=== PATIENT | female | born 1930 | race African-American/Black ===

== ENCOUNTER 2016-06-28 07:47 | Inpatient (IN) | payer MEDICARE, BC ==
[~2016-06-28] VITALS: Ht 165.1 cm; Wt 56.7 kg
[2016-06-28] VITALS (9 sets, daily range): BP systolic 133–169; BP diastolic 50–92
[~2016-06-28 07:47] MED LIST: ACETAMINOPHEN-1 EAC1 ORAL; ACETAMINOPHEN120 MG PO; ALBUTEROL SULF8.5 GM INH; ASPIR 8181 MG ORAL; CAPOTEN PO; CARDIZEM CD180 MG PO; CARDIZEM120 MG PO; CARDIZEM30 MG PO; CARDIZEM90 MG ORAL; CATAPRES0.1 MG ORAL; CIPROFLOXACIN500 M2 ORAL; CLONIDINE 0.2M0.2 MG PO; DIGOXIN0.25 MG/5 GT; DIGOXIN125 MCG ORAL; DIGOXIN250 MCG ORAL; DILTIAZEM ER300 MG ORAL; DIOVAN160 MG PO; FERROUS SULFAT325 MG ORAL; HYDROCHLOROTHIA25 MG ORAL; LIPITOR80 MG ORAL; METOPROLOL SUCC50 MG ORAL; METOPROLOL TAR100 MG PO; MONTELUKAST SOD10 MG ORAL; MORPHINE 22 MG/1 ML IV; NAPROXEN500 M2 ORAL; NEXIUM40 MG ORAL; NITROGLYCERIN0.4 MG SL; NORCO 5-325 TA1 EACH ORAL; NORVASC5 MG ORAL; PANTOPRAZOLE SO40 MG ORAL; PREDNISONE10 M2 PO; PROTONIX40 MG PO; SUCRALFATE1 GM ORAL; TRAMADOL HCL50 MG ORAL; VENTOLIN HFA18 GM INH; XARELTO10 MG ORAL; ZOFRAN4 MG/5 ML IVP
[2016-06-28] MEDS ORDERED: DuoNeb 0.5-3(2.5)mg/3ml neb ONE (07:54)
--- NOTE | 2016-06-28 07:58 | Emergency Room Report ---
History of Present Illness General Chief Complaint: Dyspnea/Respdistress Source: Patient, EMS Present Illness HPI The patient is an 86-year-old female presented after increased shortness of breath. The patient gradual onset of symptoms yesterday. Patient became severely short of breath and was brought in by paramedics. The patient stated shortness of breath was worse with supine position. She had prior history of long-standing asthma. She was given breathing treatments by paramedics with some improvement. Patient started on supplemental oxygen. The patient denied any recent fever or productive cough. Allergies: Coded Allergies: PENICILLIN G (Verified Allergy, Severe, EXTREME SWELLING OF FACE,TONGUE, HANDS,LEGS., 12/31/11) PENICILLINS (Unverified Allergy, Severe, Anaphylaxis, 05/31/12) LEÓN INHIBITORS (Verified Allergy, Unknown, Shortness of Breath, 12/31/11) Uncoded Allergies: PENECILLIN (Allergy, Unknown, 06/28/16) Patient History Past Medical History: asthma Reviewed Nursing Documentation: PMH: Agreed, PSxH: Agreed Nursing Documentation-PMH Past Medical History: No History, Except For Hx Cardiac Problems: Yes - A fib with RVR Hx Hypertension: Yes Hx Pacemaker: No Hx Asthma: Yes Hx COPD: Yes Hx Diabetes: No Hx Cancer: No Hx Gastrointestinal Problems: No Hx Dialysis: No Hx Neurological Problems: No Hx Cerebrovascular Accident: No Hx Transient Ischemic Attacks: No Hx Dementia: No Hx Alzheimer's Disease: No Hx Parkinson's Disease: No Hx Meningitis: No Hx Encephalitis: No Hx Seizures: No Hx Epilepsy: No Hx Multiple Sclerosis: No Hx Cerebral Palsy: No Hx Amyotrophic Lat Sclerosis: No Hx Gu[place] Syndrome: No Hx Paralysis: No Hx Peripheral Neuropathy: No Hx Spinal Cord Injury: No Hx Head Trauma: No Hx Traumatic Brain Injury: No Hx Memory Loss: No Hx Concentration Difficulty: No Hx Speech Problem: No Hx Tremors: No Hx Vertigo: No Hx Dizziness: No Hx Syncope: No Hx Headaches: Yes Hx Aphasia: No Hx Dysphasia: No Hx Numbness: No Hx Weakness: No Hx Fatigue: No Hx Neurologic Surgery: No Hx Brain Shunt: No Review of Systems All Other Systems: negative except mentioned in HPI Physical Exam Sp02 EP Interpretation: reviewed, normal General Appearance: normal inspection, alert, GCS 15, moderate distress Head: atraumatic Eyes: bilateral eye PERRL ENT: normal ENT inspection, hearing grossly normal, normal voice Neck: normal inspection, full range of motion, supple, no bony tend Respiratory: normal inspection, no retraction, respiratory distress, wheezing, expiration Cardiovascular #1: regular rate, rhythm, no edema Gastrointestinal: normal inspection, normal bowel sounds, non tender, soft, no guarding, no hernia Genitourinary: no CVA tenderness Musculoskeletal: normal inspection, back normal, normal range of motion, swelling - arthritic joints to hands Neurologic: normal inspection, alert, oriented x3, responsive, speech normal Psychiatric: normal inspection, judgement/insight normal, mood/affect normal Skin: normal inspection, normal color, no rash Medical Decision Making Diagnostic Impression: Primary Impression: Congestive heart failure (CHF) Additional Impression: Acute exacerbation of COPD with asthma ER Course Patient is an 86-year-old female who presented for shortness of breath.Differential included but was not limited to asthma exacerbation , anemia , pneumonia, pneumothorax, myocardial infarction, pericardial effusion, congestive heart failure, acidosis. Because of complexity of patient's case laboratory testing and imaging studies were ordered. The patient was noted to have exam consistent with asthma exacerbation. The placed on supplemental oxygen. She was given breathing treatments as well as Solu-Medrol.The patient has some improvement in her breathing.EKG interpreted by me showed normal sinus rhythm with a intermittent PVCs there were no acute ST or T wave changes . Patient was discussed with Dr. Jeronimo Rodrigues who agreed to admit the patient. Labs Test 06/28/16 07:45 White Blood Count 10.1 K/UL (4.8-10.8) Red Blood Count 3.91 M/UL (4.20-5.40) Hemoglobin 11.0 G/DL (12.0-16.0) Hematocrit 33.2 % (37.0-47.0) Mean Corpuscular Volume 85 FL (80-99) Mean Corpuscular Hemoglobin 28.1 PG (27.0-31.0) Mean Corpuscular Hemoglobin Concent 33.1 G/DL (32.0-36.0) Red Cell Distribution Width 12.9 % (11.6-14.8) Platelet Count 347 K/UL (150-450) Mean Platelet Volume 6.7 FL (6.5-10.1) Neutrophils (%) (Auto) 40.8 % (45.0-75.0) Lymphocytes (%) (Auto) 31.8 % (20.0-45.0) Monocytes (%) (Auto) 8.7 % (1.0-10.0) Eosinophils (%) (Auto) 17.2 % (0.0-3.0) Basophils (%) (Auto) 1.5 % (0.0-2.0) Sodium Level 140 mEQ/L (135-145) Potassium Level 3.5 mEQ/L (3.4-4.9) Chloride Level 95 mEQ/L (98-107) Carbon Dioxide Level 31 mEQ/L (20-30) Anion Gap 14 (5-15) Blood Urea Nitrogen 24 mg/dL (7-23) Creatinine 1.1 mg/dL (0.5-0.9) Estimat Glomerular Filtration Rate mL/min (>60) Glucose Level 137 mg/dL (74-106) Lactic Acid Level 1.20 mmol/L (0.66-2.22) Calcium Level 9.8 mg/dL (8.6-10.2) Total Bilirubin 0.4 mg/dL (0.0-1.2) Aspartate Amino Transf (AST/SGOT) 20 U/L (5-40) Alanine Aminotransferase (ALT/SGPT) 16 U/L (3-33) Alkaline Phosphatase 310 U/L (35-104) Total Creatine Kinase 55 U/L (26-140) Creatine Kinase MB < 1.5 ng/mL (< 3.8) Creatine Kinase MB Relative Index 2.7 Troponin I < 0.30 ng/mL (<=0.30) Pro-B-Type Natriuretic Peptide 502 pg/mL (0-450) Total Protein 8.4 g/dL (6.6-8.7) Albumin 3.9 g/dL (3.5-5.2) Globulin 4.5 g/dL Albumin/Globulin Ratio 0.8 (1.0-2.7) Chest X-Ray Diagnostic Results EP Interpretation: Yes Findings: no consolidation, no effusion, no pneumothorax, no acute cardiopulmonary disease Number of Views: 1 Status: unchanged Disposition: ADMITTED INPATIENT Condition: Serious Alexandru Ch Jun 28, 2016 07:58
[2016-06-28] MEDS ORDERED: DuoNeb 0.5-3(2.5)mg/3ml neb HHN ONE (08:00)
[2016-06-28] MEDS ORDERED: Solu-MEDROL 125mg Inj IVP ONE (08:00)
[2016-06-28 08:13] LABS: BASOPHILS % (AUTO) 1.5 % (0.0-2.0); EOSINOPHILS % (AUTO) 17.2 % (0.0-3.0); LYMPHOCYTES % (AUTO) 31.8 % (20.0-45.0); MEAN CORPUSCULAR HEMOGLOBIN 28.1 PG (27.0-31.0); MEAN CORPUSCULAR HGB CONC 33.1 G/DL (32.0-36.0); MEAN CORPUSCULAR VOLUME 85 FL (80-99); MEAN PLATELET VOLUME 6.7 FL (6.5-10.1); MONOCYTES % (AUTO) 8.7 % (1.0-10.0); NEUTROPHILS % (AUTO) 40.8 % (45.0-75.0); PLATELET COUNT 347 K/UL (150-450); RED BLOOD COUNT 3.91 M/UL (4.20-5.40); RED CELL DISTRIBUTION WIDTH 12.9 % (11.6-14.8); WHITE BLOOD COUNT 10.1 K/UL (4.8-10.8)
[2016-06-28 08:28] LABS: TROPONIN I < 0.30 ng/mL (<=0.30)
[2016-06-28 08:29] LABS: ALANINE AMINOTRANSFERASE 16 U/L (3-33); ALBUMIN/GLOBULIN RATIO 0.8 (1.0-2.7); ANION GAP 14 (5-15); ASPARTATE AMINO TRANSFERASE 20 U/L (5-40); CALCIUM 9.8 mg/dL (8.6-10.2); CARBON DIOXIDE 31 mEQ/L (20-30); CHLORIDE 95 mEQ/L (98-107); CREATININE 1.1 mg/dL (0.5-0.9); HEMOLYSIS 0; POTASSIUM 3.5 mEQ/L (3.4-4.9); SODIUM 140 mEQ/L (135-145); TOTAL PROTEIN 8.4 g/dL (6.6-8.7)
[2016-06-28 08:40] LABS: CKMB < 1.5 ng/mL (< 3.8)
[2016-06-28] MEDS ORDERED: Promethazine/Codeine 5ml UD ORAL ONE (09:00)
[2016-06-28] MEDS ORDERED: UNOBMED (09:39)
--- NOTE | 2016-06-28 10:55 | Diagnostic Imaging Report ---
Indication: Dyspnea Comparison: 06-02-16 A single view chest radiograph was obtained. Findings: No definite infiltrate or pulmonary vascular congestion identified. The heart is enlarged. The aorta is mildly enlarged consistent with atherosclerotic vascular disease. The bones are osteopenic. Impression: No acute disease
[2016-06-28] MEDS ORDERED: Metoclopramide 10mg/2ml Inj IVP ONE (14:15)
[2016-06-28 15:05] LABS: APPEARANCE,URINE CLEAR; KETONES,URINE NEGATIVE (NEGATIVE); LEUKOCYTE ESTERASE ,URINE 3+ (NEGATIVE); NITRITE,URINE NEGATIVE (NEGATIVE); PH,URINE 5 (4.5-8.0); PROTEIN,URINE 1+ (NEGATIVE); UROBILINOGEN,URINE NORMAL MG/DL (0.0-1.0)
[2016-06-28 15:14] LABS: BACTERIA,URINE FEW /HPF; RBC,URINE 0-2 /HPF (0 - 2); SQUAMOUS EPITHELIAL CELL,UR FEW /LPF (NONE/OCC)
[2016-06-28] MEDS: Heparin 5000 units/ml inj SUBQ SCH (20:42)
[2016-06-28] MEDS: DuoNeb 0.5-3(2.5)mg/3ml neb HHN PRN (20:50)
[2016-06-28] MEDS: HYDROmorphone 1mg/ml Carpuject IVP PRN (23:54)
--- NOTE | 2016-06-29 00:08 | History and Physical Report ---
DATE OF ADMISSION: 06/28/2016 HISTORY OF PRESENT ILLNESS: This is an elderly 86 years old female, who has been at home, came to the emergency room for acute short of breath for the last few days and having cough with sputum production. The patient also looks like . She does not look in any distress. PAST MEDICAL HISTORY: COPD, CHF, hypertension, anemia, chronic back pain, and severe degenerative arthritis. ALLERGIES: No known allergies. FAMILY HISTORY: Noncontributory. SOCIAL HISTORY: The patient lives at home with her niece. Denies any smoking and drinking. REVIEW OF SYSTEMS: The patient is feeling generalized weakness, tired, and fatigued. She has lost weight. Now she states that she is hungry. She wants to eat food. PHYSICAL EXAMINATION: CURRENT VITAL SIGNS: Blood pressure is 150/90, pulse 74, and respirations 18. SKIN: Good skin turgor. HEENT: AT/NC. EOMI. PERRLA. NECK: Supple. No JVD. CHEST: Bilaterally clear. CARDIOVASCULAR: Regular rhythm. No gallop. No murmur. ABDOMEN: Soft. EXTREMITIES: CCE. CHEST: Bilateral scattered crackles and wheezing. NEUROLOGICAL: Generalized weakness. BACK: Back has diffuse tenderness on lumbosacral spine. Muscles spasm and decreased mobility, also having mild tenderness on the both knee, and mild synovitis. ASSESSMENT: 1. Acute chronic obstructive pulmonary disease. 2. Accelerated hypertension. 3. Severe degenerative arthritis. 4. Chronic back pain. 5. Degenerative arthritis. 6. Tachycardia. PLAN: We will admit on FELIZ. Continue Cardizem. Add IV fluid and IV Solu-Medrol. Bronchodilator treatments. Consider pulmonary consult. Follow up the laboratories. Jeroinmo Rodrigues M.D. DR: Michelle JOB#: [id number] CC:
[2016-06-29 01:26] LABS: BASOPHILS % (AUTO) 1.3 % (0.0-2.0); EOSINOPHILS % (AUTO) 0.3 % (0.0-3.0); LYMPHOCYTES % (AUTO) 31.1 % (20.0-45.0); MEAN CORPUSCULAR HEMOGLOBIN 27.6 PG (27.0-31.0); MEAN CORPUSCULAR HGB CONC 32.6 G/DL (32.0-36.0); MEAN CORPUSCULAR VOLUME 85 FL (80-99); MEAN PLATELET VOLUME 6.2 FL (6.5-10.1); MONOCYTES % (AUTO) 10.3 % (1.0-10.0); PLATELET COUNT 280 K/UL (150-450); RED BLOOD COUNT 3.27 M/UL (4.20-5.40); RED CELL DISTRIBUTION WIDTH 13.1 % (11.6-14.8); WHITE BLOOD COUNT 8.4 K/UL (4.8-10.8)
[2016-06-29 01:41] LABS: ANION GAP 15 (5-15); CALCIUM 8.8 mg/dL (8.6-10.2); CARBON DIOXIDE 27 mEQ/L (20-30); CHLORIDE 97 mEQ/L (98-107); CREATININE 1.1 mg/dL (0.5-0.9); HEMOLYSIS 1; POTASSIUM 3.8 mEQ/L (3.4-4.9); SODIUM 139 mEQ/L (135-145)
[2016-06-29] MEDS: DuoNeb 0.5-3(2.5)mg/3ml neb HHN PRN ×5 (03:01→23:08)
[2016-06-29 03:54] VITALS: BP 158/87
[2016-06-29 08:00] VITALS: BP 171/76
[2016-06-29] MEDS: HYDROmorphone 1mg/ml Carpuject IVP PRN ×2 (08:26→23:03)
[2016-06-29] MEDS: Heparin 5000 units/ml inj SUBQ SCH (08:34)
[2016-06-29] MEDS ORDERED: Diltiazem CD 180mg cap ORAL SCH (09:00)
[2016-06-29] MEDS ORDERED: Aspirin EC 81mg tab ORAL SCH (09:00)
[2016-06-29] MEDS ORDERED: Solu-MEDROL 40mg Inj IVP SCH (09:00)
[2016-06-29 12:00] VITALS: BP 155/71
--- NOTE | 2016-06-29 13:03 | Consultation ---
MARIANA FOOTE 06/29/16 1303: History of Present Illness General Date patient seen: Jun 29, 2016 Chief Complaint: Dyspnea/Respdistress Present Illness Allergies: Coded Allergies: PENICILLIN G (Verified Allergy, Severe, EXTREME SWELLING OF FACE,TONGUE, HANDS,LEGS., 12/31/11) LEÓN INHIBITORS (Verified Allergy, Unknown, Shortness of Breath, 12/31/11) Medication History Scheduled Aspirin* (Aspir 81*), 81 MG ORAL DAILY, (Reported) Digoxin* (Digoxin*), Unknown Dose ORAL DAILY, (Reported) Diltiazem Hcl (Cardizem), 180 MG PO DAILY, (Reported) Ferrous Sulfate* (Ferrous Sulfate*), Unknown Dose ORAL DAILY, (Reported) Pantoprazole* (Pantoprazole*), 40 MG ORAL DAILY, (Reported) Scheduled PRN Albuterol Sulfate (Ventolin Hfa), 2 PUFFS INH TID PRN for Shortness of Breath, ( Reported) Discontinued Medications Acetaminophen With Codeine (T#3) (Tylenol #3 Tab*), 1 TAB ORAL Q6HR PRN for For Pain, (Reported) Discontinued Reason: MD discontinued med Amlodipine Besylate (Norvasc), 5 MG ORAL BID, (Reported) Discontinued Reason: Therapy completed Atorvastatin (Lipitor), 40 MG ORAL BEDTIME, (Reported) Discontinued Reason: MD discontinued med Clonidine Hcl* (Catapres*), Unknown Dose ORAL EVERY 6 HOURS, (Reported) Discontinued Reason: Medication dose changed Hydrochlorothiazide* (Hydrochlorothiazide*), 25 MG ORAL DAILY, (Reported) Discontinued Reason: MD discontinued med Metoprolol Succinate* (Metoprolol Succinate*), 50 MG ORAL EVERY 12 HOURS, ( Reported) Discontinued Reason: MD discontinued med Morphine Sulfate* (Morphine Sulfate*), 2 MG IV, (Reported) Discontinued Reason: MD discontinued med Nitroglycerin (Nitroglycerin), 0.4 MG SL Q5M PRN for Prn Chest Pain, (Reported) Discontinued Reason: MD discontinued med Ondansetron Hcl (Zofran), 4 MG IVP EVERY 6 HOURS PRN for Nausea & Vomiting, ( Reported) Discontinued Reason: MD discontinued med Sucralfate* (Carafate*), 1 GM ORAL FOUR TIMES A DAY, (Reported) Discontinued Reason: MD discontinued med Unable to Obtain Medications (Unable To Obtain Meds), (Reported) Discontinued Reason: Pt stopped taking med Patient History History Provided By: Patient, Medical Record Healthcare decision maker Resuscitation status Full Code Advanced Directive on File Past Medical/Surgical History Past Medical/Surgical History: (1) Asthma (2) Atrial fibrillation with RVR (3) Congestive heart failure (CHF) (4) Hypertension Review of Systems All Other Systems: negative except mentioned in HPI Physical Exam General Appearance: WD/WN, no apparent distress HEENT: normocephalic, atraumatic Neck: supple Respiratory/Chest: expiratory wheezing Cardiovascular/Chest: normal rate, regular rhythm Abdomen: non tender, soft Extremities: no edema Neurologic: alert, responsive Last 24 Hour Vital Signs Date Time Temp Pulse Resp B/P Pulse Ox O2 Delivery O2 Flow Rate FiO2 06/29/16 12:13 87 20 99 Room Air 06/29/16 12:11 85 22 98 Room Air 06/29/16 12:00 98.2 86 20 155/71 99 Room Air 06/29/16 12:00 87 06/29/16 11:35 97 Nasal Cannula 2.0 28 06/29/16 11:35 Nasal Cannula 2.0 28 06/29/16 08:56 97.5 06/29/16 08:30 85 190/83 06/29/16 08:11 86 20 99 Nasal Cannula 2.0 06/29/16 08:09 28 06/29/16 08:09 87 24 99 Nasal Cannula 2.0 06/29/16 08:07 87 24 Nasal Cannula 2.0 06/29/16 08:00 97.5 83 20 171/76 100 Nasal Cannula 2.0 06/29/16 08:00 92 06/29/16 03:54 97.8 84 20 158/87 100 Room Air 06/29/16 03:32 80 06/29/16 03:03 90 20 100 Room Air 21 06/29/16 03:02 86 20 99 Room Air 21 06/29/16 00:36 181 06/28/16 23:51 76 06/28/16 23:35 97.9 83 19 169/76 100 Room Air 06/28/16 21:40 96.0 06/28/16 20:53 100 20 100 Room Air 21 06/28/16 20:52 97 20 99 Room Air 21 06/28/16 20:00 88 06/28/16 19:30 97 20 Room Air 21 06/28/16 19:00 96.0 91 18 155/76 Room Air 06/28/16 17:00 97.7 85 18 156/73 99 Room Air 06/28/16 16:14 98.4 80 16 154/92 100 Room Air 94 82 06/28/16 15:30 98.4 82 16 154/92 100 Room Air 06/28/16 15:20 98.3 80 16 135/50 100 Room Air 06/28/16 14:20 85 20 133/51 100 Room Air Intake and Output 06/28/16 06/29/16 19:00 07:00 Intake Total 1055 ml 100 ml Balance 1055 ml 100 ml Intake Oral 55 ml 100 ml IV Total 1000 ml Laboratory Tests Test 06/28/16 14:36 06/29/16 01:10 Urine Color Pale yellow Urine Appearance Clear Urine pH 5 (4.5-8.0) Urine Specific [place] 1.015 (1.005-1.035) Urine Protein 1+ (NEGATIVE) H Urine Glucose (UA) Negative (NEGATIVE) Urine Ketones Negative (NEGATIVE) Urine Occult Blood 1+ (NEGATIVE) H Urine Nitrite Negative (NEGATIVE) Urine Bilirubin Negative (NEGATIVE) Urine Urobilinogen Normal MG/DL (0.0-1.0) Urine Leukocyte Esterase 3+ (NEGATIVE) H Urine RBC 0-2 /HPF (0 - 2) Urine WBC 2-4 /HPF (0 - 2) Urine Squamous Epithelial Cells Few /LPF (NONE/OCC) Urine Bacteria Few /HPF (NONE) White Blood Count 8.4 K/UL (4.8-10.8) Red Blood Count 3.27 M/UL (4.20-5.40) L Hemoglobin 9.0 G/DL (12.0-16.0) L Hematocrit 27.6 % (37.0-47.0) L Mean Corpuscular Volume 85 FL (80-99) Mean Corpuscular Hemoglobin 27.6 PG (27.0-31.0) Mean Corpuscular Hemoglobin Concent 32.6 G/DL (32.0-36.0) Red Cell Distribution Width 13.1 % (11.6-14.8) Platelet Count 280 K/UL (150-450) Mean Platelet Volume 6.2 FL (6.5-10.1) L Neutrophils (%) (Auto) 57.0 % (45.0-75.0) Lymphocytes (%) (Auto) 31.1 % (20.0-45.0) Monocytes (%) (Auto) 10.3 % (1.0-10.0) H Eosinophils (%) (Auto) 0.3 % (0.0-3.0) Basophils (%) (Auto) 1.3 % (0.0-2.0) Sodium Level 139 mEQ/L (135-145) Potassium Level 3.8 mEQ/L (3.4-4.9) Chloride Level 97 mEQ/L (98-107) L Carbon Dioxide Level 27 mEQ/L (20-30) Anion Gap 15 (5-15) Blood Urea Nitrogen 29 mg/dL (7-23) H Creatinine 1.1 mg/dL (0.5-0.9) H Estimat Glomerular Filtration Rate mL/min (>60) Glucose Level 114 mg/dL (74-106) H Calcium Level 8.8 mg/dL (8.6-10.2) Magnesium Level 2.1 mg/dL (1.7-2.5) Height (Feet): 5 Height (Inches): 5.00 Weight (Pounds): 125 Medications Current Medications Medications (Trade) Dose Ordered Sig/Theodore Route PRN Reason Start Time Stop Time Status Last Admin Dose Admin Acetaminophen (Tylenol) 650 mg Q4H PRN ORAL Mild Pain (Pain Scale 1-3) 06/28/16 20:30 07/28/16 20:29 06/29/16 03:29 Albuterol/ Ipratropium (DuoNeb 0.5-3(2.5)mg/3ml) 3 ml Q4H PRN HHN Shortness of Breath 06/28/16 20:30 07/03/16 20:29 06/29/16 12:11 Aspirin (Ecotrin) 81 mg DAILY ORAL 06/29/16 09:00 07/29/16 08:59 06/29/16 08:26 Dextrose (Dextrose 50%) STAT PRN IV Hypoglycemia 06/28/16 20:30 07/28/16 20:29 Diltiazem HCl (Cardizem CD) 180 mg DAILY ORAL 06/29/16 09:00 07/29/16 08:59 06/29/16 08:30 Ferrous Sulfate (Feosol) 325 mg DAILY ORAL 06/29/16 09:00 07/29/16 08:59 06/29/16 08:26 Heparin Sodium (Porcine) (Heparin 5000 units/ml) 5,000 units EVERY 12 HOURS SUBQ 06/28/16 21:00 07/28/16 20:59 06/29/16 08:34 Hydromorphone HCl (Dilaudid) 1 mg Q4H PRN IVP For Pain 06/28/16 23:30 07/05/16 23:29 06/29/16 08:26 Methylprednisolone Sodium Succinate (Solu-MEDROL) 40 mg EVERY 12 HOURS IVP 06/29/16 09:00 07/29/16 08:59 06/29/16 08:25 Ondansetron HCl (Zofran) 4 mg Q6H PRN IVP Nausea & Vomiting 06/28/16 20:30 07/28/16 20:29 Pantoprazole (Protonix) 40 mg DAILY ORAL 06/29/16 09:00 07/29/16 08:59 06/29/16 08:25 Assessment/Plan Problem List: (1) Acute exacerbation of COPD with asthma ICD Codes: J44.9 - Chronic obstructive pulmonary disease, unspecified SNOMED: 784419355 (2) Atrial fibrillation with RVR ICD Codes: I48.91 - Unspecified atrial fibrillation SNOMED: 079433382333093 (3) Hypertension ICD Codes: I10 - Essential (primary) hypertension SNOMED: 29763571 (4) TOI (acute kidney injury) ICD Codes: N17.9 - Acute kidney failure, unspecified SNOMED: 30276678 (5) Anemia ICD Codes: D64.9 - Anemia, unspecified SNOMED: 756091386 Assessment/Plan cardiology/EP consult with Dr. Levine called. IV steroids. NEb tx. Dr. Madrigal called for pulm consult. DVT ppx. patient also ambulating. ALEXANDER TRIPATHI 06/30/16 0955: History of Present Illness General Chief Complaint: Dyspnea/Respdistress Present Illness HPI Ms Michael Orellana is an 86-year-old AA female with history fo asthma and atrial fibrillation with RVR who presented to the ED c/o increased shortness of breath. Onset of symptoms was yesterday. Patient reports shortness of breath is worse in supine position. The patient denied any recent fever or productive cough. She was given breathing treatments by paramedics with some improvement. Patient started on supplemental oxygen. Patient was given dose of IV steroids and admitted for further management. Allergies: Coded Allergies: PENICILLIN G (Verified Allergy, Severe, EXTREME SWELLING OF FACE,TONGUE, HANDS,LEGS., 12/31/11) LEÓN INHIBITORS (Verified Allergy, Unknown, Shortness of Breath, 12/31/11) Medication History Scheduled Aspirin* (Aspir 81*), 81 MG ORAL DAILY, (Reported) Digoxin* (Digoxin*), Unknown Dose ORAL DAILY, (Reported) Diltiazem Hcl (Cardizem), 180 MG PO DAILY, (Reported) Ferrous Sulfate* (Ferrous Sulfate*), Unknown Dose ORAL DAILY, (Reported) Pantoprazole* (Pantoprazole*), 40 MG ORAL DAILY, (Reported) Scheduled PRN Albuterol Sulfate (Ventolin Hfa), 2 PUFFS INH TID PRN for Shortness of Breath, ( Reported) Discontinued Medications Acetaminophen With Codeine (T#3) (Tylenol #3 Tab*), 1 TAB ORAL Q6HR PRN for For Pain, (Reported) Discontinued Reason: MD discontinued med Amlodipine Besylate (Norvasc), 5 MG ORAL BID, (Reported) Discontinued Reason: Therapy completed Atorvastatin (Lipitor), 40 MG ORAL BEDTIME, (Reported) Discontinued Reason: MD discontinued med Clonidine Hcl* (Catapres*), Unknown Dose ORAL EVERY 6 HOURS, (Reported) Discontinued Reason: Medication dose changed Hydrochlorothiazide* (Hydrochlorothiazide*), 25 MG ORAL DAILY, (Reported) Discontinued Reason: MD discontinued med Metoprolol Succinate* (Metoprolol Succinate*), 50 MG ORAL EVERY 12 HOURS, ( Reported) Discontinued Reason: MD discontinued med Morphine Sulfate* (Morphine Sulfate*), 2 MG IV, (Reported) Discontinued Reason: MD discontinued med Nitroglycerin (Nitroglycerin), 0.4 MG SL Q5M PRN for Prn Chest Pain, (Reported) Discontinued Reason: MD discontinued med Ondansetron Hcl (Zofran), 4 MG IVP EVERY 6 HOURS PRN for Nausea & Vomiting, ( Reported) Discontinued Reason: MD discontinued med Sucralfate* (Carafate*), 1 GM ORAL FOUR TIMES A DAY, (Reported) Discontinued Reason: MD discontinued med Unable to Obtain Medications (Unable To Obtain Meds), (Reported) Discontinued Reason: Pt stopped taking med Patient History History Provided By: Patient, Medical Record Past Medical/Surgical History Past Medical/Surgical History: (1) Asthma (2) Atrial fibrillation with RVR (3) Hypertension (4) Congestive heart failure (CHF) Review of Systems All Other Systems: negative except mentioned in HPI Physical Exam General Appearance: WD/WN, no apparent distress HEENT: normocephalic, atraumatic Neck: supple Respiratory/Chest: expiratory wheezing Cardiovascular/Chest: normal rate, regular rhythm Abdomen: non tender, soft Extremities: no edema Neurologic: alert, oriented x 3 Assessment/Plan Problem List: (1) Atrial fibrillation with RVR ICD Codes: I48.91 - Unspecified atrial fibrillation SNOMED: 023870605188906 (2) TOI (acute kidney injury) ICD Codes: N17.9 - Acute kidney failure, unspecified SNOMED: 92349994 (3) Asthma ICD Codes: J45.909 - Unspecified asthma, uncomplicated SNOMED: 205918124 (4) Anemia ICD Codes: D64.9 - Anemia, unspecified SNOMED: 431128126 (5) acute asthma exacerbation (6) Hypertension ICD Codes: I10 - Essential (primary) hypertension SNOMED: 87013075 Assessment/Plan Pulm consult with Dr. Madrigal called. Cardio/EP consult with Dr. Levine. Solumedrol and NEB tx. MOnitor closely. DVT ppx. Resume home meds. D/w Cardio - patient had >20 beats of NSVT. start dig. resume eliquis. hold lopressor given asthma. d/w Dr. Foote. MARIANA FOOTE Jun 29, 2016 13:03 ALEXANDER TRIPATHI Jun 30, 2016 09:55
--- NOTE | 2016-06-29 13:17 | Cardiac Electrophysiology PN ---
Subjective Subjective [id number]. Last seen by me at [facility] 06/07/16. Resume Dig, Metoprolol and Eliquis NQMI. Cath no CAD at [facility] 06/07/18 NL ef NSVT on Lopressor DW Sun ARCHIBALDe Objective Last 24 Hour Vital Signs Date Time Temp Pulse Resp B/P Pulse Ox O2 Delivery O2 Flow Rate FiO2 06/29/16 12:13 87 20 99 Room Air 06/29/16 12:11 85 22 98 Room Air 06/29/16 12:00 98.2 86 20 155/71 99 Room Air 06/29/16 12:00 87 06/29/16 11:35 97 Nasal Cannula 2.0 28 06/29/16 11:35 Nasal Cannula 2.0 28 06/29/16 08:56 97.5 06/29/16 08:30 85 190/83 06/29/16 08:11 86 20 99 Nasal Cannula 2.0 06/29/16 08:09 28 06/29/16 08:09 87 24 99 Nasal Cannula 2.0 06/29/16 08:07 87 24 Nasal Cannula 2.0 06/29/16 08:00 97.5 83 20 171/76 100 Nasal Cannula 2.0 06/29/16 08:00 92 06/29/16 03:54 97.8 84 20 158/87 100 Room Air 06/29/16 03:32 80 06/29/16 03:03 90 20 100 Room Air 21 06/29/16 03:02 86 20 99 Room Air 21 06/29/16 00:36 181 06/28/16 23:51 76 06/28/16 23:35 97.9 83 19 169/76 100 Room Air 06/28/16 21:40 96.0 06/28/16 20:53 100 20 100 Room Air 21 06/28/16 20:52 97 20 99 Room Air 21 06/28/16 20:00 88 06/28/16 19:30 97 20 Room Air 21 06/28/16 19:00 96.0 91 18 155/76 Room Air 06/28/16 17:00 97.7 85 18 156/73 99 Room Air 06/28/16 16:14 98.4 80 16 154/92 100 Room Air 94 82 06/28/16 15:30 98.4 82 16 154/92 100 Room Air 06/28/16 15:20 98.3 80 16 135/50 100 Room Air 06/28/16 14:20 85 20 133/51 100 Room Air Intake and Output 06/28/16 06/29/16 19:00 07:00 Intake Total 1055 ml 100 ml Balance 1055 ml 100 ml Intake Oral 55 ml 100 ml IV Total 1000 ml Laboratory Tests Test 06/28/16 14:36 06/29/16 01:10 Urine Color Pale yellow Urine Appearance Clear Urine pH 5 (4.5-8.0) Urine Specific [place] 1.015 (1.005-1.035) Urine Protein 1+ (NEGATIVE) H Urine Glucose (UA) Negative (NEGATIVE) Urine Ketones Negative (NEGATIVE) Urine Occult Blood 1+ (NEGATIVE) H Urine Nitrite Negative (NEGATIVE) Urine Bilirubin Negative (NEGATIVE) Urine Urobilinogen Normal MG/DL (0.0-1.0) Urine Leukocyte Esterase 3+ (NEGATIVE) H Urine RBC 0-2 /HPF (0 - 2) Urine WBC 2-4 /HPF (0 - 2) Urine Squamous Epithelial Cells Few /LPF (NONE/OCC) Urine Bacteria Few /HPF (NONE) White Blood Count 8.4 K/UL (4.8-10.8) Red Blood Count 3.27 M/UL (4.20-5.40) L Hemoglobin 9.0 G/DL (12.0-16.0) L Hematocrit 27.6 % (37.0-47.0) L Mean Corpuscular Volume 85 FL (80-99) Mean Corpuscular Hemoglobin 27.6 PG (27.0-31.0) Mean Corpuscular Hemoglobin Concent 32.6 G/DL (32.0-36.0) Red Cell Distribution Width 13.1 % (11.6-14.8) Platelet Count 280 K/UL (150-450) Mean Platelet Volume 6.2 FL (6.5-10.1) L Neutrophils (%) (Auto) 57.0 % (45.0-75.0) Lymphocytes (%) (Auto) 31.1 % (20.0-45.0) Monocytes (%) (Auto) 10.3 % (1.0-10.0) H Eosinophils (%) (Auto) 0.3 % (0.0-3.0) Basophils (%) (Auto) 1.3 % (0.0-2.0) Sodium Level 139 mEQ/L (135-145) Potassium Level 3.8 mEQ/L (3.4-4.9) Chloride Level 97 mEQ/L (98-107) L Carbon Dioxide Level 27 mEQ/L (20-30) Anion Gap 15 (5-15) Blood Urea Nitrogen 29 mg/dL (7-23) H Creatinine 1.1 mg/dL (0.5-0.9) H Estimat Glomerular Filtration Rate mL/min (>60) Glucose Level 114 mg/dL (74-106) H Calcium Level 8.8 mg/dL (8.6-10.2) Magnesium Level 2.1 mg/dL (1.7-2.5) Microbiology Date/Time Source Procedure Growth Status 06/28/16 08:01 Nasal Nares Influenza Types A,B Antigen (SIMONE) - Final Complete ROSALBA BRADLEY Jun 29, 2016 13:17
[2016-06-29 16:00] VITALS: BP 154/72
[2016-06-29] MEDS ORDERED: Eliquis 2.5mg tablet ORAL SCH (18:00)
[2016-06-29 20:00] VITALS: BP 141/71
[2016-06-30] VITALS: BP 159/79
--- NOTE | 2016-06-30 00:08 | Consultation ---
DATE OF CONSULTATION: CARDIOLOGY CONSULTATION: CONSULTING PHYSICIAN: Antwon Levine M.D. REFERRING PHYSICIAN: Jarad Barrios M.D. REASON FOR CONSULTATION: Management of atrial fibrillation as well as 14 beats of ventricular tachycardia. HISTORY OF PRESENT ILLNESS: The patient is a very pleasant 86-year-old, doing part-time referral from her multiple previous admissions including in 06/04/2016. The patient has history of hypertension, paroxysmal atrial fibrillation, and was just recently discharged from the hospital. The patient has been on liquids for atrial fibrillation and after admission to the hospital, she had long runs of wide complex tachycardia about 22 beats. It is of note that the patient's last echocardiogram was on 06/03/2016 that showed ejection fraction of 70 to 75%. On my evaluation, the patient denies any chest pain or shortness of breath, as I will be back to normal rhythm. REVIEW OF SYSTEMS: Negative other what was mentioned in the history of present illness. PAST MEDICAL HISTORY: 1. Hypertension. 2. Paroxysmal atrial fibrillation. 3. History of COPD and asthma. SOCIAL HISTORY: She lives at home. Does not smoke or drink alcohol. FAMILY HISTORY: Noncontributory. PHYSICAL EXAMINATION: VITAL SIGNS: Blood pressure is 157/71, pulse 87, respirations 18, and she is afebrile. HEAD AND NECK: Shows no JVD. LUNGS: Decreased breath sounds. CARDIOVASCULAR: Shows regular S1 and S2 with no gallop or murmur. ABDOMEN: Soft. EXTREMITIES: No pitting edema. LABORATORY AND DIAGNOSTIC DATA: Her telemetry strip from today showed while the patient was in sinus. She had a run of wide complex tachycardia around 20 beats, which shows mildly irregular as well. Her 12-lead EKG showed sinus rhythm with PACs and left ventricular hypertrophy. LABORATORY DATA: White count of 8.4, hemoglobin of 9, hematocrit 27.6, and platelet of 280,000. Sodium is 139, potassium 3.8, BUN 29, and creatinine 1.1. INR is 1. ASSESSMENT AND PLAN: 1. Long run of wide complex tachycardia. I am not sure this is ventricular tachycardia or atrial fibrillation with aberrancy. The patient was in sinus rhythm however before and after the event. The patient denies any syncope. Echocardiogram has shown ejection fraction of 70% to 75% just two weeks ago. We will completely rule out myocardial infarction protocol. 2. Paroxysmal atrial fibrillation. Continue Cardizem CD 180 mg daily with ventricular response. No previous admission. The patient at this time is on metoprolol 50 mg twice a day and digoxin. The patient was also on about 5 mg twice a day, but on previous admission was discontinued in preparation for cardiac catheterization was supposed to have it done at [facility]. 3. History of non-Q-wave myocardial infarction and metoprolol for hypertension on Lopressor 50 mg twice a day as well as Norvasc. 4. Normal ventricular systolic function. Thank very much, Dr. Barrios, for allowing me to participate in the care of this patient. Please do not hesitate to contact me for any questions regarding my evaluation. Antwon Levine M.D. DR: ERICK JOB#: [id number] CC:
--- NOTE | 2016-06-30 02:38 | Progress Note ---
SUBJECTIVE: This is an elderly 86-year-old female, who is currently very comfortable. Short of breath is improving. The patient denies any fever or chills. OBJECTIVE: CHEST: Bilaterally few wheezing, better than yesterday. CARDIOVASCULAR: Regular rhythm. ABDOMEN: Positive bowel sounds. Soft. EXTREMITIES: CCE. ASSESSMENT AND PLAN: 1. Acute chronic obstructive pulmonary disease. 2. Hypertension. 3. Congestive heart failure. 4. Cardiomyopathy. 5. Degenerative arthritis. PLAN: We will continue . Continue bronchodilator treatment. IV . IV antibiotics. Discussed with . Jeronimo Rodrigues M.D. DR: CORBY JOB#: [id number] CC:
[2016-06-30] MEDS: DuoNeb 0.5-3(2.5)mg/3ml neb HHN PRN ×2 (04:18→08:35)
[2016-06-30] MEDS: HYDROmorphone 1mg/ml Carpuject IVP PRN ×4 (04:23→22:02)
[2016-06-30 08:00] VITALS: BP 146/68
[2016-06-30] MEDS ORDERED: Eliquis 2.5mg tablet ORAL SCH (09:00)
[2016-06-30] MEDS ORDERED: Solu-MEDROL 40mg Inj IVP SCH (09:00)
[2016-06-30] MEDS ORDERED: Digoxin 0.125mg tab ORAL SCH (09:00)
[2016-06-30] MEDS: Aspirin EC 81mg tab ORAL SCH (09:14)
[2016-06-30] MEDS: Diltiazem CD 180mg cap ORAL SCH (09:14)
[2016-06-30] MEDS: Digoxin 0.125mg tab ORAL SCH (09:15)
[2016-06-30] MEDS: Solu-MEDROL 40mg Inj IVP SCH ×3 (11:00→23:37)
[2016-06-30 12:00] VITALS: BP 145/66
[2016-06-30] MEDS ORDERED: Ipratropium 0.02% Inh Soln 2.5ml UD HHN SCH (13:00)
--- NOTE | 2016-06-30 13:03 | Nephrology Progress Note ---
Assessment/Plan Problem List: (1) Anemia (2) Hypertension (3) acute asthma exacerbation (4) TOI (acute kidney injury) Plan Obtain a renal ultrasound Monitor BUN/cr Monitor lytes Monitor H&H Monitor renal function Monitor BP Cardiology f/u Continue neb AM labs Subjective Constitutional: Denies: chills, diaphoresis, fever, malaise, no symptoms, other , weakness HEENT: Denies: blurred vision, double vision, ear discharge, ear pain, eye pain , mouth pain, mouth swelling, no symptoms, nose congestion, nose pain, other, tearing, throat pain, throat swelling Genitourinary: Denies: burning, discharge, flank pain, frequency, hematuria, incontinence, no symptoms, other, pain, urgency Neurologic/Psychiatric: Denies: anxiety, depressed, emotional problems, headache, no symptoms, numbness, other, paresthesia, pre-existing deficit, seizure, tingling, tremors, weakness Subjective In bed, having lunch, denies any discomfort, denies SOB Objective Objective Last 24 Hour Vital Signs Date Time Temp Pulse Resp B/P Pulse Ox O2 Delivery O2 Flow Rate FiO2 06/30/16 09:15 84 06/30/16 09:14 84 142/68 06/30/16 08:00 97.9 84 17 146/68 100 Nasal Cannula 2.0 06/30/16 04:28 92 20 99 Nasal Cannula 2.0 28 06/30/16 04:15 90 24 97 Nasal Cannula 2.0 28 06/30/16 04:00 75 06/30/16 00:00 88 06/30/16 00:00 98.2 88 16 159/79 100 Nasal Cannula 2.0 06/29/16 23:33 98.8 06/29/16 23:08 88 20 99 Nasal Cannula 2.0 28 06/29/16 23:00 91 24 98 Nasal Cannula 2.0 28 06/29/16 21:34 92 16 Room Air 21 06/29/16 21:33 Room Air 06/29/16 21:33 96 Room Air 21 06/29/16 20:00 98.8 92 14 141/71 100 Room Air 06/29/16 20:00 99 06/29/16 16:38 96 06/29/16 16:00 97.3 96 14 154/72 98 Room Air 06/29/16 14:45 89 20 99 Room Air 06/29/16 14:35 86 20 98 Nasal Cannula 2.0 28 06/29/16 14:35 28 Intake and Output 06/29/16 06/30/16 19:00 07:00 Intake Total 100 ml 640 ml Balance 100 ml 640 ml Intake Oral 100 ml 640 ml # Voids 3 Height (Feet): 5 Height (Inches): 5.00 Weight (Pounds): 125 General Appearance: no apparent distress, alert EENT: normal ENT inspection Neck: non-tender, normal alignment, supple Cardiovascular: normal rate Respiratory/Chest: normal breath sounds, no respiratory distress Abdomen: non tender, soft, no organomegaly, no mass Extremities: normal range of motion, non-tender, normal inspection Neurologic: alert, oriented x 3, responsive, normal mood/affect Tanisha Millan N.P. Jun 30, 2016 13:03
[2016-06-30] MEDS: DuoNeb 0.5-3(2.5)mg/3ml neb HHN SCH ×2 (13:46→19:50)
[2016-06-30] MEDS ORDERED: Guaifenesin/DM 10ml syrup ORAL PRN (15:30)
[2016-06-30 16:00] VITALS: BP 142/73
[2016-06-30] MEDS: Eliquis 2.5mg tablet ORAL SCH (17:44)
[2016-06-30 20:00] VITALS: BP 150/82
--- NOTE | 2016-06-30 20:38 | History and Physical Report ---
DATE OF ADMISSION: 06/28/2016 PULMONARY CONSULTATION HISTORY OF PRESENT ILLNESS: This is an 86-year-old female with a history of hypertension and paroxysmal atrial fibrillation as well as asthma status post chronic obstructive pulmonary disease, who came to the emergency room last night with complaints of shortness of breath. The patient was seen and worked up and admitted to the hospital with exacerbation of chronic obstructive pulmonary disease. The patient has a prior history as discussed above of hypertension, asthma, chronic obstructive pulmonary disease, and atrial fibrillation. MEDICATIONS: Include clonidine, Lipitor, digoxin, Cardizem, ferrous sulfate, hydrochlorothiazide, metoprolol, nitroglycerin, Protonix, and Carafate. ALLERGIES: To penicillin and LEÓN inhibitors. SOCIAL HISTORY: She denies any present tobacco use. She was a smoker in the past. Denies alcohol or substance abuse. REVIEW OF SYSTEMS: Denies any headaches, hematemesis, melena, or hematochezia. PHYSICAL EXAMINATION: GENERAL: Reveals an elderly female. VITAL SIGNS: Blood pressure at this time is 150/70, heart rate is 88, respirations are 20, and O2 saturation 100% on nasal oxygen. HEENT: Unremarkable. CHEST: Shows marked rhonchi and wheezing. ABDOMEN: Soft. EXTREMITIES: There is an appreciable edema. LABORATORY AND DIAGNOSTIC DATA: Lab testing shows normal CBC and BMP. Hemoglobin is 9. Urinalysis negative. X-ray of chest is noncontributory. IMPRESSION: 1. Exacerbation of chronic obstructive pulmonary disease. 2. Atrial fibrillation. DISCUSSION: Admit to the hospital. Continue home medications. The patient is presently on Eliquis, Tylenol, aspirin, digoxin, Cardizem CD, ferrous sulfate, Dilaudid, albuterol, Atrovent, and Solu-Medrol 40 every 12 hours. I will increase the frequency of breathing treatments to [id number] every 4 hours and increase Solu-Medrol to 40 q.6 h. We will add antibiotics with Levaquin. Follow closely. David Madrigal M.D. DR: JACKELINE JOB#: [id number] CC:
[2016-07-01] VITALS (8 sets, daily range): BP systolic 134–187; BP diastolic 72–86
[2016-07-01] MEDS: DuoNeb 0.5-3(2.5)mg/3ml neb HHN SCH ×4 (01:00→19:31)
[2016-07-01] MEDS: HYDROmorphone 1mg/ml Carpuject IVP PRN ×4 (02:11→20:16)
[2016-07-01] MEDS: Solu-MEDROL 40mg Inj IVP SCH ×4 (06:12→23:38)
[2016-07-01] MEDS: Eliquis 2.5mg tablet ORAL SCH ×2 (08:44→17:02)
[2016-07-01] MEDS: Aspirin EC 81mg tab ORAL SCH (08:45)
[2016-07-01] MEDS: Digoxin 0.125mg tab ORAL SCH (08:45)
[2016-07-01] MEDS: Diltiazem CD 180mg cap ORAL SCH (08:45)
[2016-07-01 09:26] LABS: BASOPHILS % (AUTO) 0.2 % (0.0-2.0); LYMPHOCYTES % (AUTO) 15.1 % (20.0-45.0); MEAN CORPUSCULAR HEMOGLOBIN 27.3 PG (27.0-31.0); MEAN CORPUSCULAR VOLUME 88 FL (80-99); MEAN PLATELET VOLUME 6.1 FL (6.5-10.1); MONOCYTES % (AUTO) 3.2 % (1.0-10.0); NEUTROPHILS % (AUTO) 81.6 % (45.0-75.0); PLATELET COUNT 256 K/UL (150-450); RED BLOOD COUNT 3.15 M/UL (4.20-5.40); RED CELL DISTRIBUTION WIDTH 13.5 % (11.6-14.8); WHITE BLOOD COUNT 8.1 K/UL (4.8-10.8)
[2016-07-01 09:39] LABS: ANION GAP 12 (5-15); CALCIUM 8.6 mg/dL (8.6-10.2); CARBON DIOXIDE 24 mEQ/L (20-30); CHLORIDE 101 mEQ/L (98-107); HEMOLYSIS 6; PHOSPHORUS 2.6 mg/dL (2.5-4.8); POTASSIUM 4.5 mEQ/L (3.4-4.9); SODIUM 137 mEQ/L (135-145)
--- NOTE | 2016-07-01 10:09 | Pulmonology Progress Note ---
Assessment/Plan Assessment/Plan IMPRESSION: 1. Exacerbation of chronic obstructive pulmonary disease. 2. Atrial fibrillation. DISCUSSION: Continue Eliquis, Tylenol, aspirin, digoxin, Cardizem CD, ferrous sulfate, Dilaudid, albuterol, Atrovent. Increased Solu-Medrol to 40mg every 6 hours. I will increase the frequency of breathing treatments to [id number] every 4 hours. Added Levaquin. Follow closely. Subjective Interval Events: Feeling better. Constitutional: Reports: no symptoms HEENT: Repors: no symptoms Respiratory: Reports: no symptoms Cardiovascular: Reports: no symptoms Gastrointestinal/Abdominal: Reports: no symptoms Genitourinary: Reports: no symptoms Neurologic: Reports: no symptoms Allergies: Coded Allergies: PENICILLIN G (Verified Allergy, Severe, EXTREME SWELLING OF FACE,TONGUE, HANDS,LEGS., 12/31/11) LEÓN INHIBITORS (Verified Allergy, Unknown, Shortness of Breath, 12/31/11) Objective Last 24 Hour Vital Signs Date Time Temp Pulse Resp B/P Pulse Ox O2 Delivery O2 Flow Rate FiO2 07/01/16 08:45 82 171/86 07/01/16 08:45 86 07/01/16 08:06 97.2 82 20 171/86 99 Nasal Cannula 2.0 07/01/16 07:08 89 18 99 Room Air 21 07/01/16 06:58 21 07/01/16 06:58 88 18 97 Room Air 21 07/01/16 06:57 88 18 Room Air 21 07/01/16 06:57 Room Air 21 07/01/16 06:57 97 Room Air 21 07/01/16 04:00 80 07/01/16 01:30 80 20 100 Nasal Cannula 2.0 28 07/01/16 01:30 80 20 100 Nasal Cannula 2.0 28 07/01/16 01:30 28 07/01/16 00:58 134/80 07/01/16 00:41 97.7 84 17 183/85 97 Nasal Cannula 2.0 07/01/16 00:00 89 06/30/16 20:27 88 21 100 Nasal Cannula 2.0 28 06/30/16 20:00 81 06/30/16 20:00 97.9 81 18 150/82 99 Room Air 06/30/16 19:20 81 19 100 Nasal Cannula 2.0 28 06/30/16 19:20 28 06/30/16 19:20 Nasal Cannula 2.0 28 06/30/16 19:20 100 Nasal Cannula 2.0 28 06/30/16 19:20 81 19 Nasal Cannula 2.0 28 06/30/16 16:00 98 06/30/16 16:00 97.8 78 17 142/73 98 Room Air 06/30/16 12:00 97.9 85 18 145/66 95 Nasal Cannula 2.0 06/30/16 12:00 81 Intake and Output 06/30/16 07/01/16 19:00 07:00 Intake Total 890 ml Balance 890 ml Intake Oral 890 ml # Voids 2 3 General Appearance: no acute distress HEENT: normocephalic Respiratory/Chest: chest wall non-tender, lungs clear Cardiovascular: normal peripheral pulses, normal rate Abdomen: normal bowel sounds, soft, non tender Laboratory Tests 07/01/16 09:15: White Blood Count 8.1, Red Blood Count 3.15L, Hemoglobin 8.6L, Hematocrit 27.7L , Mean Corpuscular Volume 88, Mean Corpuscular Hemoglobin 27.3, Mean Corpuscular Hemoglobin Concent 31.0L, Red Cell Distribution Width 13.5, Platelet Count 256, Mean Platelet Volume 6.1L, Neutrophils (%) (Auto) 81.6H, Lymphocytes (%) (Auto) 15.1L, Monocytes (%) (Auto) 3.2, Eosinophils (%) (Auto) 0.0, Basophils (%) (Auto) 0.2, Sodium Level 137, Potassium Level 4.5, Chloride Level 101, Carbon Dioxide Level 24, Anion Gap 12, Blood Urea Nitrogen 23, Creatinine 1.0H, Estimat Glomerular Filtration Rate , Glucose Level 243H, Calcium Level 8.6, Phosphorus Level 2.6 Current Medications Medications (Trade) Dose Ordered Sig/Theodore Route PRN Reason Start Time Stop Time Status Last Admin Dose Admin Acetaminophen (Tylenol) 650 mg Q4H PRN ORAL Mild Pain (Pain Scale 1-3) 06/30/16 00:30 07/30/16 00:29 Albuterol/ Ipratropium (DuoNeb 0.5-3(2.5)mg/3ml) 3 ml Q4H PRN HHN Shortness of Breath 06/30/16 00:30 07/05/16 00:29 1/9/17 08:35 Albuterol/ Ipratropium 3 ml 3 ml Q6HRT HHN 06/30/16 13:00 07/05/16 12:59 07/01/16 06:58 Apixaban (Eliquis) 2.5 mg BID ORAL 06/30/16 18:00 07/30/16 17:59 07/01/16 08:44 Aspirin (Ecotrin) 81 mg DAILY ORAL 06/30/16 09:00 07/30/16 08:59 07/01/16 08:45 Dextrose (Dextrose 50%) STAT PRN IV Hypoglycemia 06/30/16 20:30 07/30/16 20:29 Digoxin (Lanoxin) 0.125 mg DAILY ORAL 06/30/16 09:00 07/30/16 08:59 07/01/16 08:45 Diltiazem HCl (Cardizem CD) 180 mg DAILY ORAL 06/30/16 09:00 07/30/16 08:59 07/01/16 08:45 Ferrous Sulfate (Feosol) 325 mg DAILY ORAL 06/30/16 09:00 07/30/16 08:59 07/01/16 08:44 Guaifenesin/ Dextromethorphan (Robitussin DM Syrup) 10 ml Q4H PRN ORAL For Cough 06/30/16 15:30 07/30/16 15:29 Hydromorphone HCl (Dilaudid) 1 mg Q4H PRN IVP For Pain 06/29/16 23:30 07/06/16 23:29 07/01/16 06:45 Levofloxacin (Levaquin) 50 ml @ 50 mls/hr Q24H IVPB 07/01/16 11:00 07/08/16 10:59 Methylprednisolone Sodium Succinate (Solu-MEDROL) 40 mg EVERY 6 HOURS IVP 06/30/16 12:00 07/30/16 11:59 07/01/16 06:12 Ondansetron HCl (Zofran) 4 mg Q6H PRN IVP Nausea & Vomiting 06/30/16 02:30 07/30/16 02:29 Pantoprazole (Protonix) 40 mg ACBREAKFAST ORAL 06/30/16 06:30 07/30/16 06:29 07/01/16 06:12 David Madrigal MD Jul 01, 2016 10:09
[2016-07-01] MEDS: Levofloxacin 250mg/D5W 50ml IVPB SCH (11:01)
--- NOTE | 2016-07-01 11:42 | Nephrology Progress Note ---
Assessment/Plan Problem List: (1) Acute exacerbation of COPD with asthma (2) Atrial fibrillation with RVR (3) Hypertension (4) TOI (acute kidney injury) Assessment: resolved. (5) Anemia Plan f.u cardio and pulm rec. cont steroids, NEB tx, and empiric abx. PTOT. Subjective Subjective no sob. Objective Objective Last 24 Hour Vital Signs Date Time Temp Pulse Resp B/P Pulse Ox O2 Delivery O2 Flow Rate FiO2 07/01/16 08:45 82 171/86 07/01/16 08:45 86 07/01/16 08:06 97.2 82 20 171/86 99 Nasal Cannula 2.0 07/01/16 08:00 80 07/01/16 07:08 89 18 99 Room Air 21 07/01/16 06:58 21 07/01/16 06:58 88 18 97 Room Air 21 07/01/16 06:57 88 18 Room Air 21 07/01/16 06:57 Room Air 21 07/01/16 06:57 97 Room Air 21 07/01/16 04:00 80 07/01/16 01:30 80 20 100 Nasal Cannula 2.0 28 07/01/16 01:30 80 20 100 Nasal Cannula 2.0 28 07/01/16 01:30 28 07/01/16 00:58 134/80 07/01/16 00:41 97.7 84 17 183/85 97 Nasal Cannula 2.0 07/01/16 00:00 89 06/30/16 20:27 88 21 100 Nasal Cannula 2.0 28 06/30/16 20:00 81 06/30/16 20:00 97.9 81 18 150/82 99 Room Air 06/30/16 19:20 81 19 100 Nasal Cannula 2.0 28 06/30/16 19:20 28 06/30/16 19:20 Nasal Cannula 2.0 28 06/30/16 19:20 100 Nasal Cannula 2.0 28 06/30/16 19:20 81 19 Nasal Cannula 2.0 28 06/30/16 16:00 98 06/30/16 16:00 97.8 78 17 142/73 98 Room Air 06/30/16 12:00 97.9 85 18 145/66 95 Nasal Cannula 2.0 06/30/16 12:00 81 Intake and Output 06/30/16 07/01/16 19:00 07:00 Intake Total 890 ml Balance 890 ml Intake Oral 890 ml # Voids 2 3 Laboratory Tests 07/01/16 09:15: White Blood Count 8.1, Red Blood Count 3.15L, Hemoglobin 8.6L, Hematocrit 27.7L , Mean Corpuscular Volume 88, Mean Corpuscular Hemoglobin 27.3, Mean Corpuscular Hemoglobin Concent 31.0L, Red Cell Distribution Width 13.5, Platelet Count 256, Mean Platelet Volume 6.1L, Neutrophils (%) (Auto) 81.6H, Lymphocytes (%) (Auto) 15.1L, Monocytes (%) (Auto) 3.2, Eosinophils (%) (Auto) 0.0, Basophils (%) (Auto) 0.2, Sodium Level 137, Potassium Level 4.5, Chloride Level 101, Carbon Dioxide Level 24, Anion Gap 12, Blood Urea Nitrogen 23, Creatinine 1.0H, Estimat Glomerular Filtration Rate , Glucose Level 243H, Calcium Level 8.6, Phosphorus Level 2.6 Height (Feet): 5 Height (Inches): 5.00 Weight (Pounds): 125 General Appearance: no apparent distress Cardiovascular: normal rate, regular rhythm Respiratory/Chest: expiratory wheezing Abdomen: non tender, soft, no organomegaly Extremities: non-pitting Neurologic: alert, oriented x 3 MARIANA FOOTE Jul 01, 2016 11:42
--- NOTE | 2016-07-01 12:27 | Diagnostic Imaging Report ---
Indications: Flank pain, acute renal failure Technique: Transabdominal real-time grayscale and duplex Doppler imaging of the kidneys, retroperitoneum, and urinary bladder was performed Findings: Comparison: 01/02/2012 Right kidney measures 9.5 cm in length. Cortical thickness, diffusely increased cortical echogenicity. Multiple circumscribed anechoic cortical foci up to 22 mm.. No stones, other focal lesions, hydronephrosis, or obvious perinephric abnormalities. Left kidney measures 10.8 cm in length. Cortical thickness, diffusely increased cortical echogenicity. Multiple circumscribed anechoic cortical foci up to 29 mm.. No stones, other focal lesions, hydronephrosis, or obvious perinephric abnormalities. The intrahepatic portion of inferior vena cava is patent and normal caliber. The urinary bladder is distended, estimated volume 170 cc.. Impression: Bilateral echogenic kidneys compatible with chronic medical renal disease, unchanged Bilateral renal cortical cysts
--- NOTE | 2016-07-01 14:09 | Nephrology Progress Note ---
Assessment/Plan Problem List: (1) Anemia (2) Hypertension (3) acute asthma exacerbation (4) TOI (acute kidney injury) (5) Renal cyst Plan Monitor BUN/cr Monitor lytes Monitor H&H, transfuse as needed Monitor renal function Renal cysts - monitor Monitor BP - uncontrolled Cardiology f/u Continue neb AM labs Subjective Subjective In bed asleep, in no distress. Objective Objective Last 24 Hour Vital Signs Date Time Temp Pulse Resp B/P Pulse Ox O2 Delivery O2 Flow Rate FiO2 07/01/16 13:16 92 18 99 Room Air 21 07/01/16 13:06 21 07/01/16 13:05 90 18 97 Room Air 21 07/01/16 12:02 97.0 07/01/16 12:00 86 07/01/16 11:54 97.0 84 18 166/76 98 Nasal Cannula 2.0 07/01/16 08:45 82 171/86 07/01/16 08:45 86 07/01/16 08:06 97.2 82 20 171/86 99 Nasal Cannula 2.0 07/01/16 08:00 80 07/01/16 07:08 89 18 99 Room Air 21 07/01/16 06:58 21 07/01/16 06:58 88 18 97 Room Air 21 07/01/16 06:57 88 18 Room Air 21 07/01/16 06:57 Room Air 21 07/01/16 06:57 97 Room Air 21 07/01/16 04:00 80 07/01/16 01:30 80 20 100 Nasal Cannula 2.0 28 07/01/16 01:30 80 20 100 Nasal Cannula 2.0 28 07/01/16 01:30 28 07/01/16 00:58 134/80 07/01/16 00:41 97.7 84 17 183/85 97 Nasal Cannula 2.0 07/01/16 00:00 89 06/30/16 20:27 88 21 100 Nasal Cannula 2.0 28 06/30/16 20:00 81 06/30/16 20:00 97.9 81 18 150/82 99 Room Air 06/30/16 19:20 81 19 100 Nasal Cannula 2.0 28 06/30/16 19:20 28 06/30/16 19:20 Nasal Cannula 2.0 28 06/30/16 19:20 100 Nasal Cannula 2.0 28 06/30/16 19:20 81 19 Nasal Cannula 2.0 28 06/30/16 16:00 98 06/30/16 16:00 97.8 78 17 142/73 98 Room Air Intake and Output 06/30/16 07/01/16 19:00 07:00 Intake Total 890 ml Balance 890 ml Intake Oral 890 ml # Voids 2 3 Laboratory Tests 07/01/16 09:15: White Blood Count 8.1, Red Blood Count 3.15L, Hemoglobin 8.6L, Hematocrit 27.7L , Mean Corpuscular Volume 88, Mean Corpuscular Hemoglobin 27.3, Mean Corpuscular Hemoglobin Concent 31.0L, Red Cell Distribution Width 13.5, Platelet Count 256, Mean Platelet Volume 6.1L, Neutrophils (%) (Auto) 81.6H, Lymphocytes (%) (Auto) 15.1L, Monocytes (%) (Auto) 3.2, Eosinophils (%) (Auto) 0.0, Basophils (%) (Auto) 0.2, Sodium Level 137, Potassium Level 4.5, Chloride Level 101, Carbon Dioxide Level 24, Anion Gap 12, Blood Urea Nitrogen 23, Creatinine 1.0H, Estimat Glomerular Filtration Rate , Glucose Level 243H, Calcium Level 8.6, Phosphorus Level 2.6 Height (Feet): 5 Height (Inches): 5.00 Weight (Pounds): 125 General Appearance: no apparent distress EENT: normal ENT inspection, TMs normal Neck: non-tender, normal alignment, supple, normal inspection Cardiovascular: normal rate, regular rhythm, no JVD Respiratory/Chest: lungs clear, normal breath sounds, no respiratory distress Abdomen: non tender, soft, no organomegaly, no mass Extremities: normal range of motion Neurologic: responsive, normal mood/affect Tanisha Millan N.P. Jul 01, 2016 14:09
[2016-07-01] MEDS ORDERED: Tubing IV Secondary IV ONE (15:22)
--- NOTE | 2016-07-01 17:32 | Cardiac Electrophysiology PN ---
Assessment/Plan Assessment/Plan 1. Wide complex tachycardia due to either ventricular tachycardia or atrial fibrillation with aberrancy. The patient was in sinus rhythm however before and after the event. The patient denies any syncope. Echocardiogram has shown ejection fraction of 70% to 75% just two weeks ago. Ruled out for myocardial infarction. 2. Paroxysmal atrial fibrillation. Continue Digoxin,Cardizem CD 180 mg daily and eliquis 2.5 bid. 3. History of non-Q-wave myocardial infarction .On Aspirin. Add Lipitor 10.Off beta blcoker for COPD. 4. Normal ventricular systolic function. 5. COPD DW RN Subjective Subjective Feeling better. No chest pain or SOB.In and out of atrial fib on Dig, Metoprolol and Eliquis Objective Last 24 Hour Vital Signs Date Time Temp Pulse Resp B/P Pulse Ox O2 Delivery O2 Flow Rate FiO2 07/01/16 16:00 97.3 80 20 150/72 99 Room Air 07/01/16 15:19 97.0 07/01/16 13:16 92 18 99 Room Air 21 07/01/16 13:06 21 07/01/16 13:05 90 18 97 Room Air 21 07/01/16 12:02 97.0 07/01/16 12:00 86 07/01/16 11:54 97.0 84 18 166/76 98 Nasal Cannula 2.0 07/01/16 08:45 82 171/86 07/01/16 08:45 86 07/01/16 08:06 97.2 82 20 171/86 99 Nasal Cannula 2.0 07/01/16 08:00 80 07/01/16 07:08 89 18 99 Room Air 21 07/01/16 06:58 21 07/01/16 06:58 88 18 97 Room Air 21 07/01/16 06:57 88 18 Room Air 21 07/01/16 06:57 Room Air 21 07/01/16 06:57 97 Room Air 21 07/01/16 04:00 80 07/01/16 01:30 80 20 100 Nasal Cannula 2.0 28 07/01/16 01:30 80 20 100 Nasal Cannula 2.0 28 07/01/16 01:30 28 07/01/16 00:58 134/80 07/01/16 00:41 97.7 84 17 183/85 97 Nasal Cannula 2.0 07/01/16 00:00 89 06/30/16 20:27 88 21 100 Nasal Cannula 2.0 28 06/30/16 20:00 81 06/30/16 20:00 97.9 81 18 150/82 99 Room Air 06/30/16 19:20 81 19 100 Nasal Cannula 2.0 28 06/30/16 19:20 28 06/30/16 19:20 Nasal Cannula 2.0 28 06/30/16 19:20 100 Nasal Cannula 2.0 28 06/30/16 19:20 81 19 Nasal Cannula 2.0 28 Intake and Output 06/30/16 07/01/16 19:00 07:00 Intake Total 890 ml Balance 890 ml Intake Oral 890 ml # Voids 2 3 Laboratory Tests Test 07/01/16 09:15 White Blood Count 8.1 K/UL (4.8-10.8) Red Blood Count 3.15 M/UL (4.20-5.40) L Hemoglobin 8.6 G/DL (12.0-16.0) L Hematocrit 27.7 % (37.0-47.0) L Mean Corpuscular Volume 88 FL (80-99) Mean Corpuscular Hemoglobin 27.3 PG (27.0-31.0) Mean Corpuscular Hemoglobin Concent 31.0 G/DL (32.0-36.0) L Red Cell Distribution Width 13.5 % (11.6-14.8) Platelet Count 256 K/UL (150-450) Mean Platelet Volume 6.1 FL (6.5-10.1) L Neutrophils (%) (Auto) 81.6 % (45.0-75.0) H Lymphocytes (%) (Auto) 15.1 % (20.0-45.0) L Monocytes (%) (Auto) 3.2 % (1.0-10.0) Eosinophils (%) (Auto) 0.0 % (0.0-3.0) Basophils (%) (Auto) 0.2 % (0.0-2.0) Sodium Level 137 mEQ/L (135-145) Potassium Level 4.5 mEQ/L (3.4-4.9) Chloride Level 101 mEQ/L (98-107) Carbon Dioxide Level 24 mEQ/L (20-30) Anion Gap 12 (5-15) Blood Urea Nitrogen 23 mg/dL (7-23) Creatinine 1.0 mg/dL (0.5-0.9) H Estimat Glomerular Filtration Rate mL/min (>60) Glucose Level 243 mg/dL (74-106) H Calcium Level 8.6 mg/dL (8.6-10.2) Phosphorus Level 2.6 mg/dL (2.5-4.8) Objective HEAD AND NECK: Shows no JVD. LUNGS: Decreased breath sounds. CARDIOVASCULAR: Shows regular S1 and S2 with no gallop or murmur. ABDOMEN: Soft. EXTREMITIES: No pitting edema. ROSALBA BRADLEY Jul 01, 2016 17:32
--- NOTE | 2016-07-01 18:03 | Cardiology Report ---
APPROVED REPORT EKG Measurement Heart [id number] Sinus rhythm with premature supraventricular complexes Possible Left atrial enlargement Left ventricular hypertrophy with repolarization abnormality Abnormal ECG
--- NOTE | 2016-07-01 22:38 | Progress Note ---
SUBJECTIVE: The patient is an 86-year-old female who is in the bed, eating dinner and doing fine. Short of breath has improved. OBJECTIVE: VITAL SIGNS: Stable. CHEST: Bilateral few crackles. CARDIOVASCULAR: Regular rhythm. No gallop. No murmur. ABDOMEN: Soft. EXTREMITIES: No swelling. ASSESSMENT AND PLAN: 1. Acute chronic obstructive pulmonary disease. 2. Hypertension. 3. Degenerative arthritis. 4. Headache. We will consider a Neurology consult. Continue steroids. Continue bronchodilator treatments. PT and OT. Jeronimo Rodrigues M.D. DR: AICHA JOB#: [id number] CC:
[2016-07-02 00:19] VITALS: BP 159/97
[2016-07-02] MEDS: DuoNeb 0.5-3(2.5)mg/3ml neb HHN SCH ×4 (01:00→22:55)
[2016-07-02] MEDS: HYDROmorphone 1mg/ml Carpuject IVP PRN ×4 (01:15→22:49)
[2016-07-02 04:14] VITALS: BP 161/71
[2016-07-02] MEDS: Solu-MEDROL 40mg Inj IVP SCH ×4 (06:33→23:40)
--- NOTE | 2016-07-02 07:15 | Pulmonology Progress Note ---
Assessment/Plan Assessment/Plan IMPRESSION: 1. Exacerbation of chronic obstructive pulmonary disease. 2. Atrial fibrillation. DISCUSSION: Continue Eliquis, Tylenol, aspirin, digoxin, Cardizem CD, ferrous sulfate, Dilaudid, albuterol, Atrovent. Increased Solu-Medrol to 40mg every 6 hours. On breathing treatments [id number] every 4 hours. Also on Levaquin. Follow closely. Dr Rahman will follow 07/02/16-07/05/16 Subjective Interval Events: Doing better Constitutional: Reports: no symptoms HEENT: Repors: no symptoms Respiratory: Reports: dry cough, shortness of breath Cardiovascular: Reports: no symptoms Gastrointestinal/Abdominal: Reports: no symptoms Allergies: Coded Allergies: PENICILLIN G (Verified Allergy, Severe, EXTREME SWELLING OF FACE,TONGUE, HANDS,LEGS., 12/31/11) LEÓN INHIBITORS (Verified Allergy, Unknown, Shortness of Breath, 12/31/11) Objective Last 24 Hour Vital Signs Date Time Temp Pulse Resp B/P Pulse Ox O2 Delivery O2 Flow Rate FiO2 07/02/16 06:46 32 07/02/16 06:46 Nasal Cannula 3.0 32 07/02/16 06:46 100 Nasal Cannula 3.0 32 07/02/16 06:46 71 18 100 Nasal Cannula 3.0 32 07/02/16 06:46 75 18 100 Nasal Cannula 3.0 32 07/02/16 04:37 74 07/02/16 04:14 98.4 64 19 161/71 98 Nasal Cannula 2.0 07/02/16 01:35 Room Air 07/02/16 01:34 Room Air 07/02/16 00:27 92 07/02/16 00:19 98.7 78 18 159/97 95 Room Air 07/01/16 21:07 78 18 160/79 98 Room Air 07/01/16 20:00 97.9 87 18 187/78 100 Room Air 07/01/16 19:30 89 18 99 Room Air 21 07/01/16 19:27 21 07/01/16 19:26 78 18 97 Room Air 21 07/01/16 19:26 Room Air 07/01/16 19:26 97 Room Air 21 07/01/16 19:09 83 07/01/16 16:00 97.3 80 20 150/72 99 Room Air 07/01/16 16:00 79 07/01/16 15:19 97.0 07/01/16 13:16 92 18 99 Room Air 21 07/01/16 13:06 21 07/01/16 13:05 90 18 97 Room Air 21 07/01/16 12:02 97.0 07/01/16 12:00 86 07/01/16 11:54 97.0 84 18 166/76 98 Nasal Cannula 2.0 07/01/16 08:45 82 171/86 07/01/16 08:45 86 07/01/16 08:06 97.2 82 20 171/86 99 Nasal Cannula 2.0 07/01/16 08:00 80 Intake and Output 07/01/16 07/02/16 19:00 07:00 Intake Total 290 ml Output Total 200 ml Balance 290 ml -200 ml Intake Oral 240 ml IV Total 50 ml Output Urine Total 200 ml # Voids 2 2 General Appearance: no acute distress HEENT: normocephalic Respiratory/Chest: chest wall non-tender, decreased breath sounds, rhonchi Cardiovascular: normal peripheral pulses, normal rate Abdomen: normal bowel sounds, soft, non tender Laboratory Tests 07/01/16 09:15: White Blood Count 8.1, Red Blood Count 3.15L, Hemoglobin 8.6L, Hematocrit 27.7L , Mean Corpuscular Volume 88, Mean Corpuscular Hemoglobin 27.3, Mean Corpuscular Hemoglobin Concent 31.0L, Red Cell Distribution Width 13.5, Platelet Count 256, Mean Platelet Volume 6.1L, Neutrophils (%) (Auto) 81.6H, Lymphocytes (%) (Auto) 15.1L, Monocytes (%) (Auto) 3.2, Eosinophils (%) (Auto) 0.0, Basophils (%) (Auto) 0.2, Sodium Level 137, Potassium Level 4.5, Chloride Level 101, Carbon Dioxide Level 24, Anion Gap 12, Blood Urea Nitrogen 23, Creatinine 1.0H, Estimat Glomerular Filtration Rate , Glucose Level 243H, Calcium Level 8.6, Phosphorus Level 2.6 07/02/16 06:15: White Blood Count [Pending], Red Blood Count [Pending], Hemoglobin [Pending], Hematocrit [Pending], Mean Corpuscular Volume [Pending], Mean Corpuscular Hemoglobin [Pending], Mean Corpuscular Hemoglobin Concent [Pending], Red Cell Distribution Width [Pending], Platelet Count [Pending], Mean Platelet Volume [ Pending], Neutrophils (%) (Auto) [Pending], Lymphocytes (%) (Auto) [Pending], Monocytes (%) (Auto) [Pending], Eosinophils (%) (Auto) [Pending], Basophils (%) (Auto) [Pending], Sodium Level [Pending], Potassium Level [Pending], Chloride Level [Pending], Carbon Dioxide Level [Pending], Blood Urea Nitrogen [Pending], Creatinine [Pending], Estimat Glomerular Filtration Rate [Pending], Glucose Level [Pending], Calcium Level [Pending] Current Medications Medications (Trade) Dose Ordered Sig/Theodore Route PRN Reason Start Time Stop Time Status Last Admin Dose Admin Acetaminophen (Tylenol) 650 mg Q4H PRN ORAL Mild Pain (Pain Scale 1-3) 06/30/16 00:30 07/30/16 00:29 07/02/16 00:45 Albuterol/ Ipratropium (DuoNeb 0.5-3(2.5)mg/3ml) 3 ml Q4H PRN HHN Shortness of Breath 06/30/16 00:30 07/05/16 00:29 06/30/16 08:35 Albuterol/ Ipratropium 3 ml 3 ml Q6HRT HHN 06/30/16 13:00 07/05/16 12:59 07/02/16 06:46 Apixaban (Eliquis) 2.5 mg BID ORAL 06/30/16 18:00 07/30/16 17:59 07/01/16 17:02 Aspirin (Ecotrin) 81 mg DAILY ORAL 06/30/16 09:00 07/30/16 08:59 07/01/16 08:45 Dextrose (Dextrose 50%) STAT PRN IV Hypoglycemia 06/30/16 20:30 07/30/16 20:29 Digoxin (Lanoxin) 0.125 mg DAILY ORAL 06/30/16 09:00 07/30/16 08:59 07/01/16 08:45 Diltiazem HCl (Cardizem CD) 180 mg DAILY ORAL 06/30/16 09:00 07/30/16 08:59 07/01/16 08:45 Ferrous Sulfate (Feosol) 325 mg DAILY ORAL 06/30/16 09:00 07/30/16 08:59 07/01/16 08:44 Guaifenesin/ Dextromethorphan (Robitussin DM Syrup) 10 ml Q4H PRN ORAL For Cough 06/30/16 15:30 07/30/16 15:29 Hydromorphone HCl (Dilaudid) 1 mg Q4H PRN IVP For Pain 06/29/16 23:30 07/06/16 23:29 07/02/16 06:43 Levofloxacin (Levaquin) 50 ml @ 50 mls/hr Q24H IVPB 07/01/16 11:00 07/08/16 10:59 07/01/16 11:01 Methylprednisolone Sodium Succinate (Solu-MEDROL) 40 mg EVERY 6 HOURS IVP 06/30/16 12:00 07/30/16 11:59 07/02/16 06:33 Ondansetron HCl (Zofran) 4 mg Q6H PRN IVP Nausea & Vomiting 06/30/16 02:30 07/30/16 02:29 Pantoprazole (Protonix) 40 mg ACBREAKFAST ORAL 06/30/16 06:30 07/30/16 06:29 07/02/16 06:40 David Madrigal MD Jul 02, 2016 07:15
[2016-07-02 07:44] LABS: ANION GAP 12 (5-15); CALCIUM 8.9 mg/dL (8.6-10.2); CARBON DIOXIDE 26 mEQ/L (20-30); CHLORIDE 102 mEQ/L (98-107); HEMOLYSIS 23; POTASSIUM 4.6 mEQ/L (3.4-4.9); SODIUM 140 mEQ/L (135-145)
[2016-07-02 07:48] LABS: BASOPHILS % (AUTO) 0.4 % (0.0-2.0); MEAN CORPUSCULAR HEMOGLOBIN 26.8 PG (27.0-31.0); MEAN CORPUSCULAR HGB CONC 30.8 G/DL (32.0-36.0); MEAN CORPUSCULAR VOLUME 87 FL (80-99); MONOCYTES % (AUTO) 3.7 % (1.0-10.0); NEUTROPHILS % (AUTO) 83.8 % (45.0-75.0); PLATELET COUNT 324 K/UL (150-450); RED BLOOD COUNT 3.46 M/UL (4.20-5.40); RED CELL DISTRIBUTION WIDTH 13.5 % (11.6-14.8); WHITE BLOOD COUNT 12.7 K/UL (4.8-10.8)
[2016-07-02 08:00] VITALS: BP 124/75
--- NOTE | 2016-07-02 09:02 | Cardiac Electrophysiology PN ---
Assessment/Plan Assessment/Plan 1. Wide complex tachycardia due to either ventricular tachycardia or atrial fibrillation with aberrancy. Was in sinus rhythm however before and after the event. The patient denies any syncope. Echocardiogram has shown ejection fraction of 70% to 75% just two weeks ago. Ruled out for myocardial infarction. 2. Paroxysmal atrial fibrillation. Continue Digoxin 0.125,Cardizem CD 180 mg daily and Eliquis 2.5 bid. 3. History of non-Q-wave myocardial infarction .On Aspirin, Lipitor 10. Off beta blcoker for COPD. No chest pain. 4. Normal ventricular systolic function. 5. COPD 6. High WBC 8 to 12.7 on Levaquin. Blood Cx negative. Could be due to Solumedrol. No fever DW RN Subjective Subjective Comfortable in NAD. No chest pain or SOB.In SR now but in and out of atrial fib. Objective Last 24 Hour Vital Signs Date Time Temp Pulse Resp B/P Pulse Ox O2 Delivery O2 Flow Rate FiO2 07/02/16 08:00 97.2 79 17 124/75 100 Nasal Cannula 2.0 07/02/16 06:46 32 07/02/16 06:46 Nasal Cannula 3.0 32 07/02/16 06:46 100 Nasal Cannula 3.0 32 07/02/16 06:46 71 18 100 Nasal Cannula 3.0 32 07/02/16 06:46 75 18 100 Nasal Cannula 3.0 32 07/02/16 04:37 74 07/02/16 04:14 98.4 64 19 161/71 98 Nasal Cannula 2.0 07/02/16 01:35 Room Air 07/02/16 01:34 Room Air 07/02/16 00:27 92 07/02/16 00:19 98.7 78 18 159/97 95 Room Air 07/01/16 21:07 78 18 160/79 98 Room Air 07/01/16 20:00 97.9 87 18 187/78 100 Room Air 07/01/16 19:30 89 18 99 Room Air 21 07/01/16 19:27 21 07/01/16 19:26 78 18 97 Room Air 21 07/01/16 19:26 Room Air 07/01/16 19:26 97 Room Air 21 07/01/16 19:09 83 07/01/16 16:00 97.3 80 20 150/72 99 Room Air 07/01/16 16:00 79 07/01/16 15:19 97.0 07/01/16 13:16 92 18 99 Room Air 21 07/01/16 13:06 21 07/01/16 13:05 90 18 97 Room Air 21 07/01/16 12:02 97.0 07/01/16 12:00 86 07/01/16 11:54 97.0 84 18 166/76 98 Nasal Cannula 2.0 Intake and Output 07/01/16 07/02/16 19:00 07:00 Intake Total 290 ml Output Total 200 ml Balance 290 ml -200 ml Intake Oral 240 ml IV Total 50 ml Output Urine Total 200 ml # Voids 2 3 Laboratory Tests Test 07/01/16 09:15 07/02/16 06:15 White Blood Count 8.1 K/UL (4.8-10.8) 12.7 K/UL (4.8-10.8) #H Red Blood Count 3.15 M/UL (4.20-5.40) L 3.46 M/UL (4.20-5.40) L Hemoglobin 8.6 G/DL (12.0-16.0) L 9.3 G/DL (12.0-16.0) L Hematocrit 27.7 % (37.0-47.0) L 30.1 % (37.0-47.0) L Mean Corpuscular Volume 88 FL (80-99) 87 FL (80-99) Mean Corpuscular Hemoglobin 27.3 PG (27.0-31.0) 26.8 PG (27.0-31.0) L Mean Corpuscular Hemoglobin Concent 31.0 G/DL (32.0-36.0) L 30.8 G/DL (32.0-36.0) L Red Cell Distribution Width 13.5 % (11.6-14.8) 13.5 % (11.6-14.8) Platelet Count 256 K/UL (150-450) 324 K/UL (150-450) Mean Platelet Volume 6.1 FL (6.5-10.1) L 6.0 FL (6.5-10.1) L Neutrophils (%) (Auto) 81.6 % (45.0-75.0) H 83.8 % (45.0-75.0) H Lymphocytes (%) (Auto) 15.1 % (20.0-45.0) L 12.0 % (20.0-45.0) L Monocytes (%) (Auto) 3.2 % (1.0-10.0) 3.7 % (1.0-10.0) Eosinophils (%) (Auto) 0.0 % (0.0-3.0) 0.0 % (0.0-3.0) Basophils (%) (Auto) 0.2 % (0.0-2.0) 0.4 % (0.0-2.0) Sodium Level 137 mEQ/L (135-145) 140 mEQ/L (135-145) Potassium Level 4.5 mEQ/L (3.4-4.9) 4.6 mEQ/L (3.4-4.9) Chloride Level 101 mEQ/L (98-107) 102 mEQ/L (98-107) Carbon Dioxide Level 24 mEQ/L (20-30) 26 mEQ/L (20-30) Anion Gap 12 (5-15) 12 (5-15) Blood Urea Nitrogen 23 mg/dL (7-23) 32 mg/dL (7-23) H Creatinine 1.0 mg/dL (0.5-0.9) H 1.0 mg/dL (0.5-0.9) H Estimat Glomerular Filtration Rate mL/min (>60) mL/min (>60) Glucose Level 243 mg/dL (74-106) H 132 mg/dL (74-106) #H Calcium Level 8.6 mg/dL (8.6-10.2) 8.9 mg/dL (8.6-10.2) Phosphorus Level 2.6 mg/dL (2.5-4.8) Objective HEAD AND NECK: no JVD. LUNGS: Decreased breath sounds. CARDIOVASCULAR: regular S1 and S2 with no gallop or murmur. ABDOMEN: Soft. EXTREMITIES: No pitting edema. ROSALBA BRADLEY Jul 02, 2016 09:02
[2016-07-02] MEDS: Aspirin EC 81mg tab ORAL SCH (09:11)
[2016-07-02] MEDS: Eliquis 2.5mg tablet ORAL SCH ×2 (09:12→18:47)
[2016-07-02] MEDS: Digoxin 0.125mg tab ORAL SCH (09:12)
[2016-07-02] MEDS: Diltiazem CD 180mg cap ORAL SCH (09:18)
--- NOTE | 2016-07-02 11:32 | Nephrology Progress Note ---
Assessment/Plan Problem List: (1) Anemia (2) Hypertension (3) acute asthma exacerbation (4) TOI (acute kidney injury) (5) Renal cyst Plan Monitor BUN/cr Monitor lytes Monitor H&H, transfuse as needed Monitor renal function Renal cysts - monitor Cardiology f/u Continue neb Leucocytosis- on levaquin, afebrile AM labs Subjective Constitutional: Denies: chills, diaphoresis, fever, malaise, no symptoms, other , weakness HEENT: Denies: blurred vision, double vision, ear discharge, ear pain, eye pain , mouth pain, mouth swelling, no symptoms, nose congestion, nose pain, other, tearing, throat pain, throat swelling Genitourinary: Denies: burning, discharge, flank pain, frequency, hematuria, incontinence, no symptoms, other, pain, urgency Neurologic/Psychiatric: Denies: anxiety, depressed, emotional problems, headache, no symptoms, numbness, other, paresthesia, pre-existing deficit, seizure, tingling, tremors, weakness Subjective Sitting on a chair by bed in no distress, denies any kind of discomfort at this time Objective Objective Last 24 Hour Vital Signs Date Time Temp Pulse Resp B/P Pulse Ox O2 Delivery O2 Flow Rate FiO2 07/02/16 10:17 97.2 07/02/16 09:18 79 124/75 07/02/16 09:12 79 07/02/16 08:00 97.2 79 17 124/75 100 Nasal Cannula 2.0 07/02/16 06:46 32 07/02/16 06:46 Nasal Cannula 3.0 32 07/02/16 06:46 100 Nasal Cannula 3.0 32 07/02/16 06:46 71 18 100 Nasal Cannula 3.0 32 07/02/16 06:46 75 18 100 Nasal Cannula 3.0 32 07/02/16 04:37 74 07/02/16 04:14 98.4 64 19 161/71 98 Nasal Cannula 2.0 07/02/16 01:35 Room Air 07/02/16 01:34 Room Air 07/02/16 00:27 92 07/02/16 00:19 98.7 78 18 159/97 95 Room Air 07/01/16 21:07 78 18 160/79 98 Room Air 07/01/16 20:00 97.9 87 18 187/78 100 Room Air 07/01/16 19:30 89 18 99 Room Air 21 07/01/16 19:27 21 07/01/16 19:26 78 18 97 Room Air 21 07/01/16 19:26 Room Air 07/01/16 19:26 97 Room Air 21 07/01/16 19:09 83 07/01/16 16:00 97.3 80 20 150/72 99 Room Air 07/01/16 16:00 79 07/01/16 15:19 97.0 07/01/16 13:16 92 18 99 Room Air 21 07/01/16 13:06 21 07/01/16 13:05 90 18 97 Room Air 21 07/01/16 12:00 86 07/01/16 11:54 97.0 84 18 166/76 98 Nasal Cannula 2.0 Intake and Output 07/01/16 07/02/16 19:00 07:00 Intake Total 290 ml Output Total 200 ml Balance 290 ml -200 ml Intake Oral 240 ml IV Total 50 ml Output Urine Total 200 ml # Voids 2 3 Laboratory Tests 07/02/16 06:15: White Blood Count 12.7#H, Red Blood Count 3.46L, Hemoglobin 9.3L, Hematocrit 30.1L, Mean Corpuscular Volume 87, Mean Corpuscular Hemoglobin 26.8L, Mean Corpuscular Hemoglobin Concent 30.8L, Red Cell Distribution Width 13.5, Platelet Count 324, Mean Platelet Volume 6.0L, Neutrophils (%) (Auto) 83.8H, Lymphocytes (%) (Auto) 12.0L, Monocytes (%) (Auto) 3.7, Eosinophils (%) (Auto) 0.0, Basophils (%) (Auto) 0.4, Sodium Level 140, Potassium Level 4.6, Chloride Level 102, Carbon Dioxide Level 26, Anion Gap 12, Blood Urea Nitrogen 32H, Creatinine 1.0H, Estimat Glomerular Filtration Rate , Glucose Level 132#H, Calcium Level 8.9 Height (Feet): 5 Height (Inches): 5.00 Weight (Pounds): 125 General Appearance: no apparent distress, alert EENT: normal ENT inspection Neck: non-tender, normal alignment, supple Cardiovascular: normal peripheral pulses, normal rate, regular rhythm, no JVD Respiratory/Chest: normal breath sounds, no respiratory distress Abdomen: normal bowel sounds, non tender, soft, no organomegaly, no mass Extremities: normal range of motion, non-tender, normal inspection Neurologic: alert, oriented x 3, responsive, normal mood/affect Tanisha Millan N.P. Jul 02, 2016 11:32
[2016-07-02] MEDS: Levofloxacin 250mg/D5W 50ml IVPB SCH (11:39)
[2016-07-02 12:00] VITALS: BP 146/85
[2016-07-02 16:00] VITALS: BP 167/94
[2016-07-02 20:00] VITALS: BP 160/86
--- NOTE | 2016-07-02 20:37 | Progress Note ---
SUBJECTIVE: The patient is an elderly female, who is currently having cough and short of breath and wheezing. She has no fever and no chills. The patient is not short of breath. Her white counts are also went up. OBJECTIVE: VITAL SIGNS: Her current blood pressure 130/70, pulse 74, and respirations 18. HEENT: NAD. CHEST: Bilaterally clear. CARDIOVASCULAR: Regular rhythm. No gallop. No murmur. ABDOMEN: Bowel sounds. Soft. EXTREMITIES: CCE. NEUROLOGICAL: Generalized weakness. ASSESSMENT AND PLAN: 1. Acute chronic obstructive pulmonary disease. 2. Atrial fibrillation. 3. Hypertension, continue current treatment. Jeronimo Rodrigues M.D. DR: LAST JOB#: [id number] CC:
[2016-07-03 00:11] VITALS: BP 152/78
[2016-07-03] MEDS: DuoNeb 0.5-3(2.5)mg/3ml neb HHN SCH ×3 (01:00→12:20)
[2016-07-03] MEDS: HYDROmorphone 1mg/ml Carpuject IVP PRN ×2 (03:13→11:57)
[2016-07-03 04:08] VITALS: BP 172/82
[2016-07-03 04:20] VITALS: BP 150/71
[2016-07-03] MEDS: Solu-MEDROL 40mg Inj IVP SCH ×2 (06:14→11:33)
[2016-07-03 08:00] VITALS: BP 130/74
[2016-07-03 08:17] LABS: BASOPHILS % (AUTO) 0.2 % (0.0-2.0); MEAN CORPUSCULAR HEMOGLOBIN 27.4 PG (27.0-31.0); MEAN CORPUSCULAR HGB CONC 32.4 G/DL (32.0-36.0); MEAN CORPUSCULAR VOLUME 85 FL (80-99); MEAN PLATELET VOLUME 5.7 FL (6.5-10.1); MONOCYTES % (AUTO) 4.4 % (1.0-10.0); NEUTROPHILS % (AUTO) 84.4 % (45.0-75.0); PLATELET COUNT 280 K/UL (150-450); RED CELL DISTRIBUTION WIDTH 13.5 % (11.6-14.8); WHITE BLOOD COUNT 8.9 K/UL (4.8-10.8)
[2016-07-03 08:36] LABS: ANION GAP 14 (5-15); CALCIUM 8.7 mg/dL (8.6-10.2); CARBON DIOXIDE 25 mEQ/L (20-30); CHLORIDE 101 mEQ/L (98-107); CREATININE 1.1 mg/dL (0.5-0.9); HEMOLYSIS 4; POTASSIUM 4.3 mEQ/L (3.4-4.9); SODIUM 140 mEQ/L (135-145)
[2016-07-03] MEDS: Diltiazem CD 180mg cap ORAL SCH (09:28)
[2016-07-03] MEDS: Aspirin EC 81mg tab ORAL SCH (09:29)
[2016-07-03] MEDS: Eliquis 2.5mg tablet ORAL SCH (09:29)
[2016-07-03] MEDS: Digoxin 0.125mg tab ORAL SCH (09:29)
[2016-07-03] MEDS: Levofloxacin 250mg/D5W 50ml IVPB SCH (11:33)
[2016-07-03 12:00] VITALS: BP_SYST 159; BP_SYST 174; BP_DIAS 65; BP_DIAS 84
[2016-07-03 16:00] VITALS: BP 157/91
--- NOTE | 2016-07-03 16:09 | Cardiac Electrophysiology PN ---
Assessment/Plan Assessment/Plan 1. Wide complex tachycardia likely due to atrial fibrillation with aberrancy. Was in sinus rhythm however before and after the event. The patient denies any syncope. Echocardiogram EF 70% to 75% . Ruled out for myocardial infarction. 2. Paroxysmal atrial fibrillation. Continue Digoxin 0.125, Cardizem CD 180 mg daily and Eliquis 2.5 bid. 3. History of non-Q-wave myocardial infarction .On Aspirin, Lipitor 10. Off beta blcoker for COPD. No chest pain. 4. Normal ventricular systolic function. 5. COPD DW RN Subjective Subjective Doing better.In SR in 80-90s. Objective Last 24 Hour Vital Signs Date Time Temp Pulse Resp B/P Pulse Ox O2 Delivery O2 Flow Rate FiO2 07/03/16 12:29 94 20 99 Nasal Cannula 2.0 28 07/03/16 12:27 97.9 07/03/16 12:19 28 07/03/16 12:19 85 20 98 Nasal Cannula 2.0 28 07/03/16 12:08 82 07/03/16 12:00 97.9 85 17 159/65 100 Room Air 07/03/16 10:52 97.3 07/03/16 09:29 85 07/03/16 09:28 85 130/74 07/03/16 08:00 97.3 85 17 130/74 100 Nasal Cannula 2.0 07/03/16 07:43 102 07/03/16 07:31 92 20 99 Nasal Cannula 2.0 28 07/03/16 07:21 28 07/03/16 07:21 89 20 98 Nasal Cannula 2.0 28 07/03/16 07:20 98 Nasal Cannula 2.0 28 07/03/16 07:20 Nasal Cannula 2.0 28 07/03/16 04:20 150/71 07/03/16 04:08 97.0 78 20 172/82 97 Room Air 07/03/16 04:00 75 07/03/16 01:15 Room Air 07/03/16 01:14 Room Air 07/03/16 00:11 97.7 79 20 152/78 96 Room Air 07/03/16 00:00 78 07/02/16 20:00 97.5 76 18 160/86 Nasal Cannula 2.0 100 07/02/16 19:23 Nasal Cannula 07/02/16 19:20 Nasal Cannula 07/02/16 19:00 97 Nasal Cannula 2.0 28 07/02/16 19:00 Nasal Cannula 2.0 28 Intake and Output 07/02/16 07/03/16 18:59 06:59 Intake Total 810 ml Output Total 600 ml 2 ml Balance 210 ml -2 ml Intake Oral 760 ml IV Total 50 ml Output Urine Total 600 ml 2 ml # Voids 3 1 # Bowel Movements 1 Laboratory Tests Test 07/03/16 07:50 White Blood Count 8.9 K/UL (4.8-10.8) Red Blood Count 3.60 M/UL (4.20-5.40) L Hemoglobin 9.8 G/DL (12.0-16.0) L Hematocrit 30.4 % (37.0-47.0) L Mean Corpuscular Volume 85 FL (80-99) Mean Corpuscular Hemoglobin 27.4 PG (27.0-31.0) Mean Corpuscular Hemoglobin Concent 32.4 G/DL (32.0-36.0) Red Cell Distribution Width 13.5 % (11.6-14.8) Platelet Count 280 K/UL (150-450) Mean Platelet Volume 5.7 FL (6.5-10.1) L Neutrophils (%) (Auto) 84.4 % (45.0-75.0) H Lymphocytes (%) (Auto) 11.0 % (20.0-45.0) L Monocytes (%) (Auto) 4.4 % (1.0-10.0) Eosinophils (%) (Auto) 0.0 % (0.0-3.0) Basophils (%) (Auto) 0.2 % (0.0-2.0) Sodium Level 140 mEQ/L (135-145) Potassium Level 4.3 mEQ/L (3.4-4.9) Chloride Level 101 mEQ/L (98-107) Carbon Dioxide Level 25 mEQ/L (20-30) Anion Gap 14 (5-15) Blood Urea Nitrogen 37 mg/dL (7-23) H Creatinine 1.1 mg/dL (0.5-0.9) H Estimat Glomerular Filtration Rate mL/min (>60) Glucose Level 134 mg/dL (74-106) H Calcium Level 8.7 mg/dL (8.6-10.2) Objective HEAD AND NECK: no JVD. LUNGS: Clear CARDIOVASCULAR: Regular S1 and S2 with no gallop or murmur. ABDOMEN: Soft. EXTREMITIES: No pitting edema. ROSALBA BRADLEY Jul 03, 2016 16:09
--- NOTE | 2016-07-04 08:47 | Nephrology Progress Note ---
Assessment/Plan Problem List: (1) Acute exacerbation of COPD with asthma (2) Atrial fibrillation with RVR (3) Hypertension (4) TOI (acute kidney injury) Assessment: resolved. (5) Anemia Plan d/c home today with Subjective Subjective late entry for 07/03 - no new c/o. Objective Objective Last 24 Hour Vital Signs Date Time Temp Pulse Resp B/P Pulse Ox O2 Delivery O2 Flow Rate FiO2 07/03/16 16:00 96.0 86 18 157/91 Nasal Cannula 2.0 100 07/03/16 12:29 94 20 99 Nasal Cannula 2.0 28 07/03/16 12:27 97.9 07/03/16 12:19 28 07/03/16 12:19 85 20 98 Nasal Cannula 2.0 28 07/03/16 12:08 82 07/03/16 12:00 97.9 85 17 159/65 100 Room Air 07/03/16 10:52 97.3 07/03/16 09:29 85 07/03/16 09:28 85 130/74 Intake and Output 07/03/16 07/04/16 19:00 07:00 Intake Total 690 ml Balance 690 ml Intake Oral 640 ml IV Total 50 ml # Voids 2 Height (Feet): 5 Height (Inches): 5.00 Weight (Pounds): 125 General Appearance: no apparent distress Cardiovascular: normal rate, regular rhythm Respiratory/Chest: lungs clear Abdomen: non tender, soft MARIANA FOOTE Jul 04, 2016 08:47
--- NOTE | 2016-07-04 17:04 | Discharge Summary ---
Discharge Summary Hospital Course Date of Admission Jun 28, 2016 at 14:52 Date of Discharge Jul 03, 2016 at 18:48 Admitting Diagnosis Asthma Exacerbation, Atrial Fibrillation JUDITH Orellana is a 86 year old female who was admitted on Jun 28, 2016 at 14:52 for Asthma Exacerbation, Atrial Fibrillation Hospital Course [id number] Discharge Discharge Disposition Patient was discharged to Home with Home Health(06) Discharge Diagnoses: Lindsey Cruz NP Jul 04, 2016 17:04
--- NOTE | 2016-07-05 08:58 | Discharge Summary 2 SIG ---
DATE OF ADMISSION: 06/28/2016 DATE OF DISCHARGE: 07/03/2016 CONSULTANTS: 1. Jarad Brarios M.D. 2. Antwon Levine M.D. 3. David Madrigal M.D. BRIEF HOSPITAL COURSE: The patient is an 86-year-old female, who came from home, presented to the emergency department complaining of shortness of breath. She has history of chronic obstructive pulmonary disease, congestive heart failure, hypertension, anemia, chronic back pain, and degenerative arthritis. On re-evaluation, had bilateral scattered crackles and wheezing. The patient was admitted to [facility] and was given IV fluid and IV Solu-Medrol with bronchodilator treatment. Dr. Barrios was consulted. The patient has acute kidney injury, creatinine of 1.1. Dr. Levine and Dr. Madrigal was called in. The patient had a wide complex tachycardia, likely due to atrial fibrillation with aberrancy, however, was in sinus rhythm before and after the event. Echocardiogram was done and showed ejection fraction of 70% to 75%. She was ruled out for myocardial infarction. She was taken off beta-elyssa secondary to chronic obstructive pulmonary disease. She denied chest pain. She was continued on digoxin, Cardizem, and Eliquis. She was given intravenous Levaquin. Symptoms improved and the patient was discharged home with home health. FINAL DIAGNOSES: 1. Acute chronic obstructive pulmonary disease, in exacerbation. 2. Hypertension. 3. Acute kidney injury. 4. Paroxysmal atrial fibrillation. 5. Wide complex tachycardia, likely secondary to atrial fibrillation with aberrancy. 6. History of non-Q wave myocardial infarction. 7. Renal cyst. 8. Anemia of chronic disease. 9. Leukocytosis, blood culture negative, possibly secondary to Solu-Medrol. Jeronimo Rodrigues M.D. I have been assigned to dictate discharge summary on this account and I was not involved in the patient's management. Lindsey Cruz N.P. DR: ALEC JOB#: [id number] CC:
--- NOTE | 2016-07-09 21:28 | Consultation ---
DATE OF CONSULTATION: 07/09/2016 REFERRING PHYSICIAN: Jarad Barrios M.D. REASON FOR CONSULTATION: Management of hypertension, atrial fibrillation, and shortness of breath. HISTORY OF PRESENT ILLNESS: The patient is a 86-year-old lady, I am quite familiar from her recent admission to [facility]. The patient has history of hypertension, paroxysmal atrial fibrillation, asthma, chronic obstructive pulmonary disease who presented to the emergency room with increasing shortness of breath and also chest pain. The patient was admitted and a Cardiology consultation was obtained for further evaluation. EKG in the ER showed sinus rhythm with frequent premature ventricular contractions, and lateral T-wave abnormalities. At the time of my evaluation, the patient's shortness of breath has improved but still has discomfort. REVIEW OF SYSTEMS: Performed and was negative other what was mentioned in history of present illness. PAST MEDICAL HISTORY: 1. Hypertension. 2. Paroxysmal atrial fibrillation. 3. Congestive heart failure with diastolic dysfunction. 4. History of non Q-wave myocardial infarction. 5. Chronic obstructive pulmonary disease. 6. Normal left ventricular systolic function. FAMILY HISTORY: Noncontributory. SOCIAL HISTORY: Does not smoke or drink alcohol. PHYSICAL EXAMINATION: VITAL SIGNS: Blood pressure is 126/49, pulse 70, respirations 18, and she is afebrile. HEAD AND NECK: Shows no JVD. LUNGS: Clear. CARDIOVASCULAR: S1 and S2 with no gallop. ABDOMEN: Soft. EXTREMITIES: She has a 1+ pitting edema. LABORATORY AND DIAGNOSTIC DATA: Her EKG as mentioned above. Show white count of 9.9, hemoglobin 8.8, hematocrit of 27.4, and platelet count of 273,000. Sodium 140, potassium is 4.0, BUN of 24, creatinine 0.9, and glucose of 100. Troponin negative x2. BNP is 1024. D-dimer is 575. Digoxin level is 0.9 that was 06/02/2016. ASSESSMENT: 1. Atrial fibrillation with rapid ventricular response. I will resume the patient's digoxin and Cardizem. We will avoid beta-elyssa in view of patient's chronic obstructive pulmonary disease. 2. Hypertension. Continue on Cardizem. 3. History of coronary artery disease, non Q-wave myocardial infarction, on aspirin and Lipitor. Chronic obstructive pulmonary disease. 4. Thromboembolic prophylaxis. 5. Atrial fibrillation. We will put back on Eliquis 2.5 mg b.i.d. as she was on it last week. 6. Chronic obstructive pulmonary disease per Dr. Madrigal . 7. Normal left ventricular systolic function ejection fraction of 70% to 75% on recent admission. Thank very much, Dr. Barrios, for allowing me to participate in the care of this patient. Please do not hesitate to contact for any questions regarding my evaluation. Antwon Levine M.D. DR: Davida JOB#: [id number] CC:
[2016-08-26] MEDS ORDERED: CLONIDINE HCL0.1 MG PO (13:35)
== END 2016-07-03 18:48 | disposition home health service (06) | DRG 191 ==
LOC: EDBD 07:47 → EMR 08:17 → EDBEDREQ 14:22 → 2W 14:52 → 2E 06-29 20:30
DX: J44.1 Chronic obstructive pulmonary disease with (acute) exacerbation (principal); N17.9 Acute kidney failure, unspecified; I48.0 Paroxysmal atrial fibrillation; I50.9 Heart failure, unspecified; I10 Essential (primary) hypertension; M13.80 Other specified arthritis, unspecified site; M54.89 Other dorsalgia; R00.0 Tachycardia, unspecified; I25.2 Old myocardial infarction; G89.29 Other chronic pain; M54.9 Dorsalgia, unspecified; Z88.0 Allergy status to penicillin; Z88.8 Allergy status to other drugs, medicaments and biological substances; J45.909 Unspecified asthma, uncomplicated; N28.1 Cyst of kidney, acquired; D63.8 Anemia in other chronic diseases classified elsewhere; D72.829 Elevated white blood cell count, unspecified; T38.0X5A Adverse effect of glucocorticoids and synthetic analogues, initial encounter
CPT/HCPCS: 36415; 71010; 76775; 80048; 80053; 81003; 82550; 82553; 83605; 83735; 83880; 84100; 84484; 85025; 86710; 87040; 93005; 94640; 94664; 94760; J2765; J7620

== ENCOUNTER 2016-07-08 15:19 | Inpatient (IN) | payer MEDICARE, BC ==
[~2016-07-08] VITALS: Ht 165.1 cm; Wt 56.7 kg
[~2016-07-08 15:19] MED LIST changes: +UNOBMED
[2016-07-08 15:24] VITALS: BP 130/59
[2016-07-08 16:09] LABS: BASOPHILS % (AUTO) 2.3 % (0.0-2.0); EOSINOPHILS % (AUTO) 7.7 % (0.0-3.0); MEAN CORPUSCULAR HEMOGLOBIN 27.8 PG (27.0-31.0); MEAN CORPUSCULAR HGB CONC 32.8 G/DL (32.0-36.0); MEAN CORPUSCULAR VOLUME 85 FL (80-99); MONOCYTES % (AUTO) 16.1 % (1.0-10.0); NEUTROPHILS % (AUTO) 45.9 % (45.0-75.0); PLATELET COUNT 301 K/UL (150-450); RED BLOOD COUNT 3.42 M/UL (4.20-5.40); RED CELL DISTRIBUTION WIDTH 13.9 % (11.6-14.8); WHITE BLOOD COUNT 12.6 K/UL (4.8-10.8)
[2016-07-08] MEDS ORDERED: Nitroglycerin Subl 0.4mg tab (Bottle Of 25) SL PRN (16:15)
[2016-07-08 16:28] LABS: TROPONIN I < 0.30 ng/mL (<=0.30)
[2016-07-08 16:31] LABS: ALANINE AMINOTRANSFERASE 18 U/L (3-33); ANION GAP 11 (5-15); ASPARTATE AMINO TRANSFERASE 18 U/L (5-40); CARBON DIOXIDE 29 mEQ/L (20-30); CHLORIDE 96 mEQ/L (98-107); CREATININE 1.1 mg/dL (0.5-0.9); HEMOLYSIS 6; SODIUM 136 mEQ/L (135-145); TOTAL PROTEIN 5.3 g/dL (6.6-8.7)
[2016-07-08 16:42] LABS: CKMB < 1.5 ng/mL (< 3.8)
[2016-07-08 17:53] VITALS: BP 154/52
[2016-07-08 20:35] VITALS: BP 129/43
[2016-07-08 21:06] VITALS: BP 143/62
[2016-07-09] VITALS: BP 124/66
--- NOTE | 2016-07-09 00:01 | Emergency Room Report ---
History of Present Illness General Chief Complaint: Chest Pain Source: Patient, EMS Present Illness HPI Patient is an 86-year-old female presented after having increased chest pain. The patient reported having a gradual onset of pain over the past one day. The patient reports associated shortness of breath. She prior history of congestive heart failure. Patient reported recently been released from a hospital. The patient denied any fever. She had onset of light activity. The patient denies any vomiting or diarrhea. She denied black or bloody stools. Allergies: Coded Allergies: PENICILLIN G (Verified Allergy, Severe, EXTREME SWELLING OF FACE,TONGUE, HANDS,LEGS., 12/31/11) LEÓN INHIBITORS (Verified Allergy, Unknown, Shortness of Breath, 12/31/11) PENICILLINS (Unverified Allergy, Unknown, 07/08/16) Patient History Past Medical History: see triage record Now: No Reviewed Nursing Documentation: PMH: Agreed, PSxH: Agreed Nursing Documentation-PMH Hx Cardiac Problems: Yes - A fib with RVR Hx Hypertension: Yes Hx Pacemaker: No Hx Asthma: Yes Hx COPD: Yes Hx Diabetes: No Hx Cancer: No Hx Gastrointestinal Problems: No Hx Dialysis: No Hx Neurological Problems: No Hx Cerebrovascular Accident: No Hx Transient Ischemic Attacks: No Hx Dementia: No Hx Alzheimer's Disease: No Hx Parkinson's Disease: No Hx Meningitis: No Hx Encephalitis: No Hx Seizures: No Hx Epilepsy: No Hx Multiple Sclerosis: No Hx Cerebral Palsy: No Hx Amyotrophic Lat Sclerosis: No Hx [place] Syndrome: No Hx Paralysis: No Hx Peripheral Neuropathy: No Hx Spinal Cord Injury: No Hx Head Trauma: No Hx Traumatic Brain Injury: No Hx Memory Loss: No Hx Concentration Difficulty: No Hx Speech Problem: No Hx Tremors: No Hx Vertigo: No Hx Dizziness: No Hx Syncope: No Hx Headaches: Yes Hx Aphasia: No Hx Dysphasia: No Hx Numbness: No Hx Weakness: No Hx Fatigue: No Hx Neurologic Surgery: No Hx Brain Shunt: No Review of Systems All Other Systems: negative except mentioned in HPI Physical Exam Vital Signs Date Time Temp Pulse Resp B/P Pulse Ox O2 Delivery O2 Flow Rate FiO2 07/08/16 15:12 99.0 74 18 152/61 97 Room Air Sp02 EP Interpretation: reviewed, normal General Appearance: normal inspection, well appearing, no apparent distress, alert, GCS 15, Chronically Ill Head: atraumatic ENT: normal ENT inspection, hearing grossly normal, normal voice Neck: normal inspection, full range of motion, supple, no bony tend Respiratory: normal inspection, lungs clear, normal breath sounds, no respiratory distress, no retraction, no wheezing Cardiovascular #1: regular rate, rhythm, no edema Gastrointestinal: normal inspection, normal bowel sounds, non tender, soft, no guarding, no hernia Genitourinary: no CVA tenderness Musculoskeletal: normal inspection, back normal, normal range of motion Neurologic: normal inspection, alert, oriented x3, responsive, automotive mechanic III-XII nml as tested, speech normal Psychiatric: normal inspection, judgement/insight normal, mood/affect normal Skin: normal inspection, normal color, no rash Medical Decision Making Diagnostic Impression: Primary Impression: Chest pain Additional Impression: Congestive heart failure (CHF) ER Course Patient presented for chest pain.Differential diagnosis included but was not limited to acute coronary syndrome, pulmonary embolism, pneumonia, aortic dissection, shingles, pneumothorax, aortic dissection, esophageal rupture, pericarditis. Because of complexity of patient's case laboratory testing and imaging studies were ordered. The patient was noted to have evidence of congestive heart failure. Patient started on IV Lasix as well as nitroglycerin. The patient was noted to have been given aspirin by EMS. Dr. Jarad Barrios contacted for inpatient management Laboratory Tests Test 07/08/16 15:51 White Blood Count 12.6 K/UL (4.8-10.8) H Red Blood Count 3.42 M/UL (4.20-5.40) L Hemoglobin 9.5 G/DL (12.0-16.0) L Hematocrit 29.0 % (37.0-47.0) L Mean Corpuscular Volume 85 FL (80-99) Mean Corpuscular Hemoglobin 27.8 PG (27.0-31.0) Mean Corpuscular Hemoglobin Concent 32.8 G/DL (32.0-36.0) Red Cell Distribution Width 13.9 % (11.6-14.8) Platelet Count 301 K/UL (150-450) Mean Platelet Volume 6.0 FL (6.5-10.1) L Neutrophils (%) (Auto) 45.9 % (45.0-75.0) Lymphocytes (%) (Auto) 28.0 % (20.0-45.0) Monocytes (%) (Auto) 16.1 % (1.0-10.0) H Eosinophils (%) (Auto) 7.7 % (0.0-3.0) H Basophils (%) (Auto) 2.3 % (0.0-2.0) H D-Dimer 575 ng/mL (<500) H Sodium Level 136 mEQ/L (135-145) Potassium Level 4.0 mEQ/L (3.4-4.9) Chloride Level 96 mEQ/L (98-107) L Carbon Dioxide Level 29 mEQ/L (20-30) Anion Gap 11 (5-15) Blood Urea Nitrogen 21 mg/dL (7-23) Creatinine 1.1 mg/dL (0.5-0.9) H Estimate Glomerular Filtration Rate mL/min (>60) Glucose Level 96 mg/dL (74-106) Calcium Level 8.0 mg/dL (8.6-10.2) L Total Bilirubin 0.2 mg/dL (0.0-1.2) Aspartate Amino Transferase (AST) 18 U/L (5-40) Alanine Aminotransferase (ALT) 18 U/L (3-33) Alkaline Phosphatase 174 U/L (35-104) H Total Creatine Kinase 23 U/L (26-140) L Creatine Kinase MB < 1.5 ng/mL (< 3.8) Creatine Kinase MB Relative Index Troponin I < 0.30 ng/mL (<=0.30) Pro-B-Type Natriuretic Peptide 1024 pg/mL (0-450) H Total Protein 5.3 g/dL (6.6-8.7) L Albumin 2.7 g/dL (3.5-5.2) L Globulin 2.6 g/dL Albumin/Globulin Ratio 1.0 (1.0-2.7) EKG Diagnostic Results Rate: normal Rhythm: NSR ST Segments: no acute changes Chest X-Ray Diagnostic Results EP Interpretation: Yes Findings: no consolidation, no effusion, no pneumothorax Number of Views: 1 Last Vital Signs Date Time Temp Pulse Resp B/P Pulse Ox O2 Delivery O2 Flow Rate FiO2 07/08/16 21:06 97.7 65 20 143/62 93 Room Air Status: unchanged Disposition: ADMITTED INPATIENT Condition: Serious Referrals: NOT CHOSEN IPA/,REFERRING (PCP) Alexandru Ch Jul 09, 2016 00:01
[2016-07-09 04:00] VITALS: BP 125/69
[2016-07-09] MEDS: HYDROmorphone 1mg/ml Carpuject IVP PRN ×4 (06:07→23:29)
[2016-07-09 08:00] VITALS: BP 130/52
[2016-07-09 08:26] LABS: BASOPHILS % (AUTO) 0.8 % (0.0-2.0); EOSINOPHILS % (AUTO) 7.7 % (0.0-3.0); LYMPHOCYTES % (AUTO) 30.1 % (20.0-45.0); MEAN CORPUSCULAR HEMOGLOBIN 27.1 PG (27.0-31.0); MEAN CORPUSCULAR VOLUME 85 FL (80-99); MONOCYTES % (AUTO) 16.4 % (1.0-10.0); PLATELET COUNT 273 K/UL (150-450); RED BLOOD COUNT 3.23 M/UL (4.20-5.40); RED CELL DISTRIBUTION WIDTH 14.2 % (11.6-14.8); WHITE BLOOD COUNT 9.9 K/UL (4.8-10.8)
[2016-07-09 08:35] LABS: TROPONIN I < 0.30 ng/mL (<=0.30)
[2016-07-09 08:53] LABS: ALANINE AMINOTRANSFERASE 19 U/L (3-33); ANION GAP 9 (5-15); ASPARTATE AMINO TRANSFERASE 20 U/L (5-40); CALCIUM 8.2 mg/dL (8.6-10.2); CARBON DIOXIDE 32 mEQ/L (20-30); CHLORIDE 99 mEQ/L (98-107); CREATININE 0.9 mg/dL (0.5-0.9); HEMOLYSIS 1; SODIUM 140 mEQ/L (135-145); TOTAL PROTEIN 5.2 g/dL (6.6-8.7)
--- NOTE | 2016-07-09 09:59 | Consultation ---
Consult Note Consult Note Patient: ALEXIA NELSON [facility] Rec #: [id number] Patient No.: [id number] Date of Service: 06/28/16 DATE OF ADMISSION: 07/08/2016 PULMONARY CONSULTATION HISTORY OF PRESENT ILLNESS: This is an 86-year-old female with a history of hypertension and paroxysmal atrial fibrillation as well as asthma status post chronic obstructive pulmonary disease, who came to the emergency room last night with complaints of chest pain and shortness of breath. The patient was seen and worked up and admitted to the hospital with exacerbation of chronic obstructive pulmonary disease as well as chest pain. The patient has a prior history as discussed above of hypertension, asthma, chronic obstructive pulmonary disease, and atrial fibrillation. MEDICATIONS: Include clonidine, Lipitor, digoxin, Cardizem, ferrous sulfate, hydrochlorothiazide, metoprolol, nitroglycerin, Protonix, and Carafate. ALLERGIES: To penicillin and LEÓN inhibitors. SOCIAL HISTORY: She denies any present tobacco use. She was a smoker in the past. Denies alcohol or substance abuse. REVIEW OF SYSTEMS: Denies any headaches, hematemesis, melena, or hematochezia. PHYSICAL EXAMINATION: GENERAL: Reveals an elderly female. VITAL SIGNS: Blood pressure at this time is 150/70, heart rate is 88, respirations are 20, and O2 saturation 100% on nasal oxygen. HEENT: Unremarkable. CHEST: Shows marked rhonchi and wheezing. ABDOMEN: Soft. EXTREMITIES: There is an appreciable edema. LABORATORY AND DIAGNOSTIC DATA: Lab testing shows normal CBC and BMP. Hemoglobin is 9. Urinalysis negative. X-ray of chest is noncontributory. IMPRESSION: 1. Exacerbation of chronic obstructive pulmonary disease. 2. Atrial fibrillation. DISCUSSION: Admit to the hospital. Continue home medications. The patient is presently on Eliquis, Tylenol, aspirin, digoxin, Cardizem CD, ferrous sulfate, Dilaudid, albuterol, Atrovent, and Solu-Medrol 40 every 12 hours. I will increase the frequency of breathing treatments to [id number] every 4 hours and increase Solu-Medrol to 40 q.6 h. Consider Levaquin. Follow closely. David Tirmizi, M.D. Tirmizi,David Varun MD Jul 09, 2016 09:58
[2016-07-09 11:27] VITALS: BP 126/49
[2016-07-09] MEDS: Solu-MEDROL 40mg Inj IVP SCH ×3 (11:51→23:29)
--- NOTE | 2016-07-09 12:12 | Diagnostic Imaging Report ---
Indication: Dyspnea Comparison: 06/28/16 A single view chest radiograph was obtained. Findings: No definite infiltrate or pulmonary vascular congestion identified. The heart is mildly enlarged. The aorta is mildly calcified consistent with atherosclerotic vascular disease. The bones are osteopenic. Impression: No acute disease
[2016-07-09] MEDS: Albuterol ud Inhalation HHN SCH ×2 (14:13→19:00)
--- NOTE | 2016-07-09 14:40 | Cardiac Electrophysiology PN ---
Subjective Subjective [id number] Objective Last 24 Hour Vital Signs Date Time Temp Pulse Resp B/P Pulse Ox O2 Delivery O2 Flow Rate FiO2 07/09/16 13:45 71 18 99 Room Air 21 07/09/16 13:45 21 07/09/16 13:45 72 18 99 Room Air 21 07/09/16 12:00 68 07/09/16 11:27 97.7 68 18 126/49 99 Room Air 07/09/16 08:00 97.1 66 18 130/52 96 Room Air 07/09/16 08:00 67 07/09/16 04:00 69 07/09/16 04:00 97.5 52 20 125/69 100 Room Air 07/09/16 00:00 98.0 52 20 124/66 100 Room Air 07/09/16 00:00 75 07/08/16 21:06 97.7 65 20 143/62 93 Room Air 07/08/16 20:43 99.0 65 16 129/43 100 Room Air 07/08/16 20:35 99.0 65 16 129/43 100 Room Air 07/08/16 17:53 99.0 68 19 154/52 100 Room Air 07/08/16 16:18 125/48 07/08/16 15:24 76 18 Room Air 07/08/16 15:24 99.0 76 18 130/59 97 Room Air 07/08/16 15:12 99.0 74 18 152/61 97 Room Air Intake and Output 07/08/16 07/09/16 19:00 07:00 # Voids 1 3 Laboratory Tests Test 07/08/16 15:51 07/09/16 07:25 White Blood Count 12.6 K/UL (4.8-10.8) H 9.9 K/UL (4.8-10.8) Red Blood Count 3.42 M/UL (4.20-5.40) L 3.23 M/UL (4.20-5.40) L Hemoglobin 9.5 G/DL (12.0-16.0) L 8.8 G/DL (12.0-16.0) L Hematocrit 29.0 % (37.0-47.0) L 27.4 % (37.0-47.0) L Mean Corpuscular Volume 85 FL (80-99) 85 FL (80-99) Mean Corpuscular Hemoglobin 27.8 PG (27.0-31.0) 27.1 PG (27.0-31.0) Mean Corpuscular Hemoglobin Concent 32.8 G/DL (32.0-36.0) 32.0 G/DL (32.0-36.0) Red Cell Distribution Width 13.9 % (11.6-14.8) 14.2 % (11.6-14.8) Platelet Count 301 K/UL (150-450) 273 K/UL (150-450) Mean Platelet Volume 6.0 FL (6.5-10.1) L 6.0 FL (6.5-10.1) L Neutrophils (%) (Auto) 45.9 % (45.0-75.0) 45.0 % (45.0-75.0) Lymphocytes (%) (Auto) 28.0 % (20.0-45.0) 30.1 % (20.0-45.0) Monocytes (%) (Auto) 16.1 % (1.0-10.0) H 16.4 % (1.0-10.0) H Eosinophils (%) (Auto) 7.7 % (0.0-3.0) H 7.7 % (0.0-3.0) H Basophils (%) (Auto) 2.3 % (0.0-2.0) H 0.8 % (0.0-2.0) D-Dimer 575 ng/mL (<500) H Sodium Level 136 mEQ/L (135-145) 140 mEQ/L (135-145) Potassium Level 4.0 mEQ/L (3.4-4.9) 4.0 mEQ/L (3.4-4.9) Chloride Level 96 mEQ/L (98-107) L 99 mEQ/L (98-107) Carbon Dioxide Level 29 mEQ/L (20-30) 32 mEQ/L (20-30) H Anion Gap 11 (5-15) 9 (5-15) Blood Urea Nitrogen 21 mg/dL (7-23) 24 mg/dL (7-23) H Creatinine 1.1 mg/dL (0.5-0.9) H 0.9 mg/dL (0.5-0.9) Estimat Glomerular Filtration Rate mL/min (>60) mL/min (>60) Glucose Level 96 mg/dL (74-106) 100 mg/dL (74-106) Calcium Level 8.0 mg/dL (8.6-10.2) L 8.2 mg/dL (8.6-10.2) L Total Bilirubin 0.2 mg/dL (0.0-1.2) 0.2 mg/dL (0.0-1.2) Aspartate Amino Transf (AST/SGOT) 18 U/L (5-40) 20 U/L (5-40) Alanine Aminotransferase (ALT/SGPT) 18 U/L (3-33) 19 U/L (3-33) Alkaline Phosphatase 174 U/L (35-104) H 199 U/L (35-104) H Total Creatine Kinase 23 U/L (26-140) L Creatine Kinase MB < 1.5 ng/mL (< 3.8) Creatine Kinase MB Relative Index Troponin I < 0.30 ng/mL (<=0.30) < 0.30 ng/mL (<=0.30) Pro-B-Type Natriuretic Peptide 1024 pg/mL (0-450) H Total Protein 5.3 g/dL (6.6-8.7) L 5.2 g/dL (6.6-8.7) L Albumin 2.7 g/dL (3.5-5.2) L 2.7 g/dL (3.5-5.2) L Globulin 2.6 g/dL 2.5 g/dL Albumin/Globulin Ratio 1.0 (1.0-2.7) 1.0 (1.0-2.7) ROSALBA BRADLEY Jul 09, 2016 14:40
[2016-07-09 16:00] VITALS: BP 132/48
[2016-07-09] MEDS: Eliquis 2.5mg tablet ORAL SCH (19:15)
--- NOTE | 2016-07-09 19:40 | Nephrology Progress Note ---
Assessment/Plan Problem List: (1) Hypertension (2) Chest pain (3) Anemia Plan H&P Dictated # [id number] Subjective Constitutional: Denies: chills, diaphoresis, fever, malaise, no symptoms, other , weakness HEENT: Denies: blurred vision, double vision, ear discharge, ear pain, eye pain , mouth pain, mouth swelling, no symptoms, nose congestion, nose pain, other, tearing, throat pain, throat swelling Genitourinary: Denies: burning, discharge, flank pain, frequency, hematuria, incontinence, no symptoms, other, pain, urgency Neurologic/Psychiatric: Denies: anxiety, depressed, emotional problems, headache, no symptoms, numbness, other, paresthesia, pre-existing deficit, seizure, tingling, tremors, weakness Subjective In bed, in no distress Objective Objective Last 24 Hour Vital Signs Date Time Temp Pulse Resp B/P Pulse Ox O2 Delivery O2 Flow Rate FiO2 07/09/16 19:33 Room Air 07/09/16 19:33 85 18 98 Room Air 07/09/16 19:32 81 16 Room Air 07/09/16 16:00 97.6 77 19 132/48 99 Room Air 07/09/16 13:45 71 18 99 Room Air 21 07/09/16 13:45 21 07/09/16 13:45 72 18 99 Room Air 21 07/09/16 12:00 68 07/09/16 11:27 97.7 68 18 126/49 99 Room Air 07/09/16 08:00 97.1 66 18 130/52 96 Room Air 07/09/16 08:00 67 07/09/16 04:00 69 07/09/16 04:00 97.5 52 20 125/69 100 Room Air 07/09/16 00:00 98.0 52 20 124/66 100 Room Air 07/09/16 00:00 75 07/08/16 21:06 97.7 65 20 143/62 93 Room Air 07/08/16 20:43 99.0 65 16 129/43 100 Room Air 07/08/16 20:35 99.0 65 16 129/43 100 Room Air Intake and Output 07/08/16 07/09/16 18:59 06:59 # Voids 1 3 Laboratory Tests 07/09/16 07:25: White Blood Count 9.9, Red Blood Count 3.23L, Hemoglobin 8.8L, Hematocrit 27.4L , Mean Corpuscular Volume 85, Mean Corpuscular Hemoglobin 27.1, Mean Corpuscular Hemoglobin Concent 32.0, Red Cell Distribution Width 14.2, Platelet Count 273, Mean Platelet Volume 6.0L, Neutrophils (%) (Auto) 45.0, Lymphocytes ( %) (Auto) 30.1, Monocytes (%) (Auto) 16.4H, Eosinophils (%) (Auto) 7.7H, Basophils (%) (Auto) 0.8, Sodium Level 140, Potassium Level 4.0, Chloride Level 99, Carbon Dioxide Level 32H, Anion Gap 9, Blood Urea Nitrogen 24H, Creatinine 0.9, Estimat Glomerular Filtration Rate , Glucose Level 100, Calcium Level 8.2L , Total Bilirubin 0.2, Aspartate Amino Transf (AST/SGOT) 20, Alanine Aminotransferase (ALT/SGPT) 19, Alkaline Phosphatase 199H, Troponin I < 0.30, Total Protein 5.2L, Albumin 2.7L, Globulin 2.5, Albumin/Globulin Ratio 1.0 Height (Feet): 5 Height (Inches): 5.00 Weight (Pounds): 125 General Appearance: no apparent distress EENT: normal ENT inspection Neck: normal alignment, supple Cardiovascular: normal rate, regular rhythm Respiratory/Chest: decreased breath sounds Abdomen: non tender, soft, no organomegaly Extremities: normal range of motion, non-tender, normal inspection Neurologic: alert, oriented x 3, responsive Tanisha Millan N.P. Jul 09, 2016 19:39
[2016-07-09 20:00] VITALS: BP 146/60
--- NOTE | 2016-07-09 22:37 | History and Physical Report ---
DATE OF ADMISSION: 07/08/2016 HISTORY OF PRESENT ILLNESS: This is an 86-year-old female with past medical history of COPD, CHF, hypertension, and chronic arrhythmia who was recently discharged from senior living came back again within a week with short of breath and hypoxia. The patient was afraid because of short of breath. She denies any chest pain or palpitations. Denies any nausea or vomiting. PAST MEDICAL HISTORY: Significant for COPD, CHF, hypertension, and chronic arrhythmia. ALLERGIES: NKA. MEDICATIONS: See the list. PHYSICAL EXAMINATION: GENERAL: The patient is an elderly female who is currently awake and feeling comfortable. No distress. VITAL SIGNS: Blood pressure is 160/70, pulse 74, and respirations 18. SKIN: Good skin turgor. HEENT: AT/NC. EOMI. PERRLA. NECK: Supple. No JVD. CHEST: Bilaterally clear. CARDIOVASCULAR: Regular rhythm. No gallop. No murmur. ABDOMEN: Soft. EXTREMITIES: CCE. NEUROLOGICAL: The patient has no focal deficit. GENITOURINARY: Deferred. ASSESSMENT: 1. Acute chronic obstructive pulmonary disease. 2. Hypertension. 3. Tachycardia. 4. Severe degenerative arthritis. PLAN: 1. We will admit on medical floor. 2. the patient on IV steroid and IV bronchodilator treatments. 3. Continue current treatment. 4. Continue supportive treatment. Jeronimo Rodrigues M.D. DR: ERICH JOB#: [id number] CC:
[2016-07-10] VITALS (7 sets, daily range): BP systolic 145–168; BP diastolic 66–89
[2016-07-10] MEDS: Albuterol ud Inhalation HHN SCH ×4 (01:00→18:49)
--- NOTE | 2016-07-10 04:47 | HX and Phyl Repo 2 Sig ---
DATE OF ADMISSION: 07/08/2016 Dictation Cancelled Jarad Barrios M.D. Tanisha Millan DR: MARIA DE JESUS JOB#: [id number] CC:
--- NOTE | 2016-07-10 05:38 | HX and Phyl Repo 2 Sig ---
DATE OF ADMISSION: 07/08/2016 HISTORY OF PRESENT ILLNESS: The patient is an 86-year-old female, well known to me from previous admission with chief complaint of chest pain, which started the previous day. The patient stated that she suddenly felt this pain on her chest and could not breath. So, they called 911 and brought her to the emergency room. She denies any loss of consciousness. No prior fever. Denies chills. No nausea or vomiting. PAST MEDICAL HISTORY: The patient has history of: 1. Hypertension. 2. Asthma. 3. Chronic obstructive pulmonary disease. 4. Atrial fibrillation. ALLERGIES: To Penicillin and LEÓN inhibitors. SOCIAL HISTORY: No history of alcohol or drug use. Denies any history of smoking presently, but she is a cigarette smoker in the past. FAMILY HISTORY: Noncontributory. REVIEW OF SYSTEMS: A full 12-point review of system was reviewed with the patient and positive as stated in history of present illness. PHYSICAL EXAMINATION: GENERAL: The patient appeared well nourished, resting in bed at this time, in no apparent distress. VITAL SIGNS: Blood pressure 132/48, heart rate is 77, O2 saturation is 99% on room air, respirations 19, and temperature is 97.6 degrees. HEENT: Head is normocephalic and atraumatic with moist mucous membranes. Pupils are equal, round, and reactive to light and accommodation. NECK: Supple. No JVD noted. LUNGS: Diminished bilaterally. No wheezing noted. CARDIOVASCULAR: Regular rate and rhythm. S1 and S2. No murmurs. No gallops. ABDOMEN: Soft and nontender. Positive for normoactive bowel sounds in all four quadrants. EXTREMITIES: No edema. No cyanosis or clubbing. NEUROLOGIC: The patient is alert, awake, and oriented x3 with no focal deficits. LABORATORY DATA: CBC, white count is 9.9, hemoglobin 8.8, hematocrit 27.4, and platelet count of 273,000. BMP, sodium is 140, potassium is 4.0, chloride is 99, bicarbonate is 32, BUN is 24, creatinine is 0.9, glucose is 100, and calcium is 8.2. RADIOLOGIC FINDINGS: The chest x-ray showed no acute disease process. ASSESSMENT: 1. Chest pain, rule out acute coronary syndrome. 2. Anemia of chronic disease. 3. Chronic obstructive pulmonary disease exacerbation. 4. Atrial fibrillation. PLAN: We will admit the patient to the hospital. We will continue all home medications. We will obtain Cardiology consult. Pulmonary consult as well and follow up with recommendations. Continue pain management as tolerated. We will monitor lytes and monitor the patient's overall response to treatment. Case was discussed with Dr. Barrios. Jarad Barrios M.D. Tanisha Millan DR: Car JOB#: [id number] CC:
[2016-07-10] MEDS: Solu-MEDROL 40mg Inj IVP SCH ×4 (05:44→23:55)
--- NOTE | 2016-07-10 08:00 | Pulmonology Progress Note ---
Assessment/Plan Assessment/Plan IMPRESSION: 1. Exacerbation of chronic obstructive pulmonary disease. 2. Atrial fibrillation. DISCUSSION: Continue home medications. Continue breathing treatments every 4 hours IV Solu-Medrol I will follow. Subjective Interval Events: Better today; chest pain decrerased Constitutional: Reports: no symptoms HEENT: Repors: no symptoms Respiratory: Reports: dry cough Cardiovascular: Reports: chest pain Gastrointestinal/Abdominal: Reports: no symptoms Allergies: Coded Allergies: PENICILLIN G (Verified Allergy, Severe, EXTREME SWELLING OF FACE,TONGUE, HANDS,LEGS., 12/31/11) LEÓN INHIBITORS (Verified Allergy, Unknown, Shortness of Breath, 12/31/11) PENICILLINS (Unverified Allergy, Unknown, 07/08/16) Objective Last 24 Hour Vital Signs Date Time Temp Pulse Resp B/P Pulse Ox O2 Delivery O2 Flow Rate FiO2 07/10/16 07:32 65 16 100 Room Air 21 07/10/16 07:32 65 16 Room Air 07/10/16 07:32 21 07/10/16 05:44 95 149/67 07/10/16 04:00 97.7 71 16 168/83 98 Room Air 07/10/16 04:00 66 07/10/16 01:19 Room Air 07/10/16 01:19 Room Air 07/10/16 00:00 97.7 61 18 158/68 100 Room Air 07/10/16 00:00 72 07/09/16 22:34 66 146/60 07/09/16 20:00 97.7 66 20 146/60 99 Room Air 07/09/16 20:00 77 07/09/16 19:33 Room Air 07/09/16 19:33 85 18 98 Room Air 07/09/16 19:32 81 16 Room Air 07/09/16 16:00 97.6 77 19 132/48 99 Room Air 07/09/16 16:00 85 07/09/16 13:45 71 18 99 Room Air 21 07/09/16 13:45 21 07/09/16 13:45 72 18 99 Room Air 21 07/09/16 12:00 68 07/09/16 11:27 97.7 68 18 126/49 99 Room Air 07/09/16 08:00 97.1 66 18 130/52 96 Room Air 07/09/16 08:00 67 Intake and Output 07/09/16 07/10/16 19:00 07:00 Intake Total 600 ml 720 ml Balance 600 ml 720 ml Intake Oral 600 ml 720 ml # Voids 1 3 General Appearance: no acute distress HEENT: normocephalic Respiratory/Chest: chest wall non-tender, lungs clear Cardiovascular: normal peripheral pulses, normal rate Abdomen: normal bowel sounds Current Medications Medications (Trade) Dose Ordered Sig/Theodore Route PRN Reason Start Time Stop Time Status Last Admin Dose Admin Albuterol Sulfate (Proventil) 2.5 mg Q6HRT HHN 07/09/16 13:00 07/14/16 12:59 07/10/16 07:33 Apixaban (Eliquis) 2.5 mg BID ORAL 07/09/16 18:00 08/08/16 17:59 07/09/16 19:15 Clonidine HCl (Catapres) 0.1 mg Q6H PRN ORAL for SBP >160 07/10/16 08:00 08/09/16 07:59 Dextrose (Dextrose 50%) STAT PRN IV Hypoglycemia 07/08/16 22:15 08/07/16 22:14 Digoxin (Lanoxin) 0.125 mg DAILY ORAL 07/10/16 09:00 08/09/16 08:59 Diltiazem HCl (Cardizem) 30 mg EVERY 8 HOURS ORAL 07/09/16 22:00 08/08/16 21:59 07/10/16 05:44 Hydromorphone HCl (Dilaudid) 1 mg Q4H PRN IVP For Pain 07/09/16 06:00 07/16/16 05:59 07/09/16 23:29 Methylprednisolone Sodium Succinate (Solu-MEDROL) 40 mg EVERY 6 HOURS IVP 07/09/16 12:00 08/08/16 11:59 07/10/16 05:44 Nitroglycerin (Ntg) 0.4 mg Q5M PRN SL Prn Chest Pain 07/08/16 16:15 08/07/16 16:14 07/08/16 16:18 David Madrigal MD Jul 10, 2016 08:00
[2016-07-10 08:21] LABS: BASOPHILS % (AUTO) 0.4 % (0.0-2.0); LYMPHOCYTES % (AUTO) 15.8 % (20.0-45.0); MEAN CORPUSCULAR HEMOGLOBIN 27.4 PG (27.0-31.0); MEAN CORPUSCULAR HGB CONC 32.6 G/DL (32.0-36.0); MEAN CORPUSCULAR VOLUME 84 FL (80-99); MEAN PLATELET VOLUME 7.6 FL (6.5-10.1); MONOCYTES % (AUTO) 2.7 % (1.0-10.0); NEUTROPHILS % (AUTO) 81.2 % (45.0-75.0); PLATELET COUNT 321 K/UL (150-450); RED BLOOD COUNT 3.48 M/UL (4.20-5.40); RED CELL DISTRIBUTION WIDTH 13.7 % (11.6-14.8); WHITE BLOOD COUNT 8.7 K/UL (4.8-10.8)
[2016-07-10] MEDS: Eliquis 2.5mg tablet ORAL SCH ×2 (08:37→18:29)
[2016-07-10] MEDS: HYDROmorphone 1mg/ml Carpuject IVP PRN ×4 (08:38→23:56)
[2016-07-10 08:57] LABS: TROPONIN I < 0.30 ng/mL (<=0.30)
[2016-07-10 08:58] LABS: ANION GAP 11 (5-15); CALCIUM 8.8 mg/dL (8.6-10.2); CARBON DIOXIDE 28 mEQ/L (20-30); CHLORIDE 96 mEQ/L (98-107); CREATININE 0.8 mg/dL (0.5-0.9); HEMOLYSIS 2; POTASSIUM 4.3 mEQ/L (3.4-4.9); SODIUM 135 mEQ/L (135-145)
[2016-07-10] MEDS ORDERED: Digoxin 0.125mg tab ORAL SCH (09:00)
--- NOTE | 2016-07-10 14:57 | Cardiac Electrophysiology PN ---
Assessment/Plan Assessment/Plan 1. Atrial fibrillation with aberrancy. In SR on this admission The patient denies any syncope. Echocardiogram EF 70% to 75% . Ruled out for myocardial infarction. 2. Paroxysmal atrial fibrillation. Continue Digoxin 0.125, Cardizem 3 mg tid and Eliquis 2.5 bid. 3. History of non-Q-wave myocardial infarction .On Aspirin. Add Lipitor 10. Off beta elyssa for COPD. No chest pain. 4. Normal ventricular systolic function. 5. COPD Subjective Subjective Has headache. No chest pain or SOB. No arrhythmias on tele. Objective Last 24 Hour Vital Signs Date Time Temp Pulse Resp B/P Pulse Ox O2 Delivery O2 Flow Rate FiO2 07/10/16 14:10 78 18 98 Room Air 21 07/10/16 14:01 21 07/10/16 14:01 69 16 100 Room Air 21 07/10/16 13:31 97.7 07/10/16 13:01 70 154/68 07/10/16 11:53 73 07/10/16 11:24 97.7 70 18 154/68 100 Room Air 07/10/16 08:38 70 07/10/16 08:08 97.7 70 18 158/70 98 Room Air 07/10/16 08:05 83 07/10/16 07:43 75 18 99 Room Air 21 07/10/16 07:32 65 16 100 Room Air 21 07/10/16 07:32 65 16 Room Air 07/10/16 07:32 21 07/10/16 05:44 95 149/67 07/10/16 04:00 97.7 71 16 168/83 98 Room Air 07/10/16 04:00 66 07/10/16 01:19 Room Air 07/10/16 01:19 Room Air 07/10/16 00:00 97.7 61 18 158/68 100 Room Air 07/10/16 00:00 72 07/09/16 22:34 66 146/60 07/09/16 20:00 97.7 66 20 146/60 99 Room Air 07/09/16 20:00 77 07/09/16 19:33 Room Air 07/09/16 19:33 85 18 98 Room Air 07/09/16 19:32 81 16 Room Air 07/09/16 16:00 97.6 77 19 132/48 99 Room Air 07/09/16 16:00 85 Intake and Output 07/09/16 07/10/16 19:00 07:00 Intake Total 600 ml 720 ml Balance 600 ml 720 ml Intake Oral 600 ml 720 ml # Voids 1 3 Laboratory Tests Test 07/10/16 07:40 White Blood Count 8.7 K/UL (4.8-10.8) Red Blood Count 3.48 M/UL (4.20-5.40) L Hemoglobin 9.5 G/DL (12.0-16.0) L Hematocrit 29.3 % (37.0-47.0) L Mean Corpuscular Volume 84 FL (80-99) Mean Corpuscular Hemoglobin 27.4 PG (27.0-31.0) Mean Corpuscular Hemoglobin Concent 32.6 G/DL (32.0-36.0) Red Cell Distribution Width 13.7 % (11.6-14.8) Platelet Count 321 K/UL (150-450) Mean Platelet Volume 7.6 FL (6.5-10.1) Neutrophils (%) (Auto) 81.2 % (45.0-75.0) H Lymphocytes (%) (Auto) 15.8 % (20.0-45.0) L Monocytes (%) (Auto) 2.7 % (1.0-10.0) Eosinophils (%) (Auto) 0.0 % (0.0-3.0) Basophils (%) (Auto) 0.4 % (0.0-2.0) Sodium Level 135 mEQ/L (135-145) Potassium Level 4.3 mEQ/L (3.4-4.9) Chloride Level 96 mEQ/L (98-107) L Carbon Dioxide Level 28 mEQ/L (20-30) Anion Gap 11 (5-15) Blood Urea Nitrogen 26 mg/dL (7-23) H Creatinine 0.8 mg/dL (0.5-0.9) Estimat Glomerular Filtration Rate mL/min (>60) Glucose Level 144 mg/dL (74-106) H Calcium Level 8.8 mg/dL (8.6-10.2) Troponin I < 0.30 ng/mL (<=0.30) Pro-B-Type Natriuretic Peptide 1427 pg/mL (0-450) H Objective HEAD AND NECK: no JVD. LUNGS: Decreased breath sounds. CARDIOVASCULAR: regular S1 and S2 with no gallop or murmur. ABDOMEN: Soft. EXTREMITIES: No pitting edema. ROSALBA BRADLEY Jul 10, 2016 14:57
--- NOTE | 2016-07-10 20:57 | Progress Note ---
SUBJECTIVE: This is an elderly 86-year-old female, complaining of chest pain, having back pain. No fever. No chills. OBJECTIVE: VITAL SIGNS: Blood pressure 130/70, pulse 74, respiratory rate 18. SKIN: Good skin turgor. HEENT: NAD. CHEST: Bilateral clear. CARDIOVASCULAR: Regular rhythm. No gallop. No murmur. ABDOMEN: Soft. EXTREMITIES: CCE. NEUROLOGICAL: No focal deficits. GENITOURINARY: Deferred. ASSESSMENT: 1. Accelerated hypertension. 2. Chronic obstructive pulmonary disease. 3. Hypertension. 4. Cardiac arrhythmia. We will currently continue current treatment. Follow up the laboratories. Jeronimo Rodrigues M.D. DR: Sidney JOB#: [id number] CC:
[2016-07-10] MEDS ORDERED: Nitroglycerin Subl 0.4mg tab (Bottle Of 25) SL PRN (21:00)
--- NOTE | 2016-07-10 21:04 | Nephrology Progress Note ---
Assessment/Plan Problem List: (1) Chest pain (2) Hypertension (3) Anemia (4) Atrial fibrillation with RVR Assessment: paroxysmal. (5) Asthma Plan Cardio/EP following. Pulm following. PT. dc planning soon. Subjective Subjective no sob/cp Objective Objective Last 24 Hour Vital Signs Date Time Temp Pulse Resp B/P Pulse Ox O2 Delivery O2 Flow Rate FiO2 07/10/16 20:00 97.6 73 20 161/69 96 Room Air 07/10/16 18:50 Room Air 07/10/16 18:49 Room Air 07/10/16 18:48 83 16 Room Air 07/10/16 16:00 97.9 76 21 147/66 98 Room Air 07/10/16 14:10 78 18 98 Room Air 21 07/10/16 14:01 21 07/10/16 14:01 69 16 100 Room Air 21 07/10/16 13:31 97.7 07/10/16 13:01 70 154/68 07/10/16 11:53 73 07/10/16 11:24 97.7 70 18 154/68 100 Room Air 07/10/16 08:38 70 07/10/16 08:08 97.7 70 18 158/70 98 Room Air 07/10/16 08:05 83 07/10/16 07:43 75 18 99 Room Air 21 07/10/16 07:32 65 16 100 Room Air 21 07/10/16 07:32 65 16 Room Air 07/10/16 07:32 21 07/10/16 05:44 95 149/67 07/10/16 04:00 97.7 71 16 168/83 98 Room Air 07/10/16 04:00 66 07/10/16 01:19 Room Air 07/10/16 01:19 Room Air 07/10/16 00:00 97.7 61 18 158/68 100 Room Air 07/10/16 00:00 72 07/09/16 22:34 66 146/60 Intake and Output 07/09/16 07/10/16 19:00 07:00 Intake Total 600 ml 720 ml Balance 600 ml 720 ml Intake Oral 600 ml 720 ml # Voids 1 3 Laboratory Tests 07/10/16 07:40: White Blood Count 8.7, Red Blood Count 3.48L, Hemoglobin 9.5L, Hematocrit 29.3L , Mean Corpuscular Volume 84, Mean Corpuscular Hemoglobin 27.4, Mean Corpuscular Hemoglobin Concent 32.6, Red Cell Distribution Width 13.7, Platelet Count 321, Mean Platelet Volume 7.6, Neutrophils (%) (Auto) 81.2H, Lymphocytes ( %) (Auto) 15.8L, Monocytes (%) (Auto) 2.7, Eosinophils (%) (Auto) 0.0, Basophils (%) (Auto) 0.4, Sodium Level 135, Potassium Level 4.3, Chloride Level 96L, Carbon Dioxide Level 28, Anion Gap 11, Blood Urea Nitrogen 26H, Creatinine 0.8, Estimat Glomerular Filtration Rate , Glucose Level 144H, Calcium Level 8.8 , Troponin I < 0.30, Pro-B-Type Natriuretic Peptide 1427H Height (Feet): 5 Height (Inches): 5.00 Weight (Pounds): 125 General Appearance: no apparent distress Cardiovascular: normal rate, regular rhythm Respiratory/Chest: lungs clear Abdomen: non tender, soft MARIANA FOOTE Jul 10, 2016 21:04
[2016-07-11] MEDS: Albuterol ud Inhalation HHN SCH ×4 (00:59→19:02)
[2016-07-11 04:00] VITALS: BP 141/65
[2016-07-11] MEDS: HYDROmorphone 1mg/ml Carpuject IVP PRN ×4 (04:04→19:59)
[2016-07-11] MEDS: Solu-MEDROL 40mg Inj IVP SCH (05:39)
[2016-07-11 07:34] LABS: TROPONIN I < 0.30 ng/mL (<=0.30)
[2016-07-11 08:22] VITALS: BP 148/58
[2016-07-11] MEDS: Digoxin 0.125mg tab ORAL SCH (09:32)
[2016-07-11] MEDS: Eliquis 2.5mg tablet ORAL SCH ×2 (09:32→17:53)
--- NOTE | 2016-07-11 10:52 | Pulmonology Progress Note ---
Assessment/Plan Assessment/Plan IMPRESSION: 1. Exacerbation of chronic obstructive pulmonary disease. 2. Atrial fibrillation. DISCUSSION: Continue home medications. Continue breathing treatments every 4 hours IV Solu-Medrol; suggest to switch to PO prednisone I will follow. Subjective Interval Events: Doing better Constitutional: Reports: no symptoms HEENT: Repors: no symptoms Cardiovascular: Reports: no symptoms Gastrointestinal/Abdominal: Reports: no symptoms Genitourinary: Reports: no symptoms Neurologic: Reports: no symptoms Allergies: Coded Allergies: PENICILLIN G (Verified Allergy, Severe, EXTREME SWELLING OF FACE,TONGUE, HANDS,LEGS., 12/31/11) LEÓN INHIBITORS (Verified Allergy, Unknown, Shortness of Breath, 12/31/11) PENICILLINS (Unverified Allergy, Unknown, 07/08/16) Objective Last 24 Hour Vital Signs Date Time Temp Pulse Resp B/P Pulse Ox O2 Delivery O2 Flow Rate FiO2 07/11/16 09:32 59 07/11/16 08:22 97.7 59 14 148/58 100 Room Air 07/11/16 05:39 69 141/65 07/11/16 04:38 97.9 07/11/16 04:00 98.2 69 20 141/65 97 Room Air 07/11/16 01:01 Room Air 07/11/16 00:58 Room Air 07/10/16 23:49 97.9 71 20 145/89 100 Room Air 07/10/16 22:04 73 161/79 07/10/16 21:42 161/79 07/10/16 20:00 97.6 73 20 161/69 96 Room Air 07/10/16 18:50 Room Air 07/10/16 18:49 Room Air 07/10/16 18:48 83 16 Room Air 07/10/16 16:00 97.9 76 21 147/66 98 Room Air 07/10/16 14:10 78 18 98 Room Air 21 07/10/16 14:01 21 07/10/16 14:01 69 16 100 Room Air 21 07/10/16 13:31 97.7 07/10/16 13:01 70 154/68 07/10/16 11:53 73 07/10/16 11:24 97.7 70 18 154/68 100 Room Air Intake and Output 07/10/16 07/11/16 18:59 06:59 Intake Total 480 ml 480 ml Balance 480 ml 480 ml Intake Oral 480 ml 480 ml # Voids 1 2 HEENT: normocephalic, atraumatic Respiratory/Chest: chest wall non-tender, lungs clear Cardiovascular: normal peripheral pulses, normal rate Abdomen: normal bowel sounds Microbiology Date/Time Source Procedure Growth Status 07/08/16 20:50 Nasal Nares MRSA Culture - Final NO METHICILLIN RESISTANT STAPH AUREUS... Complete 07/08/16 20:50 Rectum VRE Culture - Final NO VANCOMYCIN RESISTANT ENTEROCOCCUS ... Complete Laboratory Tests 07/11/16 06:05: Troponin I < 0.30 Current Medications Medications (Trade) Dose Ordered Sig/Theodore Route PRN Reason Start Time Stop Time Status Last Admin Dose Admin Albuterol Sulfate (Proventil) 2.5 mg Q6HRT HHN 07/11/16 01:00 07/16/16 00:59 07/11/16 07:30 Apixaban (Eliquis) 2.5 mg BID ORAL 07/11/16 09:00 08/10/16 08:59 07/11/16 09:32 Atorvastatin Calcium (Lipitor) 10 mg BEDTIME ORAL 07/10/16 23:00 08/09/16 22:59 07/10/16 22:05 Clonidine HCl (Catapres) 0.1 mg Q6H PRN ORAL for SBP >160 07/10/16 21:45 08/09/16 21:44 07/10/16 21:42 Dextrose (Dextrose 50%) STAT PRN IV Hypoglycemia 07/10/16 22:15 08/09/16 22:14 Digoxin (Lanoxin) 0.125 mg DAILY ORAL 07/11/16 09:00 08/10/16 08:59 07/11/16 09:32 Diltiazem HCl (Cardizem) 30 mg EVERY 8 HOURS ORAL 07/10/16 22:00 08/09/16 21:59 07/11/16 05:39 Hydromorphone HCl (Dilaudid) 1 mg Q4H PRN IVP For Pain 07/10/16 21:30 07/17/16 21:29 07/11/16 09:32 Methylprednisolone Sodium Succinate (Solu-MEDROL) 40 mg EVERY 6 HOURS IVP 07/11/16 00:00 08/10/16 00:00 07/11/16 05:39 Nitroglycerin (Ntg) 0.4 mg Q5M PRN SL Prn Chest Pain 07/10/16 21:00 08/09/16 20:59 David Madrigal MD Jul 11, 2016 10:52
[2016-07-11 12:08] VITALS: BP 183/73
[2016-07-11 13:00] VITALS: BP_SYST 103; BP_SYST 149; BP_DIAS 75; BP_DIAS 78
[2016-07-11 16:00] VITALS: BP 156/68
--- NOTE | 2016-07-11 16:25 | Cardiac Electrophysiology PN ---
Assessment/Plan Assessment/Plan 1. WCT due to Atrial fibrillation with aberrancy. In SR. The patient denies any syncope. Echocardiogram EF 70% to 75% . Ruled out for myocardial infarction. 2. Paroxysmal atrial fibrillation. Continue Digoxin 0.125, Cardizem 30 mg tid and Eliquis 2.5 bid. 3. History of non-Q-wave myocardial infarction .On Aspirin and Lipitor 10. Off beta elyssa for COPD. No chest pain. 4. Normal ventricular systolic function. 5. COPD Subjective Subjective Still has headache. No chest pain or SOB or palpitations. Now off tele. Objective Last 24 Hour Vital Signs Date Time Temp Pulse Resp B/P Pulse Ox O2 Delivery O2 Flow Rate FiO2 07/11/16 14:52 78 149/78 07/11/16 13:30 21 07/11/16 13:30 78 18 97 Room Air 21 07/11/16 13:00 149/78 07/11/16 12:08 97.7 61 14 183/73 99 Room Air 07/11/16 09:32 59 07/11/16 08:22 97.7 59 14 148/58 100 Room Air 07/11/16 07:30 62 18 Room Air 07/11/16 07:30 62 18 97 Room Air 21 07/11/16 07:30 21 07/11/16 05:39 69 141/65 07/11/16 04:38 97.9 07/11/16 04:00 98.2 69 20 141/65 97 Room Air 07/11/16 01:01 Room Air 07/11/16 00:58 Room Air 07/10/16 23:49 97.9 71 20 145/89 100 Room Air 07/10/16 22:04 73 161/79 07/10/16 21:42 161/79 07/10/16 20:00 97.6 73 20 161/69 96 Room Air 07/10/16 18:50 Room Air 07/10/16 18:49 Room Air 07/10/16 18:48 83 16 Room Air Intake and Output 07/10/16 07/11/16 19:00 07:00 Intake Total 480 ml 480 ml Balance 480 ml 480 ml Intake Oral 480 ml 480 ml # Voids 1 2 Laboratory Tests Test 07/11/16 06:05 Troponin I < 0.30 ng/mL (<=0.30) Microbiology Date/Time Source Procedure Growth Status 07/08/16 20:50 Nasal Nares MRSA Culture - Final NO METHICILLIN RESISTANT STAPH AUREUS... Complete 07/08/16 20:50 Rectum VRE Culture - Final NO VANCOMYCIN RESISTANT ENTEROCOCCUS ... Complete Objective HEAD AND NECK: no JVD. LUNGS: Decreased breath sounds. CARDIOVASCULAR: regular S1 and S2 with no gallop or murmur. ABDOMEN: Soft. EXTREMITIES: No pitting edema. ROSALBA BRADLEY Jul 11, 2016 16:25
--- NOTE | 2016-07-11 16:42 | Nephrology Progress Note ---
Assessment/Plan Problem List: (1) Hypertension (2) Chest pain (3) Anemia (4) Atrial fibrillation with RVR (5) Congestive heart failure (CHF) (6) Acute exacerbation of COPD with asthma Plan BP Uncontrolled - cardiology f/u, will f/u with recs Pulmo f/u Continue nebs Monitor Vitals Monitor lytes Monitor H&H and transfuse as needed Pain management DC plan - home with HH Subjective Constitutional: Denies: chills, diaphoresis, fever, malaise, no symptoms, other , weakness HEENT: Denies: blurred vision, double vision, ear discharge, ear pain, eye pain , mouth pain, mouth swelling, no symptoms, nose congestion, nose pain, other, tearing, throat pain, throat swelling Genitourinary: Denies: burning, discharge, flank pain, frequency, hematuria, incontinence, no symptoms, other, pain, urgency Neurologic/Psychiatric: Denies: anxiety, depressed, emotional problems, headache, no symptoms, numbness, other, paresthesia, pre-existing deficit, seizure, tingling, tremors, weakness Subjective In bed, in no distress, denies discomfort at this time Objective Objective Last 24 Hour Vital Signs Date Time Temp Pulse Resp B/P Pulse Ox O2 Delivery O2 Flow Rate FiO2 07/11/16 14:52 78 149/78 07/11/16 13:30 21 07/11/16 13:30 77 18 98 Room Air 21 07/11/16 13:30 78 18 97 Room Air 21 07/11/16 13:00 149/78 07/11/16 12:08 97.7 61 14 183/73 99 Room Air 07/11/16 09:32 59 07/11/16 08:22 97.7 59 14 148/58 100 Room Air 07/11/16 07:30 62 18 Room Air 07/11/16 07:30 64 18 100 Room Air 21 07/11/16 07:30 62 18 97 Room Air 21 07/11/16 07:30 21 07/11/16 05:39 69 141/65 07/11/16 04:38 97.9 07/11/16 04:00 98.2 69 20 141/65 97 Room Air 07/11/16 01:01 Room Air 07/11/16 00:58 Room Air 07/10/16 23:49 97.9 71 20 145/89 100 Room Air 07/10/16 22:04 73 161/79 07/10/16 21:42 161/79 07/10/16 20:00 97.6 73 20 161/69 96 Room Air 07/10/16 18:50 Room Air 07/10/16 18:49 Room Air 07/10/16 18:48 83 16 Room Air Intake and Output 07/10/16 07/11/16 19:00 07:00 Intake Total 480 ml 480 ml Balance 480 ml 480 ml Intake Oral 480 ml 480 ml # Voids 1 2 Laboratory Tests 07/11/16 06:05: Troponin I < 0.30 Height (Feet): 5 Height (Inches): 5.00 Weight (Pounds): 125 General Appearance: no apparent distress, alert EENT: normal ENT inspection Neck: normal alignment, supple Cardiovascular: normal rate, regular rhythm, no JVD Respiratory/Chest: lungs clear, normal breath sounds Abdomen: non tender, soft, no organomegaly Extremities: non-tender, normal inspection Neurologic: alert, oriented x 3, responsive, normal mood/affect Tanisha Millan N.P. Jul 11, 2016 16:42
--- NOTE | 2016-07-11 18:09 | Cardiology Report ---
APPROVED REPORT EKG Measurement Heart [id number] HI [id number] Normal sinus rhythm Voltage criteria for left ventricular hypertrophy Nonspecific T wave abnormality Abnormal ECG
[2016-07-11 19:00] VITALS: BP 115/88
[2016-07-12] VITALS (7 sets, daily range): BP systolic 130–145; BP diastolic 59–83
[2016-07-12] MEDS: Albuterol ud Inhalation HHN SCH ×4 (01:00→19:00)
[2016-07-12] MEDS: HYDROmorphone 1mg/ml Carpuject IVP PRN ×4 (01:49→20:23)
[2016-07-12] MEDS: Digoxin 0.125mg tab ORAL SCH (08:23)
[2016-07-12] MEDS: Eliquis 2.5mg tablet ORAL SCH ×2 (08:23→17:20)
[2016-07-12] MEDS: PredniSONE 20mg tab ORAL SCH (08:24)
[2016-07-12 08:26] LABS: ANION GAP 10 (5-15); CALCIUM 8.2 mg/dL (8.6-10.2); CARBON DIOXIDE 30 mEQ/L (20-30); CHLORIDE 97 mEQ/L (98-107); HEMOLYSIS 1; POTASSIUM 3.7 mEQ/L (3.4-4.9); SODIUM 137 mEQ/L (135-145)
[2016-07-12 08:48] LABS: BASOPHILS % (AUTO) 0.6 % (0.0-2.0); LYMPHOCYTES % (AUTO) 20.7 % (20.0-45.0); MEAN CORPUSCULAR HEMOGLOBIN 27.5 PG (27.0-31.0); MEAN CORPUSCULAR HGB CONC 31.6 G/DL (32.0-36.0); MEAN CORPUSCULAR VOLUME 87 FL (80-99); MEAN PLATELET VOLUME 5.9 FL (6.5-10.1); MONOCYTES % (AUTO) 9.2 % (1.0-10.0); NEUTROPHILS % (AUTO) 69.4 % (45.0-75.0); PLATELET COUNT 342 K/UL (150-450); RED BLOOD COUNT 3.67 M/UL (4.20-5.40); RED CELL DISTRIBUTION WIDTH 13.9 % (11.6-14.8); WHITE BLOOD COUNT 15.5 K/UL (4.8-10.8)
--- NOTE | 2016-07-12 08:52 | Pulmonology Progress Note ---
Assessment/Plan Assessment/Plan IMPRESSION: 1. Exacerbation of chronic obstructive pulmonary disease. 2. Atrial fibrillation. DISCUSSION: Continue home medications. Continue breathing treatments every 4 hours PO prednisone I will follow. Subjective Interval Events: no change; feeling better Constitutional: Reports: no symptoms HEENT: Repors: no symptoms Respiratory: Reports: dry cough Cardiovascular: Reports: no symptoms Gastrointestinal/Abdominal: Reports: no symptoms Genitourinary: Reports: no symptoms Allergies: Coded Allergies: PENICILLIN G (Verified Allergy, Severe, EXTREME SWELLING OF FACE,TONGUE, HANDS,LEGS., 12/31/11) LEÓN INHIBITORS (Verified Allergy, Unknown, Shortness of Breath, 12/31/11) PENICILLINS (Unverified Allergy, Unknown, 07/08/16) Objective Last 24 Hour Vital Signs Date Time Temp Pulse Resp B/P Pulse Ox O2 Delivery O2 Flow Rate FiO2 07/12/16 08:23 62 07/12/16 06:05 76 139/59 07/12/16 04:00 97.3 76 18 139/59 100 Room Air 07/12/16 01:23 Room Air 07/12/16 01:22 Room Air 07/12/16 00:00 97.7 79 18 130/71 100 Room Air 07/11/16 21:17 97.7 07/11/16 21:17 90 133/71 07/11/16 19:20 84 16 100 Room Air 21 07/11/16 19:04 84 16 Room Air 07/11/16 19:04 21 07/11/16 19:03 84 16 100 Room Air 21 07/11/16 19:00 96.8 78 18 115/88 100 Room Air 07/11/16 16:00 96.4 50 18 156/68 98 Room Air 07/11/16 14:52 78 149/78 07/11/16 13:30 21 07/11/16 13:30 77 18 98 Room Air 21 07/11/16 13:30 78 18 97 Room Air 21 07/11/16 13:00 149/78 07/11/16 12:08 97.7 61 14 183/73 99 Room Air 07/11/16 09:32 59 Intake and Output 07/11/16 07/12/16 19:00 07:00 Intake Total 1000 ml 360 ml Balance 1000 ml 360 ml Intake Oral 1000 ml 360 ml # Voids 2 4 General Appearance: no acute distress HEENT: normocephalic Respiratory/Chest: chest wall non-tender, lungs clear Cardiovascular: normal peripheral pulses, normal rate Abdomen: normal bowel sounds, soft, non tender Extremities: no cyanosis Laboratory Tests 07/12/16 07:50: White Blood Count [Pending], Red Blood Count [Pending], Hemoglobin [Pending], Hematocrit [Pending], Mean Corpuscular Volume [Pending], Mean Corpuscular Hemoglobin [Pending], Mean Corpuscular Hemoglobin Concent [Pending], Red Cell Distribution Width [Pending], Platelet Count [Pending], Mean Platelet Volume [ Pending], Neutrophils (%) (Auto) [Pending], Lymphocytes (%) (Auto) [Pending], Monocytes (%) (Auto) [Pending], Eosinophils (%) (Auto) [Pending], Basophils (%) (Auto) [Pending], Sodium Level 137, Potassium Level 3.7, Chloride Level 97L, Carbon Dioxide Level 30, Anion Gap 10, Blood Urea Nitrogen 30H, Creatinine 1.0H , Estimat Glomerular Filtration Rate , Glucose Level 92, Calcium Level 8.2L Current Medications Medications (Trade) Dose Ordered Sig/Theodore Route PRN Reason Start Time Stop Time Status Last Admin Dose Admin Albuterol Sulfate (Proventil) 2.5 mg Q6HRT HHN 07/11/16 01:00 07/16/16 00:59 07/11/16 19:02 Apixaban (Eliquis) 2.5 mg BID ORAL 07/11/16 09:00 08/10/16 08:59 07/12/16 08:23 Atorvastatin Calcium (Lipitor) 10 mg BEDTIME ORAL 07/10/16 23:00 08/09/16 22:59 07/11/16 21:17 Clonidine HCl (Catapres) 0.1 mg Q6H PRN ORAL for SBP >160 07/10/16 21:45 08/09/16 21:44 07/10/16 21:42 Dextrose (Dextrose 50%) STAT PRN IV Hypoglycemia 07/10/16 22:15 08/09/16 22:14 Digoxin (Lanoxin) 0.125 mg DAILY ORAL 07/11/16 09:00 08/10/16 08:59 07/12/16 08:23 Diltiazem HCl (Cardizem) 30 mg EVERY 8 HOURS ORAL 07/10/16 22:00 08/09/16 21:59 07/12/16 06:05 Hydromorphone HCl (Dilaudid) 1 mg Q4H PRN IVP For Pain 07/10/16 21:30 07/17/16 21:29 07/12/16 06:06 Nitroglycerin (Ntg) 0.4 mg Q5M PRN SL Prn Chest Pain 07/10/16 21:00 08/09/16 20:59 Prednisone (predniSONE) 20 mg DAILY ORAL 07/12/16 09:00 08/11/16 08:59 07/12/16 08:24 David Madrigal MD Jul 12, 2016 08:52
--- NOTE | 2016-07-12 13:15 | Nephrology Progress Note ---
Assessment/Plan Problem List: (1) Hypertension (2) Chest pain (3) Anemia (4) Atrial fibrillation with RVR (5) Congestive heart failure (CHF) (6) Acute exacerbation of COPD with asthma (7) TOI (acute kidney injury) Plan BP - cardiology f/u, will f/u with recs Pulmo f/u Continue nebs Monitor Vitals Monitor lytes Monitor BUN/cr Monitor H&H and transfuse as needed Pain management DC plan - home with HH Subjective Constitutional: Denies: chills, diaphoresis, fever, malaise, no symptoms, other , weakness HEENT: Denies: blurred vision, double vision, ear discharge, ear pain, eye pain , mouth pain, mouth swelling, no symptoms, nose congestion, nose pain, other, tearing, throat pain, throat swelling Genitourinary: Denies: burning, discharge, flank pain, frequency, hematuria, incontinence, no symptoms, other, pain, urgency Neurologic/Psychiatric: Denies: anxiety, depressed, emotional problems, headache, no symptoms, numbness, other, paresthesia, pre-existing deficit, seizure, tingling, tremors, weakness Subjective In bed, in no distress, denies discomfort at this time Objective Objective Last 24 Hour Vital Signs Date Time Temp Pulse Resp B/P Pulse Ox O2 Delivery O2 Flow Rate FiO2 07/12/16 12:00 97.6 85 15 137/83 100 Room Air 07/12/16 08:56 97.3 62 14 132/76 100 Bi-pap 07/12/16 08:23 62 07/12/16 06:05 76 139/59 07/12/16 04:00 97.3 76 18 139/59 100 Room Air 07/12/16 01:23 Room Air 07/12/16 01:22 Room Air 07/12/16 00:00 97.7 79 18 130/71 100 Room Air 07/11/16 21:17 97.7 07/11/16 21:17 90 133/71 07/11/16 19:20 84 16 100 Room Air 21 07/11/16 19:04 84 16 Room Air 07/11/16 19:04 21 07/11/16 19:03 84 16 100 Room Air 21 07/11/16 19:00 96.8 78 18 115/88 100 Room Air 07/11/16 16:00 96.4 50 18 156/68 98 Room Air 07/11/16 14:52 78 149/78 07/11/16 13:30 21 07/11/16 13:30 77 18 98 Room Air 21 07/11/16 13:30 78 18 97 Room Air 21 Intake and Output 07/11/16 07/12/16 19:00 07:00 Intake Total 1000 ml 360 ml Balance 1000 ml 360 ml Intake Oral 1000 ml 360 ml # Voids 2 4 Laboratory Tests 07/12/16 07:50: White Blood Count 15.5H, Red Blood Count 3.67L, Hemoglobin 10.1L, Hematocrit 32.0L, Mean Corpuscular Volume 87, Mean Corpuscular Hemoglobin 27.5, Mean Corpuscular Hemoglobin Concent 31.6L, Red Cell Distribution Width 13.9, Platelet Count 342, Mean Platelet Volume 5.9L, Neutrophils (%) (Auto) 69.4, Lymphocytes (%) (Auto) 20.7, Monocytes (%) (Auto) 9.2, Eosinophils (%) (Auto) 0.0, Basophils (%) (Auto) 0.6, Sodium Level 137, Potassium Level 3.7, Chloride Level 97L, Carbon Dioxide Level 30, Anion Gap 10, Blood Urea Nitrogen 30H, Creatinine 1.0H, Estimat Glomerular Filtration Rate , Glucose Level 92, Calcium Level 8.2L Height (Feet): 5 Height (Inches): 5.00 Weight (Pounds): 125 General Appearance: no apparent distress, alert EENT: normal ENT inspection Neck: non-tender, normal alignment, supple, normal inspection Cardiovascular: normal rate, regular rhythm Respiratory/Chest: lungs clear, normal breath sounds, no respiratory distress Abdomen: non tender, soft, no organomegaly, no mass Extremities: non-tender, normal inspection, no calf tenderness Neurologic: alert, oriented x 3, responsive, normal mood/affect Tanisha Millan N.P. Jul 12, 2016 13:15
--- NOTE | 2016-07-12 17:09 | Diagnostic Imaging Report ---
APPROVED REPORT CPT Code: 39853 Present Symptoms Comments: Screening BILATERAL: Imaging reveals a patent deep venous system bilaterally. There is no evidence of thrombus within the femoral, popliteal or tibial segments. The greater saphenous veins are also within normal limits. Doppler indicates normal spontaneous flow within these segments.
--- NOTE | 2016-07-12 17:54 | Cardiac Electrophysiology PN ---
Assessment/Plan Assessment/Plan 1. Wide Complex Tachycardia due to Atrial fibrillation with aberrancy. In SR. The patient denies any syncope. Echocardiogram EF 70% to 75% . Ruled out for myocardial infarction. 2. Paroxysmal atrial fibrillation. Continue Digoxin 0.125, Cardizem 30 mg tid and Eliquis 2.5 bid. 3. History of non-Q-wave myocardial infarction .On Aspirin and Lipitor 10. Off beta elyssa for COPD. No chest pain. 4. Normal ventricular systolic function. 5. COPD Subjective Subjective No chest pain or SOB or palpitations. No events overnight. Objective Last 24 Hour Vital Signs Date Time Temp Pulse Resp B/P Pulse Ox O2 Delivery O2 Flow Rate FiO2 07/12/16 15:53 97.7 80 16 136/65 98 Room Air 07/12/16 14:11 85 137/83 07/12/16 13:30 21 07/12/16 13:30 80 18 98 Room Air 07/12/16 13:30 82 18 100 Room Air 21 07/12/16 13:21 97.6 07/12/16 12:00 97.6 85 15 137/83 100 Room Air 07/12/16 08:56 97.3 62 14 132/76 100 Bi-pap 07/12/16 08:23 62 07/12/16 07:30 68 18 98 Room Air 07/12/16 07:30 21 07/12/16 07:30 68 18 Room Air 07/12/16 07:30 70 18 100 Room Air 21 07/12/16 06:05 76 139/59 07/12/16 04:00 97.3 76 18 139/59 100 Room Air 07/12/16 01:23 Room Air 07/12/16 01:22 Room Air 07/12/16 00:00 97.7 79 18 130/71 100 Room Air 07/11/16 21:17 90 133/71 07/11/16 19:20 84 16 100 Room Air 07/11/16 19:04 84 16 Room Air 07/11/16 19:04 21 07/11/16 19:03 84 16 100 Room Air 21 07/11/16 19:00 96.8 78 18 115/88 100 Room Air Intake and Output 07/11/16 07/12/16 19:00 07:00 Intake Total 1000 ml 360 ml Balance 1000 ml 360 ml Intake Oral 1000 ml 360 ml # Voids 2 4 Laboratory Tests Test 07/12/16 07:50 White Blood Count 15.5 K/UL (4.8-10.8) H Red Blood Count 3.67 M/UL (4.20-5.40) L Hemoglobin 10.1 G/DL (12.0-16.0) L Hematocrit 32.0 % (37.0-47.0) L Mean Corpuscular Volume 87 FL (80-99) Mean Corpuscular Hemoglobin 27.5 PG (27.0-31.0) Mean Corpuscular Hemoglobin Concent 31.6 G/DL (32.0-36.0) L Red Cell Distribution Width 13.9 % (11.6-14.8) Platelet Count 342 K/UL (150-450) Mean Platelet Volume 5.9 FL (6.5-10.1) L Neutrophils (%) (Auto) 69.4 % (45.0-75.0) Lymphocytes (%) (Auto) 20.7 % (20.0-45.0) Monocytes (%) (Auto) 9.2 % (1.0-10.0) Eosinophils (%) (Auto) 0.0 % (0.0-3.0) Basophils (%) (Auto) 0.6 % (0.0-2.0) Sodium Level 137 mEQ/L (135-145) Potassium Level 3.7 mEQ/L (3.4-4.9) Chloride Level 97 mEQ/L (98-107) L Carbon Dioxide Level 30 mEQ/L (20-30) Anion Gap 10 (5-15) Blood Urea Nitrogen 30 mg/dL (7-23) H Creatinine 1.0 mg/dL (0.5-0.9) H Estimat Glomerular Filtration Rate mL/min (>60) Glucose Level 92 mg/dL (74-106) Calcium Level 8.2 mg/dL (8.6-10.2) L Objective HEAD AND NECK: no JVD. LUNGS: Decreased breath sounds. CARDIOVASCULAR: regular S1 and S2 with no gallop or murmur. ABDOMEN: Soft. EXTREMITIES: No edema. ROSALBA BRADLEY Jul 12, 2016 17:54
[2016-07-13] MEDS: HYDROmorphone 1mg/ml Carpuject IVP PRN ×5 (00:55→20:08)
[2016-07-13] MEDS: Albuterol ud Inhalation HHN SCH ×4 (01:00→19:50)
[2016-07-13 04:00] VITALS: BP 178/94
[2016-07-13 06:32] VITALS: BP 146/70
[2016-07-13 07:53] VITALS: BP 130/55
[2016-07-13 08:02] LABS: BASOPHILS % (AUTO) 1.1 % (0.0-2.0); EOSINOPHILS % (AUTO) 0.1 % (0.0-3.0); LYMPHOCYTES % (AUTO) 34.6 % (20.0-45.0); MEAN CORPUSCULAR HEMOGLOBIN 27.4 PG (27.0-31.0); MEAN CORPUSCULAR HGB CONC 31.6 G/DL (32.0-36.0); MEAN CORPUSCULAR VOLUME 87 FL (80-99); MEAN PLATELET VOLUME 5.5 FL (6.5-10.1); MONOCYTES % (AUTO) 11.2 % (1.0-10.0); PLATELET COUNT 298 K/UL (150-450); RED BLOOD COUNT 3.32 M/UL (4.20-5.40); RED CELL DISTRIBUTION WIDTH 13.8 % (11.6-14.8); WHITE BLOOD COUNT 12.2 K/UL (4.8-10.8)
--- NOTE | 2016-07-13 08:39 | Pulmonology Progress Note ---
Assessment/Plan Assessment/Plan IMPRESSION: 1. Exacerbation of chronic obstructive pulmonary disease. 2. Atrial fibrillation. DISCUSSION: Continue home medications. Continue breathing treatments every 4 hours PO prednisone I will follow. Subjective Interval Events: No new events Constitutional: Reports: no symptoms HEENT: Repors: no symptoms Cardiovascular: Reports: no symptoms Gastrointestinal/Abdominal: Reports: no symptoms Genitourinary: Reports: no symptoms Neurologic: Reports: no symptoms Allergies: Coded Allergies: PENICILLIN G (Verified Allergy, Severe, EXTREME SWELLING OF FACE,TONGUE, HANDS,LEGS., 12/31/11) LEÓN INHIBITORS (Verified Allergy, Unknown, Shortness of Breath, 12/31/11) PENICILLINS (Unverified Allergy, Unknown, 07/08/16) Objective Last 24 Hour Vital Signs Date Time Temp Pulse Resp B/P Pulse Ox O2 Delivery O2 Flow Rate FiO2 07/13/16 07:53 97.7 86 14 130/55 100 Room Air 07/13/16 07:29 Room Air 07/13/16 07:29 91 18 Room Air 07/13/16 07:29 Room Air 07/13/16 06:32 146/70 07/13/16 05:37 82 173/80 07/13/16 05:24 173/80 07/13/16 04:00 98.2 60 20 178/94 97 Nasal Cannula 07/13/16 01:35 Room Air 07/13/16 01:35 Room Air 07/12/16 21:49 97.9 75 16 145/66 98 Room Air 07/12/16 20:22 79 136/65 07/12/16 20:00 97.0 75 20 145/60 91 Room Air 07/12/16 19:51 Room Air 07/12/16 19:51 79 18 Room Air 07/12/16 19:51 Room Air 07/12/16 15:53 97.7 80 16 136/65 98 Room Air 07/12/16 14:11 85 137/83 07/12/16 13:30 21 07/12/16 13:30 80 18 98 Room Air 07/12/16 13:30 82 18 100 Room Air 21 07/12/16 13:21 97.6 07/12/16 12:00 97.6 85 15 137/83 100 Room Air 07/12/16 08:56 97.3 62 14 132/76 100 Bi-pap Intake and Output 07/12/16 07/13/16 18:59 06:59 Intake Total 1000 ml Balance 1000 ml Intake Oral 1000 ml # Voids 3 3 # Bowel Movements 2 General Appearance: WD/WN HEENT: normocephalic, atraumatic Respiratory/Chest: chest wall non-tender, lungs clear Cardiovascular: normal peripheral pulses, normal rate Laboratory Tests 07/13/16 06:00: White Blood Count 12.2H, Red Blood Count 3.32L, Hemoglobin 9.1L, Hematocrit 28.8L, Mean Corpuscular Volume 87, Mean Corpuscular Hemoglobin 27.4, Mean Corpuscular Hemoglobin Concent 31.6L, Red Cell Distribution Width 13.8, Platelet Count 298, Mean Platelet Volume 5.5L, Neutrophils (%) (Auto) 53.0, Lymphocytes (%) (Auto) 34.6, Monocytes (%) (Auto) 11.2H, Eosinophils (%) (Auto) 0.1, Basophils (%) (Auto) 1.1, Sodium Level [Pending], Potassium Level [Pending] , Chloride Level [Pending], Carbon Dioxide Level [Pending], Blood Urea Nitrogen [Pending], Creatinine [Pending], Estimat Glomerular Filtration Rate [Pending], Glucose Level [Pending], Calcium Level [Pending] Current Medications Medications (Trade) Dose Ordered Sig/Theodore Route PRN Reason Start Time Stop Time Status Last Admin Dose Admin Albuterol Sulfate (Proventil) 2.5 mg Q6HRT HHN 07/11/16 01:00 07/16/16 00:59 07/12/16 13:30 Apixaban (Eliquis) 2.5 mg BID ORAL 07/11/16 09:00 08/10/16 08:59 07/12/16 17:20 Atorvastatin Calcium (Lipitor) 10 mg BEDTIME ORAL 07/10/16 23:00 08/09/16 22:59 07/12/16 20:22 Clonidine HCl (Catapres) 0.1 mg Q6H PRN ORAL for SBP >160 07/10/16 21:45 08/09/16 21:44 07/13/16 05:24 Dextrose (Dextrose 50%) STAT PRN IV Hypoglycemia 07/10/16 22:15 08/09/16 22:14 Digoxin (Lanoxin) 0.125 mg DAILY ORAL 07/11/16 09:00 08/10/16 08:59 07/12/16 08:23 Diltiazem HCl (Cardizem) 30 mg EVERY 8 HOURS ORAL 07/10/16 22:00 08/09/16 21:59 07/13/16 05:37 Hydromorphone HCl (Dilaudid) 1 mg Q4H PRN IVP For Pain 07/10/16 21:30 07/17/16 21:29 07/13/16 05:25 Nitroglycerin (Ntg) 0.4 mg Q5M PRN SL Prn Chest Pain 07/10/16 21:00 08/09/16 20:59 Prednisone (predniSONE) 20 mg DAILY ORAL 07/12/16 09:00 08/11/16 08:59 07/12/16 08:24 David Madrigal MD Jul 13, 2016 08:39
[2016-07-13 08:42] LABS: ANION GAP 10 (5-15); CARBON DIOXIDE 28 mEQ/L (20-30); CHLORIDE 100 mEQ/L (98-107); CREATININE 0.9 mg/dL (0.5-0.9); HEMOLYSIS 0; POTASSIUM 4.2 mEQ/L (3.4-4.9); SODIUM 138 mEQ/L (135-145)
[2016-07-13] MEDS: PredniSONE 20mg tab ORAL SCH (09:02)
[2016-07-13] MEDS: Eliquis 2.5mg tablet ORAL SCH ×2 (09:02→17:25)
[2016-07-13] MEDS: Digoxin 0.125mg tab ORAL SCH (09:02)
--- NOTE | 2016-07-13 10:37 | Nephrology Progress Note ---
Assessment/Plan Problem List: (1) Hypertension (2) Chest pain (3) Anemia (4) Atrial fibrillation with RVR (5) Congestive heart failure (CHF) (6) Acute exacerbation of COPD with asthma (7) TOI (acute kidney injury) Plan Monitor BP - cardiology f/u, will f/u with recs Pulmo f/u Continue nebs Continue prednisone Monitor Vitals Monitor lytes Monitor BUN/cr Monitor H&H and transfuse as needed Pain management PT/OT eval - fall risk DC plan - home with AM labs Subjective Constitutional: Denies: chills, diaphoresis, fever, malaise, no symptoms, other , weakness HEENT: Denies: blurred vision, double vision, ear discharge, ear pain, eye pain , mouth pain, mouth swelling, no symptoms, nose congestion, nose pain, other, tearing, throat pain, throat swelling Genitourinary: Denies: burning, discharge, flank pain, frequency, hematuria, incontinence, no symptoms, other, pain, urgency Neurologic/Psychiatric: Denies: anxiety, depressed, emotional problems, headache, no symptoms, numbness, other, paresthesia, pre-existing deficit, seizure, tingling, tremors, weakness Subjective In bed, in no distress, complained of left arm pain 10/ last night, denies discomfort at this time. Objective Objective Last 24 Hour Vital Signs Date Time Temp Pulse Resp B/P Pulse Ox O2 Delivery O2 Flow Rate FiO2 07/13/16 09:02 86 07/13/16 07:53 97.7 86 14 130/55 100 Room Air 07/13/16 07:29 Room Air 07/13/16 07:29 91 18 Room Air 07/13/16 07:29 Room Air 07/13/16 06:32 146/70 07/13/16 05:37 82 173/80 07/13/16 05:24 173/80 07/13/16 04:00 98.2 60 20 178/94 97 Nasal Cannula 07/13/16 01:35 Room Air 07/13/16 01:35 Room Air 07/12/16 21:49 97.9 75 16 145/66 98 Room Air 07/12/16 20:22 79 136/65 07/12/16 20:00 97.0 75 20 145/60 91 Room Air 07/12/16 19:51 Room Air 07/12/16 19:51 79 18 Room Air 07/12/16 19:51 Room Air 07/12/16 15:53 97.7 80 16 136/65 98 Room Air 07/12/16 14:11 85 137/83 07/12/16 13:30 21 07/12/16 13:30 80 18 98 Room Air 07/12/16 13:30 82 18 100 Room Air 21 07/12/16 13:21 97.6 07/12/16 12:00 97.6 85 15 137/83 100 Room Air Intake and Output 07/12/16 07/13/16 19:00 07:00 Intake Total 1000 ml Balance 1000 ml Intake Oral 1000 ml # Voids 3 3 # Bowel Movements 2 Laboratory Tests 07/13/16 06:00: White Blood Count 12.2H, Red Blood Count 3.32L, Hemoglobin 9.1L, Hematocrit 28.8L, Mean Corpuscular Volume 87, Mean Corpuscular Hemoglobin 27.4, Mean Corpuscular Hemoglobin Concent 31.6L, Red Cell Distribution Width 13.8, Platelet Count 298, Mean Platelet Volume 5.5L, Neutrophils (%) (Auto) 53.0, Lymphocytes (%) (Auto) 34.6, Monocytes (%) (Auto) 11.2H, Eosinophils (%) (Auto) 0.1, Basophils (%) (Auto) 1.1, Sodium Level 138, Potassium Level 4.2, Chloride Level 100, Carbon Dioxide Level 28, Anion Gap 10, Blood Urea Nitrogen 29H, Creatinine 0.9, Estimat Glomerular Filtration Rate , Glucose Level 99, Calcium Level 8.0L Height (Feet): 5 Height (Inches): 5.00 Weight (Pounds): 125 General Appearance: no apparent distress, alert EENT: normal ENT inspection, TMs normal Neck: normal alignment, supple, normal inspection Cardiovascular: normal rate, regular rhythm Respiratory/Chest: lungs clear, normal breath sounds, no respiratory distress Abdomen: soft, no organomegaly Extremities: normal range of motion, non-tender, normal inspection, no calf tenderness Neurologic: alert, oriented x 3, responsive, normal mood/affect Tanisha Millan N.P. Jul 13, 2016 10:37
[2016-07-13 11:54] VITALS: BP 143/66
[2016-07-13 16:10] VITALS: BP 125/61
[2016-07-13 20:04] VITALS: BP 147/88
[2016-07-14] VITALS: BP 157/82
[2016-07-14] MEDS: Albuterol ud Inhalation HHN SCH ×3 (01:20→13:19)
[2016-07-14 04:00] VITALS: BP 154/86
[2016-07-14] MEDS: HYDROmorphone 1mg/ml Carpuject IVP PRN ×2 (05:44→13:32)
[2016-07-14 07:35] LABS: BASOPHILS % (AUTO) 0.5 % (0.0-2.0); EOSINOPHILS % (AUTO) 0.1 % (0.0-3.0); LYMPHOCYTES % (AUTO) 26.7 % (20.0-45.0); MEAN CORPUSCULAR HEMOGLOBIN 27.2 PG (27.0-31.0); MEAN CORPUSCULAR HGB CONC 30.9 G/DL (32.0-36.0); MEAN CORPUSCULAR VOLUME 88 FL (80-99); MEAN PLATELET VOLUME 5.8 FL (6.5-10.1); MONOCYTES % (AUTO) 7.6 % (1.0-10.0); NEUTROPHILS % (AUTO) 65.1 % (45.0-75.0); PLATELET COUNT 273 K/UL (150-450); RED BLOOD COUNT 3.18 M/UL (4.20-5.40); RED CELL DISTRIBUTION WIDTH 13.8 % (11.6-14.8); WHITE BLOOD COUNT 11.9 K/UL (4.8-10.8)
[2016-07-14 08:08] LABS: ANION GAP 10 (5-15); CALCIUM 8.3 mg/dL (8.6-10.2); CARBON DIOXIDE 29 mEQ/L (20-30); CHLORIDE 102 mEQ/L (98-107); CREATININE 0.9 mg/dL (0.5-0.9); HEMOLYSIS 1; POTASSIUM 4.3 mEQ/L (3.4-4.9); SODIUM 141 mEQ/L (135-145)
[2016-07-14 08:10] VITALS: BP 136/75
[2016-07-14] MEDS: PredniSONE 20mg tab ORAL SCH (08:57)
[2016-07-14] MEDS: Eliquis 2.5mg tablet ORAL SCH (08:57)
[2016-07-14] MEDS: Digoxin 0.125mg tab ORAL SCH (08:58)
--- NOTE | 2016-07-14 09:02 | Pulmonology Progress Note ---
Assessment/Plan Assessment/Plan IMPRESSION: 1. Exacerbation of chronic obstructive pulmonary disease. 2. Atrial fibrillation. DISCUSSION: Continue home medications. Continue breathing treatments every 4 hours PO prednisone I will follow. Subjective Interval Events: Doing better Constitutional: Reports: no symptoms HEENT: Repors: no symptoms Respiratory: Reports: no symptoms Cardiovascular: Reports: no symptoms Gastrointestinal/Abdominal: Reports: no symptoms Allergies: Coded Allergies: PENICILLIN G (Verified Allergy, Severe, EXTREME SWELLING OF FACE,TONGUE, HANDS,LEGS., 12/31/11) LEÓN INHIBITORS (Verified Allergy, Unknown, Shortness of Breath, 12/31/11) PENICILLINS (Unverified Allergy, Unknown, 07/08/16) Objective Last 24 Hour Vital Signs Date Time Temp Pulse Resp B/P Pulse Ox O2 Delivery O2 Flow Rate FiO2 07/14/16 08:58 86 07/14/16 08:10 97.6 75 18 136/75 100 Room Air 07/14/16 07:59 86 18 100 Room Air 21 07/14/16 07:50 21 07/14/16 07:50 84 16 100 Room Air 07/14/16 05:45 74 154/86 07/14/16 04:00 97.3 74 18 154/86 100 Room Air 07/14/16 01:27 69 18 100 Room Air 21 07/14/16 01:20 66 16 99 Room Air 07/14/16 01:20 21 07/14/16 00:00 97.5 85 18 157/82 100 Room Air 07/13/16 20:08 78 147/88 07/13/16 20:04 96.5 78 16 147/88 98 07/13/16 19:05 67 18 100 Room Air 21 07/13/16 19:00 64 18 Room Air 07/13/16 19:00 21 07/13/16 19:00 64 18 99 Room Air 07/13/16 16:10 97.7 95 16 125/61 98 07/13/16 14:24 69 143/66 07/13/16 13:10 Room Air 07/13/16 13:10 Room Air 07/13/16 11:54 97.3 69 15 143/66 100 Room Air 07/13/16 11:03 97.7 07/13/16 09:02 86 Intake and Output 07/13/16 07/14/16 19:00 07:00 Intake Total 1300 ml 200 ml Balance 1300 ml 200 ml Intake Oral 1300 ml 200 ml # Voids 2 2 # Bowel Movements 1 General Appearance: no acute distress HEENT: normocephalic Respiratory/Chest: chest wall non-tender, lungs clear Cardiovascular: normal peripheral pulses, normal rate Laboratory Tests 07/14/16 06:25: White Blood Count 11.9H, Red Blood Count 3.18L, Hemoglobin 8.6L, Hematocrit 27.9L, Mean Corpuscular Volume 88, Mean Corpuscular Hemoglobin 27.2, Mean Corpuscular Hemoglobin Concent 30.9L, Red Cell Distribution Width 13.8, Platelet Count 273, Mean Platelet Volume 5.8L, Neutrophils (%) (Auto) 65.1, Lymphocytes (%) (Auto) 26.7, Monocytes (%) (Auto) 7.6, Eosinophils (%) (Auto) 0.1, Basophils (%) (Auto) 0.5, Sodium Level 141, Potassium Level 4.3, Chloride Level 102, Carbon Dioxide Level 29, Anion Gap 10, Blood Urea Nitrogen 27H, Creatinine 0.9, Estimat Glomerular Filtration Rate , Glucose Level 100, Calcium Level 8.3L Current Medications Medications (Trade) Dose Ordered Sig/Theodore Route PRN Reason Start Time Stop Time Status Last Admin Dose Admin Albuterol Sulfate (Proventil) 2.5 mg Q6HRT HHN 07/11/16 01:00 07/16/16 00:59 07/14/16 08:12 Apixaban (Eliquis) 2.5 mg BID ORAL 07/11/16 09:00 08/10/16 08:59 07/14/16 08:57 Atorvastatin Calcium (Lipitor) 10 mg BEDTIME ORAL 07/10/16 23:00 08/09/16 22:59 07/13/16 20:07 Clonidine HCl (Catapres) 0.1 mg Q6H PRN ORAL for SBP >160 07/10/16 21:45 08/09/16 21:44 07/13/16 05:24 Dextrose (Dextrose 50%) STAT PRN IV Hypoglycemia 07/10/16 22:15 08/09/16 22:14 Digoxin (Lanoxin) 0.125 mg DAILY ORAL 07/11/16 09:00 08/10/16 08:59 07/14/16 08:58 Diltiazem HCl (Cardizem) 30 mg EVERY 8 HOURS ORAL 07/10/16 22:00 08/09/16 21:59 07/14/16 05:45 Hydromorphone HCl (Dilaudid) 1 mg Q4H PRN IVP For Pain 07/10/16 21:30 07/17/16 21:29 07/14/16 05:44 Nitroglycerin (Ntg) 0.4 mg Q5M PRN SL Prn Chest Pain 07/10/16 21:00 08/09/16 20:59 Prednisone (predniSONE) 20 mg DAILY ORAL 07/12/16 09:00 08/11/16 08:59 07/14/16 08:57 David Madrigal MD Jul 14, 2016 09:02
[2016-07-14 12:00] VITALS: BP 128/72
[2016-07-14 13:32] VITALS: BP 128/72
--- NOTE | 2016-07-14 14:21 | Nephrology Progress Note ---
Assessment/Plan Problem List: (1) Hypertension (2) Chest pain (3) Anemia (4) Atrial fibrillation with RVR (5) Congestive heart failure (CHF) (6) Acute exacerbation of COPD with asthma (7) TOI (acute kidney injury) Plan Monitor BP - controlled cardiology f/u, will f/u with recs Pulmo f/u Continue nebs Continue prednisone Monitor lytes Monitor BUN/cr Monitor H&H, transfuse PRN Stool OB Pain management PT/OT eval - fall risk DC plan - home with AM labs Subjective Constitutional: Denies: chills, diaphoresis, fever, malaise, no symptoms, other , weakness HEENT: Denies: blurred vision, double vision, ear discharge, ear pain, eye pain , mouth pain, mouth swelling, no symptoms, nose congestion, nose pain, other, tearing, throat pain, throat swelling Genitourinary: Denies: burning, discharge, flank pain, frequency, hematuria, incontinence, no symptoms, other, pain, urgency Neurologic/Psychiatric: Denies: anxiety, depressed, emotional problems, headache, no symptoms, numbness, other, paresthesia, pre-existing deficit, seizure, tingling, tremors, weakness Subjective In bed, in no distress. Objective Objective Last 24 Hour Vital Signs Date Time Temp Pulse Resp B/P Pulse Ox O2 Delivery O2 Flow Rate FiO2 07/14/16 13:32 76 128/72 07/14/16 13:20 83 18 100 Room Air 07/14/16 13:11 80 16 100 Room Air 07/14/16 13:11 21 07/14/16 12:00 97.0 76 18 128/72 100 Room Air 07/14/16 08:58 86 07/14/16 08:10 97.6 75 18 136/75 100 Room Air 07/14/16 07:59 86 18 100 Room Air 07/14/16 07:50 21 07/14/16 07:50 84 16 100 Room Air 07/14/16 05:45 74 154/86 07/14/16 04:00 97.3 74 18 154/86 100 Room Air 07/14/16 01:27 69 18 100 Room Air 21 07/14/16 01:20 66 16 99 Room Air 07/14/16 01:20 21 07/14/16 00:00 97.5 85 18 157/82 100 Room Air 07/13/16 20:08 78 147/88 07/13/16 20:04 96.5 78 16 147/88 98 07/13/16 19:05 67 18 100 Room Air 21 07/13/16 19:00 64 18 Room Air 07/13/16 19:00 21 07/13/16 19:00 64 18 99 Room Air 07/13/16 16:10 97.7 95 16 125/61 98 07/13/16 14:24 69 143/66 Intake and Output 07/13/16 07/14/16 19:00 07:00 Intake Total 1300 ml 200 ml Balance 1300 ml 200 ml Intake Oral 1300 ml 200 ml # Voids 2 2 # Bowel Movements 1 Laboratory Tests 07/14/16 06:25: White Blood Count 11.9H, Red Blood Count 3.18L, Hemoglobin 8.6L, Hematocrit 27.9L, Mean Corpuscular Volume 88, Mean Corpuscular Hemoglobin 27.2, Mean Corpuscular Hemoglobin Concent 30.9L, Red Cell Distribution Width 13.8, Platelet Count 273, Mean Platelet Volume 5.8L, Neutrophils (%) (Auto) 65.1, Lymphocytes (%) (Auto) 26.7, Monocytes (%) (Auto) 7.6, Eosinophils (%) (Auto) 0.1, Basophils (%) (Auto) 0.5, Sodium Level 141, Potassium Level 4.3, Chloride Level 102, Carbon Dioxide Level 29, Anion Gap 10, Blood Urea Nitrogen 27H, Creatinine 0.9, Estimat Glomerular Filtration Rate , Glucose Level 100, Calcium Level 8.3L Height (Feet): 5 Height (Inches): 5.00 Weight (Pounds): 125 General Appearance: no apparent distress, alert EENT: normal ENT inspection, TMs normal Neck: normal alignment, supple, normal inspection Cardiovascular: normal rate, regular rhythm, no JVD Respiratory/Chest: lungs clear, normal breath sounds, no respiratory distress Abdomen: non tender, soft, no organomegaly Extremities: non-tender, normal inspection, no calf tenderness, normal capillary refill Neurologic: alert, oriented x 3, responsive, normal mood/affect Tanisha Millan N.P. Jul 14, 2016 14:21
[2016-07-14] MEDS ORDERED: ACETAMINOPHEN-1 EAC1 ORAL (15:41)
[2016-07-14] MEDS ORDERED: HYDROCHLOROTHIA25 MG ORAL (15:41)
--- NOTE | 2016-07-14 16:27 | Progress Note ---
DATE: 07/13/2016 PSYCHOTHERAPY CONSULTATION PROGRESS NOTE SUBJECTIVE: The patient is a 86-year-old female. The patient is alert, and oriented x2 person and place. Mood depressed. Affect blunted. The patient is feeling very tired and fatigued, very motivated, requires continuous hospitalization for stabilization of her symptoms. This clinician assessed the patient. Provided the patient with reality orientation, supportive psychotherapy, and coping skills. Continue with medication management and behavioral management. This clinician has reviewed the patient's chart and discussed the treatment with nursing staff. Dorene Katz PsyD. DR: Vince JOB#: [id number] CC:
--- NOTE | 2016-07-14 18:17 | Progress Note ---
DATE: 07/11/2016 NOTE: "POOR AUDIO QUALITY" SUBJECTIVE: The patient is a female patient. States that she has been pretty restless and irritable in the hospital and evaluation. The patient is slightly forgetful as well and is difficult to . She is . PLAN: continue with medication management and behavioral management. This clinician has reviewed this patient's chart and discussed the treatment with nursing staff. Dorene Katz PsyD. DR: Breanna JOB#: [id number] CC:
--- NOTE | 2016-07-14 22:37 | Consultation ---
DATE OF CONSULTATION: 07/10/2016 NOTE: VERY POOR INAUDIBLE AUDIO QUALITY TREATING ATTENDING PHYSICIAN: Jarad Barrios M.D. HISTORY OF PRESENT ILLNESS: The patient is a 86-year-old female. The patient is admitted to the hospital with a chest pain. She is complaining of anxiety. She did have chest pain. The patient was referred for Psychotherapy psychiatric assessment to rule out possible anxiety due to her complaints . The patient states that she just had a recent in the family impacted her emotionally chest pain she states is not related to any . She denies suicidal or homicidal type of ideation and states that she her current medical condition. The patient . PAST MEDICAL HISTORY: History of hypertension, asthma, chronic obstructive pulmonary disease, atrial fibrillation. ALLERGIES: The patient is allergic to penicillin . PSYCHIATRIC HISTORY: The patient denies history of mental illness. SOCIAL HISTORY: The patient is an 86-year-old single female. The patient lives at home with a caregiver. SUBSTANCE ABUSE HISTORY: The patient denies history of alcohol use, illicit substance use, or smoking cigarettes. The patient does have a history of smoking cigarettes according to medical records. MENTAL STATUS EXAMINATION: The patient is alert and oriented x3 to person, place, and time. Mood is anxious. Affect is blunted. Thought process is disorganized. 03:57. Poor insight, judgment, and impulse control DIAGNOSES: AXIS I: Rule out generalized anxiety disorder. AXIS II: Deferred. AXIS III: Per History and Physical. AXIS IV: Psychosocial stressors are moderate. PLAN: This clinician assessed the patient. Provided the patient with supportive psychotherapy, reality orientation, and coping skills. Continue with medication management and behavioral management. This clinician has reviewed the patient's chart. Discussed the treatment with the nursing staff. . The patient denies suicidal or homicidal type of ideation. Dorene Katz PsyD. : RADHA JOB#: [id number] CC:
--- NOTE | 2016-07-15 01:28 | Progress Note ---
SUBJECTIVE: This is an 86-year-old female who is currently doing fine. Short of breath has improved. OBJECTIVE: CHEST: Bilateral few crackles. CARDIOVASCULAR: Regular rhythm. ABDOMEN: Soft. EXTREMITIES: No swelling. ASSESSMENT AND PLAN: 1. Acute chronic obstructive pulmonary disease, resolved. 2. Cardiac arrhythmia. 3. Hypertension. 4. PLAN: Dr. Barrios discussed with the patient. Jeronimo Rodrigues M.D. DR: GIANCARLO JOB#: [id number] CC:
--- NOTE | 2016-07-15 12:18 | Discharge Summary ---
Discharge Summary Hospital Course Date of Admission Jul 08, 2016 at 17:22 Date of Discharge Jul 14, 2016 at 16:00 Admitting Diagnosis CHEST PAIN, SHORTNESS OF BREATH HPI Michael Orellana is a 86 year old female who was admitted on Jul 08, 2016 at 17: 22 for Chest Pain, Shortness Of Breath Hospital Course dc summary dictated #[id number] Discharge Medications Continued Medications: Acetaminophen With Codeine (T#3) (Tylenol #3 Tab*) Y Tab 2 TAB ORAL Q6H PRN for For Pain, TAB Albuterol Sulfate (Ventolin Hfa) 18 Gm Hfa.aer.ad 2 PUFFS INH TID PRN for Shortness of Breath, #18 GM 0 Refills Aspirin* (Aspir 81*) 81 Mg Tablet. 81 MG ORAL DAILY, TAB Digoxin* (Digoxin*) 125 Mcg Tablet Unknown Dose ORAL DAILY, TAB Diltiazem Hcl (Cardizem) 120 Mg Tablet 180 MG PO DAILY, #30 TAB Ferrous Sulfate* (Ferrous Sulfate*) 325 Mg Tablet Unknown Dose ORAL DAILY, #30 TAB 0 Refills Hydrochlorothiazide* (Hydrochlorothiazide*) 25 Mg Tablet 25 MG ORAL DAILY, TAB Pantoprazole* (Pantoprazole*) 40 Mg Tablet. 40 MG ORAL DAILY, TAB Discharge Condition Upon Discharge: improving Discharge Disposition Patient was discharged to Home with Home Health(06) Discharge Diagnoses: Discharge Instructions Discharge Instructions Special Instructions I have been assigned to complete a D/C Summary on this account. I was not involved in the patient management Ami Mata NP (Vanchtein) Jul 15, 2016 12:18
--- NOTE | 2016-07-16 04:28 | Discharge Summary 2 SIG ---
DATE OF ADMISSION: 07/08/2016 DATE OF DISCHARGE: 07/14/2016 REASON FOR ADMISSION: 86-year-old female, was brought with increased chest pain. The patient reported a gradual onset of the pain over the past one day as well as associated shortness of breath. The patient has a prior history of congestive heart failure. The patient was recently discharged from the hospital. The patient denied fevers, chills; onset of chest pain occurred with a light activity. She denied nausea , vomiting, or abdominal pain. She denied any hematochezia, melena, or hematemesis. The patient has underlying history of COPD and hypertension. Telemetry in the emergency department revealed atrial fibrillation with rapid ventricular response. Initial troponin negative. Pulse oximetry was stable on room air. The patient received IV Lasix and nitroglycerin. The patient was given aspirin prior by ambulance.Chest x-ray revealed no acute cardiopulmonary disease. The patient was transferred to telemetry floor for further management. ADMITTING DIAGNOSES: 1. Chest pain rule out acute coronary syndrome. 2. Acute chronic obstructive pulmonary disease exacerbation. 3. Atrial fibrillation with rapid ventricular response. HOSPITAL COURSE: The patient was admitted to telemetry floor. Cardiology and pulmonary consults were requested. In terms of the cardiology issues, serial troponin x4 were negative. The patient's rate was controlled and subsequently she was converted to normal sinus rhythm. EKG revealed no evidence of ischemia, thus the patient was ruled out for acute myocardial infarction. Echocardiogram revealed ejection fraction of 70% to 75%, and rate was controlled with digoxin and Cardizem. Anticoagulation with Eliquis. No beta-elyssa secondary to chronic obstructive pulmonary disease. Aspirin was continued. Statin was added to existing regimen. Blood pressure was stable with the current regimen. Electronic Heat Seal Operator followed the patient. The patient was on empiric antibiotics as well as the IV steroids, which were gradually tapered and changed to the oral and discontinued prior to discharge. Nebulizing treatment provided around the clock and as needed. Supplemental oxygen provided as needed. Antitussive provided as needed. Chest x-ray revealed no acute cardiopulmonary disease. Hemoglobin and hematocrit were monitored closely, at the baseline. Continue iron sulfate as prior to admission. No evidence of hematochezia, hematemesis, or melena. Closely monitored hemoglobin and hematocrit as outpatient. The patient with evidence of mild acute kidney injury ; renal parameters and electrolytes were closely monitored and at the baseline. Creatinine upon discharge was 0.9 and BUN 27. Push oral fluids as tolerated. DVT and GI prophylaxis provided. The patient was stable for discharge home with home health. DISCHARGE DIAGNOSES: 1. Paroxysmal atrial fibrillation with rapid ventricular response, resolved. 2. Acute chronic obstructive pulmonary disease exacerbation. 3. Atypical chest pain, possibly related to chronic obstructive pulmonary disease exacerbation, acute coronary syndrome was ruled out. 4. History of non-Q-wave myocardial infarction. 5. Hypertension. 6. Anemia of chronic disease. 7. Acute kidney injury, improved. DISCHARGE MEDICATIONS: See medication reconciliation list. DISCHARGE INSTRUCTIONS: The patient was discharged home with home health. Close monitoring of cardiopulmonary status and medication compliance. Follow up with the primary doctor. Jarad Barrios M.D. I have been assigned to dictate discharge summary on this account and I was not involved in the patient's management. Ami AdamNorthern Westchester HospitalArturo NYnesPYnes DR: EDEN JOB#: [id number] CC: JENNIFER
--- NOTE | 2016-08-05 15:20 | Cardiology Report ---
APPROVED REPORT EKG Measurement Heart [id number] Normal sinus rhythm with sinus arrhythmia Nonspecific T wave abnormality Abnormal ECG
--- NOTE | 2016-08-15 00:54 | Emergency Room Report ---
History of Present Illness General Chief Complaint: Chest Pain Source: Patient, EMS Present Illness HPI 1. Chest pain rule out acute coronary syndrome. 2. Acute chronic obstructive pulmonary disease exacerbation. 3. Atrial fibrillation with rapid ventricular response. HOSPITAL COURSE: The patient was admitted to telemetry floor. Cardiology and pulmonary consults were requested. In terms of the cardiology issues, serial troponin x4 were negative. The patient's rate was controlled and subsequently she was converted to normal sinus rhythm. EKG revealed no evidence of ischemia, thus the patient was ruled out for acute myocardial infarction. Echocardiogram revealed ejection fraction of 70% to 75%, and rate was controlled with digoxin and Cardizem. Anticoagulation with Eliquis. No beta-elyssa secondary to chronic obstructive pulmonary disease. Aspirin was continued. Statin was added to existing regimen. Blood pressure was stable with the current regimen. Dive Superintendent followed the patient. The patient was on empiric antibiotics as well as the IV steroids, which were gradually tapered and changed to the oral and discontinued prior to discharge. Nebulizing treatment provided around the clock and as needed. Supplemental oxygen provided as needed. Antitussive provided as needed. Chest x-ray revealed no acute cardiopulmonary disease. Hemoglobin and hematocrit were monitored closely, at the baseline. Continue iron sulfate as prior to admission. No evidence of hematochezia, hematemesis, or melena. Closely monitored hemoglobin and hematocrit as outpatient. The patient with evidence of mild acute kidney injury ; renal parameters and electrolytes were closely monitored and at the baseline. Creatinine upon discharge was 0.9 and BUN 27. Push oral fluids as tolerated. DVT and GI prophylaxis provided. The patient was stable for discharge home with home health. DISCHARGE DIAGNOSES: 1. Paroxysmal atrial fibrillation with rapid ventricular response, resolved. 2. Acute chronic obstructive pulmonary disease exacerbation. 3. Atypical chest pain, possibly related to chronic obstructive pulmonary disease exacerbation, acute coronary syndrome was ruled out. 4. History of non-Q-wave myocardial infarction. 5. Hypertension. 6. Anemia of chronic disease. 7. Acute kidney injury, improved. DISCHARGE MEDICATIONS: See medication reconciliation list. DISCHARGE INSTRUCTIONS: The patient was discharged home with home health. Close monitoring of cardiopulmonary status and medication compliance. Follow up with the primary doctor. Allergies: Coded Allergies: PENICILLIN G (Verified Allergy, Severe, EXTREME SWELLING OF FACE,TONGUE, HANDS,LEGS., 12/31/11) LEÓN INHIBITORS (Verified Allergy, Unknown, Shortness of Breath, 12/31/11) PENICILLINS (Unverified Allergy, Unknown, 07/08/16) Patient History Now: No Nursing Documentation-PMH Hx Cardiac Problems: Yes - A fib with RVR Hx Hypertension: Yes Hx Pacemaker: No Hx Asthma: Yes Hx COPD: Yes Hx Diabetes: No Hx Cancer: No Hx Gastrointestinal Problems: No Hx Dialysis: No Hx Neurological Problems: No Hx Cerebrovascular Accident: No Hx Transient Ischemic Attacks: No Hx Dementia: No Hx Alzheimer's Disease: No Hx Parkinson's Disease: No Hx Meningitis: No Hx Encephalitis: No Hx Seizures: No Hx Epilepsy: No Hx Multiple Sclerosis: No Hx Cerebral Palsy: No Hx Amyotrophic Lat Sclerosis: No Hx Guillian-[place] Syndrome: No Hx Paralysis: No Hx Peripheral Neuropathy: No Hx Spinal Cord Injury: No Hx Head Trauma: No Hx Traumatic Brain Injury: No Hx Memory Loss: No Hx Concentration Difficulty: No Hx Speech Problem: No Hx Tremors: No Hx Vertigo: No Hx Dizziness: No Hx Syncope: No Hx Headaches: Yes Hx Aphasia: No Hx Dysphasia: No Hx Numbness: No Hx Weakness: No Hx Fatigue: No Hx Neurologic Surgery: No Hx Brain Shunt: No Physical Exam Vital Signs Date Time Temp Pulse Resp B/P Pulse Ox O2 Delivery O2 Flow Rate FiO2 07/08/16 15:12 99.0 74 18 152/61 97 Room Air 07/09/16 13:45 21 Medical Decision Making Diagnostic Impression: Primary Impression: Chest pain Additional Impression: Congestive heart failure (CHF) Last Vital Signs Date Time Temp Pulse Resp B/P Pulse Ox O2 Delivery O2 Flow Rate FiO2 07/14/16 13:32 76 128/72 07/14/16 13:20 18 100 Room Air 21 07/14/16 12:00 97.0 Disposition: ADMITTED INPATIENT Condition: Serious Referrals: NOT CHOSEN IPA/MD,REFERRING (PCP) Patient Instructions: Shortness of Breath, [id number], Chest Pain Observation , Atrial Fibrillation, [id number] TASHA FLETCHER M.D. Aug 15, 2016 00:54
[2016-08-26] MEDS ORDERED: CLONIDINE HCL0.1 MG PO (13:35)
== END 2016-07-14 16:00 | disposition home health service (06) | DRG 191 ==
LOC: ENRESERVTM → ENRESERVDT → EDBD 15:19 → EMR 17:10 → 2E 17:22 → EDBEDREQ 20:32 → 4E 07-10 20:46
DX: J44.1 Chronic obstructive pulmonary disease with (acute) exacerbation (principal); N17.9 Acute kidney failure, unspecified; D63.8 Anemia in other chronic diseases classified elsewhere; I48.0 Paroxysmal atrial fibrillation; I10 Essential (primary) hypertension; J45.909 Unspecified asthma, uncomplicated; M19.90 Unspecified osteoarthritis, unspecified site; R00.0 Tachycardia, unspecified; Z88.0 Allergy status to penicillin; Z88.8 Allergy status to other drugs, medicaments and biological substances; Z87.891 Personal history of nicotine dependence; R07.89 Other chest pain; I25.2 Old myocardial infarction
CPT/HCPCS: 36415; 71010; 80048; 80053; 82550; 82553; 83880; 84484; 85025; 85379; 87081; 93005; 93970; 94640; 94664

== ENCOUNTER 2016-08-15 00:45 | Inpatient (IN) | payer MEDICARE, BC ==
[2016-08-15] VITALS (7 sets, daily range): BP systolic 140–207; BP diastolic 54–98
[~2016-08-15] VITALS: Ht 165.1 cm; Wt 53.5 kg
[2016-08-15] MEDS ORDERED: Albuterol ud Inhalation HHN ONE (01:15)
[2016-08-15] MEDS ORDERED: PredniSONE 20mg tab ORAL ONE (01:15)
[2016-08-15] MEDS ORDERED: Oxycodone/Acetaminophen 5-325 ORAL ONE (01:15)
[2016-08-15 01:53] LABS: EOSINOPHILS % (AUTO) 19.2 % (0.0-3.0); LYMPHOCYTES % (AUTO) 20.1 % (20.0-45.0); MEAN CORPUSCULAR HEMOGLOBIN 27.1 PG (27.0-31.0); MEAN CORPUSCULAR HGB CONC 32.4 G/DL (32.0-36.0); MEAN CORPUSCULAR VOLUME 84 FL (80-99); MEAN PLATELET VOLUME 5.7 FL (6.5-10.1); MONOCYTES % (AUTO) 7.2 % (1.0-10.0); NEUTROPHILS % (AUTO) 52.6 % (45.0-75.0); PLATELET COUNT 321 K/UL (150-450); RED BLOOD COUNT 3.89 M/UL (4.20-5.40); RED CELL DISTRIBUTION WIDTH 13.5 % (11.6-14.8); WHITE BLOOD COUNT 11.9 K/UL (4.8-10.8)
[2016-08-15 02:03] LABS: TROPONIN I < 0.30 ng/mL (<=0.30)
[2016-08-15 02:07] LABS: ALANINE AMINOTRANSFERASE 22 U/L (3-33); ALBUMIN/GLOBULIN RATIO 0.9 (1.0-2.7); ANION GAP 16 (5-15); ASPARTATE AMINO TRANSFERASE 24 U/L (5-40); CALCIUM 9.3 mg/dL (8.6-10.2); CARBON DIOXIDE 27 mEQ/L (20-30); CHLORIDE 94 mEQ/L (98-107); CREATININE 1.2 mg/dL (0.5-0.9); HEMOLYSIS 1; POTASSIUM 4.2 mEQ/L (3.4-4.9); SODIUM 137 mEQ/L (135-145); TOTAL PROTEIN 7.5 g/dL (6.6-8.7)
--- NOTE | 2016-08-15 02:11 | Emergency Room Report ---
History of Present Illness General Chief Complaint: Chest Pain Source: Patient, Medical Record Present Illness HPI 86 YO F with chest pain left sided non-radiating, occurred at rest. No assoc SOB, fever/chills, cough. History of asthma. Daughter gave neb at home. EMS gave nitro. Had headache before, headache worse after nitro. Known HTN, compliance with meds. Elevated SBP here. Allergies: Coded Allergies: PENICILLIN G (Verified Allergy, Severe, EXTREME SWELLING OF FACE,TONGUE, HANDS,LEGS., 12/31/11) LEÓN INHIBITORS (Verified Allergy, Unknown, Shortness of Breath, 12/31/11) PENICILLINS (Unverified Allergy, Unknown, 07/08/16) Patient History Past Medical History: HTN, COPD Past Surgical History: none Pertinent Family History: none Social History: Denies: alcohol use, drug use, smoking Now: No Immunizations: UTD Reviewed Nursing Documentation: PMH: Agreed, PSxH: Agreed Nursing Documentation-PMH Hx Cardiac Problems: Yes - A fib with RVR Hx Hypertension: Yes Hx Pacemaker: No Hx Asthma: Yes Hx COPD: Yes Hx Diabetes: No Hx Cancer: No Hx Gastrointestinal Problems: No Hx Dialysis: No Hx Neurological Problems: No Hx Cerebrovascular Accident: No Hx Transient Ischemic Attacks: No Hx Dementia: No Hx Alzheimer's Disease: No Hx Parkinson's Disease: No Hx Meningitis: No Hx Encephalitis: No Hx Seizures: No Hx Epilepsy: No Hx Multiple Sclerosis: No Hx Cerebral Palsy: No Hx Amyotrophic Lat Sclerosis: No Hx Guillian-[place] Syndrome: No Hx Paralysis: No Hx Peripheral Neuropathy: No Hx Spinal Cord Injury: No Hx Head Trauma: No Hx Traumatic Brain Injury: No Hx Memory Loss: No Hx Concentration Difficulty: No Hx Speech Problem: No Hx Tremors: No Hx Vertigo: No Hx Dizziness: No Hx Syncope: No Hx Headaches: Yes Hx Aphasia: No Hx Dysphasia: No Hx Numbness: No Hx Weakness: No Hx Fatigue: No Hx Neurologic Surgery: No Hx Brain Shunt: No Review of Systems All Other Systems: negative except mentioned in HPI Physical Exam Vital Signs Date Time Temp Pulse Resp B/P Pulse Ox O2 Delivery O2 Flow Rate FiO2 08/15/16 00:46 97.5 92 16 200/103 94 Room Air Sp02 EP Interpretation: reviewed, abnormal General Appearance: normal inspection, well appearing, no apparent distress, alert, GCS 15, non-toxic Head: normocephalic, atraumatic Eyes: bilateral eye EOMI, bilateral eye PERRL ENT: normal ENT inspection, hearing grossly normal, normal voice Neck: normal inspection, full range of motion, supple, no bony tend Respiratory: normal inspection, lungs clear, normal breath sounds, no rhonchi, no respiratory distress, no retraction, no accessory muscle use, speaking full sentences, wheezing Cardiovascular #1: regular rate, rhythm, no edema Gastrointestinal: normal inspection, normal bowel sounds, non tender, soft, no guarding, no hernia Genitourinary: no CVA tenderness Musculoskeletal: normal inspection, back normal, normal range of motion, Emilia' s Sign negative Neurologic: normal inspection, alert, oriented x3, responsive, gum sprayer III-XII nml as tested, motor strength/tone normal, speech normal Psychiatric: normal inspection, judgement/insight normal, mood/affect normal Skin: normal inspection, normal color, no rash Lymphatic: normal inspection Medical Decision Making Medicare Attestation I Thom Fletcher MD hereby attest that the medical record entry for date of service, 05/26/16 accurately reflects signatures/notations that I made in my capacity as MD when I treated/diagnosed the above listed Medicare beneficiary. I attest that this information is true, accurate and complete to the best of my knowledge. I understand that any falsification, omission, or concealment of material fact may subject me to administrative, civil, or criminal liability. This patient warrants hospital admission for extreme of age and has a condition that cannot be treated as outpatient. Diagnostic Impression: Primary Impression: Hypertensive urgency, malignant Additional Impressions: Chest pain Qualified Codes: R07.9 - Chest pain, unspecified Acute exacerbation of COPD with asthma TOI (acute kidney injury) ER Course Labs: Leuks 11k. Troponin 0. Mild TOI. CXR: No obvious PNA on ED review ECG is NSR, no ischemia A: - mild asthma exac. Improved with albuterol, prednsione - Elevated BP: Gave IV hydralazine with improvement in SBP from 201/72 to 167/70 - Mild TOI; possibly end organ damage from elevated BP - Headache, possible related to elevated BP, ?hypertensive urgency; CT head: No SAH or other acute abnormality Endorsed to Dr Inman for tele admission at 2am EKG Diagnostic Results Rate: normal Rhythm: NSR ST Segments: no acute changes ASA given to the pt in ED: No Rhythm Strip Diag. Results EP Interpretation: yes Rate: 89 Chest X-Ray Diagnostic Results EP Interpretation: Yes Findings: no consolidation, no effusion, no pneumothorax, no acute cardiopulmonary disease Number of Views: 1 Last Vital Signs Date Time Temp Pulse Resp B/P Pulse Ox O2 Delivery O2 Flow Rate FiO2 08/15/16 02:00 81 15 100 Room Air 08/15/16 01:42 97.5 207/87 Disposition: ADMITTED INPATIENT Condition: Critical Referrals: MARGARET INMAN (PCP) THOM FLETCHER M.D. Aug 15, 2016 02:11
[2016-08-15] MEDS ORDERED: Oxycodone/Acetaminophen 5-325 ORAL STA (03:57)
[2016-08-15] MEDS ORDERED: PRAVASTATIN SOD80 M1 PO (04:51)
[2016-08-15] MEDS ORDERED: CLONIDINE HCL0.1 MG PO (04:51)
[2016-08-15] MEDS: Tylenol #3 tab (300mg/30mg) ORAL PRN ×3 (08:02→20:53)
[2016-08-15] MEDS: Digoxin 0.125mg tab ORAL SCH (08:10)
[2016-08-15] MEDS ORDERED: Losartan 50mg tab ORAL SCH (09:00)
--- NOTE | 2016-08-15 09:50 | Diagnostic Imaging Report ---
Indication: Headache Technique: spiral acquisitions obtained through the brain. Angled axial and coronal 5 x 5 mm slices were reconstructed. No IV contrast utilized. Radiation dose was minimized using automated exposure control Total dose length product 1372 mGycm. CTDIvol(s) 70 mGy Comparison: 06/02/2016 FINDINGS: No acute hemorrhage or edema. No mass effect or midline shift. There is age-related enlargement of the ventricles and extra axial CSF spaces. There is periventricular deep white matter ischemic change. Normal james-white differentiation. Visualized orbits are unremarkable. There is extensive sinus disease, which is considerably worse than on the prior exam. The mastoids are clear.. Intact calvarium. Focal dilatation of a right parietal sulcus, likely reflecting infarct. 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 IMPRESSION: Chronic and age-related changes. Negative for acute intracranial bleed or mass effect Pansinusitis, progressive since 06/02/2016 This agrees with the preliminary interpretation provided overnight by [facility] teleradiology service. The CT scanner at [facility] is accredited by the [employer] and the scans are performed using protocols designed to limit radiation exposure to as low as reasonably achievable to attain images of sufficient resolution adequate for diagnostic evaluation
--- NOTE | 2016-08-15 11:38 | Diagnostic Imaging Report ---
Indication: Chest pain Technique: One view of the chest Comparison: 07/08/2016 Findings: The heart is borderline enlarged. Lungs and pleural spaces are clear. Aorta is tortuous and calcified. Impression: Borderline cardiomegaly. No acute process
[2016-08-15] MEDS: Albuterol ud Inhalation HHN PRN (15:08)
--- NOTE | 2016-08-15 16:20 | Nephrology Progress Note ---
Assessment/Plan Problem List: (1) Malignant hypertension (2) Acute exacerbation of COPD with asthma (3) TOI (acute kidney injury) Plan H&P dictation # [id number] Subjective Constitutional: Denies: chills, diaphoresis, fever, malaise, no symptoms, other , weakness HEENT: Denies: blurred vision, double vision, ear discharge, ear pain, eye pain , mouth pain, mouth swelling, no symptoms, nose congestion, nose pain, other, tearing, throat pain, throat swelling Genitourinary: Denies: burning, discharge, flank pain, frequency, hematuria, incontinence, no symptoms, other, pain, urgency Neurologic/Psychiatric: Denies: anxiety, depressed, emotional problems, headache, no symptoms, numbness, other, paresthesia, pre-existing deficit, seizure, tingling, tremors, weakness Subjective In bed, denies discomfort at this time Objective Objective Last 24 Hour Vital Signs Date Time Temp Pulse Resp B/P Pulse Ox O2 Delivery O2 Flow Rate FiO2 08/15/16 15:12 72 16 100 Room Air 08/15/16 15:09 70 16 98 Room Air 08/15/16 12:06 74 08/15/16 11:24 98.1 75 18 146/71 99 Room Air 08/15/16 08:11 177/98 08/15/16 08:11 88 177/98 08/15/16 08:10 88 08/15/16 08:02 96.3 88 18 177/98 100 Room Air 08/15/16 08:00 81 08/15/16 06:56 59 16 Room Air 08/15/16 04:40 97.5 83 16 167/81 100 Room Air 08/15/16 04:21 97.5 79 15 178/68 100 Room Air 08/15/16 04:00 86 08/15/16 03:31 97.5 79 15 178/68 100 Room Air 08/15/16 02:55 201/72 08/15/16 02:19 97.5 08/15/16 02:00 81 15 100 Room Air 08/15/16 01:53 83 17 Room Air 08/15/16 01:52 83 14 98 Room Air 08/15/16 01:42 97.5 81 18 207/87 98 Room Air 08/15/16 01:42 92 16 Room Air 08/15/16 00:46 97.5 92 16 200/103 94 Room Air Intake and Output 08/14/16 08/15/16 19:00 07:00 Intake Total 120 ml Balance 120 ml Intake Oral 120 ml # Voids 3 Laboratory Tests 08/15/16 01:00: White Blood Count 11.9H, Red Blood Count 3.89L, Hemoglobin 10.5L, Hematocrit 32.5L, Mean Corpuscular Volume 84, Mean Corpuscular Hemoglobin 27.1, Mean Corpuscular Hemoglobin Concent 32.4, Red Cell Distribution Width 13.5, Platelet Count 321, Mean Platelet Volume 5.7L, Neutrophils (%) (Auto) 52.6, Lymphocytes ( %) (Auto) 20.1, Monocytes (%) (Auto) 7.2, Eosinophils (%) (Auto) 19.2H, Basophils (%) (Auto) 1.0, Sodium Level 137, Potassium Level 4.2, Chloride Level 94L, Carbon Dioxide Level 27, Anion Gap 16H, Blood Urea Nitrogen 33H, Creatinine 1.2H, Estimat Glomerular Filtration Rate , Glucose Level 100, Calcium Level 9.3, Total Bilirubin 0.3, Aspartate Amino Transf (AST/SGOT) 24, Alanine Aminotransferase (ALT/SGPT) 22, Alkaline Phosphatase 207H, Total Creatine Kinase 51, Creatine Kinase MB 2.0, Creatine Kinase MB Relative Index 3.9, Troponin I < 0.30, Total Protein 7.5, Albumin 3.6, Globulin 3.9, Albumin/ Globulin Ratio 0.9L Height (Feet): 5 Height (Inches): 5.00 Weight (Pounds): 118 General Appearance: no apparent distress, alert EENT: normal ENT inspection Neck: normal alignment, supple, normal inspection Cardiovascular: normal rate, regular rhythm, no JVD Respiratory/Chest: lungs clear, normal breath sounds, no respiratory distress Abdomen: non tender, soft, no organomegaly Extremities: non-tender, normal inspection Neurologic: alert, oriented x 3, responsive, normal mood/affect Tanisha Millan N.P. Aug 15, 2016 16:20
--- NOTE | 2016-08-15 18:14 | Cardiac Electrophysiology PN ---
Subjective Subjective [id number]. Acc HTN, PAF, COPD, EF 75% Objective Last 24 Hour Vital Signs Date Time Temp Pulse Resp B/P Pulse Ox O2 Delivery O2 Flow Rate FiO2 08/15/16 17:26 140/54 08/15/16 17:26 73 140/54 08/15/16 16:00 97.9 73 18 140/54 98 Room Air 08/15/16 15:48 97.9 08/15/16 15:12 72 16 100 Room Air 08/15/16 15:09 70 16 98 Room Air 08/15/16 12:06 74 08/15/16 11:24 98.1 75 18 146/71 99 Room Air 08/15/16 08:11 177/98 08/15/16 08:11 88 177/98 08/15/16 08:10 88 08/15/16 08:02 96.3 88 18 177/98 100 Room Air 08/15/16 08:00 81 08/15/16 06:56 59 16 Room Air 08/15/16 04:40 97.5 83 16 167/81 100 Room Air 08/15/16 04:21 97.5 79 15 178/68 100 Room Air 08/15/16 04:00 86 08/15/16 03:31 97.5 79 15 178/68 100 Room Air 08/15/16 02:55 201/72 08/15/16 02:19 97.5 08/15/16 02:00 81 15 100 Room Air 08/15/16 01:53 83 17 Room Air 08/15/16 01:52 83 14 98 Room Air 08/15/16 01:42 97.5 81 18 207/87 98 Room Air 08/15/16 01:42 92 16 Room Air 08/15/16 00:46 97.5 92 16 200/103 94 Room Air Intake and Output 08/14/16 08/15/16 19:00 07:00 Intake Total 120 ml Balance 120 ml Intake Oral 120 ml # Voids 3 Laboratory Tests Test 08/15/16 01:00 White Blood Count 11.9 K/UL (4.8-10.8) H Red Blood Count 3.89 M/UL (4.20-5.40) L Hemoglobin 10.5 G/DL (12.0-16.0) L Hematocrit 32.5 % (37.0-47.0) L Mean Corpuscular Volume 84 FL (80-99) Mean Corpuscular Hemoglobin 27.1 PG (27.0-31.0) Mean Corpuscular Hemoglobin Concent 32.4 G/DL (32.0-36.0) Red Cell Distribution Width 13.5 % (11.6-14.8) Platelet Count 321 K/UL (150-450) Mean Platelet Volume 5.7 FL (6.5-10.1) L Neutrophils (%) (Auto) 52.6 % (45.0-75.0) Lymphocytes (%) (Auto) 20.1 % (20.0-45.0) Monocytes (%) (Auto) 7.2 % (1.0-10.0) Eosinophils (%) (Auto) 19.2 % (0.0-3.0) H Basophils (%) (Auto) 1.0 % (0.0-2.0) Sodium Level 137 mEQ/L (135-145) Potassium Level 4.2 mEQ/L (3.4-4.9) Chloride Level 94 mEQ/L (98-107) L Carbon Dioxide Level 27 mEQ/L (20-30) Anion Gap 16 (5-15) H Blood Urea Nitrogen 33 mg/dL (7-23) H Creatinine 1.2 mg/dL (0.5-0.9) H Estimat Glomerular Filtration Rate mL/min (>60) Glucose Level 100 mg/dL (74-106) Calcium Level 9.3 mg/dL (8.6-10.2) Total Bilirubin 0.3 mg/dL (0.0-1.2) Aspartate Amino Transf (AST/SGOT) 24 U/L (5-40) Alanine Aminotransferase (ALT/SGPT) 22 U/L (3-33) Alkaline Phosphatase 207 U/L (35-104) H Total Creatine Kinase 51 U/L (26-140) Creatine Kinase MB 2.0 ng/mL (< 3.8) Creatine Kinase MB Relative Index 3.9 Troponin I < 0.30 ng/mL (<=0.30) Total Protein 7.5 g/dL (6.6-8.7) Albumin 3.6 g/dL (3.5-5.2) Globulin 3.9 g/dL Albumin/Globulin Ratio 0.9 (1.0-2.7) ROSALBA BAILEY Aug 15, 2016 18:14
[2016-08-15] MEDS: Eliquis 2.5mg tablet ORAL SCH (20:12)
--- NOTE | 2016-08-15 22:28 | HX and Phyl Repo 2 Sig ---
DATE OF ADMISSION: 08/15/2016 HISTORY OF PRESENT ILLNESS: The patient is a pleasant 86-year-old female, who presented to the ED with chest pain left-sided nonradiating. She stated that the chest pain occurred at rest. She did state that she has been feeling somewhat short of breath for a couple of days but it has worsened with the chest pain. She denies cough. No fever. No chills. Denies nausea and vomiting. She also stated that she had headache at that time when she was having the chest pain. During the ER course, she was found to have elevated blood pressure and was given hydralazine IV with improvement. PAST MEDICAL HISTORY: Includes hypertension, asthma, chronic obstructive pulmonary disease, and atrial fibrillation. ALLERGIES: The patient is allergic to LEÓN inhibitors and penicillin. SOCIAL HISTORY: No history of alcohol use. No drug use. She is a nonsmoker. FAMILY HISTORY: Noncontributory. REVIEW OF SYSTEMS: A full 12-point review of system was reviewed with the patient and positive as stated in the history of present illness. PHYSICAL EXAMINATION: VITAL SIGNS: Blood pressure is 146/71, heart rate is 75, temperature 98.1 degrees, respiratory rate is 18, and O2 saturation is 99% on room air. GENERAL: The patient appears well-nourished, resting in bed at this time, in no apparent distress. HEENT: Head is normocephalic and atraumatic with moist mucous membranes. Pupils are equal, round, and reactive to light and accommodation. NECK: Supple. No JVD noted. LUNGS: Reduced bilaterally. CARDIOVASCULAR: Regular rate and rhythm. S1 and S2. ABDOMEN: Soft and nontender. Positive bowel sounds in all 4 quadrants. EXTREMITIES: No edema. No cyanosis. No clubbing. NEUROLOGIC: The patient is awake, alert, and oriented with no focal deficits. LABORATORY DATA: CBC shows white count of 11.9, hemoglobin 10.5, hematocrit 32.5, and platelet count of 321,000. BMP, sodium is 137, potassium 4.2, chloride 94, bicarbonate 27, BUN 33, creatinine is 1.2, and glucose is 100. RADIOLOGIC FINDINGS: Chest x-ray Impression Borderline cardiomegaly, no acute process. CT head no contrast, Impression - chronic and age-related changes, negative for acute intracranial bleed or mass effect and pansinusitis. ASSESSMENT: 1. Chest pain rule out acute coronary syndrome. 2. Accelerated hypertension. 3. Chronic obstructive pulmonary disease exacerbation. 4. Atrial fibrillation. 5. Acute renal failure. 6. Anemia of chronic disease. PLAN: We will obtain a Cardiology consult on this patient. We will monitor the patient's renal function. Monitor BUN and creatinine. We will monitor electrolytes and replace as needed. Blood pressure control. We will continue home medications. Pain management as needed. Oxygen as needed. We will monitor the patient's response to treatment. Jarad Barrios M.D. Tanisha Millan DR: MARIA DE JESUS JOB#: [id number] CC: JENNIFER
--- NOTE | 2016-08-15 23:28 | Consultation ---
DATE OF CONSULTATION: 08/15/2016 CARDIOLOGY CONSULTATION CONSULTING PHYSICIAN: Antwon Levine M.D. REFERRING PHYSICIAN: Jarad Barrios M.D. REASON FOR CONSULTATION: Management of accelerated hypertension and atrial fibrillation. HISTORY OF PRESENT ILLNESS: The patient is a very pleasant 86-year-old lady I am quite familiar from previous admission just about a month ago. The patient has history of hypertension, paroxysmal atrial fibrillation, history of chronic obstructive pulmonary disease and asthma and renal failure who was discharged exactly a month ago. She was brought to the emergency room complaining of shortness of breath as well as left-sided nonradiating chest pain. The patient received nebulizer at home for her asthma, but did not improve. The patient was brought to the emergency room, was found to have a blood pressure of more than 200. Cardiology consultation was obtained for further evaluation. PAST MEDICAL HISTORY: 1. Hypertension. 2. Paroxysmal atrial fibrillation. 3. Asthma. 4. Chronic obstructive pulmonary disease. ALLERGIES: She is allergic to penicillin and LEÓN inhibitors. FAMILY HISTORY: Noncontributory. SOCIAL HISTORY: She lives at home. Does not smoke or drink alcohol. REVIEW OF SYSTEMS: Review of systems was performed and was negative other than what was mentioned in history of present illness. PHYSICAL EXAMINATION: VITAL SIGNS: Blood pressure was 200/103 in the ER, pulse was 92, respirations 16, and temperature 97.5. NECK: Shows mild JVD. LUNGS: Decreased breath sounds and coarse rhonchi. CARDIOVASCULAR: Regular S1 and S2 with no gallop or murmur. ABDOMEN: Soft. EXTREMITIES: No pitting edema. LABORATORY AND DIAGNOSTIC DATA: Show white count 11.9, hemoglobin 10.5, hematocrit 32.5, and platelet count 321,000. Sodium 137, potassium 4.2, BUN of 32, creatinine 1.2, and glucose of 100. Troponin is negative. Her last echocardiogram on 06/03/2016 showed ejection fraction of 70 to 75%. ASSESSMENT AND PLAN: 1. Accelerated hypertension. Avoid beta-elyssa chronic obstructive pulmonary disease. Continue Norvasc 5 mg b.i.d. Continue clonidine 0.1 mg b.i.d. as well. I will add p.r.n. clonidine and hydralazine to her medical regimen. 2. Atrial fibrillation with rapid ventricular response. Avoid beta-elyssa and include digoxin 0.125 mg daily. The patient was also on Eliquis 2.5 mg b.i.d. on her previous admission, that will be resumed. We will probably have to change amlodipine to Cardizem also for better heart rate control if she goes back to atrial fibrillation. 3. Coronary artery disease with history of non-Q wave myocardial infarction, on aspirin and Lipitor, off beta-elyssa. 4. dysfunction. 5. Chronic obstructive pulmonary disease and asthma. Thank you very much, Dr. Barrios, for allowing me to participate in the care of this patient. Please do not hesitate to contact me if you have any questions regarding my evaluation. Antwon Levine M.D. DR: ANDREA JOB#: [id number] CC:
[2016-08-16 00:20] VITALS: BP 138/84
[2016-08-16] MEDS: Albuterol ud Inhalation HHN PRN ×4 (02:42→23:36)
--- NOTE | 2016-08-16 02:59 | Cardiology Report ---
APPROVED REPORT EKG Measurement Heart [id number] Sinus rhythm with marked sinus arrhythmia Septal infarct, age undetermined Abnormal ECG
[2016-08-16] MEDS: Tylenol #3 tab (300mg/30mg) ORAL PRN ×3 (03:03→17:09)
[2016-08-16 04:08] VITALS: BP 140/55
[2016-08-16 07:17] LABS: BASOPHILS % (AUTO) 0.6 % (0.0-2.0); EOSINOPHILS % (AUTO) 3.4 % (0.0-3.0); LYMPHOCYTES % (AUTO) 28.6 % (20.0-45.0); MEAN CORPUSCULAR HEMOGLOBIN 27.2 PG (27.0-31.0); MEAN CORPUSCULAR HGB CONC 32.7 G/DL (32.0-36.0); MEAN CORPUSCULAR VOLUME 83 FL (80-99); MEAN PLATELET VOLUME 5.9 FL (6.5-10.1); MONOCYTES % (AUTO) 11.2 % (1.0-10.0); NEUTROPHILS % (AUTO) 56.2 % (45.0-75.0); PLATELET COUNT 280 K/UL (150-450); RED BLOOD COUNT 3.37 M/UL (4.20-5.40); RED CELL DISTRIBUTION WIDTH 13.7 % (11.6-14.8); WHITE BLOOD COUNT 9.3 K/UL (4.8-10.8)
[2016-08-16 07:28] LABS: ANION GAP 14 (5-15); CALCIUM 8.8 mg/dL (8.6-10.2); CARBON DIOXIDE 27 mEQ/L (20-30); CHLORIDE 96 mEQ/L (98-107); CREATININE 1.2 mg/dL (0.5-0.9); HEMOLYSIS 1; MAGNESIUM 2.1 mg/dL (1.7-2.5); PHOSPHORUS 3.5 mg/dL (2.5-4.8); POTASSIUM 3.8 mEQ/L (3.4-4.9); SODIUM 137 mEQ/L (135-145)
[2016-08-16 07:43] LABS: TROPONIN I < 0.30 ng/mL (<=0.30)
[2016-08-16 08:00] VITALS: BP 155/71
[2016-08-16] MEDS: Eliquis 2.5mg tablet ORAL SCH ×2 (09:07→17:08)
[2016-08-16] MEDS: Digoxin 0.125mg tab ORAL SCH (09:07)
[2016-08-16 11:20] VITALS: BP 108/58
[2016-08-16 16:00] VITALS: BP 125/54
--- NOTE | 2016-08-16 16:35 | Nephrology Progress Note ---
Assessment/Plan Problem List: (1) Malignant hypertension (2) Acute exacerbation of COPD with asthma (3) TOI (acute kidney injury) (4) Anemia (5) Congestive heart failure (CHF) Plan Monitor BP - controlled Cardio f/u Continue neb treatment Monitor H&H, transfuse as needed Monitor BUN/cr - improved AM labs Subjective Constitutional: Denies: chills, diaphoresis, fever, malaise, no symptoms, other , weakness HEENT: Denies: blurred vision, double vision, ear discharge, ear pain, eye pain , mouth pain, mouth swelling, no symptoms, nose congestion, nose pain, other, tearing, throat pain, throat swelling Genitourinary: Denies: burning, discharge, flank pain, frequency, hematuria, incontinence, no symptoms, other, pain, urgency Neurologic/Psychiatric: Denies: anxiety, depressed, emotional problems, headache, no symptoms, numbness, other, paresthesia, pre-existing deficit, seizure, tingling, tremors, weakness Subjective In bed, denies discomfort at this time Objective Objective Last 24 Hour Vital Signs Date Time Temp Pulse Resp B/P Pulse Ox O2 Delivery O2 Flow Rate FiO2 08/16/16 16:00 97.9 79 19 125/54 97 Room Air 08/16/16 12:00 80 08/16/16 11:20 97.5 70 18 108/58 100 Nasal Cannula 2.0 08/16/16 10:05 97.3 08/16/16 09:07 79 08/16/16 09:07 79 155/71 08/16/16 09:06 155/71 08/16/16 08:00 97.3 79 18 155/71 100 Nasal Cannula 2.0 08/16/16 08:00 76 08/16/16 04:08 98.4 76 19 140/55 99 Nasal Cannula 2.0 08/16/16 04:00 86 08/16/16 02:50 70 16 100 Nasal Cannula 2.0 08/16/16 02:42 70 16 100 Nasal Cannula 2.0 28 08/16/16 00:20 98.1 68 18 138/84 100 Room Air 08/16/16 00:00 71 08/15/16 20:00 72 08/15/16 20:00 97.7 72 20 140/60 100 Room Air 08/15/16 17:26 140/54 08/15/16 17:26 73 140/54 Intake and Output 08/15/16 08/16/16 19:00 07:00 Intake Total 480 ml 240 ml Balance 480 ml 240 ml Intake Oral 480 ml 240 ml # Voids 2 2 Laboratory Tests 08/16/16 06:30: White Blood Count 9.3, Red Blood Count 3.37L, Hemoglobin 9.2L, Hematocrit 28.1L , Mean Corpuscular Volume 83, Mean Corpuscular Hemoglobin 27.2, Mean Corpuscular Hemoglobin Concent 32.7, Red Cell Distribution Width 13.7, Platelet Count 280, Mean Platelet Volume 5.9L, Neutrophils (%) (Auto) 56.2, Lymphocytes ( %) (Auto) 28.6, Monocytes (%) (Auto) 11.2H, Eosinophils (%) (Auto) 3.4H, Basophils (%) (Auto) 0.6, Sodium Level 137, Potassium Level 3.8, Chloride Level 96L, Carbon Dioxide Level 27, Anion Gap 14, Blood Urea Nitrogen 37H, Creatinine 1.2H, Estimat Glomerular Filtration Rate , Glucose Level 111H, Calcium Level 8.8 , Phosphorus Level 3.5, Magnesium Level 2.1, Troponin I < 0.30, Pro-B-Type Natriuretic Peptide 2178H Height (Feet): 5 Height (Inches): 5.00 Weight (Pounds): 118 General Appearance: no apparent distress, alert EENT: normal ENT inspection Neck: normal alignment, supple, normal inspection Cardiovascular: normal rate, regular rhythm, no JVD Respiratory/Chest: normal breath sounds, no respiratory distress Abdomen: non tender Extremities: non-tender, normal inspection, no calf tenderness Neurologic: alert, oriented x 3, responsive, normal mood/affect Tanisha Millan N.P. Aug 16, 2016 16:35
[2016-08-16 20:00] VITALS: BP 109/50
[2016-08-17] VITALS (7 sets, daily range): BP systolic 108–162; BP diastolic 40–71
[2016-08-17] MEDS: Tylenol #3 tab (300mg/30mg) ORAL PRN ×4 (00:17→18:50)
[2016-08-17] MEDS: Albuterol ud Inhalation HHN PRN ×5 (04:23→20:25)
[2016-08-17 07:30] LABS: ANION GAP 13 (5-15); BASOPHILS % (AUTO) 1.1 % (0.0-2.0); CALCIUM 8.6 mg/dL (8.6-10.2); CARBON DIOXIDE 26 mEQ/L (20-30); CHLORIDE 100 mEQ/L (98-107); EOSINOPHILS % (AUTO) 9.1 % (0.0-3.0); HEMOLYSIS 2; LYMPHOCYTES % (AUTO) 33.4 % (20.0-45.0); MEAN CORPUSCULAR HEMOGLOBIN 27.8 PG (27.0-31.0); MEAN CORPUSCULAR HGB CONC 33.2 G/DL (32.0-36.0); MEAN CORPUSCULAR VOLUME 84 FL (80-99); MEAN PLATELET VOLUME 7.9 FL (6.5-10.1); MONOCYTES % (AUTO) 11.3 % (1.0-10.0); NEUTROPHILS % (AUTO) 45.1 % (45.0-75.0); PLATELET COUNT 306 K/UL (150-450); POTASSIUM 3.8 mEQ/L (3.4-4.9); RED BLOOD COUNT 3.18 M/UL (4.20-5.40); RED CELL DISTRIBUTION WIDTH 13.4 % (11.6-14.8); SODIUM 139 mEQ/L (135-145); WHITE BLOOD COUNT 8.1 K/UL (4.8-10.8)
[2016-08-17 07:40] LABS: PROTHROMBIN TIME 10.3 SEC (9.30-11.50)
[2016-08-17] MEDS: Digoxin 0.125mg tab ORAL SCH (08:11)
[2016-08-17] MEDS: Eliquis 2.5mg tablet ORAL SCH ×2 (08:11→18:19)
--- NOTE | 2016-08-17 13:49 | Nephrology Progress Note ---
Assessment/Plan Problem List: (1) Malignant hypertension (2) Acute exacerbation of COPD with asthma (3) TOI (acute kidney injury) (4) Anemia (5) Congestive heart failure (CHF) Plan Monitor BP - controlled Cardio f/u Continue neb treatment Monitor H&H, transfuse as needed Monitor BUN/cr - improved AM labs Subjective Constitutional: Denies: chills, diaphoresis, fever, malaise, no symptoms, other , weakness HEENT: Denies: blurred vision, double vision, ear discharge, ear pain, eye pain , mouth pain, mouth swelling, no symptoms, nose congestion, nose pain, other, tearing, throat pain, throat swelling Genitourinary: Denies: burning, discharge, flank pain, frequency, hematuria, incontinence, no symptoms, other, pain, urgency Neurologic/Psychiatric: Denies: anxiety, depressed, emotional problems, headache, no symptoms, numbness, other, paresthesia, pre-existing deficit, seizure, tingling, tremors, weakness Subjective In bed, denies discomfort at this time Objective Objective Last 24 Hour Vital Signs Date Time Temp Pulse Resp B/P Pulse Ox O2 Delivery O2 Flow Rate FiO2 08/17/16 11:59 79 08/17/16 11:51 68 18 99 Nasal Cannula 2.0 28 08/17/16 11:50 84 22 99 Nasal Cannula 2.0 28 08/17/16 11:50 28 08/17/16 11:23 98.2 79 18 134/70 97 Nasal Cannula 2.0 08/17/16 08:12 139/63 08/17/16 08:12 79 20 99 Nasal Cannula 2.0 28 08/17/16 08:11 76 08/17/16 08:11 76 139/63 08/17/16 08:10 84 08/17/16 08:09 77 24 99 Nasal Cannula 2.0 08/17/16 07:43 98.1 74 18 139/63 99 Room Air 08/17/16 07:10 75 18 Room Air 08/17/16 07:08 98 Room Air 08/17/16 07:08 Room Air 08/17/16 04:30 141/53 08/17/16 04:27 72 16 100 Nasal Cannula 2.0 28 08/17/16 04:22 71 18 100 Nasal Cannula 2.0 28 08/17/16 04:09 98.6 80 19 108/40 98 Room Air 08/17/16 04:00 81 08/17/16 00:06 98.3 76 18 147/71 99 Room Air 08/17/16 00:00 84 08/16/16 23:35 74 16 100 Nasal Cannula 2.0 28 08/16/16 23:30 72 18 98 Nasal Cannula 2.0 28 08/16/16 20:00 98.0 83 20 109/50 98 Nasal Cannula 2.0 08/16/16 20:00 89 08/16/16 18:48 98 Nasal Cannula 2.0 28 08/16/16 18:48 Nasal Cannula 2.0 28 08/16/16 18:30 80 16 100 Nasal Cannula 2.0 28 08/16/16 18:25 78 18 Nasal Cannula 2.0 28 08/16/16 18:25 78 18 98 Nasal Cannula 2.0 28 08/16/16 18:08 97.9 08/16/16 17:08 125/54 08/16/16 17:08 79 125/54 08/16/16 16:00 97.9 79 19 125/54 97 Room Air 08/16/16 16:00 82 Intake and Output 08/16/16 08/17/16 19:00 07:00 Intake Total 360 ml 2603 ml Balance 360 ml 2603 ml Intake Oral 360 ml 2603 ml # Voids 1 4 Laboratory Tests 08/17/16 04:45: White Blood Count 8.1, Red Blood Count 3.18L, Hemoglobin 8.8L, Hematocrit 26.6L , Mean Corpuscular Volume 84, Mean Corpuscular Hemoglobin 27.8, Mean Corpuscular Hemoglobin Concent 33.2, Red Cell Distribution Width 13.4, Platelet Count 306, Mean Platelet Volume 7.9, Neutrophils (%) (Auto) 45.1, Lymphocytes (% ) (Auto) 33.4, Monocytes (%) (Auto) 11.3H, Eosinophils (%) (Auto) 9.1H, Basophils (%) (Auto) 1.1, Prothrombin Time 10.3, Prothromb Time International Ratio 1.0, Activated Partial Thromboplast Time 28, Sodium Level 139, Potassium Level 3.8, Chloride Level 100, Carbon Dioxide Level 26, Anion Gap 13, Blood Urea Nitrogen 36H, Creatinine 1.0H, Estimat Glomerular Filtration Rate , Glucose Level 114H, Calcium Level 8.6 Height (Feet): 5 Height (Inches): 5.00 Weight (Pounds): 118 General Appearance: no apparent distress, alert EENT: normal ENT inspection Neck: normal alignment, supple, normal inspection Cardiovascular: normal rate, regular rhythm, no JVD Respiratory/Chest: chest wall non-tender, normal breath sounds, no respiratory distress Abdomen: non tender, soft, no organomegaly Extremities: non-tender, normal inspection Neurologic: alert, oriented x 3, responsive, normal mood/affect Tanisha Millan N.P. Aug 17, 2016 13:49
[2016-08-18 00:12] VITALS: BP 132/65
[2016-08-18] MEDS: Albuterol ud Inhalation HHN PRN (00:33)
[2016-08-18] MEDS: Tylenol #3 tab (300mg/30mg) ORAL PRN ×4 (01:14→20:38)
[2016-08-18] MEDS: Albuterol ud Inhalation HHN SCH ×6 (03:33→23:41)
[2016-08-18 04:06] VITALS: BP 130/64
[2016-08-18 07:58] VITALS: BP 148/65
[2016-08-18 08:12] LABS: EOSINOPHILS % (AUTO) 13.3 % (0.0-3.0); MEAN CORPUSCULAR HEMOGLOBIN 28.1 PG (27.0-31.0); MEAN CORPUSCULAR HGB CONC 33.1 G/DL (32.0-36.0); MEAN CORPUSCULAR VOLUME 85 FL (80-99); MEAN PLATELET VOLUME 6.8 FL (6.5-10.1); MONOCYTES % (AUTO) 10.1 % (1.0-10.0); NEUTROPHILS % (AUTO) 39.6 % (45.0-75.0); PLATELET COUNT 259 K/UL (150-450); RED BLOOD COUNT 3.08 M/UL (4.20-5.40); RED CELL DISTRIBUTION WIDTH 13.7 % (11.6-14.8)
[2016-08-18 08:37] LABS: ANION GAP 14 (5-15); CALCIUM 8.6 mg/dL (8.6-10.2); CARBON DIOXIDE 27 mEQ/L (20-30); CHLORIDE 100 mEQ/L (98-107); CREATININE 0.9 mg/dL (0.5-0.9); HEMOLYSIS 3; POTASSIUM 3.8 mEQ/L (3.4-4.9); SODIUM 141 mEQ/L (135-145)
[2016-08-18] MEDS: Digoxin 0.125mg tab ORAL SCH (09:05)
[2016-08-18] MEDS: Eliquis 2.5mg tablet ORAL SCH ×2 (09:05→18:13)
[2016-08-18 11:20] VITALS: BP 133/65
--- NOTE | 2016-08-18 13:57 | Nephrology Progress Note ---
Assessment/Plan Problem List: (1) Malignant hypertension (2) Acute exacerbation of COPD with asthma (3) TOI (acute kidney injury) (4) Anemia (5) Congestive heart failure (CHF) Plan Monitor BP - controlled Cardio f/u Continue neb treatment Monitor H&H, transfuse as needed Monitor BUN/cr - improved Pulmo consult recommended AM labs Subjective Constitutional: Denies: chills, diaphoresis, fever, malaise, no symptoms, other , weakness HEENT: Denies: blurred vision, double vision, ear discharge, ear pain, eye pain , mouth pain, mouth swelling, no symptoms, nose congestion, nose pain, other, tearing, throat pain, throat swelling Genitourinary: Denies: burning, discharge, flank pain, frequency, hematuria, incontinence, no symptoms, other, pain, urgency Neurologic/Psychiatric: Denies: anxiety, depressed, emotional problems, headache, no symptoms, numbness, other, paresthesia, pre-existing deficit, seizure, tingling, tremors, weakness Subjective In bed, SOB at rest, denies chest pain Objective Objective Last 24 Hour Vital Signs Date Time Temp Pulse Resp B/P Pulse Ox O2 Delivery O2 Flow Rate FiO2 08/18/16 12:50 85 08/18/16 11:20 98.1 85 18 133/65 100 Nasal Cannula 2.0 08/18/16 10:10 83 20 100 Nasal Cannula 2.0 08/18/16 10:00 80 18 100 Nasal Cannula 2.0 08/18/16 09:05 82 08/18/16 09:05 148/65 08/18/16 09:05 82 148/65 08/18/16 08:15 82 22 100 Nasal Cannula 2.0 28 08/18/16 08:15 82 18 100 Nasal Cannula 2.0 28 08/18/16 08:15 Nasal Cannula 2.0 08/18/16 08:15 100 Nasal Cannula 2.0 100 08/18/16 08:07 86 08/18/16 07:58 97.9 89 18 148/65 100 Nasal Cannula 3.0 08/18/16 06:57 82 22 Nasal Cannula 3.0 08/18/16 04:06 98.5 81 17 130/64 93 Nasal Cannula 08/18/16 04:00 83 08/18/16 03:44 73 16 99 Room Air 08/18/16 03:33 76 18 98 Room Air 08/18/16 00:43 91 20 99 Nasal Cannula 2.0 28 08/18/16 00:33 28 08/18/16 00:33 86 22 99 Nasal Cannula 2.0 28 08/18/16 00:12 98.7 73 18 132/65 97 Room Air 08/18/16 00:00 81 08/17/16 20:32 82 16 100 Nasal Cannula 2.0 08/17/16 20:28 28 08/17/16 20:27 Nasal Cannula 2.0 28 08/17/16 20:27 80 18 98 Nasal Cannula 2.0 28 08/17/16 20:26 98 Nasal Cannula 2.0 28 08/17/16 20:25 80 18 Nasal Cannula 2.0 08/17/16 20:00 84 08/17/16 20:00 97.9 82 19 135/65 100 Nasal Cannula 3.0 08/17/16 18:20 105 162/63 08/17/16 18:19 162/63 08/17/16 16:00 97.7 84 22 162/63 100 Nasal Cannula 3.0 08/17/16 16:00 105 08/17/16 15:49 28 08/17/16 15:49 77 24 99 Nasal Cannula 2.0 28 Intake and Output 08/17/16 08/18/16 19:00 07:00 Intake Total 340 ml 200 ml Balance 340 ml 200 ml Intake Oral 340 ml 200 ml # Voids 2 1 Laboratory Tests 08/18/16 07:25: White Blood Count 8.0, Red Blood Count 3.08L, Hemoglobin 8.7L, Hematocrit 26.2L , Mean Corpuscular Volume 85, Mean Corpuscular Hemoglobin 28.1, Mean Corpuscular Hemoglobin Concent 33.1, Red Cell Distribution Width 13.7, Platelet Count 259, Mean Platelet Volume 6.8, Neutrophils (%) (Auto) 39.6L, Lymphocytes ( %) (Auto) 36.0, Monocytes (%) (Auto) 10.1H, Eosinophils (%) (Auto) 13.3H, Basophils (%) (Auto) 1.0, Sodium Level 141, Potassium Level 3.8, Chloride Level 100, Carbon Dioxide Level 27, Anion Gap 14, Blood Urea Nitrogen 26H, Creatinine 0.9, Estimat Glomerular Filtration Rate , Glucose Level 111H, Calcium Level 8.6 Height (Feet): 5 Height (Inches): 5.00 Weight (Pounds): 118 General Appearance: mild distress EENT: normal ENT inspection Neck: normal alignment, normal inspection Cardiovascular: normal rate, regular rhythm, no JVD Respiratory/Chest: expiratory wheezing Abdomen: non tender, soft, no organomegaly Extremities: non-tender, normal inspection, no calf tenderness, normal capillary refill Neurologic: alert, oriented x 3, responsive, normal mood/affect Tanisha Millan N.P. Aug 18, 2016 13:57
[2016-08-18] MEDS: DuoNeb 0.5-3(2.5)mg/3ml neb HHN PRN (15:36)
[2016-08-18 15:57] VITALS: BP 163/78
--- NOTE | 2016-08-18 16:20 | Cardiac Electrophysiology PN ---
Assessment/Plan Assessment/Plan 1. Accelerated hypertension. Avoid beta-elyssa in view of COPD/wheezing. Continue Norvasc 5 mg b.i.d. and clonidine 0.1 mg po bid. 2. Atrial fibrillation with rapid ventricular response.In SR. Avoid beta- elyssa. Continue digoxin 0.125 mg daily and Eliquis 2.5 mg b.i.d. 3. Coronary artery disease with history of non-Q wave myocardial infarction, on aspirin and Lipitor, off beta-elyssa. 4. Chronic obstructive pulmonary disease and asthma. DW RN 2D Echo pending Subjective Subjective HTN is better. Still wheezing. No chest pain. Objective Last 24 Hour Vital Signs Date Time Temp Pulse Resp B/P Pulse Ox O2 Delivery O2 Flow Rate FiO2 08/18/16 15:57 97.9 80 18 163/78 100 Nasal Cannula 2.0 08/18/16 15:30 84 18 99 Nasal Cannula 2.0 08/18/16 15:30 82 18 97 Nasal Cannula 2.0 08/18/16 12:50 85 08/18/16 11:20 98.1 85 18 133/65 100 Nasal Cannula 2.0 08/18/16 10:10 83 20 100 Nasal Cannula 2.0 08/18/16 10:00 80 18 100 Nasal Cannula 2.0 08/18/16 09:05 82 08/18/16 09:05 148/65 08/18/16 09:05 82 148/65 08/18/16 08:15 82 22 100 Nasal Cannula 2.0 08/18/16 08:15 82 18 100 Nasal Cannula 2.0 08/18/16 08:15 Nasal Cannula 2.0 08/18/16 08:15 100 Nasal Cannula 2.0 100 08/18/16 08:07 86 08/18/16 07:58 97.9 89 18 148/65 100 Nasal Cannula 3.0 08/18/16 06:57 82 22 Nasal Cannula 3.0 08/18/16 04:06 98.5 81 17 130/64 93 Nasal Cannula 08/18/16 04:00 83 08/18/16 03:44 73 16 99 Room Air 08/18/16 03:33 76 18 98 Room Air 08/18/16 00:43 91 20 99 Nasal Cannula 2.0 28 08/18/16 00:33 28 08/18/16 00:33 86 22 99 Nasal Cannula 2.0 28 08/18/16 00:12 98.7 73 18 132/65 97 Room Air 08/18/16 00:00 81 08/17/16 20:32 82 16 100 Nasal Cannula 2.0 08/17/16 20:28 28 08/17/16 20:27 Nasal Cannula 2.0 28 08/17/16 20:27 80 18 98 Nasal Cannula 2.0 28 08/17/16 20:26 98 Nasal Cannula 2.0 28 08/17/16 20:25 80 18 Nasal Cannula 2.0 08/17/16 20:00 84 08/17/16 20:00 97.9 82 19 135/65 100 Nasal Cannula 3.0 08/17/16 18:20 105 162/63 08/17/16 18:19 162/63 Intake and Output 08/17/16 08/18/16 19:00 07:00 Intake Total 340 ml 200 ml Balance 340 ml 200 ml Intake Oral 340 ml 200 ml # Voids 2 1 Laboratory Tests Test 08/18/16 07:25 White Blood Count 8.0 K/UL (4.8-10.8) Red Blood Count 3.08 M/UL (4.20-5.40) L Hemoglobin 8.7 G/DL (12.0-16.0) L Hematocrit 26.2 % (37.0-47.0) L Mean Corpuscular Volume 85 FL (80-99) Mean Corpuscular Hemoglobin 28.1 PG (27.0-31.0) Mean Corpuscular Hemoglobin Concent 33.1 G/DL (32.0-36.0) Red Cell Distribution Width 13.7 % (11.6-14.8) Platelet Count 259 K/UL (150-450) Mean Platelet Volume 6.8 FL (6.5-10.1) Neutrophils (%) (Auto) 39.6 % (45.0-75.0) L Lymphocytes (%) (Auto) 36.0 % (20.0-45.0) Monocytes (%) (Auto) 10.1 % (1.0-10.0) H Eosinophils (%) (Auto) 13.3 % (0.0-3.0) H Basophils (%) (Auto) 1.0 % (0.0-2.0) Sodium Level 141 mEQ/L (135-145) Potassium Level 3.8 mEQ/L (3.4-4.9) Chloride Level 100 mEQ/L (98-107) Carbon Dioxide Level 27 mEQ/L (20-30) Anion Gap 14 (5-15) Blood Urea Nitrogen 26 mg/dL (7-23) H Creatinine 0.9 mg/dL (0.5-0.9) Estimat Glomerular Filtration Rate mL/min (>60) Glucose Level 111 mg/dL (74-106) H Calcium Level 8.6 mg/dL (8.6-10.2) Objective NECK: Shows mild JVD. LUNGS: Bilateral wheezes CARDIOVASCULAR: Regular S1 and S2 with no gallop or murmur. ABDOMEN: Soft. EXTREMITIES: No pitting edema. ROSALBA BRADLEY Aug 18, 2016 16:19
--- NOTE | 2016-08-18 20:08 | History and Physical Report ---
DATE OF ADMISSION: 08/15/2016 HISTORY OF PRESENT ILLNESS: This is an 86-year-old female who came to the emergency room short of breath, generalized weakness, atrial fibrillation. The patient currently is still short of breath and wheezing. No fever. No chills. PAST MEDICAL HISTORY: Significant for atrial fibrillation, hypertension, COPD, degenerative arthritis. ALLERGIES: No known allergies. FAMILY HISTORY: Noncontributory. SOCIAL HISTORY: The patient lives at home with her granddaughter. Denies any smoking and drinking. Denies any illegal drugs. REVIEW OF SYSTEMS: Generalized weakness, tired, fatigued, short of breath, atrial fibrillation with rapid ventricular rate. PHYSICAL EXAMINATION: GENERAL: This is an elderly female who is currently awake. She is still short of breath, . VITAL SIGNS: Her current blood pressure is 154/70, pulse 100, and respirations 18. No fever. SKIN: Good skin turgor. HEENT: AT/NC. EOMI. PERRLA. NECK: Supple. No JVD. CHEST: Bilaterally scattered wheezing and crackles. CARDIOVASCULAR: rhythm. Tachycardia. ABDOMEN: Soft. GENITOURINARY: Deferred. EXTREMITIES: CCE. NEUROLOGICAL: Generalized weakness. LABORATORY DATA: Not available. ASSESSMENT: 1. Acute chronic obstructive pulmonary disease exacerbation. 2. Atrial fibrillation. 3. Hypertension. 4. Degenerative arthritis. 5. Chronic back pain. PLAN: We will IV steroids. Bronchodilator treatments. Consider pulmonary consult and Nephrology consult. Jeronimo Rodrigues M.D. DR: Sidnye JOB#: [id number] CC:
[2016-08-18 20:23] VITALS: BP 139/72
[2016-08-19] VITALS: BP 140/56
[2016-08-19] MEDS: Tylenol #3 tab (300mg/30mg) ORAL PRN ×3 (03:12→18:09)
[2016-08-19] MEDS: Albuterol ud Inhalation HHN SCH ×6 (03:25→23:00)
[2016-08-19 04:00] VITALS: BP 157/80
[2016-08-19 07:51] VITALS: BP 137/69
[2016-08-19 08:03] LABS: EOSINOPHILS % (AUTO) 15.1 % (0.0-3.0); LYMPHOCYTES % (AUTO) 25.9 % (20.0-45.0); MEAN CORPUSCULAR HGB CONC 31.9 G/DL (32.0-36.0); MEAN CORPUSCULAR VOLUME 85 FL (80-99); MEAN PLATELET VOLUME 6.2 FL (6.5-10.1); MONOCYTES % (AUTO) 11.2 % (1.0-10.0); NEUTROPHILS % (AUTO) 46.9 % (45.0-75.0); PLATELET COUNT 255 K/UL (150-450); RED BLOOD COUNT 3.14 M/UL (4.20-5.40); RED CELL DISTRIBUTION WIDTH 13.6 % (11.6-14.8); WHITE BLOOD COUNT 8.9 K/UL (4.8-10.8)
[2016-08-19 08:28] LABS: ANION GAP 12 (5-15); CARBON DIOXIDE 27 mEQ/L (20-30); CHLORIDE 100 mEQ/L (98-107); CREATININE 0.8 mg/dL (0.5-0.9); HEMOLYSIS 10; POTASSIUM 3.8 mEQ/L (3.4-4.9); SODIUM 139 mEQ/L (135-145)
[2016-08-19] MEDS: Eliquis 2.5mg tablet ORAL SCH ×2 (08:42→18:08)
[2016-08-19] MEDS: Digoxin 0.125mg tab ORAL SCH (08:42)
[2016-08-19 11:19] VITALS: BP 132/52
--- NOTE | 2016-08-19 15:05 | Cardiac Electrophysiology PN ---
Assessment/Plan Assessment/Plan 1. Accelerated hypertension. Avoid beta-elyssa in view of COPD/wheezing. Continue Norvasc 5 mg b.i.d. and clonidine 0.1 mg po bid. 2. Atrial fibrillation with rapid ventricular response.In SR on digoxin 0.125 mg daily and Eliquis 2.5 mg b.i.d. 2D Echo still pending 3. Coronary artery disease with history of non-Q wave myocardial infarction, on aspirin and Lipitor, off beta-elyssa for COPD. 4. Chronic obstructive pulmonary disease and asthma. KVNG RN Subjective Subjective No chest pain or SOB.Alert in NAD. Remained in SR. Objective Last 24 Hour Vital Signs Date Time Temp Pulse Resp B/P Pulse Ox O2 Delivery O2 Flow Rate FiO2 08/19/16 14:04 90 20 100 Nasal Cannula 2.0 08/19/16 13:45 85 26 97 Nasal Cannula 2.0 08/19/16 11:19 97.1 80 18 132/52 100 Nasal Cannula 2.0 08/19/16 10:40 85 20 100 Nasal Cannula 2.0 08/19/16 10:25 81 22 100 Nasal Cannula 2.0 08/19/16 08:42 89 08/19/16 08:42 137/69 08/19/16 08:42 89 137/69 08/19/16 08:00 87 08/19/16 07:51 96.3 89 18 137/69 100 Nasal Cannula 2.0 08/19/16 06:49 88 23 100 Nasal Cannula 2.0 08/19/16 06:48 Nasal Cannula 2.0 08/19/16 06:34 84 24 100 Nasal Cannula 2.0 08/19/16 06:33 100 Nasal Cannula 2.0 08/19/16 04:00 98.3 79 18 157/80 100 Nasal Cannula 2.0 08/19/16 04:00 88 08/19/16 03:35 75 18 100 Nasal Cannula 2.0 08/19/16 03:24 94 18 98 Nasal Cannula 2.0 08/19/16 00:00 85 08/19/16 00:00 98.2 81 18 140/56 100 Nasal Cannula 2.0 08/18/16 23:10 105 18 99 Nasal Cannula 2.0 08/18/16 23:00 107 18 98 Nasal Cannula 2.0 08/18/16 20:23 97.3 82 18 139/72 100 Nasal Cannula 2.0 08/18/16 20:00 84 08/18/16 19:43 79 18 100 Nasal Cannula 2.0 08/18/16 19:19 Nasal Cannula 2.0 08/18/16 19:19 98 Nasal Cannula 2.0 100 08/18/16 19:19 78 18 98 Nasal Cannula 2.0 28 08/18/16 18:12 163/78 08/18/16 18:12 80 163/78 08/18/16 16:04 84 08/18/16 15:57 97.9 80 18 163/78 100 Nasal Cannula 2.0 08/18/16 15:30 84 18 99 Nasal Cannula 2.0 08/18/16 15:30 82 18 97 Nasal Cannula 2.0 Intake and Output 08/18/16 08/19/16 19:00 07:00 Intake Total 450 ml 720 ml Balance 450 ml 720 ml Intake Oral 450 ml 720 ml # Voids 1 2 Laboratory Tests Test 08/19/16 07:15 White Blood Count 8.9 K/UL (4.8-10.8) Red Blood Count 3.14 M/UL (4.20-5.40) L Hemoglobin 8.5 G/DL (12.0-16.0) L Hematocrit 26.6 % (37.0-47.0) L Mean Corpuscular Volume 85 FL (80-99) Mean Corpuscular Hemoglobin 27.0 PG (27.0-31.0) Mean Corpuscular Hemoglobin Concent 31.9 G/DL (32.0-36.0) L Red Cell Distribution Width 13.6 % (11.6-14.8) Platelet Count 255 K/UL (150-450) Mean Platelet Volume 6.2 FL (6.5-10.1) L Neutrophils (%) (Auto) 46.9 % (45.0-75.0) Lymphocytes (%) (Auto) 25.9 % (20.0-45.0) Monocytes (%) (Auto) 11.2 % (1.0-10.0) H Eosinophils (%) (Auto) 15.1 % (0.0-3.0) H Basophils (%) (Auto) 1.0 % (0.0-2.0) Sodium Level 139 mEQ/L (135-145) Potassium Level 3.8 mEQ/L (3.4-4.9) Chloride Level 100 mEQ/L (98-107) Carbon Dioxide Level 27 mEQ/L (20-30) Anion Gap 12 (5-15) Blood Urea Nitrogen 19 mg/dL (7-23) Creatinine 0.8 mg/dL (0.5-0.9) Estimat Glomerular Filtration Rate mL/min (>60) Glucose Level 104 mg/dL (74-106) Calcium Level 9.0 mg/dL (8.6-10.2) Pro-B-Type Natriuretic Peptide 520 pg/mL (0-450) H Objective NECK: Shows mild JVD. LUNGS: Bilateral wheezes CARDIOVASCULAR: Regular S1 and S2 with no gallop or murmur. ABDOMEN: Soft. EXTREMITIES: No pitting edema. ROSALBA BRADLEY Aug 19, 2016 15:05
[2016-08-19 16:00] VITALS: BP 140/67
--- NOTE | 2016-08-19 16:48 | Consultation ---
DATE OF CONSULTATION: 08/19/2016 PULMONARY CONSULTATION HISTORY OF PRESENT ILLNESS: This is an 86-year-old female, admitted to the hospital for hypertension and atrial fibrillation. The patient has a history also of chronic obstructive pulmonary disease. Over the weekend she was noted to have wheezing and shortness of breath. The patient has been using nebulizer treatment at home. Predominant reason for admission was hypertensive urgency; however this consultation has been requested because of shortness of breath and wheezing. PAST MEDICAL HISTORY: Notable for hypertension, paroxysmal atrial fibrillation, asthma, chronic obstructive pulmonary disease. MEDICATIONS: Present medications include albuterol, Atrovent, pravastatin, Eliquis, Norvasc, Catapres, digoxin, and with codeine. ALLERGIES: Penicillin and LEÓN inhibitors. FAMILY HISTORY: Noncontributory. SOCIAL HISTORY: Lives at home. The patient denies alcohol or tobacco usage. REVIEW OF SYSTEMS: Denies any headaches, hematemesis, melena, hematochezia, night sweats, or weight loss. PHYSICAL EXAMINATION: GENERAL: Reveals elderly female. VITAL SIGNS: Blood pressure 157/80, heart rate 84, respirations 18, O2 saturation is 98% on 2 liters of oxygen. HEENT: Unremarkable. CHEST: Few rhonchi bilaterally. HEART: Sounds are normal ABDOMEN: Soft. EXTREMITIES: There is no edema. LABORATORY AND DIAGNOSTIC DATA: X-ray chest obtained on 08/15/2016 shows cardiomegaly but no other findings. Laboratory testing is otherwise noncontributory with normal CBC and BMP. Hemoglobin is 8.7. Creatinine is 0.9. ProBNP 2178. Troponin negative x3. IMPRESSION: 1. Anemia. 2. History of chronic obstructive pulmonary disease with exacerbation. 3. Hypertensive urgency. 4. Atrial fibrillation. DISCUSSION: Agree with present management and care. I know the patient is on breathing treatments around the clock with which I would concur. She is also on rate control with digoxin. We will follow carefully. Hold off at this time on steroids and antibiotics. I guess my suspicion that breathing treatment alone may suffice for treatment of her condition at this point and time David Madrigal M.D. DR: Kailey JOB#: [id number] CC:
[2016-08-19] MEDS: DuoNeb 0.5-3(2.5)mg/3ml neb HHN PRN ×3 (17:20→23:47)
[2016-08-19 20:00] VITALS: BP 121/53
--- NOTE | 2016-08-19 21:08 | Progress Note ---
DATE: 08/19/2016 SUBJECTIVE: This is an elderly female, currently complaining of headache, but short of breath is improved. She has no chest pain. OBJECTIVE: VITAL SIGNS: Her blood pressure is slightly high at 150/90, pulse 60, and saturation 96%. CHEST: Bilateral few crackles and wheezing. CARDIOVASCULAR: Irregular rhythm. Tachycardia. ABDOMEN: Soft. Positive bowel sounds. EXTREMITIES: No swelling. ASSESSMENT AND PLAN: 1. Acute chronic obstructive pulmonary disease. 2. Atrial fibrillation. 3. Hypertension. PLAN: 1. Continue steroid and bronchodilator treatments. 2. Continue with current treatment. 3. Headache, we will give a Tylenol. 4. Continue [place]. Jeronimo Rodrigues M.D. DR: DAWN JOB#: [id number] CC:
[2016-08-20] MEDS: Tylenol #3 tab (300mg/30mg) ORAL PRN ×2 (00:12→09:18)
[2016-08-20 00:13] VITALS: BP 123/45
[2016-08-20] MEDS: Albuterol ud Inhalation HHN SCH ×6 (02:51→23:26)
[2016-08-20 04:15] VITALS: BP 141/69
[2016-08-20] MEDS: DuoNeb 0.5-3(2.5)mg/3ml neb HHN PRN ×3 (05:52→20:59)
[2016-08-20 08:19] VITALS: BP 131/74
[2016-08-20] MEDS: Digoxin 0.125mg tab ORAL SCH (09:12)
[2016-08-20] MEDS: Eliquis 2.5mg tablet ORAL SCH ×2 (09:13→17:59)
--- NOTE | 2016-08-20 09:29 | Pulmonology Progress Note ---
Assessment/Plan Assessment/Plan 1. Anemia. 2. History of chronic obstructive pulmonary disease with exacerbation. 3. Hypertensive urgency. 4. Atrial fibrillation. DISCUSSION: Agree with present management and care. Continue breathing treatments around the clock Continue rate control with digoxin. I will follow Hold off at this time on steroids and antibiotics. Add Miguel with hyun Subjective Interval Events: States she is still very SOB Constitutional: Reports: no symptoms HEENT: Repors: no symptoms Respiratory: Reports: shortness of breath Cardiovascular: Reports: no symptoms Gastrointestinal/Abdominal: Reports: no symptoms Allergies: Coded Allergies: PENICILLIN G (Verified Allergy, Severe, EXTREME SWELLING OF FACE,TONGUE, HANDS,LEGS., 12/31/11) LEÓN INHIBITORS (Verified Allergy, Unknown, Shortness of Breath, 12/31/11) PENICILLINS (Unverified Allergy, Unknown, 07/08/16) Objective Last 24 Hour Vital Signs Date Time Temp Pulse Resp B/P Pulse Ox O2 Delivery O2 Flow Rate FiO2 08/20/16 09:13 85 131/74 08/20/16 09:12 85 08/20/16 09:12 131/74 08/20/16 08:19 97.9 85 20 131/74 100 Nasal Cannula 2.0 08/20/16 07:44 96 18 100 Nasal Cannula 2.0 08/20/16 07:40 100 Nasal Cannula 2.0 08/20/16 07:40 Nasal Cannula 2.0 08/20/16 07:40 95 20 100 Nasal Cannula 2.0 08/20/16 07:40 28 08/20/16 05:53 91 20 100 Nasal Cannula 2.0 08/20/16 05:52 90 18 100 Nasal Cannula 2.0 08/20/16 04:15 98.5 100 19 141/69 98 Nasal Cannula 2.0 08/20/16 04:00 87 08/20/16 02:54 104 18 100 Nasal Cannula 2.0 08/20/16 02:53 107 18 100 Nasal Cannula 2.0 08/20/16 00:13 98.4 88 18 123/45 99 Nasal Cannula 2.0 08/20/16 00:00 90 08/19/16 23:50 105 20 100 Nasal Cannula 2.0 08/19/16 23:49 100 20 100 Nasal Cannula 2.0 08/19/16 23:13 Nasal Cannula 2.0 08/19/16 23:12 Nasal Cannula 2.0 08/19/16 21:51 86 20 100 Nasal Cannula 2.0 08/19/16 21:50 93 20 100 Nasal Cannula 2.0 08/19/16 20:00 85 08/19/16 20:00 97.7 87 20 121/53 98 Room Air 08/19/16 19:11 82 18 100 Nasal Cannula 2.0 08/19/16 19:10 80 18 100 Nasal Cannula 2.0 08/19/16 19:10 100 Nasal Cannula 2.0 08/19/16 19:10 Nasal Cannula 2.0 08/19/16 19:08 98.1 08/19/16 18:08 140/67 08/19/16 18:08 96 140/67 08/19/16 17:26 96 20 100 Nasal Cannula 2.0 08/19/16 17:15 92 24 100 Nasal Cannula 2.0 08/19/16 16:00 87 08/19/16 16:00 98.1 94 21 140/67 96 Room Air 08/19/16 15:14 Nasal Cannula 08/19/16 15:12 Nasal Cannula 08/19/16 14:04 90 20 100 Nasal Cannula 2.0 08/19/16 13:45 85 26 97 Nasal Cannula 2.0 08/19/16 12:00 87 08/19/16 11:19 97.1 80 18 132/52 100 Nasal Cannula 2.0 08/19/16 10:40 85 20 100 Nasal Cannula 2.0 08/19/16 10:25 81 22 100 Nasal Cannula 2.0 Intake and Output 08/19/16 08/20/16 19:00 07:00 Intake Total 400 ml 150 ml Balance 400 ml 150 ml Intake Oral 400 ml 150 ml # Voids 1 2 General Appearance: no acute distress HEENT: normocephalic Respiratory/Chest: chest wall non-tender, decreased breath sounds Cardiovascular: normal peripheral pulses, regular rhythm Current Medications Medications (Trade) Dose Ordered Sig/Theodore Route PRN Reason Start Time Stop Time Status Last Admin Dose Admin Acetaminophen/ Codeine Phosphate (Tylenol #3) 1 tab Q6H PRN ORAL For Pain 08/15/16 06:00 08/22/16 05:59 08/20/16 09:18 Albuterol Sulfate (Proventil) 2.5 mg Q4HRT HHN 08/18/16 03:00 08/23/16 02:59 08/20/16 07:40 Albuterol/ Ipratropium (DuoNeb 0.5-3(2.5)mg/3ml) 3 ml Q2H PRN HHN Shortness of Breath 08/18/16 15:30 08/23/16 15:29 08/20/16 05:52 Amlodipine Besylate (Norvasc) 5 mg BID ORAL 08/15/16 09:00 09/14/16 08:59 08/20/16 09:13 Apixaban (Eliquis) 2.5 mg BID ORAL 08/15/16 19:00 09/14/16 18:59 08/20/16 09:13 Clonidine HCl (Catapres) 0.1 mg BID ORAL 08/15/16 09:00 09/14/16 08:59 08/20/16 09:12 Digoxin (Lanoxin) 0.125 mg DAILY ORAL 08/15/16 09:00 09/14/16 08:59 08/20/16 09:12 Pravastatin Sodium (Pravachol) 40 mg BEDTIME ORAL 08/15/16 21:00 09/14/16 20:59 08/19/16 22:19 David Madrigal MD Aug 20, 2016 09:29
[2016-08-20] MEDS ORDERED: guaiFENesin w/Codeine 5ml Liq ud ORAL PRN (09:30)
[2016-08-20 12:00] VITALS: BP 129/56
--- NOTE | 2016-08-20 14:18 | Cardiac Electrophysiology PN ---
Assessment/Plan Assessment/Plan 1. Accelerated hypertension. Continue Norvasc 5 mg b.i.d. and clonidine 0.1 mg po bid. Avoid beta-elyssa for COPD/wheezing. 2. Atrial fibrillation with rapid ventricular response.In SR on digoxin 0.125 mg daily and Eliquis 2.5 mg b.i.d. 2D Echo still pending 3. Coronary artery disease on aspirin and Lipitor, off beta-elyssa for COPD. 4. Chronic obstructive pulmonary disease and asthma. DW RN Subjective Subjective No chest pain but still SOB Remained in SR. Getting nebulizer treatment Objective Last 24 Hour Vital Signs Date Time Temp Pulse Resp B/P Pulse Ox O2 Delivery O2 Flow Rate FiO2 08/20/16 12:00 84 08/20/16 12:00 97.9 86 20 129/56 100 Nasal Cannula 2.0 08/20/16 11:25 92 23 100 Nasal Cannula 2.0 28 08/20/16 11:10 28 08/20/16 11:10 90 22 100 Nasal Cannula 2.0 28 08/20/16 10:17 97.9 08/20/16 09:13 85 131/74 08/20/16 09:12 85 08/20/16 09:12 131/74 08/20/16 08:19 97.9 85 20 131/74 100 Nasal Cannula 2.0 08/20/16 08:00 85 08/20/16 07:44 96 18 100 Nasal Cannula 2.0 08/20/16 07:40 100 Nasal Cannula 2.0 28 08/20/16 07:40 Nasal Cannula 2.0 08/20/16 07:40 95 20 100 Nasal Cannula 2.0 08/20/16 07:40 28 08/20/16 05:53 91 20 100 Nasal Cannula 2.0 08/20/16 05:52 90 18 100 Nasal Cannula 2.0 08/20/16 04:15 98.5 100 19 141/69 98 Nasal Cannula 2.0 08/20/16 04:00 87 08/20/16 02:54 104 18 100 Nasal Cannula 2.0 08/20/16 02:53 107 18 100 Nasal Cannula 2.0 08/20/16 00:13 98.4 88 18 123/45 99 Nasal Cannula 2.0 08/20/16 00:00 90 08/19/16 23:50 105 20 100 Nasal Cannula 2.0 08/19/16 23:49 100 20 100 Nasal Cannula 2.0 08/19/16 23:13 Nasal Cannula 2.0 08/19/16 23:12 Nasal Cannula 2.0 08/19/16 21:51 86 20 100 Nasal Cannula 2.0 08/19/16 21:50 93 20 100 Nasal Cannula 2.0 08/19/16 20:00 85 08/19/16 20:00 97.7 87 20 121/53 98 Room Air 08/19/16 19:11 82 18 100 Nasal Cannula 2.0 08/19/16 19:10 80 18 100 Nasal Cannula 2.0 08/19/16 19:10 100 Nasal Cannula 2.0 08/19/16 19:10 Nasal Cannula 2.0 08/19/16 18:08 140/67 08/19/16 18:08 96 140/67 08/19/16 17:26 96 20 100 Nasal Cannula 2.0 08/19/16 17:15 92 24 100 Nasal Cannula 2.0 08/19/16 16:00 87 08/19/16 16:00 98.1 94 21 140/67 96 Room Air 08/19/16 15:14 Nasal Cannula 08/19/16 15:12 Nasal Cannula Intake and Output 08/19/16 08/20/16 19:00 07:00 Intake Total 400 ml 150 ml Balance 400 ml 150 ml Intake Oral 400 ml 150 ml # Voids 1 2 Labs Test 08/19/16 07:15 White Blood Count 8.9 K/UL (4.8-10.8) Red Blood Count 3.14 M/UL (4.20-5.40) Hemoglobin 8.5 G/DL (12.0-16.0) Hematocrit 26.6 % (37.0-47.0) Mean Corpuscular Volume 85 FL (80-99) Mean Corpuscular Hemoglobin 27.0 PG (27.0-31.0) Mean Corpuscular Hemoglobin Concent 31.9 G/DL (32.0-36.0) Red Cell Distribution Width 13.6 % (11.6-14.8) Platelet Count 255 K/UL (150-450) Mean Platelet Volume 6.2 FL (6.5-10.1) Neutrophils (%) (Auto) 46.9 % (45.0-75.0) Lymphocytes (%) (Auto) 25.9 % (20.0-45.0) Monocytes (%) (Auto) 11.2 % (1.0-10.0) Eosinophils (%) (Auto) 15.1 % (0.0-3.0) Basophils (%) (Auto) 1.0 % (0.0-2.0) Sodium Level 139 mEQ/L (135-145) Potassium Level 3.8 mEQ/L (3.4-4.9) Chloride Level 100 mEQ/L (98-107) Carbon Dioxide Level 27 mEQ/L (20-30) Anion Gap 12 (5-15) Blood Urea Nitrogen 19 mg/dL (7-23) Creatinine 0.8 mg/dL (0.5-0.9) Estimat Glomerular Filtration Rate mL/min (>60) Glucose Level 104 mg/dL (74-106) Calcium Level 9.0 mg/dL (8.6-10.2) Pro-B-Type Natriuretic Peptide 520 pg/mL (0-450) Objective NECK: Shows mild JVD. LUNGS: Bilateral wheezes CARDIOVASCULAR: Regular S1 and S2 with no gallop or murmur. ABDOMEN: Soft. EXTREMITIES: No pitting edema. ROSALBA BRADLEY Aug 20, 2016 14:18
[2016-08-20] MEDS ORDERED: Norco 5mg/325mg tab ORAL PRN (14:45)
[2016-08-20] MEDS ORDERED: Tylenol #3 tab (300mg/30mg) ORAL PRN (14:55)
[2016-08-20 16:00] VITALS: BP 124/57
--- NOTE | 2016-08-20 19:26 | Nephrology Progress Note ---
Assessment/Plan Problem List: (1) Malignant hypertension (2) Acute exacerbation of COPD with asthma (3) TOI (acute kidney injury) (4) Anemia (5) Congestive heart failure (CHF) Plan Monitor BP - controlled Cardio f/u Continue neb treatment Monitor H&H, transfuse as needed Monitor BUN/cr - improved Pulmo f/u AM labs Subjective Constitutional: Reports: no symptoms HEENT: Reports: no symptoms Genitourinary: Reports: no symptoms Neurologic/Psychiatric: Reports: no symptoms Subjective In bed, mild SOB, denies chest pain Objective Objective Last 24 Hour Vital Signs Date Time Temp Pulse Resp B/P Pulse Ox O2 Delivery O2 Flow Rate FiO2 08/20/16 18:00 145/79 08/20/16 17:59 85 145/79 08/20/16 17:36 95 22 95 Nasal Cannula 3.0 32 08/20/16 17:36 28 08/20/16 16:00 97.9 94 20 124/57 100 Nasal Cannula 3.0 08/20/16 15:20 90 21 100 Nasal Cannula 2.0 28 08/20/16 15:04 28 08/20/16 15:04 86 21 100 Nasal Cannula 2.0 28 08/20/16 12:00 84 08/20/16 12:00 97.9 86 20 129/56 100 Nasal Cannula 2.0 08/20/16 11:25 92 23 100 Nasal Cannula 2.0 28 08/20/16 11:10 28 08/20/16 11:10 90 22 100 Nasal Cannula 2.0 28 08/20/16 10:17 97.9 08/20/16 09:13 85 131/74 08/20/16 09:12 85 08/20/16 09:12 131/74 08/20/16 08:19 97.9 85 20 131/74 100 Nasal Cannula 2.0 08/20/16 08:00 85 08/20/16 07:44 96 18 100 Nasal Cannula 2.0 28 08/20/16 07:40 100 Nasal Cannula 2.0 28 08/20/16 07:40 Nasal Cannula 2.0 28 08/20/16 07:40 95 20 100 Nasal Cannula 2.0 28 08/20/16 07:40 28 08/20/16 05:53 91 20 100 Nasal Cannula 2.0 28 08/20/16 05:52 90 18 100 Nasal Cannula 2.0 08/20/16 04:15 98.5 100 19 141/69 98 Nasal Cannula 2.0 08/20/16 04:00 87 08/20/16 02:54 104 18 100 Nasal Cannula 2.0 08/20/16 02:53 107 18 100 Nasal Cannula 2.0 08/20/16 00:13 98.4 88 18 123/45 99 Nasal Cannula 2.0 08/20/16 00:00 90 08/19/16 23:50 105 20 100 Nasal Cannula 2.0 28 08/19/16 23:49 100 20 100 Nasal Cannula 2.0 28 08/19/16 23:13 Nasal Cannula 2.0 08/19/16 23:12 Nasal Cannula 2.0 08/19/16 21:51 86 20 100 Nasal Cannula 2.0 08/19/16 21:50 93 20 100 Nasal Cannula 2.0 08/19/16 20:00 85 08/19/16 20:00 97.7 87 20 121/53 98 Room Air Intake and Output 08/19/16 08/20/16 19:00 07:00 Intake Total 400 ml 150 ml Balance 400 ml 150 ml Intake Oral 400 ml 150 ml # Voids 1 2 Height (Feet): 5 Height (Inches): 5.00 Weight (Pounds): 118 General Appearance: mild distress EENT: normal ENT inspection Neck: normal alignment Cardiovascular: normal rate, regular rhythm, no JVD Respiratory/Chest: decreased breath sounds Abdomen: normal bowel sounds, non tender, soft, no organomegaly Extremities: non-tender, normal inspection, no calf tenderness Neurologic: alert, oriented x 3, responsive, normal mood/affect Tanisha Millan N.P. Aug 20, 2016 19:26
[2016-08-20 20:00] VITALS: BP 168/83
[2016-08-20] MEDS: Norco 5mg/325mg tab ORAL PRN (21:09)
[2016-08-21] VITALS: BP 136/71
[2016-08-21] MEDS: DuoNeb 0.5-3(2.5)mg/3ml neb HHN PRN ×5 (01:51→21:34)
[2016-08-21] MEDS: Albuterol ud Inhalation HHN SCH ×6 (03:29→23:08)
[2016-08-21 04:00] VITALS: BP 136/63
[2016-08-21] MEDS: Tylenol #3 tab (300mg/30mg) ORAL PRN (05:55)
[2016-08-21] MEDS: Eliquis 2.5mg tablet ORAL SCH ×2 (08:19→17:37)
[2016-08-21] MEDS: Digoxin 0.125mg tab ORAL SCH (08:20)
--- NOTE | 2016-08-21 08:41 | Cardiology Report ---
APPROVED REPORT EXAM: Two-dimensional and M-mode echocardiogram with Doppler and color Doppler. INDICATION Arrhythmia Normal left ventricular chamber size, hyperdynamic systolic function and wall motion. Left ventricular ejection fraction estimated to be 65 %. Significant left ventricular hypertrophy. Anterior Echo-free space, may be due to pericardial fat or effusion. Mild bi-atrial enlargement. Right ventricular chamber size is within normal limits. Focal aortic valve sclerosis with mildly reduced cusp excursion. Thickened mitral valve leaflets with normal excursion. Mitral annulus and aortic root calcification. Pulmonic valve not well visualized. Normal tricuspid valve structure. IVC dilated at 2.3 cm with slight physiologic collapse suggestive of increased RA pressure. A color flow and spectral Doppler study was performed and revealed: Trace aortic regurgitation. Peak aortic valve gradient of 20 mm Hg and a mean of 8 mmHg. Mild mitral regurgitation. Mitral diastolic velocities suggest reduced left ventricular relaxation c/w mild LV diastolic dysfunction (Grade I ). Mild tricuspid regurgitation. Tricuspid systolic velocities suggests peak right ventricular systolic pressure of 40 mmHg, consistent with mild pulmonary hypertension. Trace pulmonic regurgitation present.
[2016-08-21 08:57] VITALS: BP 143/95
[2016-08-21] MEDS: Norco 5mg/325mg tab ORAL PRN ×2 (10:02→17:39)
[2016-08-21 10:37] LABS: BASOPHILS % (AUTO) 1.1 % (0.0-2.0); EOSINOPHILS % (AUTO) 17.7 % (0.0-3.0); LYMPHOCYTES % (AUTO) 18.7 % (20.0-45.0); MEAN CORPUSCULAR HEMOGLOBIN 27.1 PG (27.0-31.0); MEAN CORPUSCULAR HGB CONC 32.2 G/DL (32.0-36.0); MEAN CORPUSCULAR VOLUME 84 FL (80-99); MEAN PLATELET VOLUME 6.3 FL (6.5-10.1); MONOCYTES % (AUTO) 9.4 % (1.0-10.0); NEUTROPHILS % (AUTO) 53.1 % (45.0-75.0); PLATELET COUNT 252 K/UL (150-450); RED BLOOD COUNT 3.15 M/UL (4.20-5.40); RED CELL DISTRIBUTION WIDTH 13.3 % (11.6-14.8); WHITE BLOOD COUNT 9.5 K/UL (4.8-10.8)
[2016-08-21 11:02] LABS: ANION GAP 12 (5-15); CALCIUM 9.3 mg/dL (8.6-10.2); CARBON DIOXIDE 27 mEQ/L (20-30); CHLORIDE 101 mEQ/L (98-107); CREATININE 0.7 mg/dL (0.5-0.9); HEMOLYSIS 0; POTASSIUM 4.3 mEQ/L (3.4-4.9); SODIUM 140 mEQ/L (135-145)
[2016-08-21 12:49] VITALS: BP 148/67
--- NOTE | 2016-08-21 15:34 | Pulmonology Progress Note ---
Assessment/Plan Assessment/Plan 1. Anemia. 2. History of chronic obstructive pulmonary disease with exacerbation. 3. Hypertensive urgency. 4. Atrial fibrillation. DISCUSSION: Agree with present management and care. Continue breathing treatments around the clock Continue rate control with digoxin. I will follow Subjective Interval Events: Feeling better Constitutional: Reports: no symptoms HEENT: Repors: no symptoms Respiratory: Reports: no symptoms Cardiovascular: Reports: no symptoms Gastrointestinal/Abdominal: Reports: no symptoms Genitourinary: Reports: no symptoms Allergies: Coded Allergies: PENICILLIN G (Verified Allergy, Severe, EXTREME SWELLING OF FACE,TONGUE, HANDS,LEGS., 12/31/11) LEÓN INHIBITORS (Verified Allergy, Unknown, Shortness of Breath, 12/31/11) PENICILLINS (Unverified Allergy, Unknown, 07/08/16) Objective Last 24 Hour Vital Signs Date Time Temp Pulse Resp B/P Pulse Ox O2 Delivery O2 Flow Rate FiO2 08/21/16 15:05 84 18 98 Nasal Cannula 2.0 08/21/16 14:55 83 18 98 Nasal Cannula 2.0 08/21/16 14:55 28 08/21/16 12:49 97.9 89 20 148/67 100 Room Air 08/21/16 12:39 101 20 98 Nasal Cannula 2.0 08/21/16 11:01 98.4 08/21/16 10:37 86 18 98 Nasal Cannula 2.0 08/21/16 10:28 88 18 98 Nasal Cannula 2.0 08/21/16 10:28 28 08/21/16 08:57 98.4 89 21 143/95 96 Room Air 08/21/16 08:20 89 08/21/16 08:19 143/95 08/21/16 08:19 89 143/95 08/21/16 08:07 88 18 99 Nasal Cannula 2.0 08/21/16 07:57 28 08/21/16 07:57 98 Nasal Cannula 2.0 08/21/16 07:57 Nasal Cannula 2.0 08/21/16 07:57 85 18 98 Nasal Cannula 2.0 08/21/16 07:02 97.6 08/21/16 05:44 102 24 98 Nasal Cannula 2.0 08/21/16 04:00 97.6 65 20 136/63 100 Nasal Cannula 2.0 08/21/16 03:42 90 18 99 Nasal Cannula 2.0 28 08/21/16 03:32 28 08/21/16 03:31 93 20 98 Nasal Cannula 2.0 28 08/21/16 01:52 120 24 98 Nasal Cannula 2.0 28 08/21/16 01:51 115 24 96 Nasal Cannula 2.0 28 08/21/16 00:00 97.7 91 18 136/71 100 Nasal Cannula 2.0 08/20/16 23:40 75 20 98 Nasal Cannula 2.0 28 08/20/16 23:25 73 22 95 Nasal Cannula 2.0 28 08/20/16 23:25 28 08/20/16 20:50 28 08/20/16 20:50 97 24 97 Nasal Cannula 2.0 28 08/20/16 20:49 Nasal Cannula 2.0 28 08/20/16 20:49 97 Nasal Cannula 2.0 28 08/20/16 20:00 98.4 97 24 168/83 100 Room Air 08/20/16 19:00 Nasal Cannula 08/20/16 19:00 Nasal Cannula 08/20/16 18:00 145/79 08/20/16 17:59 85 145/79 08/20/16 17:36 95 22 95 Nasal Cannula 3.0 32 08/20/16 17:36 28 08/20/16 16:00 97.9 94 20 124/57 100 Nasal Cannula 3.0 Intake and Output 08/20/16 08/21/16 19:00 07:00 Intake Total 120 ml 810 ml Balance 120 ml 810 ml Intake Oral 120 ml 810 ml # Voids 2 5 # Bowel Movements 1 General Appearance: no acute distress HEENT: normocephalic Respiratory/Chest: chest wall non-tender, lungs clear Cardiovascular: normal peripheral pulses, normal rate Laboratory Tests 08/21/16 09:25: White Blood Count 9.5, Red Blood Count 3.15L, Hemoglobin 8.5L, Hematocrit 26.5L , Mean Corpuscular Volume 84, Mean Corpuscular Hemoglobin 27.1, Mean Corpuscular Hemoglobin Concent 32.2, Red Cell Distribution Width 13.3, Platelet Count 252, Mean Platelet Volume 6.3L, Neutrophils (%) (Auto) 53.1, Lymphocytes ( %) (Auto) 18.7L, Monocytes (%) (Auto) 9.4, Eosinophils (%) (Auto) 17.7H, Basophils (%) (Auto) 1.1, Sodium Level 140, Potassium Level 4.3, Chloride Level 101, Carbon Dioxide Level 27, Anion Gap 12, Blood Urea Nitrogen 11, Creatinine 0.7, Estimat Glomerular Filtration Rate , Glucose Level 123H, Calcium Level 9.3 Current Medications Medications (Trade) Dose Ordered Sig/Theodore Route PRN Reason Start Time Stop Time Status Last Admin Dose Admin Acetaminophen/ Codeine Phosphate (Tylenol #3) 1 tab Q6H PRN ORAL Mild Pain (Pain Scale 1-3) 08/20/16 21:00 08/27/16 20:59 08/21/16 05:55 Acetaminophen/ Hydrocodone Bitart ([place] 5/325) 1 tab Q4H PRN ORAL Moderate Pain (Pain Scale 4-6) 08/20/16 22:45 08/27/16 22:44 08/21/16 10:02 Albuterol Sulfate (Proventil) 2.5 mg Q4HRT HHN 08/20/16 23:00 08/25/16 22:59 08/21/16 14:55 Albuterol/ Ipratropium (DuoNeb 0.5-3(2.5)mg/3ml) 3 ml Q2H PRN HHN Shortness of Breath 08/20/16 21:30 08/25/16 21:29 08/21/16 12:39 Amlodipine Besylate (Norvasc) 5 mg BID ORAL 08/21/16 09:00 09/20/16 08:59 08/21/16 08:19 Apixaban (Eliquis) 2.5 mg BID ORAL 08/21/16 09:00 09/20/16 08:59 08/21/16 08:19 Clonidine HCl (Catapres) 0.1 mg BID ORAL 08/21/16 09:00 09/20/16 08:59 08/21/16 08:19 Digoxin (Lanoxin) 0.125 mg DAILY ORAL 08/21/16 09:00 09/20/16 08:59 08/21/16 08:20 Guaifenesin/ Codeine Phosphate (Robitussin with codeine) 5 ml Q6H PRN ORAL For Cough 08/20/16 21:30 09/19/16 21:29 Pravastatin Sodium (Pravachol) 40 mg BEDTIME ORAL 08/20/16 21:00 09/19/16 20:59 08/20/16 21:10 David Madrigal MD Aug 21, 2016 15:34
[2016-08-21 16:00] VITALS: BP 132/66
--- NOTE | 2016-08-21 16:16 | Cardiac Electrophysiology PN ---
Assessment/Plan Status Narrative Normal left ventricular chamber size, hyperdynamic systolic function and wall motion. Left ventricular ejection fraction estimated to be 65 %. Significant left ventricular hypertrophy. Anterior Echo-free space, may be due to pericardial fat or effusion. Mild bi-atrial enlargement. Right ventricular chamber size is within normal limits. Focal aortic valve sclerosis with mildly reduced cusp excursion. Thickened mitral valve leaflets with normal excursion. Mitral annulus and aortic root calcification. Pulmonic valve not well visualized. Normal tricuspid valve structure. IVC dilated at 2.3 cm with slight physiologic collapse suggestive of increased RA pressure. Assessment/Plan 1. Accelerated hypertension. Continue Norvasc 5 mg b.i.d. and clonidine 0.1 mg po bid. Avoid beta-elyssa for COPD/wheezing. 2. Atrial fibrillation with rapid ventricular response.In SR on digoxin 0.125 mg daily and Eliquis 2.5 mg b.i.d. 2D Echo EF 65% 3. Coronary artery disease on aspirin and Lipitor, off beta-elyssa for COPD. 4. Chronic obstructive pulmonary disease and asthma. DW RN Subjective Subjective Still wheezing but SOB better. Getting nebulizer treatment Objective Last 24 Hour Vital Signs Date Time Temp Pulse Resp B/P Pulse Ox O2 Delivery O2 Flow Rate FiO2 08/21/16 15:05 84 18 98 Nasal Cannula 2.0 08/21/16 14:55 83 18 98 Nasal Cannula 2.0 08/21/16 14:55 28 08/21/16 12:49 97.9 89 20 148/67 100 Room Air 08/21/16 12:39 101 20 98 Nasal Cannula 2.0 08/21/16 11:01 98.4 08/21/16 10:37 86 18 98 Nasal Cannula 2.0 28 08/21/16 10:28 88 18 98 Nasal Cannula 2.0 28 08/21/16 10:28 28 08/21/16 08:57 98.4 89 21 143/95 96 Room Air 08/21/16 08:20 89 08/21/16 08:19 143/95 08/21/16 08:19 89 143/95 08/21/16 08:07 88 18 99 Nasal Cannula 2.0 28 08/21/16 07:57 28 08/21/16 07:57 98 Nasal Cannula 2.0 08/21/16 07:57 Nasal Cannula 2.0 28 08/21/16 07:57 85 18 98 Nasal Cannula 2.0 28 08/21/16 07:02 97.6 08/21/16 05:44 102 24 98 Nasal Cannula 2.0 28 08/21/16 04:00 97.6 65 20 136/63 100 Nasal Cannula 2.0 08/21/16 03:42 90 18 99 Nasal Cannula 2.0 28 08/21/16 03:32 28 08/21/16 03:31 93 20 98 Nasal Cannula 2.0 28 08/21/16 01:52 120 24 98 Nasal Cannula 2.0 28 08/21/16 01:51 115 24 96 Nasal Cannula 2.0 28 08/21/16 00:00 97.7 91 18 136/71 100 Nasal Cannula 2.0 08/20/16 23:40 75 20 98 Nasal Cannula 2.0 28 08/20/16 23:25 73 22 95 Nasal Cannula 2.0 28 08/20/16 23:25 28 08/20/16 20:50 28 08/20/16 20:50 97 24 97 Nasal Cannula 2.0 28 08/20/16 20:49 Nasal Cannula 2.0 28 08/20/16 20:49 97 Nasal Cannula 2.0 28 08/20/16 20:00 98.4 97 24 168/83 100 Room Air 08/20/16 19:00 Nasal Cannula 08/20/16 19:00 Nasal Cannula 08/20/16 18:00 145/79 08/20/16 17:59 85 145/79 08/20/16 17:36 95 22 95 Nasal Cannula 3.0 32 08/20/16 17:36 28 Intake and Output 08/20/16 08/21/16 19:00 07:00 Intake Total 120 ml 810 ml Balance 120 ml 810 ml Intake Oral 120 ml 810 ml # Voids 2 5 # Bowel Movements 1 Laboratory Tests Test 08/21/16 09:25 White Blood Count 9.5 K/UL (4.8-10.8) Red Blood Count 3.15 M/UL (4.20-5.40) L Hemoglobin 8.5 G/DL (12.0-16.0) L Hematocrit 26.5 % (37.0-47.0) L Mean Corpuscular Volume 84 FL (80-99) Mean Corpuscular Hemoglobin 27.1 PG (27.0-31.0) Mean Corpuscular Hemoglobin Concent 32.2 G/DL (32.0-36.0) Red Cell Distribution Width 13.3 % (11.6-14.8) Platelet Count 252 K/UL (150-450) Mean Platelet Volume 6.3 FL (6.5-10.1) L Neutrophils (%) (Auto) 53.1 % (45.0-75.0) Lymphocytes (%) (Auto) 18.7 % (20.0-45.0) L Monocytes (%) (Auto) 9.4 % (1.0-10.0) Eosinophils (%) (Auto) 17.7 % (0.0-3.0) H Basophils (%) (Auto) 1.1 % (0.0-2.0) Sodium Level 140 mEQ/L (135-145) Potassium Level 4.3 mEQ/L (3.4-4.9) Chloride Level 101 mEQ/L (98-107) Carbon Dioxide Level 27 mEQ/L (20-30) Anion Gap 12 (5-15) Blood Urea Nitrogen 11 mg/dL (7-23) Creatinine 0.7 mg/dL (0.5-0.9) Estimat Glomerular Filtration Rate mL/min (>60) Glucose Level 123 mg/dL (74-106) H Calcium Level 9.3 mg/dL (8.6-10.2) Objective NECK: Shows mild JVD. LUNGS: Bilateral wheezes CARDIOVASCULAR: Regular S1 and S2 with no gallop or murmur. ABDOMEN: Soft. EXTREMITIES: No pitting edema. ROSALBA BRADLEY Aug 21, 2016 16:16
[2016-08-21 20:00] VITALS: BP 127/57
[2016-08-22] VITALS (7 sets, daily range): BP systolic 141–174; BP diastolic 56–82
[2016-08-22] MEDS: Norco 5mg/325mg tab ORAL PRN ×3 (00:53→14:06)
[2016-08-22] MEDS: DuoNeb 0.5-3(2.5)mg/3ml neb HHN PRN ×3 (01:36→12:58)
[2016-08-22] MEDS: guaiFENesin w/Codeine 5ml Liq ud ORAL PRN ×2 (03:36→23:46)
[2016-08-22] MEDS: Albuterol ud Inhalation HHN SCH ×6 (03:38→22:33)
[2016-08-22] MEDS: Digoxin 0.125mg tab ORAL SCH (09:00)
[2016-08-22] MEDS: Eliquis 2.5mg tablet ORAL SCH ×2 (09:01→17:24)
[2016-08-22] MEDS: Tylenol #3 tab (300mg/30mg) ORAL PRN ×2 (10:53→20:52)
--- NOTE | 2016-08-22 11:35 | Pulmonology Progress Note ---
Assessment/Plan Assessment/Plan 1. Anemia. 2. History of chronic obstructive pulmonary disease; with exacerbation. 3. Hypertensive urgency. 4. Atrial fibrillation. DISCUSSION: Agree with present management and care. Continue breathing treatments around the clock Continue rate control with digoxin. I will follow Subjective Interval Events: Saturating 99% on 2L/min o2 Constitutional: Reports: no symptoms HEENT: Repors: no symptoms Respiratory: Reports: shortness of breath Cardiovascular: Reports: no symptoms Gastrointestinal/Abdominal: Reports: no symptoms Allergies: Coded Allergies: PENICILLIN G (Verified Allergy, Severe, EXTREME SWELLING OF FACE,TONGUE, HANDS,LEGS., 12/31/11) LEÓN INHIBITORS (Verified Allergy, Unknown, Shortness of Breath, 12/31/11) PENICILLINS (Unverified Allergy, Unknown, 07/08/16) Objective Last 24 Hour Vital Signs Date Time Temp Pulse Resp B/P Pulse Ox O2 Delivery O2 Flow Rate FiO2 08/22/16 09:26 84 22 100 Nasal Cannula 2.0 08/22/16 09:02 77 20 100 Nasal Cannula 2.0 08/22/16 09:00 97 08/22/16 09:00 154/72 08/22/16 09:00 97 154/72 08/22/16 08:25 97.9 97 21 154/72 98 Nasal Cannula 2.0 08/22/16 08:04 97.9 08/22/16 07:10 70 22 100 Nasal Cannula 2.0 08/22/16 07:00 94 22 100 Nasal Cannula 2.0 08/22/16 06:59 100 Nasal Cannula 2.0 08/22/16 06:58 Nasal Cannula 2.0 08/22/16 04:00 97.9 91 20 155/56 100 Nasal Cannula 2.0 08/22/16 03:45 103 20 99 Nasal Cannula 2.0 28 08/22/16 03:35 28 08/22/16 03:35 95 20 99 Nasal Cannula 2.0 08/22/16 01:43 113 20 99 Room Air 08/22/16 01:35 110 22 99 Room Air 08/22/16 00:00 98.1 92 22 141/75 99 Nasal Cannula 2.0 08/21/16 23:10 28 08/21/16 23:10 84 18 100 Nasal Cannula 2.0 28 08/21/16 23:09 84 18 100 Nasal Cannula 2.0 28 08/21/16 21:35 89 20 100 Nasal Cannula 2.0 28 08/21/16 21:35 28 08/21/16 21:34 90 20 100 Nasal Cannula 2.0 28 08/21/16 20:00 97.7 85 22 127/57 100 Nasal Cannula 2.0 08/21/16 18:51 110 18 100 Nasal Cannula 2.0 08/21/16 18:51 101 18 100 Nasal Cannula 2.0 08/21/16 18:51 28 08/21/16 18:50 100 Nasal Cannula 2.0 08/21/16 18:50 Nasal Cannula 2.0 08/21/16 17:38 132/66 08/21/16 17:38 90 132/66 08/21/16 16:52 95 20 96 Nasal Cannula 2.0 08/21/16 16:00 97.9 90 22 132/66 100 Room Air 08/21/16 15:05 84 18 98 Nasal Cannula 2.0 08/21/16 14:55 83 18 98 Nasal Cannula 2.0 08/21/16 14:55 28 08/21/16 12:49 97.9 89 20 148/67 100 Room Air 08/21/16 12:39 101 20 98 Nasal Cannula 2.0 28 Intake and Output 08/21/16 08/22/16 19:00 07:00 Intake Total 360 ml 480 ml Output Total 550 ml 450 ml Balance -190 ml 30 ml Intake Oral 360 ml 480 ml Output Urine Total 550 ml 450 ml # Voids 2 3 General Appearance: no acute distress HEENT: normocephalic Respiratory/Chest: chest wall non-tender, lungs clear Cardiovascular: normal peripheral pulses, normal rate Abdomen: normal bowel sounds, soft, non tender Current Medications Medications (Trade) Dose Ordered Sig/Theodore Route PRN Reason Start Time Stop Time Status Last Admin Dose Admin Acetaminophen/ Codeine Phosphate (Tylenol #3) 1 tab Q6H PRN ORAL Mild Pain (Pain Scale 1-3) 08/20/16 21:00 08/27/16 20:59 08/22/16 10:53 Acetaminophen/ Hydrocodone Bitart ([place] 5/325) 1 tab Q4H PRN ORAL Moderate Pain (Pain Scale 4-6) 08/20/16 22:45 08/27/16 22:44 08/22/16 07:05 Albuterol Sulfate (Proventil) 2.5 mg Q4HRT HHN 08/20/16 23:00 08/25/16 22:59 08/22/16 11:20 Albuterol/ Ipratropium (DuoNeb 0.5-3(2.5)mg/3ml) 3 ml Q2H PRN HHN Shortness of Breath 08/20/16 21:30 08/25/16 21:29 08/22/16 09:06 Amlodipine Besylate (Norvasc) 5 mg BID ORAL 08/21/16 09:00 09/20/16 08:59 08/22/16 09:00 Apixaban (Eliquis) 2.5 mg BID ORAL 08/21/16 09:00 09/20/16 08:59 08/22/16 09:01 Clonidine HCl (Catapres) 0.1 mg BID ORAL 08/21/16 09:00 09/20/16 08:59 08/22/16 09:00 Digoxin (Lanoxin) 0.125 mg DAILY ORAL 08/21/16 09:00 09/20/16 08:59 08/22/16 09:00 Guaifenesin/ Codeine Phosphate (Robitussin with codeine) 5 ml Q6H PRN ORAL For Cough 08/20/16 21:30 09/19/16 21:29 08/22/16 03:36 Pravastatin Sodium (Pravachol) 40 mg BEDTIME ORAL 08/20/16 21:00 09/19/16 20:59 08/21/16 20:19 David Madrigal MD Aug 22, 2016 11:35
--- NOTE | 2016-08-22 15:33 | Cardiac Electrophysiology PN ---
Assessment/Plan Status Narrative Normal left ventricular chamber size, hyperdynamic systolic function and wall motion. Left ventricular ejection fraction estimated to be 65 %. Significant left ventricular hypertrophy. Anterior Echo-free space, may be due to pericardial fat or effusion. Mild bi-atrial enlargement. Right ventricular chamber size is within normal limits. Focal aortic valve sclerosis with mildly reduced cusp excursion. Thickened mitral valve leaflets with normal excursion. Mitral annulus and aortic root calcification. Pulmonic valve not well visualized. Normal tricuspid valve structure. IVC dilated at 2.3 cm with slight physiologic collapse suggestive of increased RA pressure. Assessment/Plan 1. Accelerated hypertension. Continue Norvasc 5 mg b.i.d. and clonidine 0.1 mg po bid and beta-elyssa for COPD/wheezing. 2. Atrial fibrillation with rapid ventricular response.In SR on digoxin 0.125 mg daily and Eliquis 2.5 mg b.i.d. 2D Echo EF 65% 3. Coronary artery disease on aspirin and Lipitor, off beta-elyssa for COPD. 4. Chronic obstructive pulmonary disease and asthma. KVNG RN Subjective Subjective Feeling better. No chest pain or SOB. Objective Last 24 Hour Vital Signs Date Time Temp Pulse Resp B/P Pulse Ox O2 Delivery O2 Flow Rate FiO2 08/22/16 15:05 97.7 08/22/16 13:06 94 158/82 08/22/16 13:05 93 20 100 Nasal Cannula 2.0 08/22/16 12:55 94 20 100 Nasal Cannula 2.0 08/22/16 12:32 97.7 95 20 174/77 100 Room Air 08/22/16 11:52 97.9 08/22/16 11:40 108 20 100 Nasal Cannula 2.0 08/22/16 11:30 109 22 100 Nasal Cannula 2.0 08/22/16 09:26 84 22 100 Nasal Cannula 2.0 08/22/16 09:02 77 20 100 Nasal Cannula 2.0 08/22/16 09:00 97 08/22/16 09:00 154/72 08/22/16 09:00 97 154/72 08/22/16 08:25 97.9 97 21 154/72 98 Nasal Cannula 2.0 08/22/16 07:10 70 22 100 Nasal Cannula 2.0 08/22/16 07:00 94 22 100 Nasal Cannula 2.0 08/22/16 06:59 100 Nasal Cannula 2.0 08/22/16 06:58 Nasal Cannula 2.0 08/22/16 04:00 97.9 91 20 155/56 100 Nasal Cannula 2.0 08/22/16 03:45 103 20 99 Nasal Cannula 2.0 08/22/16 03:35 28 08/22/16 03:35 95 20 99 Nasal Cannula 2.0 08/22/16 01:43 113 20 99 Room Air 08/22/16 01:35 110 22 99 Room Air 08/22/16 00:00 98.1 92 22 141/75 99 Nasal Cannula 2.0 08/21/16 23:10 28 08/21/16 23:10 84 18 100 Nasal Cannula 2.0 08/21/16 23:09 84 18 100 Nasal Cannula 2.0 08/21/16 21:35 89 20 100 Nasal Cannula 2.0 08/21/16 21:35 28 08/21/16 21:34 90 20 100 Nasal Cannula 2.0 08/21/16 20:00 97.7 85 22 127/57 100 Nasal Cannula 2.0 08/21/16 18:51 110 18 100 Nasal Cannula 2.0 08/21/16 18:51 101 18 100 Nasal Cannula 2.0 08/21/16 18:51 28 08/21/16 18:50 100 Nasal Cannula 2.0 08/21/16 18:50 Nasal Cannula 2.0 08/21/16 17:38 132/66 08/21/16 17:38 90 132/66 08/21/16 16:52 95 20 96 Nasal Cannula 2.0 08/21/16 16:00 97.9 90 22 132/66 100 Room Air Intake and Output 08/21/16 08/22/16 19:00 07:00 Intake Total 360 ml 480 ml Output Total 550 ml 450 ml Balance -190 ml 30 ml Intake Oral 360 ml 480 ml Output Urine Total 550 ml 450 ml # Voids 2 3 Current Medications Medications (Trade) Dose Ordered Sig/Thedoore Route PRN Reason Start Time Stop Time Status Last Admin Dose Admin Acetaminophen/ Codeine Phosphate (Tylenol #3) 1 tab Q6H PRN ORAL Mild Pain (Pain Scale 1-3) 08/20/16 21:00 08/27/16 20:59 08/22/16 10:53 Acetaminophen/ Hydrocodone Bitart ([place] 5/325) 1 tab Q4H PRN ORAL Moderate Pain (Pain Scale 4-6) 08/20/16 22:45 08/27/16 22:44 08/22/16 14:06 Albuterol Sulfate (Proventil) 2.5 mg Q4HRT HHN 08/20/16 23:00 08/25/16 22:59 08/22/16 11:20 Albuterol/ Ipratropium (DuoNeb 0.5-3(2.5)mg/3ml) 3 ml Q2H PRN HHN Shortness of Breath 08/20/16 21:30 08/25/16 21:29 08/22/16 12:58 Amlodipine Besylate (Norvasc) 5 mg BID ORAL 08/21/16 09:00 09/20/16 08:59 08/22/16 09:00 Apixaban (Eliquis) 2.5 mg BID ORAL 08/21/16 09:00 09/20/16 08:59 08/22/16 09:01 Clonidine HCl (Catapres) 0.1 mg BID ORAL 08/21/16 09:00 09/20/16 08:59 08/22/16 09:00 Digoxin (Lanoxin) 0.125 mg DAILY ORAL 08/21/16 09:00 09/20/16 08:59 08/22/16 09:00 Guaifenesin/ Codeine Phosphate (Robitussin with codeine) 5 ml Q6H PRN ORAL For Cough 08/20/16 21:30 09/19/16 21:29 08/22/16 03:36 Pravastatin Sodium (Pravachol) 40 mg BEDTIME ORAL 08/20/16 21:00 09/19/16 20:59 08/21/16 20:19 Prednisone (predniSONE) 20 mg DAILY ORAL 08/22/16 14:00 09/21/16 13:59 Objective NECK: Shows mild JVD. LUNGS: Bilateral wheezes CARDIOVASCULAR: Regular S1 and S2 with no gallop or murmur. ABDOMEN: Soft. EXTREMITIES: No pitting edema. ROSALBA BRADLEY Aug 22, 2016 15:32
[2016-08-22] MEDS: PredniSONE 20mg tab ORAL SCH (15:35)
--- NOTE | 2016-08-22 16:27 | Nephrology Progress Note ---
Assessment/Plan Problem List: (1) Malignant hypertension (2) Acute exacerbation of COPD with asthma (3) TOI (acute kidney injury) (4) Anemia (5) Congestive heart failure (CHF) Plan Monitor BP - controlled Cardio f/u Continue neb treatment Monitor H&H, transfuse as needed Monitor BUN/cr - improved Pulmo f/u AM labs Subjective Constitutional: Denies: chills, diaphoresis, fever, malaise, no symptoms, other , weakness HEENT: Denies: blurred vision, double vision, ear discharge, ear pain, eye pain , mouth pain, mouth swelling, no symptoms, nose congestion, nose pain, other, tearing, throat pain, throat swelling Neurologic/Psychiatric: Denies: anxiety, depressed, emotional problems, headache, no symptoms, numbness, other, paresthesia, pre-existing deficit, seizure, tingling, tremors, weakness Subjective In bed, mild SOB, denies chest pain Objective Objective Last 24 Hour Vital Signs Date Time Temp Pulse Resp B/P Pulse Ox O2 Delivery O2 Flow Rate FiO2 08/22/16 15:59 93 22 100 Nasal Cannula 2.0 08/22/16 15:50 92 22 100 Nasal Cannula 2.0 08/22/16 15:05 97.7 08/22/16 13:06 94 158/82 08/22/16 13:05 93 20 100 Nasal Cannula 2.0 08/22/16 12:55 94 20 100 Nasal Cannula 2.0 08/22/16 12:32 97.7 95 20 174/77 100 Room Air 08/22/16 11:52 97.9 08/22/16 11:40 108 20 100 Nasal Cannula 2.0 08/22/16 11:30 109 22 100 Nasal Cannula 2.0 08/22/16 09:26 84 22 100 Nasal Cannula 2.0 08/22/16 09:02 77 20 100 Nasal Cannula 2.0 08/22/16 09:00 97 08/22/16 09:00 154/72 08/22/16 09:00 97 154/72 08/22/16 08:25 97.9 97 21 154/72 98 Nasal Cannula 2.0 08/22/16 07:10 70 22 100 Nasal Cannula 2.0 08/22/16 07:00 94 22 100 Nasal Cannula 2.0 08/22/16 06:59 100 Nasal Cannula 2.0 08/22/16 06:58 Nasal Cannula 2.0 08/22/16 04:00 97.9 91 20 155/56 100 Nasal Cannula 2.0 08/22/16 03:45 103 20 99 Nasal Cannula 2.0 08/22/16 03:35 28 08/22/16 03:35 95 20 99 Nasal Cannula 2.0 08/22/16 01:43 113 20 99 Room Air 08/22/16 01:35 110 22 99 Room Air 08/22/16 00:00 98.1 92 22 141/75 99 Nasal Cannula 2.0 08/21/16 23:10 28 08/21/16 23:10 84 18 100 Nasal Cannula 2.0 08/21/16 23:09 84 18 100 Nasal Cannula 2.0 08/21/16 21:35 89 20 100 Nasal Cannula 2.0 08/21/16 21:35 28 08/21/16 21:34 90 20 100 Nasal Cannula 2.0 08/21/16 20:00 97.7 85 22 127/57 100 Nasal Cannula 2.0 08/21/16 18:51 110 18 100 Nasal Cannula 2.0 08/21/16 18:51 101 18 100 Nasal Cannula 2.0 08/21/16 18:51 28 08/21/16 18:50 100 Nasal Cannula 2.0 08/21/16 18:50 Nasal Cannula 2.0 08/21/16 17:38 132/66 08/21/16 17:38 90 132/66 08/21/16 16:52 95 20 96 Nasal Cannula 2.0 28 Intake and Output 08/21/16 08/22/16 19:00 07:00 Intake Total 360 ml 480 ml Output Total 550 ml 450 ml Balance -190 ml 30 ml Intake Oral 360 ml 480 ml Output Urine Total 550 ml 450 ml # Voids 2 3 Height (Feet): 5 Height (Inches): 5.00 Weight (Pounds): 118 General Appearance: mild distress EENT: normal ENT inspection Neck: supple, normal inspection Cardiovascular: normal rate, regular rhythm, no JVD Respiratory/Chest: no respiratory distress, decreased breath sounds Abdomen: non tender, soft, no organomegaly Extremities: normal range of motion, non-tender, normal inspection Neurologic: alert, oriented x 3, responsive, normal mood/affect Egwu,Tanisha N.P. Aug 22, 2016 16:27
[2016-08-22] MEDS: Morphine Sulfate 2mg/ml Inj IVP PRN (18:44)
--- NOTE | 2016-08-22 22:47 | Nephrology Progress Note ---
Assessment/Plan Problem List: (1) Acute exacerbation of COPD with asthma (2) Anemia (3) Atrial fibrillation with RVR (4) Hypertension Plan cardio and pulm following. cont to monitor. d/c planning. Subjective Subjective late entry for 08/19 - c/o pain at IV site --> removed. Objective Objective Last 24 Hour Vital Signs Date Time Temp Pulse Resp B/P Pulse Ox O2 Delivery O2 Flow Rate FiO2 08/22/16 22:34 28 08/22/16 22:33 93 18 100 Nasal Cannula 2.0 28 08/22/16 21:51 97.9 08/22/16 20:00 98.2 101 22 150/68 98 Nasal Cannula 2.0 08/22/16 19:14 97.9 08/22/16 18:56 96 20 100 Nasal Cannula 2.0 08/22/16 18:44 100 Nasal Cannula 2.0 08/22/16 18:44 Nasal Cannula 2.0 08/22/16 18:44 28 08/22/16 18:43 110 18 100 Nasal Cannula 2.0 08/22/16 17:24 169/66 08/22/16 17:24 94 169/66 08/22/16 16:00 97.9 94 22 169/66 100 Nasal Cannula 2.0 08/22/16 15:59 93 22 100 Nasal Cannula 2.0 08/22/16 15:50 92 22 100 Nasal Cannula 2.0 08/22/16 15:05 97.7 08/22/16 13:06 94 158/82 08/22/16 13:05 93 20 100 Nasal Cannula 2.0 08/22/16 12:55 94 20 100 Nasal Cannula 2.0 08/22/16 12:32 97.7 95 20 174/77 100 Room Air 08/22/16 11:40 108 20 100 Nasal Cannula 2.0 08/22/16 11:30 109 22 100 Nasal Cannula 2.0 08/22/16 09:26 84 22 100 Nasal Cannula 2.0 08/22/16 09:02 77 20 100 Nasal Cannula 2.0 08/22/16 09:00 97 08/22/16 09:00 154/72 08/22/16 09:00 97 154/72 08/22/16 08:25 97.9 97 21 154/72 98 Nasal Cannula 2.0 08/22/16 07:10 70 22 100 Nasal Cannula 2.0 08/22/16 07:00 94 22 100 Nasal Cannula 2.0 08/22/16 06:59 100 Nasal Cannula 2.0 08/22/16 06:58 Nasal Cannula 2.0 08/22/16 04:00 97.9 91 20 155/56 100 Nasal Cannula 2.0 08/22/16 03:45 103 20 99 Nasal Cannula 2.0 08/22/16 03:35 28 08/22/16 03:35 95 20 99 Nasal Cannula 2.0 28 08/22/16 01:43 113 20 99 Room Air 08/22/16 01:35 110 22 99 Room Air 08/22/16 00:00 98.1 92 22 141/75 99 Nasal Cannula 2.0 08/21/16 23:10 28 08/21/16 23:10 84 18 100 Nasal Cannula 2.0 28 08/21/16 23:09 84 18 100 Nasal Cannula 2.0 28 Intake and Output 08/21/16 08/22/16 19:00 07:00 Intake Total 360 ml 480 ml Output Total 550 ml 450 ml Balance -190 ml 30 ml Intake Oral 360 ml 480 ml Output Urine Total 550 ml 450 ml # Voids 2 3 Height (Feet): 5 Height (Inches): 5.00 Weight (Pounds): 118 General Appearance: no apparent distress Cardiovascular: normal rate, regular rhythm Respiratory/Chest: lungs clear Abdomen: non tender, soft Extremities: non-pitting Neurologic: alert MARIANA FOOTE Aug 22, 2016 22:47
--- NOTE | 2016-08-22 22:50 | Nephrology Progress Note ---
Assessment/Plan Problem List: (1) Acute exacerbation of COPD with asthma (2) Anemia (3) Atrial fibrillation with RVR (4) Hypertension Plan cardio and pulm following. cont to monitor. d/c planning. Subjective Subjective late entry for 32 - d/c planning in progress. Objective Objective Last 24 Hour Vital Signs Date Time Temp Pulse Resp B/P Pulse Ox O2 Delivery O2 Flow Rate FiO2 08/22/16 22:44 96 16 100 Nasal Cannula 2.0 28 08/22/16 22:34 28 08/22/16 22:33 93 18 100 Nasal Cannula 2.0 28 08/22/16 21:51 97.9 08/22/16 20:00 98.2 101 22 150/68 98 Nasal Cannula 2.0 08/22/16 19:14 97.9 08/22/16 18:56 96 20 100 Nasal Cannula 2.0 08/22/16 18:44 100 Nasal Cannula 2.0 08/22/16 18:44 Nasal Cannula 2.0 28 08/22/16 18:44 28 08/22/16 18:43 110 18 100 Nasal Cannula 2.0 28 08/22/16 17:24 169/66 08/22/16 17:24 94 169/66 08/22/16 16:00 97.9 94 22 169/66 100 Nasal Cannula 2.0 08/22/16 15:59 93 22 100 Nasal Cannula 2.0 08/22/16 15:50 92 22 100 Nasal Cannula 2.0 08/22/16 15:05 97.7 08/22/16 13:06 94 158/82 08/22/16 13:05 93 20 100 Nasal Cannula 2.0 08/22/16 12:55 94 20 100 Nasal Cannula 2.0 08/22/16 12:32 97.7 95 20 174/77 100 Room Air 08/22/16 11:40 108 20 100 Nasal Cannula 2.0 08/22/16 11:30 109 22 100 Nasal Cannula 2.0 08/22/16 09:26 84 22 100 Nasal Cannula 2.0 08/22/16 09:02 77 20 100 Nasal Cannula 2.0 08/22/16 09:00 97 08/22/16 09:00 154/72 08/22/16 09:00 97 154/72 08/22/16 08:25 97.9 97 21 154/72 98 Nasal Cannula 2.0 08/22/16 07:10 70 22 100 Nasal Cannula 2.0 08/22/16 07:00 94 22 100 Nasal Cannula 2.0 08/22/16 06:59 100 Nasal Cannula 2.0 08/22/16 06:58 Nasal Cannula 2.0 08/22/16 04:00 97.9 91 20 155/56 100 Nasal Cannula 2.0 08/22/16 03:45 103 20 99 Nasal Cannula 2.0 28 08/22/16 03:35 28 08/22/16 03:35 95 20 99 Nasal Cannula 2.0 28 08/22/16 01:43 113 20 99 Room Air 08/22/16 01:35 110 22 99 Room Air 08/22/16 00:00 98.1 92 22 141/75 99 Nasal Cannula 2.0 08/21/16 23:10 28 08/21/16 23:10 84 18 100 Nasal Cannula 2.0 28 08/21/16 23:09 84 18 100 Nasal Cannula 2.0 28 Intake and Output 08/21/16 08/22/16 19:00 07:00 Intake Total 360 ml 480 ml Output Total 550 ml 450 ml Balance -190 ml 30 ml Intake Oral 360 ml 480 ml Output Urine Total 550 ml 450 ml # Voids 2 3 Height (Feet): 5 Height (Inches): 5.00 Weight (Pounds): 118 General Appearance: no apparent distress Cardiovascular: normal rate, regular rhythm Respiratory/Chest: lungs clear Abdomen: non tender, soft MARIANA FOOTE Aug 22, 2016 22:50
--- NOTE | 2016-08-23 00:38 | Progress Note ---
SUBJECTIVE: This is an 86-year-old female, who is currently with history of short of breath and not feeling well. Feeling lousy. She has no fever. No chills. Has short of breath. OBJECTIVE: VITAL SIGNS: Her current blood pressure is 150/90, pulse 60, and respirations 18. No fever. HEENT: NAD. CHEST: Bilateral scattered wheezing. CARDIOVASCULAR: Regular rhythm. Tachycardia. ABDOMEN: Soft. Positive bowel sounds. Nontender. GENITOURINARY: Deferred. EXTREMITIES: No swelling. LABORATORY EXAMINATIONS: Not available. ASSESSMENT: 1. Acute chronic obstructive pulmonary disease. 2. Congestive heart failure. 3. Hypertension. 4. Cardiac arrhythmia. 5. Degenerative arthritis. PLAN: We will admit and continue. The patient was switched to p.o. prednisone. Continue bronchodilator treatments. Continue supportive treatment. Discussed with Traecy LISA. Jeronimo Rodrigues M.D. DR: Moise JOB#: [id number] CC:
[2016-08-23 00:50] VITALS: BP 144/60
[2016-08-23] MEDS: Albuterol ud Inhalation HHN SCH ×6 (02:26→23:37)
[2016-08-23 04:00] VITALS: BP 163/75
[2016-08-23] MEDS: DuoNeb 0.5-3(2.5)mg/3ml neb HHN PRN ×4 (04:45→21:41)
[2016-08-23] MEDS: Norco 5mg/325mg tab ORAL PRN ×2 (04:55→17:10)
[2016-08-23 08:00] VITALS: BP 137/62
[2016-08-23 08:00] LABS: BASOPHILS % (AUTO) 1.4 % (0.0-2.0); EOSINOPHILS % (AUTO) 0.2 % (0.0-3.0); LYMPHOCYTES % (AUTO) 18.9 % (20.0-45.0); MEAN CORPUSCULAR HEMOGLOBIN 27.6 PG (27.0-31.0); MEAN CORPUSCULAR HGB CONC 32.6 G/DL (32.0-36.0); MEAN CORPUSCULAR VOLUME 85 FL (80-99); MONOCYTES % (AUTO) 10.2 % (1.0-10.0); NEUTROPHILS % (AUTO) 69.4 % (45.0-75.0); PLATELET COUNT 245 K/UL (150-450); RED BLOOD COUNT 3.19 M/UL (4.20-5.40); RED CELL DISTRIBUTION WIDTH 13.3 % (11.6-14.8); WHITE BLOOD COUNT 5.9 K/UL (4.8-10.8)
[2016-08-23 08:13] LABS: ANION GAP 12 (5-15); CALCIUM 9.4 mg/dL (8.6-10.2); CARBON DIOXIDE 30 mEQ/L (20-30); CHLORIDE 98 mEQ/L (98-107); CREATININE 0.9 mg/dL (0.5-0.9); HEMOLYSIS 0; POTASSIUM 4.4 mEQ/L (3.4-4.9); SODIUM 140 mEQ/L (135-145)
[2016-08-23] MEDS: Eliquis 2.5mg tablet ORAL SCH ×2 (08:47→18:35)
[2016-08-23] MEDS: Digoxin 0.125mg tab ORAL SCH (08:47)
[2016-08-23] MEDS: PredniSONE 20mg tab ORAL SCH (08:47)
[2016-08-23] MEDS: Tylenol #3 tab (300mg/30mg) ORAL PRN ×2 (09:38→22:48)
--- NOTE | 2016-08-23 09:58 | Pulmonology Progress Note ---
Assessment/Plan Assessment/Plan 1. Anemia. 2. History of chronic obstructive pulmonary disease; with exacerbation. 3. Hypertensive urgency. 4. Atrial fibrillation. DISCUSSION: Agree with present management and care. Continue breathing treatments around the clock Continue rate control with digoxin. Steroids added I will follow Subjective Interval Events: Feeling better afetr addition of steroids Constitutional: Reports: no symptoms HEENT: Repors: no symptoms Respiratory: Reports: dry cough, shortness of breath Cardiovascular: Reports: no symptoms Gastrointestinal/Abdominal: Reports: no symptoms Allergies: Coded Allergies: PENICILLIN G (Verified Allergy, Severe, EXTREME SWELLING OF FACE,TONGUE, HANDS,LEGS., 12/31/11) LEÓN INHIBITORS (Verified Allergy, Unknown, Shortness of Breath, 12/31/11) PENICILLINS (Unverified Allergy, Unknown, 07/08/16) Objective Last 24 Hour Vital Signs Date Time Temp Pulse Resp B/P Pulse Ox O2 Delivery O2 Flow Rate FiO2 08/23/16 09:13 111 20 99 Room Air 08/23/16 09:08 28 08/23/16 09:08 105 18 99 Nasal Cannula 2.0 08/23/16 08:47 84 08/23/16 08:47 137/62 08/23/16 08:46 84 137/62 08/23/16 08:00 98.1 78 19 137/62 100 Nasal Cannula 2.0 08/23/16 06:36 100 18 100 Nasal Cannula 2.0 08/23/16 06:31 Nasal Cannula 2.0 08/23/16 06:31 98 Nasal Cannula 2.0 08/23/16 06:31 99 18 100 Nasal Cannula 2.0 08/23/16 06:31 28 08/23/16 05:54 97.9 08/23/16 04:46 93 18 99 Nasal Cannula 2.0 08/23/16 04:46 28 08/23/16 04:00 98.2 104 18 163/75 100 Nasal Cannula 08/23/16 02:36 89 16 100 Nasal Cannula 2.0 08/23/16 02:27 28 08/23/16 02:26 91 18 100 Nasal Cannula 2.0 08/23/16 00:50 97.9 85 20 144/60 100 Nasal Cannula 08/22/16 22:44 96 16 100 Nasal Cannula 2.0 08/22/16 22:34 28 08/22/16 22:33 93 18 100 Nasal Cannula 2.0 28 08/22/16 21:51 97.9 08/22/16 20:00 98.2 101 22 150/68 98 Nasal Cannula 2.0 08/22/16 19:14 97.9 08/22/16 18:56 96 20 100 Nasal Cannula 2.0 08/22/16 18:44 100 Nasal Cannula 2.0 08/22/16 18:44 Nasal Cannula 2.0 08/22/16 18:44 28 08/22/16 18:43 110 18 100 Nasal Cannula 2.0 08/22/16 17:24 169/66 08/22/16 17:24 94 169/66 08/22/16 16:00 97.9 94 22 169/66 100 Nasal Cannula 2.0 08/22/16 15:59 93 22 100 Nasal Cannula 2.0 08/22/16 15:50 92 22 100 Nasal Cannula 2.0 08/22/16 13:06 94 158/82 08/22/16 13:05 93 20 100 Nasal Cannula 2.0 08/22/16 12:55 94 20 100 Nasal Cannula 2.0 08/22/16 12:32 97.7 95 20 174/77 100 Room Air 08/22/16 11:40 108 20 100 Nasal Cannula 2.0 08/22/16 11:30 109 22 100 Nasal Cannula 2.0 Intake and Output 08/22/16 08/23/16 19:00 07:00 Intake Total 120 ml Output Total 900 ml Balance -780 ml Intake Oral 120 ml Output Urine Total 900 ml # Voids 3 3 General Appearance: no acute distress HEENT: atraumatic Respiratory/Chest: chest wall non-tender, decreased breath sounds Cardiovascular: normal peripheral pulses Laboratory Tests 08/23/16 05:20: White Blood Count 5.9, Red Blood Count 3.19L, Hemoglobin 8.8L, Hematocrit 27.0L , Mean Corpuscular Volume 85, Mean Corpuscular Hemoglobin 27.6, Mean Corpuscular Hemoglobin Concent 32.6, Red Cell Distribution Width 13.3, Platelet Count 245, Mean Platelet Volume 6.0L, Neutrophils (%) (Auto) 69.4, Lymphocytes ( %) (Auto) 18.9L, Monocytes (%) (Auto) 10.2H, Eosinophils (%) (Auto) 0.2, Basophils (%) (Auto) 1.4, Sodium Level 140, Potassium Level 4.4, Chloride Level 98, Carbon Dioxide Level 30, Anion Gap 12, Blood Urea Nitrogen 19, Creatinine 0.9, Estimat Glomerular Filtration Rate , Glucose Level 124H, Calcium Level 9.4 , Digoxin Level 0.7 Current Medications Medications (Trade) Dose Ordered Sig/Theodore Route PRN Reason Start Time Stop Time Status Last Admin Dose Admin Acetaminophen/ Codeine Phosphate (Tylenol #3) 1 tab Q6H PRN ORAL Mild Pain (Pain Scale 1-3) 08/20/16 21:00 08/27/16 20:59 08/23/16 09:38 Acetaminophen/ Hydrocodone Bitart ([place] 5/325) 1 tab Q4H PRN ORAL Moderate Pain (Pain Scale 4-6) 08/20/16 22:45 08/27/16 22:44 08/23/16 04:55 Albuterol Sulfate (Proventil) 2.5 mg Q4HRT HHN 08/20/16 23:00 08/25/16 22:59 08/23/16 06:46 Albuterol/ Ipratropium (DuoNeb 0.5-3(2.5)mg/3ml) 3 ml Q2H PRN HHN Shortness of Breath 08/20/16 21:30 08/25/16 21:29 08/23/16 09:13 Amlodipine Besylate (Norvasc) 5 mg BID ORAL 08/21/16 09:00 09/20/16 08:59 08/23/16 08:46 Apixaban (Eliquis) 2.5 mg BID ORAL 08/21/16 09:00 09/20/16 08:59 08/23/16 08:47 Clonidine HCl (Catapres) 0.1 mg BID ORAL 08/21/16 09:00 09/20/16 08:59 08/23/16 08:47 Digoxin (Lanoxin) 0.125 mg DAILY ORAL 08/21/16 09:00 09/20/16 08:59 08/23/16 08:47 Guaifenesin/ Codeine Phosphate (Robitussin with codeine) 5 ml Q6H PRN ORAL For Cough 08/20/16 21:30 09/19/16 21:29 08/22/16 23:46 Morphine Sulfate (Morphine Sulfate) 2 mg Q4H PRN IVP Severe Pain (Pain Scale 7-10) 08/22/16 17:15 08/29/16 17:14 08/22/16 18:44 Pravastatin Sodium (Pravachol) 40 mg BEDTIME ORAL 08/20/16 21:00 09/19/16 20:59 08/22/16 20:52 Prednisone (predniSONE) 20 mg DAILY ORAL 08/22/16 14:00 09/21/16 13:59 08/23/16 08:47 David Madrigal MD Aug 23, 2016 09:58
[2016-08-23 12:00] VITALS: BP 161/62
[2016-08-23] MEDS ORDERED: DIGOXIN0.125 MG/2 ORAL (14:33)
[2016-08-23] MEDS ORDERED: NORVASC10 MG ORAL (14:33)
[2016-08-23] MEDS ORDERED: ELIQUIS2.5 MG PO (14:34)
[2016-08-23] MEDS ORDERED: PREDNISOLO15 MG/5 M1 ORAL (14:34)
[2016-08-23] MEDS ORDERED: SYMBICORT 16010.2 G1 IH (14:36)
[2016-08-23 16:00] VITALS: BP 158/78
--- NOTE | 2016-08-23 17:01 | Nephrology Progress Note ---
Assessment/Plan Problem List: (1) Acute exacerbation of COPD with asthma Assessment: improving. (2) Anemia (3) Congestive heart failure (CHF) (4) Hypertension (5) Atrial fibrillation with RVR Plan d/c planning in progress. cont NEB tx prn. d/w Dr. Barrios. Subjective Subjective still has dry cough. NEB tx does improve symptoms. Objective Objective Last 24 Hour Vital Signs Date Time Temp Pulse Resp B/P Pulse Ox O2 Delivery O2 Flow Rate FiO2 08/23/16 16:00 98.1 94 19 158/78 100 Nasal Cannula 2.0 08/23/16 15:37 100 18 100 Nasal Cannula 2.0 28 08/23/16 15:27 28 08/23/16 15:27 99 18 100 Nasal Cannula 2.0 28 08/23/16 12:32 111 20 99 Room Air 08/23/16 12:24 99 18 100 Nasal Cannula 2.0 28 08/23/16 12:22 28 08/23/16 12:00 98.6 108 20 161/62 98 Nasal Cannula 2.0 08/23/16 11:26 Nasal Cannula 2.0 28 08/23/16 11:25 Nasal Cannula 2.0 28 08/23/16 10:37 98.1 08/23/16 09:13 111 20 99 Room Air 08/23/16 09:08 28 08/23/16 09:08 105 18 99 Nasal Cannula 2.0 08/23/16 08:47 84 08/23/16 08:47 137/62 08/23/16 08:46 84 137/62 08/23/16 08:00 98.1 78 19 137/62 100 Nasal Cannula 2.0 08/23/16 06:36 100 18 100 Nasal Cannula 2.0 08/23/16 06:31 Nasal Cannula 2.0 28 08/23/16 06:31 98 Nasal Cannula 2.0 28 08/23/16 06:31 99 18 100 Nasal Cannula 2.0 08/23/16 06:31 28 08/23/16 05:54 97.9 08/23/16 04:46 93 18 99 Nasal Cannula 2.0 28 08/23/16 04:46 28 08/23/16 04:00 98.2 104 18 163/75 100 Nasal Cannula 08/23/16 02:36 89 16 100 Nasal Cannula 2.0 28 4/17 02:27 28 08/23/16 02:26 91 18 100 Nasal Cannula 2.0 08/23/16 00:50 97.9 85 20 144/60 100 Nasal Cannula 08/22/16 22:44 96 16 100 Nasal Cannula 2.0 28 08/22/16 22:34 28 08/22/16 22:33 93 18 100 Nasal Cannula 2.0 28 08/22/16 20:00 98.2 101 22 150/68 98 Nasal Cannula 2.0 08/22/16 19:14 97.9 08/22/16 18:56 96 20 100 Nasal Cannula 2.0 28 08/22/16 18:44 100 Nasal Cannula 2.0 08/22/16 18:44 Nasal Cannula 2.0 08/22/16 18:44 28 08/22/16 18:43 110 18 100 Nasal Cannula 2.0 28 08/22/16 17:24 169/66 08/22/16 17:24 94 169/66 Intake and Output 08/22/16 08/23/16 19:00 07:00 Intake Total 120 ml Output Total 900 ml Balance -780 ml Intake Oral 120 ml Output Urine Total 900 ml # Voids 3 3 Laboratory Tests 08/23/16 05:20: White Blood Count 5.9, Red Blood Count 3.19L, Hemoglobin 8.8L, Hematocrit 27.0L , Mean Corpuscular Volume 85, Mean Corpuscular Hemoglobin 27.6, Mean Corpuscular Hemoglobin Concent 32.6, Red Cell Distribution Width 13.3, Platelet Count 245, Mean Platelet Volume 6.0L, Neutrophils (%) (Auto) 69.4, Lymphocytes ( %) (Auto) 18.9L, Monocytes (%) (Auto) 10.2H, Eosinophils (%) (Auto) 0.2, Basophils (%) (Auto) 1.4, Sodium Level 140, Potassium Level 4.4, Chloride Level 98, Carbon Dioxide Level 30, Anion Gap 12, Blood Urea Nitrogen 19, Creatinine 0.9, Estimat Glomerular Filtration Rate , Glucose Level 124H, Calcium Level 9.4 , Digoxin Level 0.7 Height (Feet): 5 Height (Inches): 5.00 Weight (Pounds): 118 General Appearance: no apparent distress Cardiovascular: normal rate, regular rhythm Respiratory/Chest: expiratory wheezing Abdomen: normal bowel sounds, non tender, soft Extremities: non-pitting Neurologic: alert, oriented x 3 ALEXANDER TRIPATHI Aug 23, 2016 17:01
--- NOTE | 2016-08-23 19:43 | Cardiac Electrophysiology PN ---
Assessment/Plan Status Narrative Normal left ventricular chamber size, hyperdynamic systolic function and wall motion. Left ventricular ejection fraction estimated to be 65 %. Significant left ventricular hypertrophy. Anterior Echo-free space, may be due to pericardial fat or effusion. Mild bi-atrial enlargement. Right ventricular chamber size is within normal limits. Focal aortic valve sclerosis with mildly reduced cusp excursion. Thickened mitral valve leaflets with normal excursion. Mitral annulus and aortic root calcification. Pulmonic valve not well visualized. Normal tricuspid valve structure. IVC dilated at 2.3 cm with slight physiologic collapse suggestive of increased RA pressure. Assessment/Plan 1. Accelerated hypertension. Continue Norvasc 5 mg b.i.d.,clonidine 0.1 mg po bid. Keep off beta-elyssa for COPD/wheezing. 2. Atrial fibrillation with rapid ventricular response.In SR on digoxin 0.125 mg daily and Eliquis 2.5 mg b.i.d. 2D Echo EF 65% 3. Coronary artery disease, No chest pain on aspirin and Lipitor, off beta- elyssa for COPD. 4. Chronic obstructive pulmonary disease and asthma. KVNG RN Subjective Subjective Discharge was postponed to tomorrow. No chest pain or SOB.On nonmonitored bed. Objective Last 24 Hour Vital Signs Date Time Temp Pulse Resp B/P Pulse Ox O2 Delivery O2 Flow Rate FiO2 08/23/16 18:36 158/78 08/23/16 18:36 98 158/78 08/23/16 18:25 Nasal Cannula 2.0 08/23/16 18:25 98 18 100 Nasal Cannula 2.0 08/23/16 18:25 97 Nasal Cannula 2.0 08/23/16 18:20 28 08/23/16 18:20 93 18 97 Nasal Cannula 2.0 08/23/16 16:00 98.1 94 19 158/78 100 Nasal Cannula 2.0 08/23/16 15:37 100 18 100 Nasal Cannula 2.0 08/23/16 15:27 28 08/23/16 15:27 99 18 100 Nasal Cannula 2.0 08/23/16 12:32 111 20 99 Room Air 08/23/16 12:24 99 18 100 Nasal Cannula 2.0 08/23/16 12:22 28 08/23/16 12:00 98.6 108 20 161/62 98 Nasal Cannula 2.0 08/23/16 11:26 Nasal Cannula 2.0 08/23/16 11:25 Nasal Cannula 2.0 08/23/16 10:37 98.1 08/23/16 09:13 111 20 99 Room Air 08/23/16 09:08 28 08/23/16 09:08 105 18 99 Nasal Cannula 2.0 08/23/16 08:47 84 08/23/16 08:47 137/62 08/23/16 08:46 84 137/62 08/23/16 08:00 98.1 78 19 137/62 100 Nasal Cannula 2.0 08/23/16 06:36 100 18 100 Nasal Cannula 2.0 08/23/16 06:31 Nasal Cannula 2.0 08/23/16 06:31 98 Nasal Cannula 2.0 08/23/16 06:31 99 18 100 Nasal Cannula 2.0 08/23/16 06:31 28 08/23/16 05:54 97.9 08/23/16 04:46 93 18 99 Nasal Cannula 2.0 08/23/16 04:46 28 08/23/16 04:00 98.2 104 18 163/75 100 Nasal Cannula 08/23/16 02:36 89 16 100 Nasal Cannula 2.0 08/23/16 02:27 28 08/23/16 02:26 91 18 100 Nasal Cannula 2.0 08/23/16 00:50 97.9 85 20 144/60 100 Nasal Cannula 08/22/16 22:44 96 16 100 Nasal Cannula 2.0 08/22/16 22:34 28 08/22/16 22:33 93 18 100 Nasal Cannula 2.0 08/22/16 20:00 98.2 101 22 150/68 98 Nasal Cannula 2.0 Intake and Output 08/22/16 08/23/16 19:00 07:00 Intake Total 120 ml Output Total 900 ml Balance -780 ml Intake Oral 120 ml Output Urine Total 900 ml # Voids 3 3 Laboratory Tests Test 08/23/16 05:20 White Blood Count 5.9 K/UL (4.8-10.8) Red Blood Count 3.19 M/UL (4.20-5.40) L Hemoglobin 8.8 G/DL (12.0-16.0) L Hematocrit 27.0 % (37.0-47.0) L Mean Corpuscular Volume 85 FL (80-99) Mean Corpuscular Hemoglobin 27.6 PG (27.0-31.0) Mean Corpuscular Hemoglobin Concent 32.6 G/DL (32.0-36.0) Red Cell Distribution Width 13.3 % (11.6-14.8) Platelet Count 245 K/UL (150-450) Mean Platelet Volume 6.0 FL (6.5-10.1) L Neutrophils (%) (Auto) 69.4 % (45.0-75.0) Lymphocytes (%) (Auto) 18.9 % (20.0-45.0) L Monocytes (%) (Auto) 10.2 % (1.0-10.0) H Eosinophils (%) (Auto) 0.2 % (0.0-3.0) Basophils (%) (Auto) 1.4 % (0.0-2.0) Sodium Level 140 mEQ/L (135-145) Potassium Level 4.4 mEQ/L (3.4-4.9) Chloride Level 98 mEQ/L (98-107) Carbon Dioxide Level 30 mEQ/L (20-30) Anion Gap 12 (5-15) Blood Urea Nitrogen 19 mg/dL (7-23) Creatinine 0.9 mg/dL (0.5-0.9) Estimat Glomerular Filtration Rate mL/min (>60) Glucose Level 124 mg/dL (74-106) H Calcium Level 9.4 mg/dL (8.6-10.2) Digoxin Level 0.7 ng/mL (0.5-2.0) Objective NECK: Shows mild JVD. LUNGS: Clear CARDIOVASCULAR: Regular S1 and S2 with no gallop or murmur. ABDOMEN: Soft. EXTREMITIES: No pitting edema. ROSALBA BRADLEY Aug 23, 2016 19:43
[2016-08-23 20:00] VITALS: BP 137/61
--- NOTE | 2016-08-23 21:58 | Progress Note ---
SUBJECTIVE: This is an elderly female, sitting in the bed, feeling comfortable. Short of breath is improved, but she is on two-liter oxygen and desaturates when off oxygen. The patient has otherwise no cough, no fever. PHYSICAL EXAMINATION: GENERAL: This is an elderly female, who is currently awake. HEENT: NAD. CHEST: Bilateral few crackles and wheezing. CARDIOVASCULAR: Regular rhythm. No gallop. No murmur. ABDOMEN: Soft. EXTREMITIES: No edema. ASSESSMENT: 1. Acute chronic obstructive pulmonary disease, improved. 2. Cardiac arrhythmia. 3. Hypertension. 4. Degenerative arthritis. 5. Weakness. PLAN: We will currently continue prednisone. Continue bronchodilator treatment. Discharge planning home with home O2. Discussed with the family as well as charge nurse. Jeronimo Rodrigues M.D. DR: AICHA JOB#: [id number] CC:
[2016-08-24] VITALS (7 sets, daily range): BP systolic 138–190; BP diastolic 67–86
[2016-08-24] MEDS: guaiFENesin w/Codeine 5ml Liq ud ORAL PRN (01:08)
[2016-08-24] MEDS: Norco 5mg/325mg tab ORAL PRN (02:07)
[2016-08-24] MEDS: Albuterol ud Inhalation HHN SCH ×6 (02:25→22:18)
[2016-08-24] MEDS: DuoNeb 0.5-3(2.5)mg/3ml neb HHN PRN ×2 (04:29→10:00)
[2016-08-24] MEDS: Eliquis 2.5mg tablet ORAL SCH ×2 (08:05→18:33)
[2016-08-24] MEDS: Digoxin 0.125mg tab ORAL SCH (08:05)
[2016-08-24] MEDS: PredniSONE 20mg tab ORAL SCH (08:05)
--- NOTE | 2016-08-24 09:52 | Pulmonology Progress Note ---
Assessment/Plan Assessment/Plan 1. Anemia. 2. History of chronic obstructive pulmonary disease; with exacerbation. 3. Hypertensive urgency. 4. Atrial fibrillation. DISCUSSION: Continue breathing treatments around the clock Continue rate control with digoxin. Steroids added I will follow Subjective Interval Events: Continues to complain of SOB; hypertensive Constitutional: Reports: no symptoms HEENT: Repors: no symptoms Respiratory: Reports: no symptoms Cardiovascular: Reports: no symptoms Gastrointestinal/Abdominal: Reports: no symptoms Allergies: Coded Allergies: PENICILLIN G (Verified Allergy, Severe, EXTREME SWELLING OF FACE,TONGUE, HANDS,LEGS., 12/31/11) LEÓN INHIBITORS (Verified Allergy, Unknown, Shortness of Breath, 12/31/11) PENICILLINS (Unverified Allergy, Unknown, 07/08/16) Objective Last 24 Hour Vital Signs Date Time Temp Pulse Resp B/P Pulse Ox O2 Delivery O2 Flow Rate FiO2 08/24/16 08:05 106 08/24/16 08:05 106 190/86 08/24/16 08:04 190/86 08/24/16 08:02 98.9 106 28 190/86 100 Nasal Cannula 2.0 08/24/16 04:42 98.6 96 20 138/70 100 Nasal Cannula 2.0 08/24/16 04:30 102 20 100 Room Air 08/24/16 04:25 106 20 99 Nasal Cannula 2.0 08/24/16 04:25 28 08/24/16 04:00 99.0 98 20 156/73 100 Nasal Cannula 2.0 08/24/16 02:25 102 18 100 Nasal Cannula 2.0 08/24/16 02:20 114 18 97 Nasal Cannula 2.0 08/24/16 02:20 28 08/24/16 00:00 98.0 95 18 140/82 98 Nasal Cannula 2.0 08/23/16 23:25 28 08/23/16 23:25 100 18 97 Nasal Cannula 2.0 08/23/16 22:30 103 18 100 Nasal Cannula 2.0 08/23/16 21:43 100 18 100 Nasal Cannula 2.0 08/23/16 21:38 98 18 97 Nasal Cannula 2.0 08/23/16 21:38 28 08/23/16 20:00 98.5 102 18 137/61 100 Nasal Cannula 2.0 08/23/16 18:36 158/78 3/4/17 18:36 98 158/78 08/23/16 18:25 Nasal Cannula 2.0 28 08/23/16 18:25 98 18 100 Nasal Cannula 2.0 28 08/23/16 18:25 97 Nasal Cannula 2.0 28 08/23/16 18:20 28 08/23/16 18:20 93 18 97 Nasal Cannula 2.0 28 08/23/16 16:00 98.1 94 19 158/78 100 Nasal Cannula 2.0 08/23/16 15:37 100 18 100 Nasal Cannula 2.0 08/23/16 15:27 28 08/23/16 15:27 99 18 100 Nasal Cannula 2.0 08/23/16 12:32 111 20 99 Room Air 08/23/16 12:24 99 18 100 Nasal Cannula 2.0 08/23/16 12:22 28 08/23/16 12:00 98.6 108 20 161/62 98 Nasal Cannula 2.0 08/23/16 11:26 Nasal Cannula 2.0 08/23/16 11:25 Nasal Cannula 2.0 08/23/16 10:37 98.1 Intake and Output 08/23/16 08/24/16 19:00 07:00 Intake Total 240 ml 420 ml Balance 240 ml 420 ml Intake Oral 240 ml 420 ml # Voids 2 2 General Appearance: no acute distress HEENT: normocephalic Respiratory/Chest: chest wall non-tender, decreased breath sounds Cardiovascular: normal peripheral pulses, normal rate Abdomen: normal bowel sounds Current Medications Medications (Trade) Dose Ordered Sig/Theodore Route PRN Reason Start Time Stop Time Status Last Admin Dose Admin Acetaminophen/ Codeine Phosphate (Tylenol #3) 1 tab Q6H PRN ORAL Mild Pain (Pain Scale 1-3) 08/20/16 21:00 08/27/16 20:59 08/23/16 22:48 Acetaminophen/ Hydrocodone Bitart ([place] 5/325) 1 tab Q4H PRN ORAL Moderate Pain (Pain Scale 4-6) 08/20/16 22:45 08/27/16 22:44 08/24/16 02:07 Albuterol Sulfate (Proventil) 2.5 mg Q4HRT HHN 08/20/16 23:00 08/25/16 22:59 08/24/16 02:25 Albuterol/ Ipratropium (DuoNeb 0.5-3(2.5)mg/3ml) 3 ml Q2H PRN HHN Shortness of Breath 08/20/16 21:30 08/25/16 21:29 08/24/16 04:29 Amlodipine Besylate (Norvasc) 5 mg BID ORAL 08/21/16 09:00 09/20/16 08:59 08/24/16 08:05 Apixaban (Eliquis) 2.5 mg BID ORAL 08/21/16 09:00 09/20/16 08:59 08/24/16 08:05 Clonidine HCl (Catapres) 0.1 mg BID ORAL 08/21/16 09:00 09/20/16 08:59 08/24/16 08:04 Digoxin (Lanoxin) 0.125 mg DAILY ORAL 08/21/16 09:00 09/20/16 08:59 08/24/16 08:05 Guaifenesin/ Codeine Phosphate (Robitussin with codeine) 5 ml Q6H PRN ORAL For Cough 08/20/16 21:30 09/19/16 21:29 08/24/16 01:08 Morphine Sulfate (Morphine Sulfate) 2 mg Q4H PRN IVP Severe Pain (Pain Scale 7-10) 08/22/16 17:15 08/29/16 17:14 08/22/16 18:44 Pravastatin Sodium (Pravachol) 40 mg BEDTIME ORAL 08/20/16 21:00 09/19/16 20:59 08/23/16 21:02 Prednisone (predniSONE) 20 mg DAILY ORAL 08/22/16 14:00 09/21/16 13:59 08/24/16 08:05 David Madrigal MD Aug 24, 2016 09:52
[2016-08-24] MEDS: Morphine Sulfate 2mg/ml Inj IVP PRN ×2 (10:04→18:34)
[2016-08-24 10:59] LABS: ABG ALLEN TEST POSITIVE; ABG BASE EXCESS 3
--- NOTE | 2016-08-24 15:07 | Nephrology Progress Note ---
Assessment/Plan Problem List: (1) Acute exacerbation of COPD with asthma Assessment: improving. (2) Anemia (3) Congestive heart failure (CHF) (4) Hypertension (5) Atrial fibrillation with RVR Plan d/c planning in progress. cont NEB tx ATC. back on po steroids. d/w Dr. Barrios. Subjective Subjective sob worse. getting NEB tx now. Objective Objective Last 24 Hour Vital Signs Date Time Temp Pulse Resp B/P Pulse Ox O2 Delivery O2 Flow Rate FiO2 08/24/16 12:42 99.9 117 21 142/67 95 Simple Mask 08/24/16 10:34 98.9 08/24/16 08:05 106 08/24/16 08:05 106 190/86 08/24/16 08:04 190/86 08/24/16 08:02 98.9 106 28 190/86 100 Nasal Cannula 2.0 08/24/16 04:42 98.6 96 20 138/70 100 Nasal Cannula 2.0 08/24/16 04:30 102 20 100 Room Air 08/24/16 04:25 106 20 99 Nasal Cannula 2.0 28 08/24/16 04:25 28 08/24/16 04:00 99.0 98 20 156/73 100 Nasal Cannula 2.0 08/24/16 02:25 102 18 100 Nasal Cannula 2.0 08/24/16 02:20 114 18 97 Nasal Cannula 2.0 08/24/16 02:20 28 08/24/16 00:00 98.0 95 18 140/82 98 Nasal Cannula 2.0 08/23/16 23:25 28 08/23/16 23:25 100 18 97 Nasal Cannula 2.0 08/23/16 22:30 103 18 100 Nasal Cannula 2.0 08/23/16 21:43 100 18 100 Nasal Cannula 2.0 28 08/23/16 21:38 98 18 97 Nasal Cannula 2.0 28 08/23/16 21:38 28 08/23/16 20:00 98.5 102 18 137/61 100 Nasal Cannula 2.0 08/23/16 18:36 158/78 08/23/16 18:36 98 158/78 08/23/16 18:25 Nasal Cannula 2.0 28 08/23/16 18:25 98 18 100 Nasal Cannula 2.0 28 08/23/16 18:25 97 Nasal Cannula 2.0 28 08/23/16 18:20 28 08/23/16 18:20 93 18 97 Nasal Cannula 2.0 28 08/23/16 16:00 98.1 94 19 158/78 100 Nasal Cannula 2.0 08/23/16 15:37 100 18 100 Nasal Cannula 2.0 28 08/23/16 15:27 28 08/23/16 15:27 99 18 100 Nasal Cannula 2.0 28 Intake and Output 08/23/16 08/24/16 19:00 07:00 Intake Total 240 ml 420 ml Balance 240 ml 420 ml Intake Oral 240 ml 420 ml # Voids 2 2 Laboratory Tests 08/24/16 10:47: Arterial Blood pH 7.470H, Arterial Blood Partial Pressure CO2 37.0, Arterial Blood Partial Pressure O2 228.0H, Arterial Blood HCO3 27.0H, Arterial Blood Oxygen Saturation 100.0H, Arterial Blood Base Excess 3, Ilya Test Positive Height (Feet): 5 Height (Inches): 5.00 Weight (Pounds): 118 General Appearance: no apparent distress Cardiovascular: regularly irregular, tachycardia Respiratory/Chest: expiratory wheezing Abdomen: non tender, soft Extremities: non-pitting Neurologic: alert, oriented x 3 ALEXANDER TRIPATHI Aug 24, 2016 15:07
[2016-08-25] VITALS: BP 151/76
[2016-08-25] MEDS: Norco 5mg/325mg tab ORAL PRN (01:32)
[2016-08-25] MEDS: Albuterol ud Inhalation HHN SCH ×5 (03:44→19:12)
[2016-08-25] MEDS: Morphine Sulfate 2mg/ml Inj IVP PRN ×4 (03:46→19:15)
[2016-08-25 04:00] VITALS: BP 107/79
[2016-08-25 08:00] VITALS: BP 140/70
[2016-08-25] MEDS: PredniSONE 20mg tab ORAL SCH (08:12)
[2016-08-25] MEDS: Digoxin 0.125mg tab ORAL SCH (08:12)
[2016-08-25] MEDS: Eliquis 2.5mg tablet ORAL SCH ×2 (08:12→17:41)
[2016-08-25 12:09] VITALS: BP 114/70
--- NOTE | 2016-08-25 12:40 | Pulmonology Progress Note ---
Assessment/Plan Assessment/Plan 1. Anemia. 2. History of chronic obstructive pulmonary disease; with exacerbation. 3. Hypertensive urgency. 4. Atrial fibrillation. DISCUSSION: Continue breathing treatments around the clock Continue rate control with digoxin. On steroids I will follow Subjective Interval Events: None; on O2 via face mask. On steroids Constitutional: Reports: no symptoms HEENT: Repors: no symptoms Respiratory: Reports: no symptoms Cardiovascular: Reports: no symptoms Gastrointestinal/Abdominal: Reports: no symptoms Allergies: Coded Allergies: PENICILLIN G (Verified Allergy, Severe, EXTREME SWELLING OF FACE,TONGUE, HANDS,LEGS., 12/31/11) LEÓN INHIBITORS (Verified Allergy, Unknown, Shortness of Breath, 12/31/11) PENICILLINS (Unverified Allergy, Unknown, 07/08/16) Objective Last 24 Hour Vital Signs Date Time Temp Pulse Resp B/P Pulse Ox O2 Delivery O2 Flow Rate FiO2 08/25/16 12:09 97.0 120 21 114/70 99 Simple Mask 08/25/16 08:43 97.8 08/25/16 08:13 107/79 08/25/16 08:12 128 08/25/16 08:12 128 107/79 08/25/16 08:00 97.7 102 18 140/70 93 08/25/16 04:00 97.8 128 21 107/79 99 Simple Mask 3.0 08/25/16 03:25 99 22 99 Venturi Mask 5.0 28 08/25/16 03:15 28 08/25/16 03:15 95 22 98 Venturi Mask 6.0 30 08/25/16 00:00 97.7 102 19 151/76 98 Simple Mask 08/24/16 22:24 111 22 99 Venturi Mask 5.0 28 08/24/16 22:19 28 08/24/16 22:18 105 22 95 Venturi Mask 8.0 30 08/24/16 19:43 103 22 100 Nasal Cannula 2.0 08/24/16 19:35 28 08/24/16 19:34 74 22 93 Nasal Cannula 2.0 08/24/16 19:33 Nasal Cannula 2.0 28 08/24/16 19:33 100 Nasal Cannula 2.0 28 08/24/16 19:00 98.0 94 20 141/72 97 Room Air 08/24/16 18:34 146/73 08/24/16 18:33 96 146/73 08/24/16 17:23 114 22 100 Simple Mask 10.0 32 08/24/16 16:00 98.2 96 22 146/73 97 Room Air 08/24/16 15:04 115 22 96 Simple Mask 10.0 08/24/16 15:04 32 08/24/16 12:42 99.9 117 21 142/67 95 Simple Mask Intake and Output 08/24/16 08/25/16 19:00 07:00 Intake Total 240 ml 755 ml Output Total 250 ml Balance -10 ml 755 ml Intake Oral 240 ml 755 ml Output Urine Total 250 ml # Voids 1 6 General Appearance: no acute distress HEENT: normocephalic Respiratory/Chest: chest wall non-tender, lungs clear Cardiovascular: normal peripheral pulses, normal rate Abdomen: normal bowel sounds Current Medications Medications (Trade) Dose Ordered Sig/Theodore Route PRN Reason Start Time Stop Time Status Last Admin Dose Admin Acetaminophen/ Codeine Phosphate (Tylenol #3) 1 tab Q6H PRN ORAL Mild Pain (Pain Scale 1-3) 08/20/16 21:00 08/27/16 20:59 08/23/16 22:48 Acetaminophen/ Hydrocodone Bitart ([place] 5/325) 1 tab Q4H PRN ORAL Moderate Pain (Pain Scale 4-6) 08/20/16 22:45 08/27/16 22:44 08/25/16 01:32 Albuterol Sulfate (Proventil) 2.5 mg Q4HRT HHN 08/20/16 23:00 08/25/16 22:59 08/25/16 07:25 Albuterol/ Ipratropium (DuoNeb 0.5-3(2.5)mg/3ml) 3 ml Q2H PRN HHN Shortness of Breath 08/20/16 21:30 08/25/16 21:29 08/24/16 10:00 Amlodipine Besylate (Norvasc) 5 mg BID ORAL 08/21/16 09:00 09/20/16 08:59 08/25/16 08:12 Apixaban (Eliquis) 2.5 mg BID ORAL 08/21/16 09:00 09/20/16 08:59 08/25/16 08:12 Clonidine HCl (Catapres) 0.1 mg BID ORAL 08/21/16 09:00 09/20/16 08:59 08/25/16 08:13 Digoxin (Lanoxin) 0.125 mg DAILY ORAL 08/21/16 09:00 09/20/16 08:59 08/25/16 08:12 Guaifenesin/ Codeine Phosphate (Robitussin with codeine) 5 ml Q6H PRN ORAL For Cough 08/20/16 21:30 09/19/16 21:29 08/24/16 01:08 Morphine Sulfate (Morphine Sulfate) 2 mg Q4H PRN IVP Severe Pain (Pain Scale 7-10) 08/22/16 17:15 08/29/16 17:14 08/25/16 08:13 Pravastatin Sodium (Pravachol) 40 mg BEDTIME ORAL 08/20/16 21:00 09/19/16 20:59 08/24/16 20:38 Prednisone (predniSONE) 20 mg DAILY ORAL 08/22/16 14:00 09/21/16 13:59 08/25/16 08:12 David Madrigal MD Aug 25, 2016 12:40
--- NOTE | 2016-08-25 14:04 | Nephrology Progress Note ---
Assessment/Plan Problem List: (1) Malignant hypertension (2) Acute exacerbation of COPD with asthma (3) TOI (acute kidney injury) (4) Anemia (5) Congestive heart failure (CHF) Plan Monitor BP - controlled Cardio f/u Continue neb treatment Monitor H&H, transfuse as needed Monitor BUN/cr - improved Pulmo f/u AM labs DC plan - arrange with family Subjective Constitutional: Denies: chills, diaphoresis, fever, malaise, no symptoms, other , weakness HEENT: Denies: blurred vision, double vision, ear discharge, ear pain, eye pain , mouth pain, mouth swelling, no symptoms, nose congestion, nose pain, other, tearing, throat pain, throat swelling Genitourinary: Denies: burning, discharge, flank pain, frequency, hematuria, incontinence, no symptoms, other, pain, urgency Neurologic/Psychiatric: Denies: anxiety, depressed, emotional problems, headache, no symptoms, numbness, other, paresthesia, pre-existing deficit, seizure, tingling, tremors, weakness Objective Objective Last 24 Hour Vital Signs Date Time Temp Pulse Resp B/P Pulse Ox O2 Delivery O2 Flow Rate FiO2 08/25/16 12:09 97.0 120 21 114/70 99 Simple Mask 08/25/16 08:43 97.8 08/25/16 08:13 107/79 08/25/16 08:12 128 08/25/16 08:12 128 107/79 08/25/16 08:00 97.7 102 18 140/70 93 08/25/16 04:00 97.8 128 21 107/79 99 Simple Mask 3.0 08/25/16 03:25 99 22 99 Venturi Mask 5.0 28 08/25/16 03:15 28 08/25/16 03:15 95 22 98 Venturi Mask 6.0 30 08/25/16 00:00 97.7 102 19 151/76 98 Simple Mask 08/24/16 22:24 111 22 99 Venturi Mask 5.0 28 08/24/16 22:19 28 08/24/16 22:18 105 22 95 Venturi Mask 8.0 30 08/24/16 19:43 103 22 100 Nasal Cannula 2.0 08/24/16 19:35 28 08/24/16 19:34 74 22 93 Nasal Cannula 2.0 08/24/16 19:33 Nasal Cannula 2.0 28 08/24/16 19:33 100 Nasal Cannula 2.0 28 08/24/16 19:00 98.0 94 20 141/72 97 Room Air 08/24/16 18:34 146/73 08/24/16 18:33 96 146/73 08/24/16 17:23 114 22 100 Simple Mask 10.0 32 08/24/16 16:00 98.2 96 22 146/73 97 Room Air 08/24/16 15:04 115 22 96 Simple Mask 10.0 08/24/16 15:04 32 Intake and Output 08/24/16 08/25/16 19:00 07:00 Intake Total 240 ml 755 ml Output Total 250 ml Balance -10 ml 755 ml Intake Oral 240 ml 755 ml Output Urine Total 250 ml # Voids 1 6 Height (Feet): 5 Height (Inches): 5.00 Weight (Pounds): 118 General Appearance: no apparent distress, alert EENT: normal ENT inspection Neck: normal alignment Cardiovascular: normal peripheral pulses, normal rate, no JVD Respiratory/Chest: decreased breath sounds Abdomen: non tender, soft, no organomegaly Extremities: non-tender, normal inspection Neurologic: alert, oriented x 3, responsive, normal mood/affect Tanisha Millan N.P. Aug 25, 2016 14:04
[2016-08-25 16:00] VITALS: BP 111/60
--- NOTE | 2016-08-25 16:17 | Cardiac Electrophysiology PN ---
Assessment/Plan Status Narrative Normal left ventricular chamber size, hyperdynamic systolic function and wall motion. Left ventricular ejection fraction estimated to be 65 %. Significant left ventricular hypertrophy. Anterior Echo-free space, may be due to pericardial fat or effusion. Mild bi-atrial enlargement. Right ventricular chamber size is within normal limits. Focal aortic valve sclerosis with mildly reduced cusp excursion. Thickened mitral valve leaflets with normal excursion. Mitral annulus and aortic root calcification. Pulmonic valve not well visualized. Normal tricuspid valve structure. IVC dilated at 2.3 cm with slight physiologic collapse suggestive of increased RA pressure. Assessment/Plan 1. Accelerated hypertension. Continue Norvasc 5 mg b.i.d.,clonidine 0.1 mg po bid. 2D Echo EF 65% 2. Atrial fibrillation with rapid ventricular response.In SR on digoxin 0.125 mg daily and Eliquis 2.5 mg b.i.d. 3. Coronary artery disease, No chest pain on aspirin and Lipitor, off beta- elyssa for COPD. 4. Chronic obstructive pulmonary disease and asthma. KVNG RN Subjective Subjective No chest pain but still feels SOB. Objective Last 24 Hour Vital Signs Date Time Temp Pulse Resp B/P Pulse Ox O2 Delivery O2 Flow Rate FiO2 08/25/16 14:52 97.0 08/25/16 12:09 97.0 120 21 114/70 99 Simple Mask 08/25/16 11:20 95 21 96 Venturi Mask 5.0 08/25/16 11:06 28 08/25/16 11:06 94 19 95 Venturi Mask 5.0 08/25/16 08:13 107/79 08/25/16 08:12 128 08/25/16 08:12 128 107/79 08/25/16 08:00 97.7 102 18 140/70 93 08/25/16 07:40 94 18 99 Venturi Mask 5.0 08/25/16 07:25 90 20 99 Venturi Mask 5.0 08/25/16 07:25 99 Venturi Mask 5.0 08/25/16 07:25 Venturi Mask 5.0 28 08/25/16 07:25 28 08/25/16 04:00 97.8 128 21 107/79 99 Simple Mask 3.0 08/25/16 03:25 99 22 99 Venturi Mask 5.0 08/25/16 03:15 28 08/25/16 03:15 95 22 98 Venturi Mask 6.0 30 08/25/16 00:00 97.7 102 19 151/76 98 Simple Mask 08/24/16 22:24 111 22 99 Venturi Mask 5.0 28 08/24/16 22:19 28 08/24/16 22:18 105 22 95 Venturi Mask 8.0 30 08/24/16 19:43 103 22 100 Nasal Cannula 2.0 08/24/16 19:35 28 08/24/16 19:34 74 22 93 Nasal Cannula 2.0 08/24/16 19:33 Nasal Cannula 2.0 28 08/24/16 19:33 100 Nasal Cannula 2.0 28 08/24/16 19:00 98.0 94 20 141/72 97 Room Air 08/24/16 18:34 146/73 08/24/16 18:33 96 146/73 08/24/16 17:23 114 22 100 Simple Mask 10.0 32 Intake and Output 08/24/16 08/25/16 19:00 07:00 Intake Total 240 ml 755 ml Output Total 250 ml Balance -10 ml 755 ml Intake Oral 240 ml 755 ml Output Urine Total 250 ml # Voids 1 6 Current Medications Medications (Trade) Dose Ordered Sig/Theodore Route PRN Reason Start Time Stop Time Status Last Admin Dose Admin Acetaminophen/ Codeine Phosphate (Tylenol #3) 1 tab Q6H PRN ORAL Mild Pain (Pain Scale 1-3) 08/20/16 21:00 08/27/16 20:59 08/23/16 22:48 Acetaminophen/ Hydrocodone Bitart ([place] 5/325) 1 tab Q4H PRN ORAL Moderate Pain (Pain Scale 4-6) 08/20/16 22:45 08/27/16 22:44 08/25/16 01:32 Albuterol Sulfate (Proventil) 2.5 mg Q4HRT HHN 08/20/16 23:00 08/25/16 22:59 08/25/16 11:06 Albuterol/ Ipratropium (DuoNeb 0.5-3(2.5)mg/3ml) 3 ml Q2H PRN HHN Shortness of Breath 08/20/16 21:30 08/25/16 21:29 08/24/16 10:00 Amlodipine Besylate (Norvasc) 5 mg BID ORAL 08/21/16 09:00 09/20/16 08:59 08/25/16 08:12 Apixaban (Eliquis) 2.5 mg BID ORAL 08/21/16 09:00 09/20/16 08:59 08/25/16 08:12 Clonidine HCl (Catapres) 0.1 mg BID ORAL 08/21/16 09:00 09/20/16 08:59 08/25/16 08:13 Digoxin (Lanoxin) 0.125 mg DAILY ORAL 08/21/16 09:00 09/20/16 08:59 08/25/16 08:12 Guaifenesin/ Codeine Phosphate (Robitussin with codeine) 5 ml Q6H PRN ORAL For Cough 08/20/16 21:30 09/19/16 21:29 08/24/16 01:08 Morphine Sulfate (Morphine Sulfate) 2 mg Q4H PRN IVP Severe Pain (Pain Scale 7-10) 08/22/16 17:15 08/29/16 17:14 08/25/16 14:22 Pravastatin Sodium (Pravachol) 40 mg BEDTIME ORAL 08/20/16 21:00 09/19/16 20:59 08/24/16 20:38 Prednisone (predniSONE) 20 mg DAILY ORAL 08/22/16 14:00 09/21/16 13:59 08/25/16 08:12 Objective NECK: Shows mild JVD. LUNGS: Clear CARDIOVASCULAR: Regular S1 and S2 with no gallop or murmur. ABDOMEN: Soft. EXTREMITIES: No pitting edema. ROSALBA BRADLEY Aug 25, 2016 16:16
[2016-08-25] MEDS ORDERED: DIGOXIN0.125 MG/2 ORAL (17:53)
[2016-08-25] MEDS ORDERED: VENTOLIN HFA18 GM INH (17:56)
--- NOTE | 2016-08-25 18:48 | Progress Note ---
DATE: 08/24/2016 SUBJECTIVE: This is an elderly female, who is currently feeling better. Short of breath is better, but she is weak and tired. The patient otherwise . The patient is otherwise doing better, but is still unable to walk, unsteady gait. OBJECTIVE: VITAL SIGNS: Stable. CHEST: Bilateral clear. CARDIOVASCULAR: Regular rhythm. No gallop. No murmur. ABDOMEN: Soft. EXTREMITIES: CCE. NEUROLOGICAL: The patient has generalized weakness. GENITOURINARY: Deferred. ASSESSMENT: 1. Acute chronic obstructive pulmonary disease. 2. Atrial fibrillation. 3. Hypertension. 4. Degenerative arthritis. PLAN: We will currently continue current treatment. Continue oxygen. Follow up the laboratories senior care. Discussed with the family who has agreed to transfer to senior care. Jeronimo Rodrigues M.D. DR: SOTERO JOB#: [id number] CC:
[2016-08-25 19:49] VITALS: BP 114/60
[2016-08-25] MEDS ORDERED: Tubing IV Secondary IV ONE ×2 (20:26)
[2016-08-25] MEDS ORDERED: NS 275ml ONE (20:26)
--- NOTE | 2016-08-25 22:38 | Progress Note ---
DATE: 08/25/2016 SUBJECTIVE: This is an elderly female, who is complaining of right abdominal pain. No fever. No chills. She has three days ago. OBJECTIVE: VITAL SIGNS: Her blood pressure is 114/70 and heart rate is 120. CHEST: Bilaterally clear. CARDIOVASCULAR: Regular rhythm. No gallop. No murmur. ABDOMEN: Soft. EXTREMITIES: CCE. NEUROLOGICAL: No focal deficit. LABORATORY DATA: The patient has no labs today. ASSESSMENT AND PLAN: 1. Acute chronic obstructive pulmonary disease. 2. Atrial fibrillation. 3. Hypertension. 4. Generalized weakness. 5. Chronic pain. PLAN: We will currently continue current treatment. Discharge plan to home. Jeronimo Rodrigues M.D. DR: DAWN JOB#: [id number] CC:
[2016-08-26] MEDS ORDERED: CLONIDINE HCL0.1 MG PO (13:35)
--- NOTE | 2016-08-26 13:46 | Discharge Summary ---
Discharge Summary Hospital Course Date of Admission Aug 15, 2016 at 01:48 Date of Discharge Aug 25, 2016 at 20:27 Admitting Diagnosis CHEST PAIN HPI Michael Orellana is a 86 year old female who was admitted on Aug 15, 2016 at 01: 48 for Chest Pain Hospital Course dc summary #[id number] Discharge Medications New Medications: Clonidine Hcl (Clonidine Hcl) 0.1 Mg Tablet 0.1 MG PO BID, #60 TAB Continued Medications: Acetaminophen With Codeine (T#3) (Tylenol #3 Tab*) Y Tab 1 TAB ORAL Q6H PRN for For Pain, TAB Albuterol Sulfate (Ventolin Hfa) 18 Gm Hfa.aer.ad 2 PUFFS INH TID, #18 GM 0 Refills Apixaban (Eliquis) 2.5 Mg Tablet 2.5 MG PO BID, #60 TAB Aspirin* (Aspir 81*) 81 Mg Tablet.dr 81 MG ORAL DAILY, TAB Budesonide/Formoterol Fumarate (Symbicort 160-4.5 Mcg Inhaler) 10.2 Gm Hfa.aer.ad 2 PUFF IH BID, #1 INH 0 Refills Digoxin* (Digoxin*) 0.125 Mg/2.5 Ml Solution 0.125 MG ORAL DAILY, ML 0 Refills Diltiazem Hcl (Cardizem) 120 Mg Tablet 180 MG PO DAILY, #30 TAB Pantoprazole* (Pantoprazole*) 40 Mg Tablet.dr 40 MG ORAL DAILY, TAB Pravastatin Sod (Pravastatin Sod) 80 Mg Tablet 80 MG PO QHS, #30 Discontinued Medications: Digoxin* (Digoxin*) 125 Mcg Tablet Unknown Dose ORAL DAILY, TAB Ferrous Sulfate* (Ferrous Sulfate*) 325 Mg Tablet 325 MG ORAL BID, #30 TAB 0 Refills Hydrochlorothiazide* (Hydrochlorothiazide*) 25 Mg Tablet 25 MG ORAL DAILY, TAB Discharge Condition Upon Discharge: stable Discharge Disposition Patient was discharged to SNF/Subacute Facility(03) Discharge Diagnoses: Discharge Instructions Discharge Instructions Special Instructions I have been assigned to complete a D/C Summary on this account. I was not involved in the patient management Ami Mata NP ([facility]te[place]) Aug 26, 2016 13:46
--- NOTE | 2016-08-26 23:58 | Discharge Summary 2 SIG ---
DATE OF ADMISSION: 08/15/2016 DATE OF DISCHARGE: 08/25/2016 REASON FOR ADMISSION: 86-year-old female presented with chest pain, left-sided, nonradiating, occurring at rest. No associated shortness of breath, fever, chills, and cough. The patient with underlying history of asthma. Daughter gave nebulizer at home and paramedics gave aspirin and nitroglycerin. The patient reported headache after nitroglycerin. The patient has a history of hypertension. Reported compliance with medication. Elevated blood pressure in the emergency department of 200/103. EKG revealed normal sinus rhythm. No acute changes. The patient with history of atrial fibrillation. For elevated BP, the patient received IV hydralazine with improvement in systolic blood pressure from 201/72 to 167/70. For respiratory symptoms, the patient received albuterol and started on steroids. EKG revealed normal sinus rhythm. No ischemic changes, rate of 89. Chest x-ray revealed no acute cardiopulmonary disease. ADMITTING DIAGNOSES: 1. Hypertensive urgency. 2. Chest pain. 3. Acute chronic obstructive pulmonary disease exacerbation. 4. History of asthma. 5. Acute kidney injury. HISTORY OF STAY: The patient admitted on the telemetry floor. Cardiology consult was requested. The patient noted to have atrial fibrillation with rapid ventricular response. The patient was on Digoxin and Cardizem for rate control. Digoxin, level was therapeutic. Rate controlled. For anticoagulation on Eliquis at home. continued at the hospital. Blood pressure was treated with calcium channel elyssa and clonidine and currently stable. No beta elyssa due to COPD/asthma . Cardio closely followed. Echocardiogram revealed preserved ejection fraction of 65% and RVSP of 40 consistent with mild pulmonary hyperextension. Chest x-ray and ECHO did not revealed any evidence of CHF. Serial troponin negative, ECG with atrial fibrillation, no ischemic changes, therefore ruled out for acute coronary syndrome, Chest pain was likely precipitated by acute COPD exacerbation with wheezing and chest tightness. Statin continued. Chest x-ray revealed borderline cardiomegaly, but no acute changes. The patient was on the IV steroids, which were gradually tapered and changed to oral . The patient was on empiric antibiotics. Unable to provide any sputum culture since the patient is dry. CT of the head was negative for any acute intracranial pathology. Initially with IV fluids, acute kidney injury resolved, likely induced by dehydration. Hemoglobin and hematocrit at baseline. No trend down. Recommended anemia workup as outpatient. DVT and GI prophylaxis provided. The patient was working with physical and occupational therapists. DISCHARGE DIAGNOSES: 1. Hypertensive urgency. 2. Atrial fibrillation with rapid ventricular response. 3. Coronary artery disease. 4. Acute chronic obstructive pulmonary disease exacerbation. 5. Asthma. 6. Chronic pain. 7. Generalized weakness. 8. Acute kidney injury, likely secondary to dehydration, resolved. 9. Anemia. 10. Mild pulmonary hypertension DISCHARGE MEDICATIONS: See medication reconciliation list. DISCHARGE INSTRUCTIONS: The patient was discharged home on Medrol dose pack, inhalers and empiric antibiotics,The patient to follow up with the primary medical doctor. Jeronimo Rodrigues M.D. I have been assigned to dictate discharge summary on this account and I was not involved in the patient's management. Ami Mata ([facility] N.PYnes DR: ERICH JOB#: [id number] CC: JENNIFER
--- NOTE | 2016-09-01 09:08 | Progress Note ---
SUBJECTIVE: This is an 87-year-old female, who is currently doing better. She had . PHYSICAL EXAMINATION: Unchanged. CHEST: Bilaterally clear. CARDIOVASCULAR: Regular. ABDOMEN: Soft. ASSESSMENT AND PLAN: 1. prednisone. 2. . 3. . Jeronimo Rodrigues M.D. DR: DAWN JOB#: [id number] CC:
== END 2016-08-25 20:27 | DRG 191 ==
LOC: EDBD 00:45 → EMR 01:20 → 2E 01:48 → EDBEDREQ 02:15 → 4W 08-20 19:43
DX: J44.1 Chronic obstructive pulmonary disease with (acute) exacerbation (principal); N17.9 Acute kidney failure, unspecified; I48.0 Paroxysmal atrial fibrillation; I50.9 Heart failure, unspecified; E86.0 Dehydration; D63.8 Anemia in other chronic diseases classified elsewhere; D64.9 Anemia, unspecified; I16.0 Hypertensive urgency; G89.29 Other chronic pain; J45.909 Unspecified asthma, uncomplicated; I25.10 Atherosclerotic heart disease of native coronary artery without angina pectoris; Z88.0 Allergy status to penicillin; Z88.8 Allergy status to other drugs, medicaments and biological substances; M19.90 Unspecified osteoarthritis, unspecified site; M54.9 Dorsalgia, unspecified; R53.1 Weakness; I25.2 Old myocardial infarction
CPT/HCPCS: 36415; 36600; 70450; 71010; 80048; 80053; 80162; 82550; 82553; 82803; 83735; 83880; 84100; 84484; 85025; 85610; 85730; 93005; 93306; 94640; 94664; 94760; J7620

== ENCOUNTER 2016-08-31 17:20 | Inpatient (IN) | payer MEDICARE, BC ==
[~2016-08-31] VITALS: Ht 162.6 cm; Wt 54.4 kg
[~2016-08-31 17:20] MED LIST changes: +CLONIDINE HCL0.1 MG PO; +DIGOXIN0.125 MG/2 ORAL; +ELIQUIS2.5 MG PO; +Ipratropium 0.02% Inh Soln 2.5ml UD HHN ONE; +NORVASC10 MG ORAL; +PRAVASTATIN SOD80 M1 PO; +PREDNISOLO15 MG/5 M1 ORAL; +SYMBICORT 16010.2 G1 IH; +Solu-MEDROL 125mg Inj IVP ONE
[2016-08-31 17:21] VITALS: BP 168/84
[2016-08-31] MEDS: Albuterol ud Inhalation HHN SCH ×3 (17:30→17:49)
[2016-08-31 17:45] LABS: BASOPHILS % (AUTO) 0.6 % (0.0-2.0); LYMPHOCYTES % (AUTO) 17.7 % (20.0-45.0); MEAN CORPUSCULAR HGB CONC 33.2 G/DL (32.0-36.0); MEAN CORPUSCULAR VOLUME 81 FL (80-99); MEAN PLATELET VOLUME 5.9 FL (6.5-10.1); MONOCYTES % (AUTO) 4.5 % (1.0-10.0); NEUTROPHILS % (AUTO) 77.1 % (45.0-75.0); PLATELET COUNT 360 K/UL (150-450); RED BLOOD COUNT 3.86 M/UL (4.20-5.40); RED CELL DISTRIBUTION WIDTH 12.8 % (11.6-14.8); WHITE BLOOD COUNT 12.1 K/UL (4.8-10.8)
[2016-08-31 17:55] LABS: INR 1.1 (0.9-1.1); PROTHROMBIN TIME 10.7 SEC (9.30-11.50)
[2016-08-31 18:00] LABS: TROPONIN I < 0.30 ng/mL (<=0.30)
[2016-08-31 18:03] LABS: ALANINE AMINOTRANSFERASE 20 U/L (3-33); ALBUMIN/GLOBULIN RATIO 0.9 (1.0-2.7); ANION GAP 17 (5-15); ASPARTATE AMINO TRANSFERASE 25 U/L (5-40); CALCIUM 9.2 mg/dL (8.6-10.2); CARBON DIOXIDE 25 mEQ/L (20-30); CHLORIDE 89 mEQ/L (98-107); CREATININE 1.2 mg/dL (0.5-0.9); HEMOLYSIS 2; POTASSIUM 3.8 mEQ/L (3.4-4.9); SODIUM 131 mEQ/L (135-145); TOTAL PROTEIN 6.9 g/dL (6.6-8.7)
[2016-08-31] MEDS ORDERED: Morphine Sulfate 2mg/ml Inj IVP ONE (18:15)
[2016-08-31 18:21] LABS: REFLEX LACTIC ACID YES OR NO YES
[2016-08-31] MEDS ORDERED: LORazepam Inj 2mg/ml 1ml IV ONE (18:30)
--- NOTE | 2016-08-31 18:31 | Emergency Room Report ---
History of Present Illness General Chief Complaint: Dyspnea/Respdistress Source: Patient, Family Member, EMS Present Illness HPI Patient presents with sever respiratory distress. Discharged from hospital just few days ago. EMS did not hear wheezing and only treated patient with oxygen. She states this has not helped. This is one of the most severe attacks she has had. No h/o intubation in the past. H/O COPD. SINGH more than chest pain. Pain 5/10 aching (has recurrent headaches) not radiate. No chills or fever. No NVD, dysuria. Generalized weakness. No rashes. Discharge diagnoses 08/25 1. Hypertensive urgency. 2. Atrial fibrillation with rapid ventricular response. 3. Coronary artery disease. 4. Acute chronic obstructive pulmonary disease exacerbation. 5. Asthma. 6. Chronic pain. 7. Generalized weakness. 8. Acute kidney injury, likely secondary to dehydration, resolved. 9. Anemia. Allergies: Coded Allergies: PENICILLIN G (Verified Allergy, Severe, EXTREME SWELLING OF FACE,TONGUE, HANDS,LEGS., 12/31/11) LEÓN INHIBITORS (Verified Allergy, Unknown, Shortness of Breath, 12/31/11) PENICILLINS (Unverified Allergy, Unknown, 07/08/16) Patient History Past Medical History: see triage record Social History: Reports: smoking - prior, Denies: alcohol use, drug use Social History Narrative in SNF Now: No Reviewed Nursing Documentation: PMH: Agreed, PSxH: Agreed Nursing Documentation-PMH Past Medical History: No History, Except For Hx Cardiac Problems: Yes - A-fib, degenerative arthritis Hx Hypertension: Yes Hx Pacemaker: No Hx Asthma: Yes Hx COPD: Yes Hx Diabetes: No Hx Cancer: No Hx Gastrointestinal Problems: No Hx Dialysis: No Hx Neurological Problems: No Hx Cerebrovascular Accident: No Hx Transient Ischemic Attacks: No Hx Dementia: No Hx Alzheimer's Disease: No Hx Parkinson's Disease: No Hx Meningitis: No Hx Encephalitis: No Hx Seizures: No Hx Epilepsy: No Hx Multiple Sclerosis: No Hx Cerebral Palsy: No Hx Amyotrophic Lat Sclerosis: No Hx Guillian-Fowler Syndrome: No Hx Paralysis: No Hx Peripheral Neuropathy: No Hx Spinal Cord Injury: No Hx Head Trauma: No Hx Traumatic Brain Injury: No Hx Memory Loss: No Hx Concentration Difficulty: No Hx Speech Problem: No Hx Tremors: No Hx Vertigo: No Hx Dizziness: No Hx Syncope: No Hx Headaches: Yes Hx Aphasia: No Hx Dysphasia: No Hx Numbness: No Hx Weakness: No Hx Fatigue: No Hx Neurologic Surgery: No Hx Brain Shunt: No Physical Exam Vital Signs Date Time Temp Pulse Resp B/P Pulse Ox O2 Delivery O2 Flow Rate FiO2 08/31/16 17:11 98.8 101 30 207/90 100 Room Air 08/31/16 17:30 100 Sp02 EP Interpretation: reviewed, normal General Appearance: moderate distress, thin, Chronically Ill Head: normocephalic, atraumatic Eyes: bilateral eye PERRL, bilateral eye normal inspection ENT: moist mucus membranes Neck: supple, no meningismus Respiratory: respiratory distress, wheezing, expiration, inspiration Cardiovascular #1: no edema, tachycardia Gastrointestinal: abnormal bowel sounds - decreased Neurologic: alert, oriented x3 Psychiatric: anxious Skin: warm/dry, other - pink Procedures Critical Care Time Critical Care Time Total Critical Care Time: 30 min bedside evaluation and treatment excludes procedures (EKG). Reason for critical care: respiratory distress, treatment COPD Possible complications: hypotension, shock, arrhythmias, metabolic/respiratory acidosis, end organ damage, respiratory failure. Interventions: aggressive treatment albuterol, solumedrol, BIPAP, magnesium, ativan, morphine Course: Patient presented with severe respiratory distress without treatment in field. Despite aggressive treatment and decresed wheezing, patient still with resp distress. BIPAP initiated with minimal help initially. Tachycardic with breathing treatments. Repeated evaluations led to treatment with ativan, morpine and magnesium. Several re-evaluations for assessment and treatment with improvement. Family with input for care and at bedside. Patient improved but critical. Consultations: nursing staff, EMS, RT, family Performed by: Dr. Sol Tolerated: well Condition: critical Medical Decision Making Diagnostic Impression: Primary Impression: COPD (chronic obstructive pulmonary disease) Qualified Codes: J44.1 - Chronic obstructive pulmonary disease with (acute) exacerbation Additional Impressions: Sinus tachycardia with PACs Anxiety ER Course Patient with respiratory distress with h/o emphysema. Ddx: pneumonia, exacerbation of COPD, pneumothorax, AMI, bronchitis, CHF, anxiety amongst others. In significant distress. Emergent evaluation with EKG, CXR, labs. Will treat with beta agents, BIPAP, solumedrol. C/O headache also. Patient still with resp distress. On BIPAP. Morphine given for SINGH. Clearer. Labs significant for slight leukocytosis, elevated lactic acid, mild renal insufficiency. Not appear infective source. Increased work with breathing, doubt sepsis. Hydration still ordered. Magnesium and ativan ordered. Improved with these. Family and patient requesting Rx for ativan. Admit FELIZ Dr. Inman. Laboratory Tests Test 08/31/16 17:35 08/31/16 20:15 White Blood Count 12.1 K/UL (4.8-10.8) H Red Blood Count 3.86 M/UL (4.20-5.40) L Hemoglobin 10.4 G/DL (12.0-16.0) L Hematocrit 31.4 % (37.0-47.0) L Mean Corpuscular Volume 81 FL (80-99) Mean Corpuscular Hemoglobin 27.0 PG (27.0-31.0) Mean Corpuscular Hemoglobin Concent 33.2 G/DL (32.0-36.0) Red Cell Distribution Width 12.8 % (11.6-14.8) Platelet Count 360 K/UL (150-450) Mean Platelet Volume 5.9 FL (6.5-10.1) L Neutrophils (%) (Auto) 77.1 % (45.0-75.0) H Lymphocytes (%) (Auto) 17.7 % (20.0-45.0) L Monocytes (%) (Auto) 4.5 % (1.0-10.0) Eosinophils (%) (Auto) 0.0 % (0.0-3.0) Basophils (%) (Auto) 0.6 % (0.0-2.0) Prothrombin Time 10.7 SEC (9.30-11.50) Prothrombin Time INR 1.1 (0.9-1.1) PTT 26 SEC (23-33) Sodium Level 131 mEQ/L (135-145) L Potassium Level 3.8 mEQ/L (3.4-4.9) Chloride Level 89 mEQ/L (98-107) L Carbon Dioxide Level 25 mEQ/L (20-30) Anion Gap 17 (5-15) H Blood Urea Nitrogen 24 mg/dL (7-23) H Creatinine 1.2 mg/dL (0.5-0.9) H Estimate Glomerular Filtration Rate mL/min (>60) Glucose Level 145 mg/dL (74-106) H Lactic Acid Level 2.90 mmol/L (0.66-2.22) H 1.60 mmol/L (0.66-2.22) Calcium Level 9.2 mg/dL (8.6-10.2) Total Bilirubin 0.3 mg/dL (0.0-1.2) Aspartate Amino Transferase (AST) 25 U/L (5-40) Alanine Aminotransferase (ALT) 20 U/L (3-33) Alkaline Phosphatase 110 U/L (35-104) H Total Creatine Kinase 33 U/L (26-140) Troponin I < 0.30 ng/mL (<=0.30) Pro-B-Type Natriuretic Peptide 1004 pg/mL (0-450) H Total Protein 6.9 g/dL (6.6-8.7) Albumin 3.3 g/dL (3.5-5.2) L Globulin 3.6 g/dL Albumin/Globulin Ratio 0.9 (1.0-2.7) L Urine Color Pale yellow Urine Appearance Clear Urine pH 7 (4.5-8.0) Urine Specific [place] 1.005 (1.005-1.035) Urine Protein Negative (NEGATIVE) Urine Glucose (UA) Negative (NEGATIVE) Urine Ketones Negative (NEGATIVE) Urine Occult Blood Negative (NEGATIVE) Urine Nitrite Negative (NEGATIVE) Urine Bilirubin Negative (NEGATIVE) Urine Urobilinogen Normal MG/DL (0.0-1.0) Urine Leukocyte Esterase 1+ (NEGATIVE) H Urine RBC 0-2 /HPF (0 - 2) Urine WBC 0-2 /HPF (0 - 2) Urine Squamous Epithelial Cells Occasional /LPF Urine Bacteria Occasional /HPF (NONE) Microbiology Date/Time Source Procedure Growth Status 08/31/16 18:00 Nasal Nares Influenza Types A,B Antigen (SIMONE) - Final Complete EKG Diagnostic Results Rate: normal Rhythm: NSR ST Segments: no acute changes Rhythm Strip Diag. Results EP Interpretation: yes Rhythm: NSR, other - PACs LVH Chest X-Ray Diagnostic Results EP Interpretation: Yes Findings: no consolidation, no effusion, no pneumothorax, other Number of Views: 1 Last Vital Signs Date Time Temp Pulse Resp B/P Pulse Ox O2 Delivery O2 Flow Rate FiO2 09/01/16 00:45 97.3 79 24 139/70 100 Nasal Cannula 3.0 09/01/16 00:20 30 Status: improved Disposition: ADMITTED INPATIENT Condition: Critical Referrals: MARGARET INMAN (PCP) Braxton Sol M.D. Aug 31, 2016 18:30
[2016-08-31 19:21] VITALS: BP 144/67
[2016-08-31 20:31] LABS: APPEARANCE,URINE CLEAR; KETONES,URINE NEGATIVE (NEGATIVE); LEUKOCYTE ESTERASE ,URINE 1+ (NEGATIVE); NITRITE,URINE NEGATIVE (NEGATIVE); PH,URINE 7 (4.5-8.0); PROTEIN,URINE NEGATIVE (NEGATIVE); UROBILINOGEN,URINE NORMAL MG/DL (0.0-1.0)
[2016-08-31 20:34] VITALS: BP 153/78
[2016-08-31 20:35] LABS: RBC,URINE 0-2 /HPF (0 - 2)
[2016-08-31 20:36] LABS: BACTERIA,URINE OCCASIONAL /HPF; SQUAMOUS EPITHELIAL CELL,UR OCCASIONAL /LPF (NONE/OCC); WBC,URINE 0-2 /HPF (0 - 2)
[2016-08-31 21:56] VITALS: BP 121/38
[2016-08-31 23:17] VITALS: BP 115/78
[2016-09-01] VITALS (7 sets, daily range): BP systolic 120–162; BP diastolic 67–88
[2016-09-01] MEDS ORDERED: DuoNeb 0.5-3(2.5)mg/3ml neb HHN PRN (02:30)
[2016-09-01] MEDS: Tylenol #3 tab (300mg/30mg) ORAL PRN ×3 (03:34→16:42)
[2016-09-01] MEDS: Solu-MEDROL 125mg Inj IVP SCH ×3 (06:02→21:03)
[2016-09-01] MEDS: Heparin 5000 units/ml inj SUBQ SCH ×2 (08:51→21:01)
--- NOTE | 2016-09-01 10:55 | Diagnostic Imaging Report ---
Indication: COPD Technique: One view of the chest Comparison: 08/15/2016 Findings: Lungs and pleural spaces are clear. Heart size is upper limits normal. Aorta is tortuous calcified and ectatic. Granulomatous calcifications are seen in the left suprahilar region. Findings are unchanged Impression: No acute process This agrees with the preliminary interpretation provided by the emergency room physician
--- NOTE | 2016-09-01 18:39 | Consultation ---
History of Present Illness General Date patient seen: Sep 01, 2016 Chief Complaint: Dyspnea/Respdistress Referring physician: Dr. Rodrigues Reason for Consultation: Dyspnea Present Illness HPI 86 year old female with hx of COPD,. asthma, recurrent recent hospitalization brought in by paramedics to ER with CC of acute onset of dyspnea. Her cxr was negative, she responded to respiratory treatment somewhat. She is admitted for acute exacerbation of her COPD and bronchitis. Allergies: Coded Allergies: PENICILLIN G (Verified Allergy, Severe, EXTREME SWELLING OF FACE,TONGUE, HANDS,LEGS., 12/31/11) LEÓN INHIBITORS (Verified Allergy, Unknown, Shortness of Breath, 12/31/11) PENICILLINS (Unverified Allergy, Unknown, 07/08/16) Medication History Scheduled Albuterol Sulfate (Ventolin Hfa), 2 PUFFS INH TID, (Reported) Amlodipine Besylate (Norvasc), 10 MG ORAL DAILY, (Reported) Apixaban (Eliquis), 2.5 MG PO BID, (Reported) Aspirin* (Aspir 81*), 81 MG ORAL DAILY, (Reported) Budesonide/Formoterol Fumarate (Symbicort 160-4.5 Mcg Inhaler), 2 PUFF IH BID, ( Reported) Clonidine Hcl (Clonidine Hcl), 0.1 MG PO BID Digoxin* (Digoxin*), 0.125 MG ORAL DAILY, (Reported) Diltiazem Hcl (Cardizem), 180 MG PO DAILY, (Reported) Pantoprazole* (Pantoprazole*), 40 MG ORAL DAILY, (Reported) Pravastatin Sod (Pravastatin Sod), 80 MG PO QHS, (Reported) Prednisolone* (Prelone*), 10 MG ORAL DAILY, (Reported) Scheduled PRN Acetaminophen With Codeine (T#3) (Tylenol #3 Tab*), 1 TAB ORAL Q6H PRN for For Pain, (Reported) Patient History Healthcare decision maker pt alert and oriented Resuscitation status Advanced Directive on File No Past Medical/Surgical History Past Medical/Surgical History: (1) History of hypertension (2) Anemia (3) COPD (chronic obstructive pulmonary disease) Review of Systems All Other Systems: negative except mentioned in HPI Physical Exam Lines, tubes and drains: peripheral, central line HEENT: normocephalic, atraumatic Neck: non-tender, normal alignment Respiratory/Chest: chest wall non-tender, decreased breath sounds, rhonchi - bilaterally Cardiovascular/Chest: normal peripheral pulses, normal rate Abdomen: normal bowel sounds, non tender Genitourinary/Rectal: normal genital exam, normal rectal exam Extremities: normal range of motion, non-tender 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, no motor/sensory deficits Last 24 Hour Vital Signs Date Time Temp Pulse Resp B/P Pulse Ox O2 Delivery O2 Flow Rate FiO2 09/01/16 17:41 97.7 09/01/16 16:00 97.7 83 18 155/88 100 Room Air 09/01/16 12:00 97.5 73 18 155/67 100 Room Air 09/01/16 08:00 97.9 69 20 162/80 100 Nasal Cannula 3.0 09/01/16 08:00 94 09/01/16 06:55 75 20 Nasal Cannula 2.0 28 09/01/16 05:31 Nasal Cannula 2.0 09/01/16 05:31 95 Nasal Cannula 2.0 09/01/16 04:00 97.9 66 20 148/68 100 Nasal Cannula 3.0 09/01/16 04:00 84 09/01/16 01:00 108 09/01/16 00:45 97.3 79 24 139/70 100 Nasal Cannula 3.0 09/01/16 00:20 98.6 84 17 120/76 100 Bi-pap 30 09/01/16 00:20 98.6 84 17 120/76 100 Bi-pap 30 08/31/16 23:17 98.8 94 18 115/78 100 30 08/31/16 23:12 101 18 100 Facial 30 08/31/16 21:56 98.8 101 16 121/38 100 30 08/31/16 21:32 92 16 100 Facial 30 08/31/16 20:34 98.8 105 20 153/78 100 Bi-pap 30 08/31/16 19:21 98.8 105 19 144/67 100 Bi-pap 30 08/31/16 18:48 98.8 Intake and Output 08/31/16 09/01/16 19:00 07:00 Intake Total 1220 ml Balance 1220 ml Intake Oral 120 ml IV Total 1100 ml # Voids 3 Laboratory Tests Test 08/31/16 20:15 Urine Color Pale yellow Urine Appearance Clear Urine pH 7 (4.5-8.0) Urine Specific Angela 1.005 (1.005-1.035) Urine Protein Negative (NEGATIVE) Urine Glucose (UA) Negative (NEGATIVE) Urine Ketones Negative (NEGATIVE) Urine Occult Blood Negative (NEGATIVE) Urine Nitrite Negative (NEGATIVE) Urine Bilirubin Negative (NEGATIVE) Urine Urobilinogen Normal MG/DL (0.0-1.0) Urine Leukocyte Esterase 1+ (NEGATIVE) H Urine RBC 0-2 /HPF (0 - 2) Urine WBC 0-2 /HPF (0 - 2) Urine Squamous Epithelial Cells Occasional /LPF Urine Bacteria Occasional /HPF (NONE) Lactic Acid Level 1.60 mmol/L (0.66-2.22) Height (Feet): 5 Height (Inches): 4.00 Weight (Pounds): 120 Medications Current Medications Medications (Trade) Dose Ordered Sig/Theodore Route PRN Reason Start Time Stop Time Status Last Admin Dose Admin Acetaminophen/ Codeine Phosphate 1 tab 1 tab Q4H PRN ORAL For Pain 09/01/16 02:30 09/08/16 02:29 09/01/16 16:42 Albuterol/ Ipratropium (DuoNeb 0.5-3(2.5)mg/3ml) 3 ml Q4H PRN HHN Shortness of Breath 09/01/16 02:30 09/06/16 02:29 Heparin Sodium (Porcine) (Heparin 5000 units/ml) 5,000 units EVERY 12 HOURS SUBQ 09/01/16 09:00 10/01/16 08:59 09/01/16 08:51 Levofloxacin (Levaquin) 100 ml @ 100 mls/hr Q24H IVPB 09/01/16 18:45 09/08/16 18:44 UNV Methylprednisolone Sodium Succinate (Solu-MEDROL) 60 mg EVERY 8 HOURS IVP 09/01/16 06:00 10/01/16 05:59 09/01/16 13:10 Pantoprazole (Protonix) 40 mg DAILY ORAL 09/01/16 09:00 10/01/16 08:59 09/01/16 08:49 Promethazine HCl/ Codeine (Phenergan with Codeine) 5 ml Q4H PRN ORAL For Cough 09/01/16 18:45 10/01/16 18:44 UNV Assessment/Plan Problem List: (1) acute asthma exacerbation (2) Acute bronchitis ICD Codes: J20.9 - Acute bronchitis,unspecified SNOMED: 34719029 (3) History of hypertension ICD Codes: Z86.79 - Personal history of other diseases of the circulatory system SNOMED: 213552317 (4) COPD (chronic obstructive pulmonary disease) ICD Codes: J44.9 - Chronic obstructive pulmonary disease, unspecified SNOMED: 98954774 Assessment/Plan respiratory treatment Iv steroids IV antibiotics ( avoid steroids) check electrolytes check sputum for c/s HOMERO HARRELL Sep 01, 2016 18:39
[2016-09-01] MEDS ORDERED: Promethazine/Codeine 5ml UD ORAL PRN (18:45)
--- NOTE | 2016-09-01 19:48 | Cardiology Report ---
APPROVED REPORT EKG Measurement Heart [id number] Sinus rhythm with premature supraventricular complexes Minimal voltage criteria for LVH, may be normal variant Nonspecific ST and T wave abnormality Abnormal ECG
[2016-09-01] MEDS: Norco 5mg/325mg tab ORAL PRN (19:55)
--- NOTE | 2016-09-01 22:18 | History and Physical Report ---
DATE OF ADMISSION: 08/31/2016 HISTORY OF PRESENT ILLNESS: The patient is an 86-year-old female, who has been multiple admissions, living at home, came to the emergency room for short of breath and chest pain. The patient is currently alert and awake. She is still feeling short of breath, but claims she is doing better. She has no distress. PAST MEDICAL HISTORY: Significant for hypertension, atrial fibrillation, COPD, atrial fibrillation, and had a malignant hypertension. MEDICATIONS: She is taking Tylenol No. 3, magnesium, bronchodilator treatments and Cardizem. ALLERGIES: NKDA. FAMILY HISTORY: Noncontributory. SOCIAL HISTORY: The patient lives at home with daughter. Denies any smoking and drinking. REVIEW OF SYSTEMS: Generalized weakness, tired, fatigue, recurrent chest pain, has been hospitalized multiple times within two months. PHYSICAL EXAMINATION: VITAL SIGNS: Blood pressure 155/67, pulse 73, respirations 18, and temperature 97.5 degrees. HEENT: AT/NC. EOMI. PERRLA. NECK: Supple. No JVD. CHEST: Bilateral scattered wheezing and crackles. CARDIOVASCULAR: Regular rhythm. No gallop. No murmur. ABDOMEN: Soft. EXTREMITIES: CCE. NEUROLOGICAL: Generalized weakness. GENITOURINARY: Deferred. SKIN: Good skin turgor. LABORATORY DATA: White counts are 12,000, hemoglobin 10, and hematocrit 31. Chemistry, sodium 131, potassium 3.8, BUN 24 and creatinine 1.2. Lactic acid is 2.90 to 1.60. Troponin is 0.04. BNP is 1004. Albumin is 3.3. Her urine is negative 1+ leukocyte esterase. Her chest x-ray as preliminary probably in emergency room shows lungs clear, respirations are clear, heart size upper limit tortuous. ASSESSMENT: 1. Acute chronic obstructive pulmonary disease. 2. Recurrent chest pain. 3. Hypertension. 4. Acute kidney disease. 5. Generalized weakness. 6. Arthritis. PLAN: We will consider pulmonary consult. Continue PPIs. Continue Solu-Medrol. Bronchodilator treatment. Tylenol No. 4. Continue Zofran as needed for nausea and vomiting. Jeronimo Rodrigues M.D. DR: DAWN JOB#: [id number] CC:
[2016-09-02] VITALS: BP 158/85
[2016-09-02] MEDS: Norco 5mg/325mg tab ORAL PRN ×3 (01:57→21:05)
[2016-09-02 04:00] VITALS: BP 148/82
[2016-09-02 04:51] LABS: BASOPHILS % (AUTO) 0.5 % (0.0-2.0); LYMPHOCYTES % (AUTO) 17.7 % (20.0-45.0); MEAN CORPUSCULAR HEMOGLOBIN 26.7 PG (27.0-31.0); MEAN CORPUSCULAR HGB CONC 32.3 G/DL (32.0-36.0); MEAN CORPUSCULAR VOLUME 82 FL (80-99); MEAN PLATELET VOLUME 5.5 FL (6.5-10.1); MONOCYTES % (AUTO) 6.3 % (1.0-10.0); NEUTROPHILS % (AUTO) 75.5 % (45.0-75.0); PLATELET COUNT 365 K/UL (150-450); RED BLOOD COUNT 3.38 M/UL (4.20-5.40); RED CELL DISTRIBUTION WIDTH 13.6 % (11.6-14.8); WHITE BLOOD COUNT 9.3 K/UL (4.8-10.8)
[2016-09-02 05:06] LABS: ALANINE AMINOTRANSFERASE 14 U/L (3-33); ALBUMIN/GLOBULIN RATIO 0.9 (1.0-2.7); ANION GAP 10 (5-15); ASPARTATE AMINO TRANSFERASE 14 U/L (5-40); CALCIUM 8.2 mg/dL (8.6-10.2); CARBON DIOXIDE 27 mEQ/L (20-30); CHLORIDE 97 mEQ/L (98-107); CREATININE 0.9 mg/dL (0.5-0.9); HEMOLYSIS 2; POTASSIUM 4.3 mEQ/L (3.4-4.9); SODIUM 134 mEQ/L (135-145); TOTAL PROTEIN 5.6 g/dL (6.6-8.7)
[2016-09-02] MEDS: Solu-MEDROL 125mg Inj IVP SCH ×2 (06:02→14:10)
[2016-09-02 08:00] VITALS: BP 143/60
[2016-09-02] MEDS: Heparin 5000 units/ml inj SUBQ SCH ×2 (08:11→21:07)
[2016-09-02] MEDS ORDERED: Tylenol #3 tab (300mg/30mg) ORAL PRN (11:15)
[2016-09-02] MEDS ORDERED: Norco 5mg/325mg tab ORAL PRN ×2 (11:31→17:31)
[2016-09-02 12:00] VITALS: BP 164/88
--- NOTE | 2016-09-02 12:05 | Diagnostic Imaging Report ---
Indication: DYSPNEA Technique: One view of the chest Comparison: 08/31/2016 Findings: Lungs and pleural spaces remain clear. Heart size is normal. Aorta is calcified. No significant change Impression: No acute process
--- NOTE | 2016-09-02 14:52 | Pulmonology Progress Note ---
Assessment/Plan Problems: (1) acute asthma exacerbation (2) Acute bronchitis (3) History of hypertension (4) COPD (chronic obstructive pulmonary disease) Assessment/Plan respiratory treatment Iv steroids, tape fast IV antibiotics ( avoid steroids) check electrolytes check sputum for c/s, still pending can go to med/surg Subjective ROS Limited/Unobtainable: No Interval Events: feeling much better, less SOB Constitutional: Reports: no symptoms Allergies: Coded Allergies: PENICILLIN G (Verified Allergy, Severe, EXTREME SWELLING OF FACE,TONGUE, HANDS,LEGS., 12/31/11) LEÓN INHIBITORS (Verified Allergy, Unknown, Shortness of Breath, 12/31/11) PENICILLINS (Unverified Allergy, Unknown, 07/08/16) Objective Last 24 Hour Vital Signs Date Time Temp Pulse Resp B/P Pulse Ox O2 Delivery O2 Flow Rate FiO2 09/02/16 13:05 96.8 09/02/16 12:00 97.7 71 164/88 09/02/16 09:08 96.8 09/02/16 08:00 97.5 69 143/60 09/02/16 08:00 110 09/02/16 06:49 Room Air 21 09/02/16 06:49 80 20 Room Air 21 09/02/16 06:49 98 Room Air 21 09/02/16 06:12 80 20 100 Room Air 21 09/02/16 06:12 21 09/02/16 06:11 78 20 99 Room Air 21 09/02/16 04:00 96.8 70 20 148/82 98 Room Air 09/02/16 04:00 75 09/02/16 00:00 81 09/02/16 00:00 97.0 75 18 158/85 99 Room Air 09/01/16 20:00 83 09/01/16 19:53 97.6 85 18 149/68 100 Room Air 09/01/16 19:30 98 Room Air 21 09/01/16 19:30 Room Air 21 09/01/16 19:30 82 20 Room Air 21 09/01/16 17:41 97.7 09/01/16 16:00 97.7 83 18 155/88 100 Room Air 09/01/16 16:00 72 Intake and Output 09/01/16 09/02/16 19:00 07:00 Intake Total 100 ml Balance 100 ml IV Total 100 ml # Voids 6 General Appearance: WD/WN HEENT: normocephalic, atraumatic Respiratory/Chest: chest wall non-tender, lungs clear Cardiovascular: normal peripheral pulses, normal rate Abdomen: normal bowel sounds, soft, non tender Genitourinary: normal external genitalia Skin: no rash 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 Complete 08/31/16 17:53 Rectum VRE Culture - Final NO VANCOMYCIN RESISTANT ENTEROCOCCUS ... Complete Laboratory Tests 09/02/16 03:14: White Blood Count 9.3, Red Blood Count 3.38L, Hemoglobin 9.0L, Hematocrit 27.9L , Mean Corpuscular Volume 82, Mean Corpuscular Hemoglobin 26.7L, Mean Corpuscular Hemoglobin Concent 32.3, Red Cell Distribution Width 13.6, Platelet Count 365, Mean Platelet Volume 5.5L, Neutrophils (%) (Auto) 75.5H, Lymphocytes (%) (Auto) 17.7L, Monocytes (%) (Auto) 6.3, Eosinophils (%) (Auto) 0.0, Basophils (%) (Auto) 0.5, Sodium Level 134L, Potassium Level 4.3, Chloride Level 97L, Carbon Dioxide Level 27, Anion Gap 10, Blood Urea Nitrogen 19, Creatinine 0.9, Estimat Glomerular Filtration Rate , Glucose Level 133H, Calcium Level 8.2L, Total Bilirubin < 0.2, Aspartate Amino Transf (AST/SGOT) 14 , Alanine Aminotransferase (ALT/SGPT) 14, Alkaline Phosphatase 77, Pro-B-Type Natriuretic Peptide 1701H, Total Protein 5.6L, Albumin 2.7L, Globulin 2.9, Albumin/Globulin Ratio 0.9L Current Medications Medications (Trade) Dose Ordered Sig/Theodore Route PRN Reason Start Time Stop Time Status Last Admin Dose Admin Acetaminophen/ Codeine Phosphate (Tylenol #3) 1 tab Q6H PRN ORAL BREAKTHROUGH PAIN 09/02/16 11:15 09/09/16 11:14 09/02/16 12:01 Acetaminophen/ Hydrocodone Bitart ([place] 5/325) 1 tab Q6H PRN ORAL PAIN 4-10 09/02/16 17:31 09/08/16 19:14 Albuterol/ Ipratropium (DuoNeb 0.5-3(2.5)mg/3ml) 3 ml Q4H PRN HHN Shortness of Breath 09/01/16 02:30 09/06/16 02:29 09/02/16 06:11 Heparin Sodium (Porcine) (Heparin 5000 units/ml) 5,000 units EVERY 12 HOURS SUBQ 09/01/16 09:00 10/01/16 08:59 09/02/16 08:11 Levofloxacin (Levaquin) 50 ml @ 50 mls/hr Q24H IVPB 09/02/16 20:00 09/09/16 19:59 Methylprednisolone Sodium Succinate (Solu-MEDROL) 60 mg EVERY 8 HOURS IVP 09/01/16 06:00 10/01/16 05:59 09/02/16 14:10 Pantoprazole (Protonix) 40 mg DAILY ORAL 09/01/16 09:00 10/01/16 08:59 09/02/16 08:09 Promethazine HCl/ Codeine 5 ml 5 ml Q4H PRN ORAL For Cough 09/01/16 18:45 10/01/16 18:44 HOMERO HARRELL Sep 02, 2016 14:52
[2016-09-02 16:00] VITALS: BP 130/83
[2016-09-02] MEDS ORDERED: Promethazine/Codeine 5ml UD ORAL PRN (17:00)
[2016-09-02] MEDS: Tylenol #3 tab (300mg/30mg) ORAL PRN (18:38)
[2016-09-02 19:00] VITALS: BP 186/84
[2016-09-02] MEDS ORDERED: Levofloxacin 250mg/D5W 50ml IVPB SCH (20:00)
[2016-09-02] MEDS: DuoNeb 0.5-3(2.5)mg/3ml neb HHN PRN (20:54)
[2016-09-03] VITALS: BP 156/73
[2016-09-03] MEDS: Tylenol #3 tab (300mg/30mg) ORAL PRN ×2 (00:34→10:46)
[2016-09-03 04:00] VITALS: BP 144/78
[2016-09-03] MEDS: Norco 5mg/325mg tab ORAL PRN ×2 (05:08→21:07)
[2016-09-03 07:23] LABS: BASOPHILS % (AUTO) 0.6 % (0.0-2.0); LYMPHOCYTES % (AUTO) 26.7 % (20.0-45.0); MEAN CORPUSCULAR HEMOGLOBIN 27.3 PG (27.0-31.0); MEAN CORPUSCULAR HGB CONC 32.6 G/DL (32.0-36.0); MEAN CORPUSCULAR VOLUME 84 FL (80-99); MEAN PLATELET VOLUME 5.8 FL (6.5-10.1); NEUTROPHILS % (AUTO) 62.7 % (45.0-75.0); PLATELET COUNT 386 K/UL (150-450); RED BLOOD COUNT 3.45 M/UL (4.20-5.40); RED CELL DISTRIBUTION WIDTH 13.8 % (11.6-14.8); WHITE BLOOD COUNT 13.2 K/UL (4.8-10.8)
--- NOTE | 2016-09-03 07:28 | Progress Note ---
DATE: 09/02/2016 SUBJECTIVE: She is an elderly 86-year-old female, currently sitting in the bed, feeling generalized weakness. Short of breath is improved. cough. No fever. No chills. PHYSICAL EXAMINATION: GENERAL: This is an elderly female, who is currently awake, is slowly improving. VITAL SIGNS: Blood pressure is 160/90, pulse 74, and respirations 18. SKIN: Good skin turgor. HEENT: AT/NC. EOMI. PERRLA NECK: Supple. No JVD. CHEST: Clear chest bilaterally. Scattered wheezing. CARDIOVASCULAR: Regular rhythm. No gallop. No murmur. ABDOMEN: Soft. EXTREMITIES: CCE. NEUROLOGICAL: The patient has generalized weakness. GENITOURINARY: Deferred. LABORATORY EXAMINATION: No labs today. ASSESSMENT: 1. Acute chronic obstructive pulmonary disease. 2. . 3. Hypertension. 4. Degenerative arthritis. PLAN: 1. We will admit on FELIZ. 2. Continue bronchodilator treatment. 3. Continue steroids. 4. Continue IV antibiotics. 5. Pulmonary is on the case. 6. Continue supportive treatment. 7. Discuss with the doctor. Jeronimo Rodrigues M.D. DR: MYLA JOB#: [id number] CC:
[2016-09-03 07:37] LABS: ALANINE AMINOTRANSFERASE 18 U/L (3-33); ALBUMIN/GLOBULIN RATIO 0.9 (1.0-2.7); ANION GAP 11 (5-15); ASPARTATE AMINO TRANSFERASE 21 U/L (5-40); CALCIUM 8.7 mg/dL (8.6-10.2); CARBON DIOXIDE 29 mEQ/L (20-30); CHLORIDE 99 mEQ/L (98-107); CRP QUANT 0.4 mg/dL (< 0.5); HEMOLYSIS 5; PHOSPHORUS 2.8 mg/dL (2.5-4.8); SODIUM 139 mEQ/L (135-145); TOTAL PROTEIN 5.7 g/dL (6.6-8.7)
[2016-09-03 07:59] VITALS: BP 146/76
[2016-09-03] MEDS ORDERED: Solu-MEDROL 125mg Inj IVP SCH ×2 (09:00)
[2016-09-03] MEDS: Solu-MEDROL 40mg Inj IVP SCH ×2 (09:17→20:47)
[2016-09-03] MEDS: Heparin 5000 units/ml inj SUBQ SCH ×2 (09:20→20:51)
[2016-09-03] MEDS ORDERED: AZITHROMYCIN250 MG ORAL (10:16)
[2016-09-03] MEDS ORDERED: MEDROL4 MG ORAL (10:16)
[2016-09-03 11:28] VITALS: BP 152/69
[2016-09-03 11:47] LABS: ERYTHROCYTE SEDIMENTATION RATE 29 MM/HR (0-42)
[2016-09-03] MEDS: DuoNeb 0.5-3(2.5)mg/3ml neb HHN PRN ×2 (11:52→15:25)
[2016-09-03 16:00] VITALS: BP 145/72
[2016-09-03 19:00] VITALS: BP 121/48
--- NOTE | 2016-09-03 23:17 | Pulmonology Progress Note ---
Assessment/Plan Problems: (1) acute asthma exacerbation (2) Acute bronchitis (3) History of hypertension (4) COPD (chronic obstructive pulmonary disease) Assessment/Plan respiratory treatment Iv steroids, tape fast IV antibiotics ( check electrolytes check sputum for c/s, still pending dc planning Subjective ROS Limited/Unobtainable: No Interval Events: no new complains Allergies: Coded Allergies: PENICILLIN G (Verified Allergy, Severe, EXTREME SWELLING OF FACE,TONGUE, HANDS,LEGS., 12/31/11) LEÓN INHIBITORS (Verified Allergy, Unknown, Shortness of Breath, 12/31/11) PENICILLINS (Unverified Allergy, Unknown, 07/08/16) Objective Last 24 Hour Vital Signs Date Time Temp Pulse Resp B/P Pulse Ox O2 Delivery O2 Flow Rate FiO2 09/03/16 22:06 97.7 09/03/16 19:21 98 Room Air 21 09/03/16 19:21 Room Air 21 09/03/16 19:20 85 18 Room Air 09/03/16 19:00 97.7 82 20 121/48 100 Nasal Cannula 3.0 09/03/16 16:00 96.8 71 20 145/72 100 Nasal Cannula 3.0 09/03/16 15:33 80 16 100 Room Air 21 09/03/16 15:20 79 20 99 Room Air 21 09/03/16 15:20 21 09/03/16 11:59 76 16 100 Room Air 21 09/03/16 11:52 78 20 99 Room Air 21 09/03/16 11:52 21 09/03/16 11:28 97.9 83 19 152/69 100 Room Air 09/03/16 10:43 146/76 09/03/16 07:59 97.7 70 19 146/76 99 Room Air 09/03/16 07:32 Room Air 21 09/03/16 07:31 98 Room Air 21 09/03/16 07:30 75 16 Room Air 09/03/16 04:00 96.7 72 18 144/78 98 Room Air 09/03/16 01:33 97.9 09/03/16 00:00 97.7 68 18 156/73 99 Room Air Intake and Output 09/02/16 09/03/16 19:00 07:00 Intake Total 290 ml Balance 290 ml Intake Oral 240 ml IV Total 50 ml # Voids 1 4 General Appearance: WD/WN, no acute distress HEENT: normocephalic, atraumatic Respiratory/Chest: chest wall non-tender, lungs clear Breasts: no masses, no discharge Cardiovascular: normal peripheral pulses Abdomen: normal bowel sounds, no organomegaly Laboratory Tests 09/03/16 05:20: White Blood Count 13.2H, Red Blood Count 3.45L, Hemoglobin 9.4L, Hematocrit 28.9L, Mean Corpuscular Volume 84, Mean Corpuscular Hemoglobin 27.3, Mean Corpuscular Hemoglobin Concent 32.6, Red Cell Distribution Width 13.8, Platelet Count 386, Mean Platelet Volume 5.8L, Neutrophils (%) (Auto) 62.7, Lymphocytes ( %) (Auto) 26.7, Monocytes (%) (Auto) 10.0, Eosinophils (%) (Auto) 0.0, Basophils (%) (Auto) 0.6, Erythrocyte Sedimentation Rate 29, Sodium Level 139, Potassium Level 4.0, Chloride Level 99, Carbon Dioxide Level 29, Anion Gap 11, Blood Urea Nitrogen 23, Creatinine 1.0H, Estimat Glomerular Filtration Rate , Glucose Level 87, Calcium Level 8.7, Phosphorus Level 2.8, Magnesium Level 2.0, Total Bilirubin < 0.2, Aspartate Amino Transf (AST/SGOT) 21, Alanine Aminotransferase (ALT/SGPT) 18, Alkaline Phosphatase 83, C-Reactive Protein, Quantitative 0.4, Total Protein 5.7L, Albumin 2.8L, Globulin 2.9, Albumin/ Globulin Ratio 0.9L Current Medications Medications (Trade) Dose Ordered Sig/Theodore Route PRN Reason Start Time Stop Time Status Last Admin Dose Admin Acetaminophen/ Codeine Phosphate (Tylenol #3) 1 tab Q6H PRN ORAL BREAKTHROUGH PAIN 09/02/16 17:15 09/09/16 17:14 09/03/16 10:46 Acetaminophen/ Hydrocodone Bitart ([place] 5/325) 1 tab Q6H PRN ORAL PAIN 4-10 09/02/16 17:45 09/09/16 17:44 09/03/16 21:07 Albuterol/ Ipratropium (DuoNeb 0.5-3(2.5)mg/3ml) 3 ml Q4H PRN HHN Shortness of Breath 09/02/16 17:00 09/07/16 16:59 09/03/16 15:25 Clonidine HCl (Catapres) 0.1 mg EVERY 12 HOURS ORAL 09/03/16 10:00 10/03/16 09:59 09/03/16 10:43 Heparin Sodium (Porcine) (Heparin 5000 units/ml) 5,000 units EVERY 12 HOURS SUBQ 09/02/16 21:00 10/02/16 20:59 09/03/16 20:51 Levofloxacin (Levaquin) 50 ml @ 50 mls/hr Q24H IVPB 09/02/16 20:00 09/09/16 19:59 09/03/16 20:48 Methylprednisolone Sodium Succinate (Solu-MEDROL) 20 mg EVERY 12 HOURS IVP 09/03/16 10:00 10/03/16 09:59 09/03/16 20:47 Pantoprazole (Protonix) 40 mg DAILY ORAL 09/03/16 09:00 10/03/16 08:59 09/03/16 09:17 Promethazine HCl/ Codeine (Phenergan with Codeine) 5 ml Q4H PRN ORAL For Cough 09/02/16 17:00 10/02/16 16:59 HOMERO HARRELL Sep 03, 2016 23:17
[2016-09-04] VITALS: BP 144/66
[2016-09-04] MEDS: Norco 5mg/325mg tab ORAL PRN ×2 (03:42→13:39)
[2016-09-04 04:00] VITALS: BP 155/71
[2016-09-04] MEDS: Solu-MEDROL 40mg Inj IVP SCH (08:19)
[2016-09-04] MEDS: Tylenol #3 tab (300mg/30mg) ORAL PRN ×2 (08:21→18:02)
[2016-09-04] MEDS: Heparin 5000 units/ml inj SUBQ SCH (08:23)
[2016-09-04 08:29] VITALS: BP 143/64
[2016-09-04 11:27] VITALS: BP 143/48
[2016-09-04] MEDS: DuoNeb 0.5-3(2.5)mg/3ml neb HHN PRN (13:54)
[2016-09-04] MEDS ORDERED: Tubing IV Secondary IV ONE (14:47)
[2016-09-04] MEDS ORDERED: NS 275ml ONE (14:47)
[2016-09-04 15:51] VITALS: BP 131/63
--- NOTE | 2016-09-04 16:41 | Pulmonology Progress Note ---
Assessment/Plan Problems: (1) acute asthma exacerbation (2) Acute bronchitis (3) History of hypertension (4) COPD (chronic obstructive pulmonary disease) Assessment/Plan respiratory treatment Iv steroids, tape fast IV antibiotics check electrolytes check sputum for c/s, still pending dc planning ok to dc to care home today Subjective ROS Limited/Unobtainable: No Interval Events: less short of breath Allergies: Coded Allergies: PENICILLIN G (Verified Allergy, Severe, EXTREME SWELLING OF FACE,TONGUE, HANDS,LEGS., 12/31/11) LEÓN INHIBITORS (Verified Allergy, Unknown, Shortness of Breath, 12/31/11) PENICILLINS (Unverified Allergy, Unknown, 07/08/16) Objective Last 24 Hour Vital Signs Date Time Temp Pulse Resp B/P Pulse Ox O2 Delivery O2 Flow Rate FiO2 09/04/16 15:51 97.7 92 20 131/63 98 Room Air 09/04/16 14:04 83 16 100 Room Air 21 09/04/16 13:54 78 18 100 Room Air 09/04/16 13:54 21 09/04/16 11:27 98.2 81 18 143/48 100 Room Air 09/04/16 08:29 98.1 74 19 143/64 100 Room Air 09/04/16 08:19 155/71 09/04/16 07:50 99 Room Air 09/04/16 07:50 Room Air 09/04/16 07:50 75 16 Room Air 21 09/04/16 04:00 96.4 83 18 155/71 100 Room Air 09/04/16 00:00 97.9 67 18 144/66 100 Room Air 09/03/16 22:06 97.7 09/03/16 19:21 98 Room Air 21 09/03/16 19:21 Room Air 21 09/03/16 19:20 85 18 Room Air 21 09/03/16 19:00 97.7 82 20 121/48 100 Nasal Cannula 3.0 Intake and Output 09/03/16 09/04/16 19:00 07:00 Intake Total 420 ml 240 ml Balance 420 ml 240 ml Intake Oral 420 ml 240 ml # Voids 3 4 Objective General Appearance: cachetic Lines, tubes and drains: peripheral, central line HEENT: normocephalic Neck: non-tender Respiratory/Chest: chest wall non-tender, lungs clear Cardiovascular/Chest: normal peripheral pulses, normal rate Abdomen: normal bowel sounds, non tender Genitourinary/Rectal: normal genital exam Extremities: normal range of motion 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 Current Medications Medications (Trade) Dose Ordered Sig/Theodore Route PRN Reason Start Time Stop Time Status Last Admin Dose Admin Acetaminophen/ Codeine Phosphate (Tylenol #3) 1 tab Q6H PRN ORAL BREAKTHROUGH PAIN 09/02/16 17:15 09/09/16 17:14 09/04/16 08:21 Acetaminophen/ Hydrocodone Bitart ([place] 5/325) 1 tab Q6H PRN ORAL PAIN 4-10 09/02/16 17:45 09/09/16 17:44 09/04/16 13:39 Albuterol/ Ipratropium (DuoNeb 0.5-3(2.5)mg/3ml) 3 ml Q4H PRN HHN Shortness of Breath 09/02/16 17:00 09/07/16 16:59 09/04/16 13:54 Clonidine HCl (Catapres) 0.1 mg EVERY 12 HOURS ORAL 09/03/16 10:00 10/03/16 09:59 09/04/16 08:19 Heparin Sodium (Porcine) (Heparin 5000 units/ml) 5,000 units EVERY 12 HOURS SUBQ 09/02/16 21:00 10/02/16 20:59 09/04/16 08:23 Levofloxacin (Levaquin) 50 ml @ 50 mls/hr Q24H IVPB 09/02/16 20:00 09/09/16 19:59 09/03/16 20:48 Methylprednisolone Sodium Succinate (Solu-MEDROL) 20 mg EVERY 12 HOURS IVP 09/03/16 10:00 10/03/16 09:59 09/04/16 08:19 Pantoprazole (Protonix) 40 mg DAILY ORAL 09/03/16 09:00 10/03/16 08:59 09/04/16 08:20 Promethazine HCl/ Codeine (Phenergan with Codeine) 5 ml Q4H PRN ORAL For Cough 09/02/16 17:00 10/02/16 16:59 HOMERO HARRELL Sep 04, 2016 16:41
--- NOTE | 2016-09-04 22:28 | Discharge Summary ---
DATE OF ADMISSION: 08/31/2016 DATE OF DISCHARGE: 09/04/2016 PROGRESS NOTE/DISCHARGE SUMMARY: HISTORY OF PRESENT ILLNESS: This is an 84-year-old female, currently sitting in bed, comfortable, short of breath is improved. The patient still has some degenerative arthritis. She has no fever. No chills. No nausea or vomiting. PHYSICAL EXAMINATION: VITAL SIGNS: Stable. CHEST: Bilaterally few crackles. CARDIOVASCULAR: Regular rhythm. No gallop. No murmur. ABDOMEN: Soft. Positive bowel sounds. EXTREMITIES: No edema. GENITOURINARY: Examination deferred. ASSESSMENT: 1. Acute chronic obstructive pulmonary disease. 2. Hypertension. 3. Degenerative arthritis. 4. Atrial fibrillation. PLAN: The patient is currently doing better. We will discontinue Solu-Medrol and put her on prednisone. Continue bronchodilator treatment. Discontinue antibiotics. Discontinue plan to . Discussed with the family. Continue DuoNeb. Continue supportive treatment and DuoNeb at halfway. DISCHARGE DIAGNOSES: 1. Acute chronic obstructive pulmonary disease. 2. Atrial fibrillation. 3. Hypertension. 4. Degenerative arthritis. DIET: She is on 2-gram sodium diet. ACTIVITY: As tolerated. MEDICATIONS: See the list from discharge from the hospital. Jeronimo Rodrigues M.D. DR: ERICH JOB#: [id number] CC:
[2016-09-05] MEDS ORDERED: Solu-MEDROL 40mg Inj IVP SCH (09:00)
== END 2016-09-04 18:50 | DRG 191 ==
LOC: EDBD 17:20 → EMR 17:40 → 2W 17:45 → EDBEDREQSVC 18:16 → EDBEDREQ 23:05 → 4E 09-02 16:55
PROC: 5A09357 Assistance with Respiratory Ventilation, Less than 24 Consecutive Hours, Continuous Positive Airway Pressure (ICD-10-PCS; principal; 2016-08-31)
DX: J44.0 Chronic obstructive pulmonary disease with (acute) lower respiratory infection (principal); J45.901 Unspecified asthma with (acute) exacerbation; I48.91 Unspecified atrial fibrillation; J20.9 Acute bronchitis, unspecified; J44.1 Chronic obstructive pulmonary disease with (acute) exacerbation; F41.9 Anxiety disorder, unspecified; R00.0 Tachycardia, unspecified; I10 Essential (primary) hypertension; M19.90 Unspecified osteoarthritis, unspecified site; R07.9 Chest pain, unspecified; Z88.0 Allergy status to penicillin; Z88.8 Allergy status to other drugs, medicaments and biological substances
CPT/HCPCS: 36415; 71010; 80053; 81003; 82550; 83605; 83735; 83880; 84100; 84484; 85025; 85610; 85651; 85730; 86140; 86710; 87040; 87070; 87081; 87205; 93005; 94640; 94664; 94760; J2405; J7620